=== PATIENT | female | born 1945 | race Hispanic/Latino ===

== ENCOUNTER 2021-04-10 00:12 | Inpatient (IN) | payer MEDICARE ==
[2021-04-10 00:50] LABS: Mean Corpuscular HGB Conc 27 % (30-34); Platelet Count 217 K/mm3 (140-440); Red Blood Count 4.77 M/mm3 (3.65-5.03)
[2021-04-10 00:58] LABS: Hematocrit 31.5 % (30.3-42.9); Hemoglobin 8.6 gm/dl (10.1-14.3)
[2021-04-10 00:59] LABS: Mean Corpuscular Volume 66 fl (79-97); Red Cell Distribution Width 27.2 % (13.2-15.2)
[2021-04-10] MEDS ORDERED: NORepinephrine/NS 8 MG-250 ML 8 MG/250 ML INFUS..BTL IV SCH (01:00)
[2021-04-10 01:17] LABS: INR 4.36 (0.87-1.13)
[2021-04-10 01:18] LABS: Partial Thromboplastin Time 49.7 Sec. (24.2-36.6)
[2021-04-10 01:20] LABS: Creatine Kinase MB 10.3 ng/mL (0.0-4.0)
[2021-04-10 01:23] LABS: Calcium 7.9 mg/dL (8.4-10.2)
--- NOTE | 2021-04-10 01:29 | Emergency Department Report ---
ED CPR HPI - General Chief Complaint: Cardiac Arrest/CPR Stated Complaint: CARDIAC ARREST Time Seen by Provider: 04/10/21 00:31 Source: EMS Mode of arrival: Stretcher Limitations: Altered Mental Status, Physical Limitation - History of Present Illness Initial Comments: Patient is 75 years old female with history of congestive heart failure, atrial fibrillation and flutter, diabetes, obstructive sleep apnea, anemia, Crohn's disease and asthma. Patient brought to the emergency room via EMS from a local assisted in a full cardiac arrest, CPR in progress. EMS stated that patient was noticed by the staff taking her last breath. EMS stated that patient found to be apneic with no pulse. ACLS protocol immediately started by EMS patient had a Al airway. Patient received epinephrine and patient had ROSC. Upon arrival to the ER patient found to be pulseless. CPR immediately started. After several rounds of CPR patient has ROSC. Patient intubated by me using a glide scope. Patient lost her pulse several times with no return of ROSC after CPR and epi. Glucose was 120. For further information please refer to code sheets. Complaint: stopped breathing - Related Data Allergies Allergy/AdvReac Type Severity Reaction Status Date / Time hydrochlorothiazide Allergy Mild Hives Verified 04/10/21 09:46 linezolid Allergy Mild Hives Verified 04/10/21 09:46 Sulfa (Sulfonamide Allergy Mild Hives Verified 04/10/21 09:46 Antibiotics) azithromycin Allergy Hives Verified 04/10/21 09:46 ciprofloxacin [From Cipro] Allergy Hives Verified 04/10/21 09:46 docusate Allergy Hives Verified 04/10/21 09:46 ferrous gluconate Allergy Hives Verified 04/10/21 09:46 hydralazine Allergy Hives Verified 04/10/21 09:46 Penicillins Allergy Unknown Verified 04/10/21 07:34 ketorolac tromethamine Allergy Mild Hives Uncoded 04/10/21 07:35 ED Review of Systems ROS: Stated complaint: CARDIAC ARREST Other details as noted in HPI Comment: Unobtainable due to pts medical conditions ED Past Medical Hx - Past Medical History Hx Hypertension: Yes Hx Diabetes: Yes Hx Arthritis: Yes Hx COPD: Yes Additional medical history: Crohn, a -flutter, A-fib, - Surgical History Past Surgical History?: No - Social History Smoking Status: Never Smoker Substance Use Type: None ED Physical Exam - General Limitations: Altered Mental Status, Physical Limitation General appearance: other (CPR in progress.) - Head Head exam: Present: other (Bilateral periorbital ecchymosis..) - Eye Pupils: Present: other (Pupils 4 mm bilaterally fixed.) - Respiratory Respiratory exam: Present: other (No spontaneous breathing.) - Cardiovascular Cardiovascular Exam: Present: other (No spontaneous heart tone.) - GI/Abdominal GI/Abdominal exam: Present: soft. Absent: distended - Neurological Exam Neurological exam: Present: other (CPR in progress.) ED Course Vital Signs 04/10/21 04/10/21 04/10/21 00:21 00:23 00:31 Temperature 97.5 F L Pulse Rate Respiratory Rate Blood Pressure 266/140 O2 Sat by Pulse 86 78 L Oximetry 04/10/21 04/10/21 04/10/21 00:45 01:00 01:15 Temperature Pulse Rate 157 H 80 Respiratory 24 12 Rate Blood Pressure 102/57 94/52 76/40 O2 Sat by Pulse 78 L 90 78 L Oximetry 04/10/21 04/10/21 04/10/21 01:31 01:45 02:01 Temperature Pulse Rate 96 H 88 Respiratory 24 25 H Rate Blood Pressure 85/59 98/59 118/61 O2 Sat by Pulse 100 100 Oximetry 04/10/21 04/10/21 04/10/21 02:15 02:23 02:31 Temperature Pulse Rate 74 80 74 Respiratory 25 H 25 H Rate Blood Pressure 122/56 78/46 143/63 O2 Sat by Pulse 99 94 100 Oximetry 04/10/21 04/10/21 04/10/21 02:36 02:45 03:01 Temperature Pulse Rate 74 74 Respiratory 25 H 25 H Rate Blood Pressure 150/66 170/74 O2 Sat by Pulse 100 94 95 Oximetry 04/10/21 04/10/21 04/10/21 03:15 03:31 03:45 Temperature Pulse Rate 74 75 74 Respiratory 25 H 25 H 25 H Rate Blood Pressure 151/66 142/63 152/75 O2 Sat by Pulse 97 99 99 Oximetry 04/10/21 04/10/21 04/10/21 04:01 04:15 04:31 Temperature Pulse Rate 72 81 81 Respiratory 25 H 25 H 25 H Rate Blood Pressure 151/69 150/69 150/72 O2 Sat by Pulse 98 92 93 Oximetry 04/10/21 04/10/21 04/10/21 04:46 05:23 05:31 Temperature Pulse Rate 81 74 80 Respiratory 25 H 7 L 25 H Rate Blood Pressure 150/72 142/76 142/76 O2 Sat by Pulse 89 95 87 Oximetry 04/10/21 04/10/21 04/10/21 05:45 05:51 06:01 Temperature Pulse Rate 81 92 H 74 Respiratory 25 H 25 H Rate Blood Pressure 143/78 146/72 O2 Sat by Pulse 93 91 93 Oximetry 04/10/21 04/10/21 04/10/21 06:15 06:31 06:45 Temperature Pulse Rate 74 75 84 Respiratory 25 H 25 H 25 H Rate Blood Pressure 135/69 139/63 141/66 O2 Sat by Pulse 96 97 98 Oximetry 04/10/21 04/10/21 04/10/21 07:01 07:15 07:31 Temperature Pulse Rate 84 84 77 Respiratory 24 25 H 26 H Rate Blood Pressure 149/62 144/75 126/55 O2 Sat by Pulse 98 98 95 Oximetry 04/10/21 04/10/21 04/10/21 07:45 08:00 08:15 Temperature Pulse Rate 77 76 84 Respiratory 26 H 25 H 26 H Rate Blood Pressure 92/44 120/48 153/70 O2 Sat by Pulse 97 93 99 Oximetry 04/10/21 04/10/21 04/10/21 08:31 08:45 08:51 Temperature Pulse Rate 83 83 84 Respiratory 25 H 27 H Rate Blood Pressure 151/64 136/51 144/58 O2 Sat by Pulse 99 97 97 Oximetry 04/10/21 04/10/21 04/10/21 09:01 09:15 09:31 Temperature Pulse Rate 84 84 84 Respiratory 22 26 H 26 H Rate Blood Pressure 138/48 145/50 137/47 O2 Sat by Pulse 98 97 98 Oximetry 04/10/21 04/10/21 04/10/21 09:45 10:01 10:15 Temperature Pulse Rate 84 84 84 Respiratory 28 H 28 H 26 H Rate Blood Pressure 147/62 135/55 138/49 O2 Sat by Pulse 97 98 100 Oximetry 04/10/21 04/10/21 04/10/21 10:31 10:45 11:01 Temperature Pulse Rate 84 84 85 Respiratory 26 H 27 H 29 H Rate Blood Pressure 132/61 137/48 138/49 O2 Sat by Pulse 100 100 100 Oximetry 04/10/21 04/10/21 04/10/21 11:15 11:31 11:45 Temperature Pulse Rate 85 86 88 Respiratory 27 H 26 H 25 H Rate Blood Pressure 143/59 143/58 116/55 O2 Sat by Pulse 100 100 100 Oximetry 04/10/21 04/10/21 04/10/21 12:01 12:15 12:31 Temperature Pulse Rate 74 75 86 Respiratory 25 H 28 H 25 H Rate Blood Pressure 99/46 116/59 151/53 O2 Sat by Pulse 100 100 100 Oximetry 04/10/21 04/10/21 04/10/21 12:45 13:01 13:15 Temperature Pulse Rate 87 88 87 Respiratory 27 H 27 H 27 H Rate Blood Pressure 149/64 155/57 150/68 O2 Sat by Pulse 100 100 100 Oximetry 04/10/21 04/10/21 04/10/21 13:31 13:45 14:01 Temperature Pulse Rate 87 87 87 Respiratory 26 H 27 H 26 H Rate Blood Pressure 137/66 150/68 131/58 O2 Sat by Pulse 100 100 100 Oximetry 04/10/21 04/10/21 04/10/21 14:15 14:31 14:45 Temperature Pulse Rate 76 87 79 Respiratory 25 H 26 H 25 H Rate Blood Pressure 121/47 128/57 128/64 O2 Sat by Pulse 100 100 100 Oximetry 04/10/21 04/10/21 04/10/21 15:01 15:15 15:31 Temperature Pulse Rate 84 88 80 Respiratory 26 H 25 H 25 H Rate Blood Pressure 133/52 116/55 125/57 O2 Sat by Pulse 100 100 100 Oximetry 04/10/21 04/10/21 04/10/21 15:45 16:00 16:01 Temperature Pulse Rate 80 88 81 Respiratory 25 H 27 H Rate Blood Pressure 124/57 116/55 128/55 O2 Sat by Pulse 100 100 100 Oximetry 04/10/21 04/10/21 04/10/21 16:15 16:31 16:45 Temperature Pulse Rate 81 82 80 Respiratory 26 H 22 26 H Rate Blood Pressure 131/57 125/56 119/50 O2 Sat by Pulse 100 98 100 Oximetry 04/10/21 04/10/21 04/10/21 17:01 17:11 17:14 Temperature Pulse Rate 80 80 80 Respiratory 27 H 27 H 27 H Rate Blood Pressure 120/53 117/54 150/68 O2 Sat by Pulse 100 100 100 Oximetry 04/10/21 17:20 Temperature Pulse Rate 80 Respiratory 28 H Rate Blood Pressure 117/55 O2 Sat by Pulse 100 Oximetry - Central Line Placement Right IJ Consent Obtained: emergent situation Time Out Performed: Yes Patient Placed on Monitor/Pulse Ox: Yes MD Prep: mask, gown, gloves Central Line Prep: Povidone-Iodine 1%, Chlorhexidine scrub, sterile drapes applied Local Anesthesia Used: Lidocaine 2% Ultrasound Used for Placement: Yes Central Line Lumen Inserted: triple Reason for Insertion: Volume Resuscitation Central Line Position: good blood return, all ports aspirated, flus, sutured in place with 2-0 Dressing Applied: Tegaderm, sterile gauze/tape Post Procedure X-Ray: tip of catheter in good p Patient Tolerated Procedure: well, no complications Complications: none - Intubation Time Out Performed: Yes Laryngoscope: Chris Size: 4 ET Tube Size: 7.5 Tube Placement Confirmation: visualized tube passing t, equal breath sounds bilat, no breath sounds over epi, confirmation by capnometr Patient Tolerated Procedure: well, no complications Intubation Complications: none ED Medical Decision Making - Lab Data Result diagrams: 04/13/21 04:30 04/13/21 04:30 - EKG Data -: EKG Interpreted by Me EKG shows normal: sinus rhythm Rate: normal - EKG Data Interpretation: no acute changes - Radiology Data Radiology results: report reviewed - Medical Decision Making Patient is 75 years old female with history of congestive heart failure, atrial fibrillation and flutter, diabetes, obstructive sleep apnea, anemia, Crohn's disease and asthma. Patient brought to the emergency room via EMS from a local assisted in a full cardiac arrest, CPR in progress. EMS stated that patient was noticed by the staff taking her last breath. EMS stated that patient found to be apneic with no pulse. ACLS protocol immediately started by EMS patient had a Al airway. Patient received epinephrine and patient had ROSC. Upon arrival to the ER patient found to be pulseless. CPR immediately started. After several rounds of CPR patient has ROSC. Patient intubated by me using a glide scope. Patient lost her pulse several times with ROSC after CPR and epi. Glucose was 120. For further information please refer to code sheets. EKG shows sinus rhythm. No ST elevation noticed on the EKG. Chest x-ray showed bilateral infiltrate concerning for pneumonia. Patient received Zosyn and vancomycin. Troponin is 0.7 however creatinine is 2.6 and BUN of 44. I discussed the patient with Dr. Doss, filler blender he accepted the patient to be admitted to the ICU. I discussed the patient with Dr. Díaz, he accepted the patient to be admitted to the hospital. Critical Care Time: Yes Critical care time in (mins) excluding proc time.: 65 Critical care attestation.: If time is entered above; I have spent that time in minutes in the direct care of this critically ill patient, excluding procedure time. ED Disposition Clinical Impression: Cardiopulmonary arrest, Acute renal failure, Bilateral pneumonia, Metabolic acidosis Disposition: 09 ADMITTED INPATIENT Is pt being admited?: Yes Condition: Stable
[2021-04-10] MEDS ORDERED: SODIUM CHLORIDE 0.9% 1000 ML 1,000 ML IV ONE ×3 (01:34→05:18)
--- NOTE | 2021-04-10 01:48 | XRay Report ---
CHEST 1 VIEW INDICATION: chest pain E T TUBE CENTRAL LINE. COMPARISON: None. FINDINGS: Support devices: Endotracheal tube is in satisfactory position approximately 3-4 cm above the vj. Right IJ catheter tip projects over the SVC. Heart: Normal. Lungs/Pleura: No pneumothorax. There is mild bilateral airspace disease greater on the right. IMPRESSION: 1. Right IJ line and endotracheal tube are in satisfactory position. 2. Mild asymmetric bilateral pulmonary opacities greater on the right. Signer Name: Jean Pierre Torres MD Signed: 04/10/2021 1:43 AM Workstation Name: [id number]
[2021-04-10] MEDS ORDERED: PIPERACILLIN/TAZOBACTAM 3.375 3.375 GM/50 ML BAG IV ONE (01:55)
[2021-04-10] MEDS ORDERED: VANCOMYCIN/NS 1 GM/250 ML 1 GM/250 ML BAG IV ONE (01:55)
[2021-04-10 01:57] LABS: Hypochromasia 2+; Total Cells Counted 100
[2021-04-10 01:58] LABS: Anisocytosis 3+
[2021-04-10 01:59] LABS: Large Platelets Few; Ovalocytes 1+; Poikilocytosis 1+; Tear Drop Cells Few
[2021-04-10 02:00] LABS: Platelet Estimate Consistent w Auto
[2021-04-10 03:31] LABS: Chol/HDL Ratio 2.56 %
[2021-04-10 04:40] LABS: Creatine Kinase MB 14.5 ng/mL (0.0-4.0)
--- NOTE | 2021-04-10 05:43 | Cat Scan Report ---
CT CHEST, ABDOMEN, AND PELVIS WITHOUT IV CONTRAST INDICATION: Pt was brought in by EMS in a Full Cardiac Arrest.. Abdominal pain and distention. COMPARISON: None available. TECHNIQUE: All CT scans at this location are performed using CT dose reduction for ALARA by means of automated e xposure control. Axial CT images were obtained through the chest, abdomen, and pelvis. FINDINGS: Skeletal System: There are minimally displaced anterior left second-eighth rib fractures. There are m inimally displaced anterior right second-sixth rib fractures. CHEST: Heart: Cardiomegaly. There is advanced coronary artery calcification. There is trace pericardial flui d. Thoracic Aorta: No acute abnormality. Mediastinum & Nohemi: No significant abnormality. Lungs: There is mild bilateral groundglass disease diffusely, greater on the right. Consolidative leo nges in the dependent lung bases may be atelectatic. Pleura: No significant pleural effusion. There is a trace right pneumothorax. Airways: No significant abnormality. Additional Findings: Endotracheal tube is in satisfactory position. ABDOMEN: Liver: No significant abnormality. Gallbladder: Removed. Bile Ducts: No significant abnormality. Adrenals: No significant abnormality. Right Kidney and Proximal Ureter: No significant abnormality. Left Kidney and Proximal Ureter: No significant abnormality. Pancreas: No significant abnormality. Spleen: No significant abnormality. Stomach and Bowel: No significant abnormality. Lymph Nodes: No significant adenopathy. Aorta: No significant abnormality. IVC: No significant abnormality. Additional Findings: There is mild diffuse anasarca. There is trace free fluid. PELVIS: Urinary Bladder and Distal Ureters: No significant abnormality. Appendix: No significant abnormality. Colon: No significant abnormality. Free Fluid: None. Lymph Nodes: No significant adenopathy. Additional Findings: There is trace free fluid in the pelvis. IMPRESSION: 1. Multiple bilateral rib fractures as above may be due to chest compressions. There is a trace right pneumothorax. 2. Lateral pulmonary opacities are likely due to pulmonary edema, greater on the right. 3. Cardiomegaly with trace pericardial effusion. 4. Given noncontrast technique, no acute findings in the abdomen/pelvis. Signer Name: Jean Pierre Torres MD Signed: 04/10/2021 5:38 AM Workstation Name: [id number]
--- NOTE | 2021-04-10 05:44 | Cat Scan Report ---
CT HEAD WITHOUT CONTRAST INDICATION: A.M.S. / Pt was brought in by EMS in a Full Cardiac Arrest.. TECHNIQUE: All CT scans at this location are performed using CT dose reduction for ALARA by means of automated e xposure control. COMPARISON: None available. FINDINGS: HEMORRHAGE: None. EXTRA-AXIAL SPACES: Normal in size and morphology for the patient's age. VENTRICULAR SYSTEM: Normal in size and morphology for the patient's age. BRAIN PARENCHYMA: No acute findings. Mild periventricular white matter hypodensities are nonspecific but likely due to microangiopathy. MIDLINE SHIFT OR HERNIATION: None. ORBITS: Normal as visualized. SOFT TISSUES OF HEAD: Normal. CALVARIUM: Normal. VISUALIZED PARANASAL SINUSES AND MASTOID AIR CELLS: Clear. ADDITIONAL FINDINGS: None. IMPRESSION: 1. No acute intracranial abnormality. Signer Name: Jean Pierre Torres MD Signed: 04/10/2021 5:40 AM Workstation Name: [id number]
[2021-04-10] MEDS ORDERED: ACETAMINOPHEN 325 MG TAB PO PRN (05:52)
[2021-04-10] MEDS ORDERED: traMADol 50 MG TAB PO PRN (05:52)
[2021-04-10] MEDS ORDERED: DEXTROSE 50% IN WATER (25GM) 50 ML SYRINGE IV PRN ×2 (05:52→15:31)
[2021-04-10] MEDS ORDERED: NITROGLYCERIN 0.4 MG TAB SUBL SL PRN (05:52)
[2021-04-10] MEDS ORDERED: MORPHINE 4 MG/1 ML INJ IV PRN (05:52)
[2021-04-10] MEDS ORDERED: HEPARIN 5,000 UNIT/1 ML VIAL SUB-Q SCH (06:00)
[2021-04-10] MEDS ORDERED: VANCOMYCIN/NS 1 GM/250 ML 1 GM/250 ML BAG IV SCH ×2 (06:00→10:00)
[2021-04-10] MEDS ORDERED: PIPERACIL/TAZOBACTA 4.5/NS 100 4.5 GM/100 ML VIAL IV SCH (06:00)
--- NOTE | 2021-04-10 06:03 | History and Physical Report ---
History of Present Illness Date of examination: 04/10/21 Date of admission: 04/10/21 Chief complaint: Cardiac arrest multiple times Anoxic brain injury History of present illness: 75 years old female with history of congestive heart failure, atrial fibrillation and flutter, diabetes, obstructive sleep apnea, anemia, Crohn's disease and asthma was brought to the emergency room via EMS from a local retirement in a full cardiac arrest, CPR in progress. EMS stated that patient was noticed by the staff taking her last breath. EMS stated that patient found to be apneic with no pulse. ACLS protocol immediately started by EMS patient had a Al airway. Patient received epinephrine and patient had ROSC. Upon arrival to the ER patient found to be pulseless. CPR immediately started. After several rounds of CPR patient has ROSC. Patient intubated by me using a glide scope. Patient lost her pulse several times with ROSC after CPR and epi. Glucose was 120. For further information please refer to code sheets. EKG shows sinus rhythm. No ST elevation noticed on the EKG. troponin is 0.721 chest x-ray showed bilateral infiltrate concerning for pneumonia. Lactic acid is 10.70, BUN is 44 creatinine 2.6, patient received Zosyn and vancomycin. Case discussed the patient with Dr. Doss, [employer] . We are going to admit the patient to the ICU. Will consult cardiology, neurology, nephrology and critical care. Prognosis is poor. Case discussed with sonAkhil and explained everything. He will talk with the other family members regarding the CODE STATUS and let us know about the CODE STATUS. Akhil Quintanilla will call us back about CODE STATUS. Past History Past Medical History: atrial fib, anemia (Crohn's disease, asthma), diabetes, heart failure, other (Obstructive sleep apnea) Medications and Allergies Allergies Allergy/AdvReac Type Severity Reaction Status Date / Time azithromycin AdvReac Hives Verified 04/10/21 00:30 ciprofloxacin [From Cipro] AdvReac Hives Verified 04/10/21 00:30 docusate AdvReac Hives Verified 04/10/21 00:30 ferrous gluconate AdvReac Hives Verified 04/10/21 00:30 hydralazine AdvReac Hives Verified 04/10/21 00:30 hydrochlorothiazide AdvReac Hives Verified 04/10/21 00:30 linezolid AdvReac Hives Verified 04/10/21 00:30 Penicillins AdvReac Unknown Verified 04/10/21 00:23 Sulfa (Sulfonamide AdvReac Hives Verified 04/10/21 00:30 Antibiotics) ketorolac tromethamine AdvReac Hives Uncoded 04/10/21 00:30 Active Meds: Active Medications NORepinephrine/NS 8 MG-250 ML (Norepinephrine/Ns 8 Mg-250 Ml (Double Conc)) 8 mg in 250 mls @ 3.75 mls/hr IV TITRATE JAROD; Protocol Last Titration: 04/10/21 03:39 Dose: 15 mcg/min, 28.125 mls/hr Documented by: Sodium Chloride (Nacl 0.9% 1000 Ml) 1,000 mls @ 999 mls/hr IV BOLUS ONE Stop: 04/10/21 06:18 Sodium Chloride (Nacl 0.9% 1000 Ml) 1,000 mls @ 250 mls/hr IV ONCE ONE Stop: 04/10/21 09:17 Review of Systems All systems: negative Cardiovascular: other (Cardiac arrest) Neurological: change in mentation, other (Altered mental status) Exam - Constitutional Vitals: Temp Pulse Resp BP Pulse Ox 97.5 F L 92 H 25 H 143/63 91 04/10/21 00:23 04/10/21 05:51 04/10/21 02:31 04/10/21 02:31 04/10/21 05:51 General appearance: Present: severe distress, well-nourished - EENT Eyes: Present: PERRL ENT: hearing intact, clear oral mucosa - Neck Neck: Present: supple, normal ROM - Respiratory Respiratory effort: normal Respiratory: bilateral: diminished - Cardiovascular Heart Sounds: Present: S1 & S2. Absent: rub, click - Extremities Extremities: pulses symmetrical, No edema Peripheral Pulses: within normal limits - Abdominal General gastrointestinal: Present: soft, non-tender, non-distended, normal bowel sounds Female genitourinary: Present: normal - Integumentary Integumentary: Present: clear, warm, dry - Psychiatric Psychiatric: other (Patient is altered mental status and is on vent) - Neurologic Neurologic: CNII-XII intact, other (Patient is altered mental status and patient is on vent) HEART Score - HEART Score Troponin: Troponin T 0.757 ng/mL (0.00-0.029) H* 11/03/21 03:23 Results - Labs CBC & Chem 7: 04/10/21 00:36 04/10/21 00:36 Labs: Laboratory Last Values WBC 10.5 K/mm3 (4.5-11.0) 04/10/21 00:36 RBC 4.77 M/mm3 (3.65-5.03) 04/10/21 00:36 Hgb 8.6 gm/dl (10.1-14.3) L 04/10/21 00:36 Hct 31.5 % (30.3-42.9) 04/10/21 00:36 MCV 66 fl (79-97) L 04/10/21 00:36 MCH 18 pg (28-32) L 04/10/21 00:36 MCHC 27 % (30-34) L 04/10/21 00:36 RDW 27.2 % (13.2-15.2) H 04/10/21 00:36 Plt Count 217 K/mm3 (140-440) 04/10/21 00:36 Add Manual Diff Complete 04/10/21 00:36 Total Counted 100 04/10/21 00:36 Seg Neuts % (Manual) 56.0 % (40.0-70.0) 04/10/21 00:36 Lymphocytes % (Manual) 42.0 % (13.4-35.0) H 04/10/21 00:36 Eosinophils % (Manual) 2.0 % (0.0-4.3) 04/10/21 00:36 Nucleated RBC % 9.0 % (0.0-0.9) H 04/10/21 00:36 Seg Neutrophils # Man 0.0 K/mm3 (1.8-7.7) L 04/10/21 00:36 Band Neutrophils # 0.0 K/mm3 04/10/21 00:36 Lymphocytes # (Manual) 0.0 K/mm3 (1.2-5.4) L 04/10/21 00:36 Abs React Lymphs (Man) 0.0 K/mm3 04/10/21 00:36 Monocytes # (Manual) 0.0 K/mm3 (0.0-0.8) 04/10/21 00:36 Eosinophils # (Manual) 0.0 K/mm3 (0.0-0.4) 04/10/21 00:36 Basophils # (Manual) 0.0 K/mm3 (0.0-0.1) 04/10/21 00:36 Metamyelocytes # 0.0 K/mm3 04/10/21 00:36 Myelocytes # 0.0 K/mm3 04/10/21 00:36 Promyelocytes # 0.0 K/mm3 04/10/21 00:36 Blast Cells # 0.0 K/mm3 04/10/21 00:36 WBC Morphology Not Reportable 04/10/21 00:36 Hypersegmented Neuts Not Reportable 04/10/21 00:36 Hyposegmented Neuts Not Reportable 04/10/21 00:36 Hypogranular Neuts Not Reportable 04/10/21 00:36 Smudge Cells Not Reportable 04/10/21 00:36 Toxic Granulation Not Reportable 04/10/21 00:36 Toxic Vacuolation Not Reportable 04/10/21 00:36 Dohle Bodies Not Reportable 04/10/21 00:36 Pelger-Huet Anomaly Not Reportable 04/10/21 00:36 Katie Rods Not Reportable 04/10/21 00:36 Platelet Estimate Consistent w auto 04/10/21 00:36 Clumped Platelets Not Reportable 04/10/21 00:36 Plt Clumps, EDTA Not Reportable 04/10/21 00:36 Large Platelets Few 04/10/21 00:36 Giant Platelets Not Reportable 04/10/21 00:36 Platelet Satelliting Not Reportable 04/10/21 00:36 Plt Morphology Comment Not Reportable 04/10/21 00:36 RBC Morphology Not Reportable 04/10/21 00:36 Dimorphic RBCs Not Reportable 04/10/21 00:36 Polychromasia Not Reportable 04/10/21 00:36 Hypochromasia 2+ 04/10/21 00:36 Poikilocytosis 1+ 04/10/21 00:36 Anisocytosis 3+ 04/10/21 00:36 Microcytosis 1+ 04/10/21 00:36 Macrocytosis Not Reportable 04/10/21 00:36 Spherocytes Not Reportable 04/10/21 00:36 Pappenheimer Bodies Not Reportable 04/10/21 00:36 Sickle Cells Not Reportable 04/10/21 00:36 Target Cells Not Reportable 04/10/21 00:36 Tear Drop Cells Few 04/10/21 00:36 Ovalocytes 1+ 04/10/21 00:36 Helmet Cells Not Reportable 04/10/21 00:36 [place] Bodies Not Reportable 04/10/21 00:36 [place] Rings Not Reportable 04/10/21 00:36 [place] Cells Not Reportable 04/10/21 00:36 Bite Cells Not Reportable 04/10/21 00:36 Crenated Cell Not Reportable 04/10/21 00:36 Elliptocytes 1+ 04/10/21 00:36 Acanthocytes (Spur) Not Reportable 04/10/21 00:36 Rouleaux Not Reportable 04/10/21 00:36 Hemoglobin C Crystals Not Reportable 04/10/21 00:36 Schistocytes Not Reportable 04/10/21 00:36 Malaria parasites Not Reportable 04/10/21 00:36 Jabari Bodies Not Reportable 04/10/21 00:36 Hem Pathologist Commnt No 04/10/21 00:36 PT 44.8 Sec. (12.2-14.9) H 04/10/21 00:36 INR 4.36 (0.87-1.13) H 04/10/21 00:36 APTT 49.7 Sec. (24.2-36.6) H 04/10/21 00:36 ABG pH 7.305 (7.320-7.450) L 04/10/21 04:00 POC ABG pCO2 38.8 mmHg (32.0-48.0) 04/10/21 04:00 POC ABG pO2 64.3 mmHg (83-108) L 04/10/21 04:00 POC ABG HCO3 18.9 04/10/21 04:00 ABG O2 Saturation 88.8 (0-100) 04/10/21 04:00 POC ABG Base Excess -6.9 04/10/21 04:00 ABG Hemoglobin 9.6 (12.0-17.5) L 04/10/21 04:00 ABG Oxyhemoglobin 87.6 (94-98) L 04/10/21 04:00 ABG Methemoglobin 0.3 (0.0-1.5) 04/10/21 04:00 ABG Sodium 135.2 mmol/L (136.0-145.0) L 04/10/21 04:00 ABG Potassium 4.8 mmol/L (3.40-4.50) H 04/10/21 04:00 ABG Chloride 100.0 mmol/L (98-107) 04/10/21 04:00 ABG Glucose 78 mg/dL (65-95) 04/10/21 04:00 Carboxyhemoglobin 1.0 (0.5-1.5) 04/10/21 04:00 FiO2 % 80.0 04/10/21 04:00 Sodium 138 mmol/L (137-145) 04/10/21 00:36 Potassium 5.5 mmol/L (3.6-5.0) H 04/10/21 00:36 Chloride 97.2 mmol/L (98-107) L 04/10/21 00:36 Carbon Dioxide 14 mmol/L (22-30) L 04/10/21 00:36 Anion Gap 32 mmol/L 04/10/21 00:36 BUN 44 mg/dL (7-17) H 04/10/21 00:36 Creatinine 2.6 mg/dL (0.6-1.2) H 04/10/21 00:36 Estimated GFR 18 ml/min 04/10/21 00:36 BUN/Creatinine Ratio 17 % 04/10/21 00:36 Glucose 47 mg/dL (65-100) L 04/10/21 00:36 Lactic Acid 10.20 mmol/L (0.7-2.0) H* 04/10/21 04:09 Calcium 7.9 mg/dL (8.4-10.2) L 04/10/21 00:36 Total Creatine Kinase 308 units/L (30-135) H 04/10/21 03:23 CK-MB (CK-2) 14.5 ng/mL (0.0-4.0) H 04/10/21 03:23 CK-MB (CK-2) Rel Index 4.7 (0-4) H 04/10/21 03:23 Troponin T 0.757 ng/mL (0.00-0.029) H* 04/10/21 03:23 Triglycerides 67 mg/dL (2-149) 04/10/21 00:36 Cholesterol 77 mg/dL (50-199) 04/10/21 00:36 LDL Cholesterol Direct 42 mg/dL (50-130) L 04/10/21 00:36 HDL Cholesterol 30 mg/dL (40-59) L 04/10/21 00:36 Cholesterol/HDL Ratio 2.56 % 04/10/21 00:36 Arterial Blood Glucose 78 mg/dL (65-95) 04/10/21 04:00 Blood Type O POSITIVE 04/10/21 00:36 Antibody Screen Negative 04/10/21 00:36 Microbiology: Microbiology 04/10/21 01:56 Peripheral/Venous Blood Culture - Preliminary Culture in Progress 04/10/21 01:51 Peripheral/Venous Blood Culture - Preliminary Culture in Progress - Imaging and Cardiology CT scan - abdomen: report reviewed CT scan - chest: report reviewed CT Scan - head: report reviewed Assessment and Plan VTE prophylaxis?: Chemical Plan of care discussed with patient/family: Yes - Patient Problems (1) Cardiopulmonary arrest Current Visit: Yes Status: Acute Plan to address problem: Admit the patient to the ICU. NPO. Normal saline at the rate of 100 cc/h. Aspirin 81 mg p.o. daily. Lipitor 40 mg p.o. daily. Echocardiogram. C ardiology and critical care evaluation (2) Bilateral pneumonia Current Visit: Yes Status: Acute Plan to address problem: DuoNeb by nebulizer every 4 hours. Albuterol via nebulizer every 4 hours as needed. Zosyn 4.5 g IV every 8 hours. Vancomycin 1 g IV every 12 hours. Critical care evaluation (3) Acute renal failure Current Visit: Yes Status: Acute Plan to address problem: NPO. Normal saline at the rate of 100 cc/h. Avoid nephrotoxic drug. Renally dose medication. Nephrology consult. Recheck BMP in the morning (4) Congestive heart failure Current Visit: Yes Status: Acute Plan to address problem: Stable. We will monitor the patient closely. Echocardiogram. Cardiology consult (5) Atrial fibrillation Current Visit: Yes Status: Acute Plan to address problem: Patient is on Eliquis with supratherapeutic INR. Will hold the Eliquis. We will continue the other home medication. Echocardiogram and cardiology consult (6) Metabolic acidosis Current Visit: Yes Status: Acute Plan to address problem: NPO. Normal saline at the rate of 100 cc/h. Zosyn 4.5 g IV every 8 hours and vancomycin 1 g IV every 12 hours. Recheck lactic acid in 4 hours. Recheck CBC BMP in the morning. Critical care evaluation (7) Diabetes Current Visit: Yes Status: Acute Plan to address problem: NPO. IV fluid normal saline at the rate of 100 cc/h. Accu-Chek every 6 hours with Humalog moderate dose coverage. Diabetic education (8) Obstructive sleep apnea Current Visit: Yes Status: Acute Plan to address problem: Patient is on vent. DuoNeb by nebulizer every 4 hours. Albuterol via nebulizer every 4 hours as needed. Critical care evaluation (9) Pneumothorax Current Visit: Yes Status: Acute Plan to address problem: Patient has tiny pneumothorax. Patient is on vent. DuoNeb by nebulizer every 4 hours. Critical care evaluation (10) DVT prophylaxis Current Visit: Yes Status: Acute Plan to address problem: SCD because patient has supratherapeutic INR. Protonix 40 mg p.o. daily for GI prophylaxis. Patient is a full code. Prognosis is poor
[2021-04-10] MEDS ORDERED: VANCOMYCIN PHARMACY TO DOSE IV SCH (07:00)
[2021-04-10] MEDS: CLINDAMYCIN 600 MG/50 mL 600 MG/50 ML BAG IV SCH ×2 (08:00→14:06)
[2021-04-10] MEDS: ASPIRIN 81 MG TAB CHEW PO SCH (08:08)
--- NOTE | 2021-04-10 08:30 | Consultation ---
History of Present Illness Consult date: 04/10/21 Reason for Consult: Post cardiac arrest History of present illness: Cardiac arrest multiple times Anoxic brain injury History of present illness: 75 years old female with history of congestive heart failure, atrial fib rillation and flutter, diabetes, obstructive sleep apnea, anemia, Crohn's disease and asthma was brought to the emergency room [facility] [place] in a full cardiac arrest, CPR in progress. EMS stated that patient was noticed by the staff taking her last breath. EMS stated that patient found to be apneic with no pulse. ACLS protocol immediately started by EMS patient had a Al airway. Patient received epinephrine and patient had ROSC. Upon arrival to the ER patient found to be pulseless. CPR immediately started. After several rounds of CPR patient has ROSC. Patient intubated by me using a glide scope. Patient lost her pulse several times with ROSC after CPR and epi. Glucose was 120. For further information please refer to code sheets. EKG shows sinus rhythm. No ST elevation noticed on the EKG. troponin is 0.721 chest x-ray showed bilateral infiltrate concerning for pneumonia. Lactic acid is 10.70, BUN is 44 creatinine 2.6, patient received Zosyn and vancomycin. Case discussed the patient with Dr. Doss, nutritional assistant . We are going to admit the patient to the ICU. Will consult cardiology, neurology, nephrology and critical care. Prognosis is poor. Case discussed with sonAkhil and explained everything. He will talk with the other family members regarding the CODE STATUS and let us know about the CODE STATUS. Akhil Quintanilla will call us back about CODE STATUS. In ER pt. is intubated not sedated no response to command or sternal rub , possible myoclonus is note, racoon eyes is noted bilateral , pupils reactive Head CT is unremarkable she is with hx of AF#90 on ASA ,Lipitor and Norepi now. Past History Past Medical History: atrial fib, anemia (Crohn's disease, asthma), diabetes, heart failure, other (Obstructive sleep apnea) Medications and Allergies Allergies Allergy/AdvReac Type Severity Reaction Status Date / Time azithromycin AdvReac Hives Verified 04/10/21 00:30 ciprofloxacin [From Cipro] AdvReac Hives Verified 04/10/21 00:30 docusate AdvReac Hives Verified 04/10/21 00:30 ferrous gluconate AdvReac Hives Verified 04/10/21 00:30 hydralazine AdvReac Hives Verified 04/10/21 00:30 hydrochlorothiazide AdvReac Hives Verified 04/10/21 00:30 linezolid AdvReac Hives Verified 04/10/21 00:30 Penicillins AdvReac Unknown Verified 04/10/21 00:23 Sulfa (Sulfonamide AdvReac Hives Verified 04/10/21 00:30 Antibiotics) ketorolac tromethamine AdvReac Hives Uncoded 04/10/21 00:30 Active Meds: Active Medications NORepinephrine/NS 8 MG-250 ML (Norepinephrine/Ns 8 Mg-250 Ml (Double Conc)) 8 mg in 250 mls @ 3.75 mls/hr IV TITRATE JAROD; Protocol Last Titration: 04/10/21 03:39 Dose: 15 mcg/min, 28.125 mls/hr Documented by: Sodium Chloride (Nacl 0.9% 1000 Ml) 1,000 mls @ 999 mls/hr IV BOLUS ONE Stop: 04/10/21 06:18 Sodium Chloride (Nacl 0.9% 1000 Ml) 1,000 mls @ 250 mls/hr IV ONCE ONE Stop: 04/10/21 09:17 Review of Systems All systems: negative Cardiovascular: other (Cardiac arrest) Neurological: change in mentation, other (Altered mental status) Past History Past Medical History: atrial fib, anemia (Crohn's disease, asthma), diabetes, heart failure, other (Obstructive sleep apnea) Medications and Allergies Allergies Allergy/AdvReac Type Severity Reaction Status Date / Time hydrochlorothiazide Allergy Mild Hives Verified 04/10/21 09:46 linezolid Allergy Mild Hives Verified 04/10/21 09:46 Sulfa (Sulfonamide Allergy Mild Hives Verified 04/10/21 09:46 Antibiotics) azithromycin Allergy Hives Verified 04/10/21 09:46 ciprofloxacin [From Cipro] Allergy Hives Verified 04/10/21 09:46 docusate Allergy Hives Verified 04/10/21 09:46 ferrous gluconate Allergy Hives Verified 04/10/21 09:46 hydralazine Allergy Hives Verified 04/10/21 09:46 Penicillins Allergy Unknown Verified 04/10/21 07:34 ketorolac tromethamine Allergy Mild Hives Uncoded 04/10/21 07:35 Active Meds: Active Medications Acetaminophen (Acetaminophen 325 Mg Tab) 650 mg PO Q6H PRN PRN Reason: Pain, Mild (1-3) Aspirin (Aspirin 81 Mg Tab Chew) 81 mg PO QDAY JAROD Last Admin: 04/10/21 08:08 Dose: Not Given Documented by: Atorvastatin Calcium (Atorvastatin 40 Mg Tab) 40 mg PO QHS JAROD Dextrose (Dextrose 50% In Water (25gm) 50 Ml Syringe) 0 ml IV Q30MIN PRN; Delilah col PRN Reason: Hypoglycemia NORepinephrine/NS 8 MG-250 ML (Norepinephrine/Ns 8 Mg-250 Ml (Double Conc)) 8 mg in 250 mls @ 3.75 mls/hr IV TITRATE JAROD; Protocol Last Titration: 04/10/21 03:39 Dose: 15 mcg/min, 28.125 mls/hr Documented by: Sodium Chloride (Nacl 0.9% 1000 Ml) 1,000 mls @ 250 mls/hr IV ONCE ONE Stop: 04/10/21 09:17 Sodium Chloride (Nacl 0.9% 1000 Ml) 1,000 mls @ 100 mls/hr IV DIRECT JAROD Clindamycin HCl (Cleocin 600 Mg/50 Ml) 600 mg in 50 mls @ 100 mls/hr IV Q8HR JAROD Insulin Human Lispro (Insulin Lispro 100 Unit/Ml) 0 unit SUB-Q Q6HR JAROD; Protocol Morphine Sulfate (Morphine 4 Mg/1 Ml Inj) 2 mg IV Q5MIN PRN PRN Reason: Chest Pain unrelieved by NTG Nitroglycerin (Nitroglycerin 0.4 Mg Tab Subl) 0.4 mg SL Q5M PRN PRN Reason: Chest Pain Pantoprazole Sodium (Pantoprazole 40 Mg Tab) 40 mg PO QDAY JAROD Sodium Chloride (Sodium Chloride 0.9% 10 Ml Flush Syringe) 10 ml IV PRN PRN PRN Reason: LINE FLUSH Tramadol HCl (Tramadol 50 Mg Tab) 50 mg PO Q6H PRN PRN Reason: Pain, Moderate (4-6) Physical Examination - Vital Signs Vital Signs: Vital Signs Pulse Ox 86 04/10/21 00:21 - Constitutional General appearance: comfortable, other (intubated not sedated) - EENT EENT: Present: PERRL - Respiratory Respiratory: Present: lungs clear, rhonchi - Cardiovascular Cardiovascular: Present: other (irregular) Extremities: Present: chronic venous stasis change - Gastrointestinal Gastrointestinal: Present: normoactive bowel sounds - Integumentary Integumentary: Present: normal - Neurologic Cranial nerve examination: other (pupils 3mm poorly reactive, No facial asymmetry ,No EOM is noted , NO gag , No corneal is noted) Detailed motor examination: other (no molovment to stimuli , planter is equivical , intermittent myoclonus is noted ) Results - Laboratory Findings CBC and BMP: 04/10/21 09:53 04/10/21 00:36 Abnormal Lab Findings: Abnormal Labs 04/10/21 04/10/21 04/10/21 00:36 00:36 00:36 Hgb 8.6 L MCV 66 L MCH 18 L MCHC 27 L RDW 27.2 H Lymphocytes % (Manual) 42.0 H Nucleated RBC % 9.0 H Seg Neutrophils # Man 0.0 L Lymphocytes # (Manual) 0.0 L PT 44.8 H INR 4.36 H APTT 49.7 H ABG pH POC ABG pCO2 POC ABG pO2 ABG Hemoglobin ABG Oxyhemoglobin ABG Sodium ABG Potassium ABG Glucose Potassium 5.5 H Chloride 97.2 L Carbon Dioxide 14 L BUN 44 H Creatinine 2.6 H Glucose 47 L Lactic Acid Calcium 7.9 L Total Creatine Kinase 222 H CK-MB (CK-2) 10.3 H CK-MB (CK-2) Rel Index 4.6 H Troponin T 0.721 H* LDL Cholesterol Direct 42 L HDL Cholesterol 30 L Arterial Blood Glucose 04/10/21 04/10/21 04/10/21 01:28 01:51 03:23 Hgb MCV MCH MCHC RDW Lymphocytes % (Manual) Nucleated RBC % Seg Neutrophils # Man Lymphocytes # (Manual) PT INR APTT ABG pH 7.078 L POC ABG pCO2 52.0 H POC ABG pO2 112.0 H ABG Hemoglobin 8.8 L ABG Oxyhemoglobin ABG Sodium ABG Potassium 4.9 H ABG Glucose 44 L Potassium Chloride Carbon Dioxide BUN Creatinine Glucose Lactic Acid 10.70 H* Calcium Total Creatine Kinase 308 H CK-MB (CK-2) 14.5 H CK-MB (CK-2) Rel Index 4.7 H Troponin T 0.757 H* LDL Cholesterol Direct HDL Cholesterol Arterial Blood Glucose 44 L 04/10/21 04/10/21 04:00 04:09 Hgb MCV MCH MCHC RDW Lymphocytes % (Manual) Nucleated RBC % Seg Neutrophils # Man Lymphocytes # (Manual) PT INR APTT ABG pH 7.305 L POC ABG pCO2 POC ABG pO2 64.3 L ABG Hemoglobin 9.6 L ABG Oxyhemoglobin 87.6 L ABG Sodium 135.2 L ABG Potassium 4.8 H ABG Glucose Potassium Chloride Carbon Dioxide BUN Creatinine Glucose Lactic Acid 10.20 H* Calcium Total Creatine Kinase CK-MB (CK-2) CK-MB (CK-2) Rel Index Troponin T LDL Cholesterol Direct HDL Cholesterol Arterial Blood Glucose Assessment and Plan Assessment and Plan VTE prophylaxis?: Chemical Plan of care discussed with patient/family: Yes - Patient Problems # Cardiopulmonary arrest with post anoxic brain injury -she is intubated not sedated CT brain is unremarkable -Myoclonus is noted intermittently -Finding is consistent with significant brain injury -EEG today -Admit the patient to the ICU. - NPO. - Normal saline at the rate of 100 cc/h. - Aspirin 81 mg p.o. daily. - Lipitor 40 mg p.o. daily. -Echocardiogram. -Keppra 500 mg Iv BID adjust dose accordingly # Bilateral pneumonia -DuoNeb by nebulizer every 4 hours. Albuterol via nebulizer every 4 hours as needed. Zosyn 4.5 g IV every 8 hours. Vancomycin 1 g IV every 12 hours. Critical care evaluation # Acute renal failure -BUN/Cr#44/2.6 -NPO. Normal saline at the rate of 100 cc/h. Avoid nephrotoxic drug. Renally dose medication. Nephrology consult. Recheck BMP in the morning # Congestive heart failure -Stable. - Echocardiogram. - Cardiology consult # Atrial fibrillation -Patient is on Eliquis with supratherapeutic INR.#4.36 ? repeat am - Will hold the Eliquis. - We will continue the other home medication. - Echocardiogram and cardiology consult # Metabolic acidosis - NPO. Normal saline at the rate of 100 cc/h. Zosyn 4.5 g IV every 8 hours and vancomycin 1 g IV every 12 hours. Recheck lactic acid in 4 hours. Recheck CBC BMP in the morning. Critical care evaluation # Diabetes -NPO. IV fluid normal saline at the rate of 100 cc/h. Accu-Chek every 6 hours with Humalog moderate dose coverage. Diabetic education # Obstructive sleep apnea -Patient is on vent. DuoNeb by nebulizer every 4 hours. Albuterol via nebulizer every 4 hours as needed. Critical care evaluation # Pneumothorax -Patient has tiny pneumothorax related to CPR and multiple ribs fracture related to above. - Patient is on vent. DuoNeb by nebulizer every 4 hours. Critical care evaluation (10) DVT prophylaxis -SCD because patient has supratherapeutic INR. Protonix 40 mg p.o. daily for GI prophylaxis. Patient is a full code. Prognosis is poor
--- NOTE | 2021-04-10 08:42 | Electrocardiograph Report ---
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
[2021-04-10] MEDS ORDERED: PANTOPRAZOLE 40 MG TAB PO SCH (10:00)
[2021-04-10 10:09] LABS: Hematocrit 27.7 % (30.3-42.9); Hemoglobin 8.3 gm/dl (10.1-14.3); Mean Corpuscular HGB Conc 30 % (30-34); Platelet Count 174 K/mm3 (140-440); Red Blood Count 4.49 M/mm3 (3.65-5.03)
[2021-04-10 10:10] LABS: Mean Corpuscular Volume 62 fl (79-97); Red Cell Distribution Width 26.7 % (13.2-15.2)
[2021-04-10] MEDS: INSULIN LISPRO 100 UNIT/ML SUB-Q SCH ×3 (10:18→18:16)
[2021-04-10] MEDS: PANTOPRAZOLE 40 MG INJ IV SCH (10:18)
--- NOTE | 2021-04-10 11:07 | Consultation ---
History of Present Illness Consult date: 04/10/21 History of present illness: 75 y/o female with multiple cardiac arrest now unresponsive on vent. Past History Past Medical History: atrial fib, anemia (Crohn's disease, asthma), diabetes, heart failure, other (Obstructive sleep apnea) Medications and Allergies Allergies Allergy/AdvReac Type Severity Reaction Status Date / Time hydrochlorothiazide Allergy Mild Hives Verified 04/10/21 09:46 linezolid Allergy Mild Hives Verified 04/10/21 09:46 Sulfa (Sulfonamide Allergy Mild Hives Verified 04/10/21 09:46 Antibiotics) azithromycin Allergy Hives Verified 04/10/21 09:46 ciprofloxacin [From Cipro] Allergy Hives Verified 04/10/21 09:46 docusate Allergy Hives Verified 04/10/21 09:46 ferrous gluconate Allergy Hives Verified 04/10/21 09:46 hydralazine Allergy Hives Verified 04/10/21 09:46 Penicillins Allergy Unknown Verified 04/10/21 07:34 ketorolac tromethamine Allergy Mild Hives Uncoded 04/10/21 07:35 Active Meds: Active Medications Acetaminophen (Acetaminophen 325 Mg Tab) 650 mg PO Q6H PRN PRN Reason: Pain, Mild (1-3) Aspirin (Aspirin 81 Mg Tab Chew) 81 mg PO QDAY JAROD Last Admin: 04/10/21 08:08 Dose: Not Given Documented by: Atorvastatin Calcium (Atorvastatin 40 Mg Tab) 40 mg PO QHS JAROD Dextrose (Dextrose 50% In Water (25gm) 50 Ml Syringe) 0 ml IV Q30MIN PRN; Protocol PRN Reason: Hypoglycemia NORepinephrine/NS 8 MG-250 ML (Norepinephrine/Ns 8 Mg-250 Ml (Double Conc)) 8 mg in 250 mls @ 3.75 mls/hr IV TITRATE JAROD; Protocol Last Titration: 04/10/21 10:35 Dose: 10 mcg/min, 18.75 mls/hr Documented by: Sodium Chloride (Nacl 0.9% 1000 Ml) 1,000 mls @ 100 mls/hr IV DIRECT JAROD Clindamycin HCl (Cleocin 600 Mg/50 Ml) 600 mg in 50 mls @ 100 mls/hr IV Q8HR [facility]AR[facility] Last Admin: 04/10/21 08:00 Dose: 100 mls/hr Documented by: Vancomycin HCl (Vancomycin/Ns 1 Gm/250 Ml) 1 gm in 250 mls @ 167.007 mls/hr IV ONCE@1000 [facility] Stop: 04/10/21 13:00 Insulin Human Lispro (Insulin Lispro 100 Unit/Ml) 0 unit SUB-Q Q6HR [facility]; Protocol Last Admin: 04/10/21 10:18 Dose: Not Given Documented by: Morphine Sulfate (Morphine 4 Mg/1 Ml Inj) 2 mg IV Q5MIN PRN PRN Reason: Chest Pain unrelieved by NTG Nitroglycerin (Nitroglycerin 0.4 Mg Tab Subl) 0.4 mg SL Q5M PRN PRN Reason: Chest Pain Pantoprazole Sodium (Pantoprazole 40 Mg Inj) 40 mg IV QDAY [facility] Last Admin: 04/10/21 10:18 Dose: Not Given Documented by: Sodium Chloride (Sodium Chloride 0.9% 10 Ml Flush Syringe) 10 ml IV PRN PRN PRN Reason: LINE FLUSH Tramadol HCl (Tramadol 50 Mg Tab) 50 mg PO Q6H PRN PRN Reason: Pain, Moderate (4-6) Physical Examination Vital signs: Vital Signs Pulse Ox 86 04/10/21 00:21 Results - Laboratory Findings CBC and BMP: 04/11/21 04:20 04/11/21 04:20 ABG ABG pH 7.305 (7.320-7.450) L 04/10/21 04:00 POC ABG pCO2 38.8 mmHg (32.0-48.0) 04/10/21 04:00 POC ABG pO2 64.3 mmHg (83-108) L 04/10/21 04:00 POC ABG HCO3 18.9 04/10/21 04:00 ABG O2 Saturation 88.8 (0-100) 04/10/21 04:00 PT/INR, D-dimer PT 44.8 Sec. (12.2-14.9) H 04/10/21 00:36 INR 4.36 (0.87-1.13) H 04/10/21 00:36 Abnormal lab findings: Abnormal Labs 04/10/21 04/10/21 04/10/21 00:36 00:36 00:36 WBC Hgb 8.6 L Hct MCV 66 L MCH 18 L MCHC 27 L RDW 27.2 H Lymphocytes % (Manual) 42.0 H Nucleated RBC % 9.0 H Seg Neutrophils # Man 0.0 L Lymphocytes # (Manual) 0.0 L PT 44.8 H INR 4.36 H APTT 49.7 H ABG pH POC ABG pCO2 POC ABG pO2 ABG Hemoglobin ABG Oxyhemoglobin ABG Sodium ABG Potassium ABG Glucose Potassium 5.5 H Chloride 97.2 L Carbon Dioxide 14 L BUN 44 H Creatinine 2.6 H Glucose 47 L Lactic Acid Calcium 7.9 L Total Creatine Kinase 222 H CK-MB (CK-2) 10.3 H CK-MB (CK-2) Rel Index 4.6 H Troponin T 0.721 H* LDL Cholesterol Direct 42 L HDL Cholesterol 30 L Arterial Blood Glucose 04/10/21 04/10/21 04/10/21 01:28 01:51 03:23 WBC Hgb Hct MCV MCH MCHC RDW Lymphocytes % (Manual) Nucleated RBC % Seg Neutrophils # Man Lymphocytes # (Manual) PT INR APTT ABG pH 7.078 L POC ABG pCO2 52.0 H POC ABG pO2 112.0 H ABG Hemoglobin 8.8 L ABG Oxyhemoglobin ABG Sodium ABG Potassium 4.9 H ABG Glucose 44 L Potassium Chloride Carbon Dioxide BUN Creatinine Glucose Lactic Acid 10.70 H* Calcium Total Creatine Kinase 308 H CK-MB (CK-2) 14.5 H CK-MB (CK-2) Rel Index 4.7 H Troponin T 0.757 H* LDL Cholesterol Direct HDL Cholesterol Arterial Blood Glucose 44 L 04/10/21 04/10/21 04/10/21 04:00 04:09 09:53 WBC 13.2 H Hgb 8.3 L Hct 27.7 L MCV 62 L MCH 18 L MCHC RDW 26.7 H Lymphocytes % (Manual) Nucleated RBC % Seg Neutrophils # Man Lymphocytes # (Manual) PT INR APTT ABG pH 7.305 L POC ABG pCO2 POC ABG pO2 64.3 L ABG Hemoglobin 9.6 L ABG Oxyhemoglobin 87.6 L ABG Sodium 135.2 L ABG Potassium 4.8 H ABG Glucose Potassium Chloride Carbon Dioxide BUN Creatinine Glucose Lactic Acid 10.20 H* Calcium Total Creatine Kinase CK-MB (CK-2) CK-MB (CK-2) Rel Index Troponin T LDL Cholesterol Direct HDL Cholesterol Arterial Blood Glucose Assessment and Plan Long discussion with son over the phone and he agreed to make patient dnr. Continue supportive measures and follow up Neurology consult very very poor prognosis. CCT 31 minutes.
--- NOTE | 2021-04-10 11:08 | Event Note ---
Date: 04/10/21 Spoke with son Akhil over the phone. Discussed possible prognosis and critically ill state. He requests that his mother by an AND. Discussed with IMS and they agree. ED nurse called son to confirm his understanding and assessment of the clinical situation and he stated the same thing to them. AND signed. Continue supportive care.
[2021-04-10 11:22] LABS: Creatine Kinase MB 23.8 ng/mL (0.0-4.0)
--- NOTE | 2021-04-10 12:42 | Consultation ---
History of Present Illness - Reason for Consult Consult date: 04/10/21 acute renal failure - History of Present Illness This is a 75 year old female who presented to the hospital in cardiac arrest from her senior care. Patient is intubated and sedated. CXR done showed Pneumonia. Patient has history of Diabetes Mellitus, Hypertension, CHF, KIMMIE and Asthma and Chron's disease. Pertinent labs in E.R showed serum creatinine 2.6. Baseline unknown. Potassium was 5.5. We are being consulted for management of this patient's Acute Renal Failure. Past History Past Medical History: atrial fib, anemia (Crohn's disease, asthma), diabetes, heart failure, other (Obstructive sleep apnea) Medications and Allergies Allergies Allergy/AdvReac Type Severity Reaction Status Date / Time hydrochlorothiazide Allergy Mild Hives Verified 04/10/21 09:46 linezolid Allergy Mild Hives Verified 04/10/21 09:46 Sulfa (Sulfonamide Allergy Mild Hives Verified 04/10/21 09:46 Antibiotics) azithromycin Allergy Hives Verified 04/10/21 09:46 ciprofloxacin [From Cipro] Allergy Hives Verified 04/10/21 09:46 docusate Allergy Hives Verified 04/10/21 09:46 ferrous gluconate Allergy Hives Verified 04/10/21 09:46 hydralazine Allergy Hives Verified 04/10/21 09:46 Penicillins Allergy Unknown Verified 04/10/21 07:34 ketorolac tromethamine Allergy Mild Hives Uncoded 04/10/21 07:35 Active Meds: Active Medications Acetaminophen (Acetaminophen 325 Mg Tab) 650 mg PO Q6H PRN PRN Reason: Pain, Mild (1-3) Aspirin (Aspirin 81 Mg Tab Chew) 81 mg PO QDAY JAROD Last Admin: 04/10/21 08:08 Dose: Not Given Documented by: Atorvastatin Calcium (Atorvastatin 40 Mg Tab) 40 mg PO QHS JAROD Dextrose (Dextrose 50% In Water (25gm) 50 Ml Syringe) 0 ml IV Q30MIN PRN; Protocol PRN Reason: Hypoglycemia NORepinephrine/NS 8 MG-250 ML (Norepinephrine/Ns 8 Mg-250 Ml (Double Conc)) 8 mg in 250 mls @ 3.75 mls/hr IV TITRATE JAROD; Protocol Last Titration: 04/10/21 10:35 Dose: 10 mcg/min, 18.75 mls/hr Documented by: Sodium Chloride (Nacl 0.9% 1000 Ml) 1,000 mls @ 100 mls/hr IV DIRECT JAROD Clindamycin HCl (Cleocin 600 Mg/50 Ml) 600 mg in 50 mls @ 100 mls/hr IV Q8HR [facility] Last Admin: 04/10/21 08:00 Dose: 100 mls/hr Documented by: Vancomycin HCl (Vancomycin/Ns 1 Gm/250 Ml) 1 gm in 250 mls @ 167.007 mls/hr IV ONCE@1000 [facility] Stop: 04/10/21 13:00 Levetiracetam 500 mg/ Dextrose 105 mls @ 400 mls/hr IV Q12HR [facility] Insulin Human Lispro (Insulin Lispro 100 Unit/Ml) 0 unit SUB-Q Q6HR [facility]; Protocol Last Admin: 04/10/21 10:18 Dose: Not Given Documented by: Morphine Sulfate (Morphine 4 Mg/1 Ml Inj) 2 mg IV Q5MIN PRN PRN Reason: Chest Pain unrelieved by NTG Nitroglycerin (Nitroglycerin 0.4 Mg Tab Subl) 0.4 mg SL Q5M PRN PRN Reason: Chest Pain Pantoprazole Sodium (Pantoprazole 40 Mg Inj) 40 mg IV QDAY [facility] Last Admin: 04/10/21 10:18 Dose: Not Given Documented by: Sodium Chloride (Sodium Chloride 0.9% 10 Ml Flush Syringe) 10 ml IV PRN PRN PRN Reason: LINE FLUSH Tramadol HCl (Tramadol 50 Mg Tab) 50 mg PO Q6H PRN PRN Reason: Pain, Moderate (4-6) Review of Systems ROS unobtainable: due to endotracheal tube, due to mental status Exam - Vital Signs Vital signs: Vital Signs Pulse Ox 86 04/10/21 00:21 - General Appearance General appearance: sedated on ventilator, intubated EENT: ATNC Respiratory: Decreased Breath Sounds Heart: S1S2 Gastrointestinal: Present: normoactive bowel sounds Integumentary: chronic venous stasis Neurologic: other (Sedated and intubated) Musculoskeletal: Present: joint swelling, other (2+ edema to BLE) Results - Lab Results 04/10/21 09:53 04/10/21 09:53 Most recent lab results ABG pH 7.305 (7.320-7.450) L 04/10/21 04:00 ABG O2 Saturation 88.8 (0-100) 04/10/21 04:00 Calcium 7.9 mg/dL (8.4-10.2) L 04/10/21 00:36 Assessment and Plan Assessment: Acute Renal Failure likely secondary to Ischemic ATN Respiratory Failure Cardiopulmonary arrest Bilateral pneumonia Congestive heart failure Atrial fibrillation Metabolic acidosis Diabetes Mellitus Plan: Renal labs/BMP for today is pending Serum creatinine yesterday was 2.6, baseline unknown Will obtain renal ultrasound Will obtain urine lytes, protein and eosinophils Renally dose medications Avoid nephrotoxic agents Monitor I/O's daily Obtain daily weights Monitor renal function closely Plan of care reviewed by Dr. Haywood
[2021-04-10] MEDS: levETIRAcetam 500 MG in DEXTROSE 5% IN WATER 100 ML IV SCH (12:57)
--- NOTE | 2021-04-10 13:00 | Consultation ---
History of Present Illness Consult date: 04/10/21 Requesting physician: CAREN QUARLES Consult reason: cardiac arrest History of present illness: Is a 75-year-old female with a past medical history of atrial fibrillation/a flutter, HFpEF hypertrophic cardiomyopathy, history of TIA, COPD, diabetes, and Crohn's disease who was brought to the ED by [facility] and cardiac arrest. History taken from the chart due to patient being intubated. Per documentation EMS found patient to be apneic with no pulse ACLS protocol started patient received epi and had ROSC. On arrival to the ED patient found to be pulseless and CPR was initiated. After several rounds of CPR and epi patient had ROSC. Work-up in ED showed elevated troponins, CXR showed bilateral infiltrates concerning for pneumonia, patient has elevated lactic acid of 10.7, and elevated BUN/creatinine. Of note patient was recently admitted to [facility] last month for hypertensive urgency and pneumonia she was discharged to an acute rehab facility on March 19. She was also brought to [place] on April 05 for fall in which she fractured her nasal bone. Patient is previously known to our practice. Cardiology is consulted for cardiac arrest. Past History Past Medical History: atrial fib, anemia (Crohn's disease, asthma), diabetes, heart failure, hypertension, other (Obstructive sleep apnea) Past Surgical History: cholecystectomy, tonsillectomy Social history: no significant social history Family history: CAD, cancer, hypertension, stroke Medications and Allergies Allergies Allergy/AdvReac Type Severity Reaction Status Date / Time hydrochlorothiazide Allergy Mild Hives Verified 04/10/21 09:46 linezolid Allergy Mild Hives Verified 04/10/21 09:46 Sulfa (Sulfonamide Allergy Mild Hives Verified 04/10/21 09:46 Antibiotics) azithromycin Allergy Hives Verified 04/10/21 09:46 ciprofloxacin [From Cipro] Allergy Hives Verified 04/10/21 09:46 docusate Allergy Hives Verified 04/10/21 09:46 ferrous gluconate Allergy Hives Verified 04/10/21 09:46 hydralazine Allergy Hives Verified 04/10/21 09:46 Penicillins Allergy Unknown Verified 04/10/21 07:34 ketorolac tromethamine Allergy Mild Hives Uncoded 04/10/21 07:35 Active Meds: Active Medications Acetaminophen (Acetaminophen 325 Mg Tab) 650 mg PO Q6H PRN PRN Reason: Pain, Mild (1-3) Aspirin (Aspirin 81 Mg Tab Chew) 81 mg PO QDAY [facility] Last Admin: 04/10/21 08:08 Dose: Not Given Documented by: Atorvastatin Calcium (Atorvastatin 40 Mg Tab) 40 mg PO QHS JAROD Dextrose (Dextrose 50% In Water (25gm) 50 Ml Syringe) 0 ml IV Q30MIN PRN; Protocol PRN Reason: Hypoglycemia NORepinephrine/NS 8 MG-250 ML (Norepinephrine/Ns 8 Mg-250 Ml (Double Conc)) 8 mg in 250 mls @ 3.75 mls/hr IV TITRATE JAROD; Protocol Last Titration: 04/10/21 10:35 Dose: 10 mcg/min, 18.75 mls/hr Documented by: Sodium Chloride (Nacl 0.9% 1000 Ml) 1,000 mls @ 100 mls/hr IV DIRECT JAROD Clindamycin HCl (Cleocin 600 Mg/50 Ml) 600 mg in 50 mls @ 100 mls/hr IV Q8HR [facility] Last Admin: 04/10/21 08:00 Dose: 100 mls/hr Documented by: Vancomycin HCl (Vancomycin/Ns 1 Gm/250 Ml) 1 gm in 250 mls @ 167.007 mls/hr IV ONCE@1000 [facility] Stop: 04/10/21 13:00 Last Admin: 04/10/21 10:00 Dose: 167.007 mls/hr Documented by: Levetiracetam 500 mg/ Dextrose 105 mls @ 400 mls/hr IV Q12HR [facility] Insulin Human Lispro (Insulin Lispro 100 Unit/Ml) 0 unit SUB-Q Q6HR [facility]; Protocol Last Admin: 04/10/21 10:18 Dose: Not Given Documented by: Morphine Sulfate (Morphine 4 Mg/1 Ml Inj) 2 mg IV Q5MIN PRN PRN Reason: Chest Pain unrelieved by NTG Nitroglycerin (Nitroglycerin 0.4 Mg Tab Subl) 0.4 mg SL Q5M PRN PRN Reason: Chest Pain Pantoprazole Sodium (Pantoprazole 40 Mg Inj) 40 mg IV QDAY [facility] Last Admin: 04/10/21 10:18 Dose: Not Given Documented by: Sodium Chloride (Sodium Chloride 0.9% 10 Ml Flush Syringe) 10 ml IV PRN PRN PRN Reason: LINE FLUSH Tramadol HCl (Tramadol 50 Mg Tab) 50 mg PO Q6H PRN PRN Reason: Pain, Moderate (4-6) Review of Systems ROS unobtainable: due to endotracheal tube, due to mental status Physical Examination Vital Signs Pulse Ox 86 04/10/21 00:21 General appearance: other (intubated, unresponsive) HEENT: Positive: Mucus Membranes Dry, Other (contusions on eyes/nose consistent with recent nasal fracture) Neck: Positive: trachea midline Cardiac: Positive: irregularly irregular Lungs: Positive: Ventilated Respirations Neuro: Positive: Other (unabel to assess) Abdomen: Positive: Active Bowel Sounds Skin: Negative: Rash, Suspicious Lesions Extremities: Present: edema Results 04/10/21 09:53 04/10/21 00:36 Cardiac Enzymes 04/10/21 04/10/21 04/10/21 Range/Units 00:36 03:23 09:53 CK-MB (CK-2) 10.3 H 14.5 H 23.8 H (0.0-4.0) ng/mL Coagulation 04/10/21 Range/Units 00:36 PT 44.8 H (12.2-14.9) Sec. INR 4.36 H (0.87-1.13) APTT 49.7 H (24.2-36.6) Sec. Lipids 04/10/21 Range/Units 00:36 Triglycerides 67 (2-149) mg/dL Cholesterol 77 (50-199) mg/dL HDL Cholesterol 30 L (40-59) mg/dL Cholesterol/HDL Ratio 2.56 % CBC 04/10/21 04/10/21 Range/Units 00:36 09:53 WBC 10.5 13.2 H (4.5-11.0) K/mm3 RBC 4.77 4.49 (3.65-5.03) M/mm3 Hgb 8.6 L 8.3 L (10.1-14.3) gm/dl Hct 31.5 27.7 L (30.3-42.9) % Plt Count 217 174 (140-440) K/mm3 Comprehensive Metabolic Panel 04/10/21 Range/Units 00:36 Sodium 138 (137-145) mmol/L Potassium 5.5 H (3.6-5.0) mmol/L Chloride 97.2 L (98-107) mmol/L Carbon Dioxide 14 L (22-30) mmol/L BUN 44 H (7-17) mg/dL Creatinine 2.6 H (0.6-1.2) mg/dL Glucose 47 L (65-100) mg/dL Calcium 7.9 L (8.4-10.2) mg/dL - Imaging and Cardiology Echo: pending, report reviewed EKG interpretations - Telemetry EKG Rhythm: Atrial Fibrillation - EKG Supraventricular dysrhythmia: atrial fibrillation Repolarization changes or abnormalities: nonspecific abnormality, ST segment, an d/or T wave Assessment and Plan Is a 75-year-old female with a past medical history of atrial fibrillation/a flutter(on coumadin as outpatient), HFpEF hypertrophic cardiomyopathy, history of TIA, COPD, diabetes, and Crohn's disease who was brought to the ED by EMS [facility] and cardiac arrest Echo 01/07/2021- LVEF 55 - 60%. LV size is normal. Size assessed without contrast. LV volume assessed with contrast. LV volume is normal. Mild concentric LV hypertrophy. LV wall motion normal. Grade II (moderate) diastolic dysfunction. Elevated left atrial pressure. RV mildly dilated. RV systolic function is normal. LA moderately dilated. Interatrial septum normal. No evidence of patent foramen ovale by color flow Doppler and agitated saline contrast. RA moderately dilated. Moderate tricuspid regurgitation. RV systolic pressure is severely elevated. EKG shows Afib nonspecific ST-T abnormality. No acute ischemic change Troponins noted to be elevated in setting of acute renal insufficiency and following several rounds of CPR Echo pending Telemetry review: patient currently Afib 70s on monitor. Patient is anticoagulated on Coumadin as an outpatient. Will hold anticoagulation due to anemia and S/p cardiac arrest Patient currently on pressors Prognosis very poor Patient seen in conjunction with Dr. Das who agrees with this plan of care. Will continue to follow - Patient Problems (1) Anemia Current Visit: Yes Status: Acute (2) Anoxic brain damage Current Visit: Yes Status: Acute (3) Acute renal failure Current Visit: Yes Status: Acute (4) Atrial fibrillation Current Visit: Yes Status: Acute (5) Bilateral pneumonia Current Visit: Yes Status: Acute (6) Cardiopulmonary arrest Current Visit: Yes Status: Acute (7) Diabetes Current Visit: Yes Status: Acute (8) Metabolic acidosis Current Visit: Yes Status: Acute (9) Pneumothorax Current Visit: Yes Status: Acute
[2021-04-10 14:18] LABS: Band Neutrophils # (Manual) 0.7 K/mm3; Hypochromasia 2+; Total Cells Counted 100
[2021-04-10 14:19] LABS: Anisocytosis 3+; Large Platelets Few; Ovalocytes 1+; Platelet Estimate Consistent w Auto; Poikilocytosis 1+
[2021-04-10 14:22] LABS: Calcium 7.1 mg/dL (8.4-10.2)
--- NOTE | 2021-04-10 15:52 | Event Note ---
Date: 04/10/21 This is a 75-year-old female with CHF, A. fib/a flutter, DM, KIMMIE, HTN, CVA, anemia, Crohn's disease, asthma, KIMMIE who presents the emergency department on 04/10 after witnessed arrest via EMS. Upon EMS arrival patient was started on ACLS protocol and a Al airway was placed. EMS had ROSC onsite. Upon arrival to the emergency department patient was found to be pulseless and ACLS was initiated again. Patient was intubated in the emergency department and while there patient had 3 additional cardiac arrest with ROSC. She was also started on Levophed for hypotension. Patient was admitted to the hospitalist service status post cardiac arrest, pneumonia noted on CXR, lactic acidosis and acute kidney injury. Patient has consults to cardiology, nephrology, pulmonary CCM, neurology. 04/10: Family change CODE STATUS to DNR however family later rescinded DNR. Patient remains a full code. Patient is having elevated triglycerides however c ardiology is aware and no orders have been given. Echocardiogram pending. Patient is on vasopressors with Levophed. Neuro: Possible anoxic brain injury, h/o CVA -Neurology consulted, appreciate recommendations -CT head on admit unremarkable -On physical exam patient has myoclonus with agonal breathing -EEG pending -Patient is not sedated -Keppra IV -Seizure/aspiration precautions Cardiology: S/p cardiac arrest, elevated troponin, h/o atrial fibrillation/atrial flutter, CHF, HTN, CAD -Cardiology consulted, appreciate recommendations -Echocardiogram pending -Hold home Coumadin -Vasopressor support with Levophed -MAP goal greater than 65 -Blood pressure monitor per protocol Pulmonary: Acute hypoxic respiratory failure, h/o KIMMIE, asthma -Intubated on 04/10 with 7.50 ETT at 22 at the lips -A.m. vent settings CMV rate 25, tidal 450, PEEP 12, FiO2 60% -See RT notes for titration -A.m. ABG noted -Daily CXR and ABG -VAP bundle -SPO2 monitoring -Pulmonary/critical care consulted, appreciate recommendations -CT chest shows multiple bilateral rib fractures, trace right pneumothorax, possible pulmonary edema, trace pericardial effusion GI: Transaminitis, h/o Crohn's disease -Nutrition consult for tube feeding -24 hours + 498 -MIVF while n.p.o. -PPI -Hold BR regimen at this time -Trend LFTs : Acute kidney injury, metabolic acidosis, hyperkalemia (resolved), hypomagnesemia -Nephrology consulted, appreciate recommendations -Patient had a CT abdomen/pelvis which showed no remarkable findings with the kidneys -Urine lites pending -Renally dose medications -Avoid nephrotoxic medications -Replete mag -Strict urine output -Daily weights -Trend BMP ID: Pneumonia, lactic acidosis -Evident on CXR -Antibiotic therapy with clindamycin -Monitor fever and WBC curve -Trend lactate -S/p 3 L NS Endo: h/o DM -Accu-Cheks every 6 while n.p.o. -Avoid hypoglycemia -SSI Heme: Leukocytosis, h/o anemia -ABX therapy -Trend CBC -Transfuse if hemoglobin less than 7 The high probability of a clinically significant, sudden or life threatening deterioration of the [multi] system(s) required my full and direct attention, intervention and personal management. The aggregate critical care time was [60] minutes. This time is in addition to time spent performing reported procedures but includes the following: [x] Data Review and interpretation [x] Patient assessment and monitoring of vital signs [x] Documentation [x] Medication orders and management
[2021-04-10] MEDS ORDERED: D5W/0.45% NACL 1,000 ML IV SCH (19:00)
[2021-04-10] MEDS: SODIUM CHLORIDE 0.9% 1000 ML 1,000 ML IV SCH (21:33)
[2021-04-10] MEDS ORDERED: EPINEPHrine 1 MG/10 ML SYRINGE ONE (22:40)
[2021-04-10] MEDS ORDERED: SODIUM BICARB 8.4% 50 MEQ/50 ML SYRINGE IV ONE (22:40)
--- NOTE | 2021-04-10 23:09 | XRay Report ---
ABDOMEN 1 VIEW(S) INDICATION / CLINICAL INFORMATION: GI Intubation/[place] sump placement. COMPARISON: None available. FINDINGS: TUBES / LINES: Nasogastric tube tip and side-port are in the distal stomach. BOWEL GAS PATTERN: No significant abnormality. FREE AIR / EXTRALUMINAL GAS: None seen. ADDITIONAL FINDINGS: No significant additional findings. IMPRESSION: 1. NG tube tip is in the distal stomach near the pylorus. Signer Name: Jean Pierre Torres MD Signed: 04/10/2021 11:05 PM Workstation Name: [email or web address]
[2021-04-11] MEDS: INSULIN LISPRO 100 UNIT/ML SUB-Q SCH ×4 (03:32→18:19)
[2021-04-11 05:27] LABS: Hematocrit 26.3 % (30.3-42.9); Hemoglobin 8.1 gm/dl (10.1-14.3); Mean Corpuscular HGB Conc 31 % (30-34); Red Blood Count 4.41 M/mm3 (3.65-5.03)
[2021-04-11 05:37] LABS: Mean Corpuscular Volume 60 fl (79-97); Red Cell Distribution Width 27.4 % (13.2-15.2)
[2021-04-11 05:47] LABS: Calcium 7.1 mg/dL (8.4-10.2)
[2021-04-11] MEDS: levETIRAcetam 500 MG in DEXTROSE 5% IN WATER 100 ML IV SCH ×3 (06:28→21:39)
[2021-04-11] MEDS: CLINDAMYCIN 600 MG/50 mL 600 MG/50 ML BAG IV SCH ×4 (06:29→21:39)
[2021-04-11 06:37] LABS: Platelet Count 165 K/mm3 (140-440)
[2021-04-11 07:03] LABS: Bacteria,Urine 1+ /HPF (Negative); Bilirubin,Urine NEG (Negative); Blood,Urine MOD (Negative); Color,Urine Amber (Yellow); Hyaline Casts,Urine 30 /LPF; Mucus,Urine FEW /HPF; Urobilinogen,Urine < 2.0 mg/dL (<2.0)
[2021-04-11 07:04] LABS: Creatinine,Urine 119.6 mg/dL (0.1-20.0); Protein/Creatinine Ratio,Urine 0.98
[2021-04-11 07:13] LABS: RBC,Urine > 182.0 /HPF (0.0-6.0)
--- NOTE | 2021-04-11 09:18 | Electrocardiograph Report ---
[facility] Test Date: 2021-04-11 Test Time: 08:17:11 Pat Name: GALI BLANTON Department: Room: A262 1 Gender: F Capacity Planning Analyst: SAADIA : 1945 Requested By: CAREN QUARLES Order Number: [id number] Reading MD: Júnior Das Measurements Intervals [place] Rate: 93 P: -26 IN: 170 QRS: -45 QRSD: 91 T: 109 QT: 385 QTc: 480 Interpretive Statements Sinus rhythm Atrial premature complex Left anterior fascicular block Anteroseptal infarct, old Nonspecific T abnormalities, lateral leads Compared to ECG 04/10/2021 01:40:15 Atrial premature complex(es) now present Left anterior fascicular block now present Myocardial infarct finding now present T-wave abnormality now present Atrial fibrillation no longer present Electronically Signed On 04-11-2021 9:18:29 EDT by Júnior Das
[2021-04-11] MEDS: PANTOPRAZOLE 40 MG INJ IV SCH (09:42)
[2021-04-11] MEDS: ASPIRIN 81 MG TAB CHEW PO SCH (09:42)
--- NOTE | 2021-04-11 10:22 | Progress Note ---
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 - NPO. - Normal saline at the rate of 100 cc/h. - Aspirin 81 mg p.o. daily. - Lipitor 40 mg p.o. daily. -Echocardiogram. -Keppra 500 mg Iv BID adjust dose accordingly # Bilateral pneumonia -DuoNeb by nebulizer every 4 hours. Albuterol via nebulizer every 4 hours as needed. Zosyn 4.5 g IV every 8 hours. Vancomycin 1 g IV every 12 hours. Critical care evaluation # Acute renal failure -BUN/Cr#44/2.6---today 62/3.3 -NPO. Normal saline at the rate of 100 cc/h. Avoid nephrotoxic drug. Renally dose medication. Nephrology consult. Recheck BMP in the morning # Congestive heart failure -Stable. - Echocardiogram. - Cardiology consult # Atrial fibrillation -Patient is on Eliquis with supratherapeutic INR.#4.36 ? repeat am - Will hold the Eliquis. - We will continue the other home medication. - Echocardiogram and cardiology consult # Metabolic acidosis - NPO. Normal saline at the rate of 100 cc/h. Zosyn 4.5 g IV every 8 hours and vancomycin 1 g IV every 12 hours. Recheck lactic acid in 4 hours. Recheck CBC BMP in the morning. Critical care evaluation # Diabetes -NPO. IV fluid normal saline at the rate of 100 cc/h. Accu-Chek every 6 hours with Humalog moderate dose coverage. Diabetic education # Obstructive sleep apnea -Patient is on vent. DuoNeb by nebulizer every 4 hours. Albuterol via nebulizer every 4 hours as needed. Critical care evaluation # Pneumothorax -Patient has tiny pneumothorax related to CPR and multiple ribs fracture related to above. - Patient is on vent. DuoNeb by nebulizer every 4 hours. Critical care evaluation (10) DVT prophylaxis -SCD because patient has supratherapeutic INR. Protonix 40 mg p.o. daily for GI prophylaxis. Patient is a full code. Prognosis is poor PLAN 1- MRI brain when possible 2- EEG is pending 3- OFF coumadine ,on ASA 4- on Keppra 500 mg IV,BID 5- Prognosis is poor will follow along Subjective Date of service: 04/11/21 Principal diagnosis: Post cardiac arrest Interval history: status is unchanged intubated off sedation , MRI brain and EEG are pending still on Norepi. off coumadine on ASA On keppra 500 mg IV bid -- no myoclonus is appreciated today Objective - Vital Sign Vital Signs - 12hr 04/10/21 04/10/21 04/10/21 22:21 22:30 22:41 Temperature Pulse Rate 78 79 79 Pulse Rate [ From Monitor] Pulse Rate [ Left Dorsalis Pedis] Pulse Rate [ Left Radial] Pulse Rate [ Right Dorsalis Pedis] Pulse Rate [ Right Radial] Respiratory 31 H 29 H 30 H Rate Blood Pressure 120/53 127/53 127/53 O2 Sat by Pulse 91 98 91 Oximetry 04/10/21 04/10/21 04/10/21 22:51 23:00 23:11 Temperature Pulse Rate 79 77 80 Pulse Rate [ From Monitor] Pulse Rate [ Left Dorsalis Pedis] Pulse Rate [ Left Radial] Pulse Rate [ Right Dorsalis Pedis] Pulse Rate [ Right Radial] Respiratory 31 H 29 H 32 H Rate Blood Pressure 129/52 120/48 120/48 O2 Sat by Pulse 99 99 99 Oximetry 04/10/21 04/10/21 04/10/21 23:21 23:30 23:41 Temperature Pulse Rate 80 80 80 Pulse Rate [ From Monitor] Pulse Rate [ Left Dorsalis Pedis] Pulse Rate [ Left Radial] Pulse Rate [ Right Dorsalis Pedis] Pulse Rate [ Right Radial] Respiratory 30 H 31 H 31 H Rate Blood Pressure 127/50 123/54 123/54 O2 Sat by Pulse 98 99 97 Oximetry 04/10/21 04/11/21 04/11/21 23:51 00:00 00:11 Temperature Pulse Rate 81 82 82 Pulse Rate [ From Monitor] Pulse Rate [ Left Dorsalis Pedis] Pulse Rate [ Left Radial] Pulse Rate [ Right Dorsalis Pedis] Pulse Rate [ Right Radial] Respiratory 31 H 31 H 33 H Rate Blood Pressure 130/51 124/51 124/51 O2 Sat by Pulse 98 99 97 Oximetry 04/11/21 04/11/21 04/11/21 00:21 00:30 00:41 Temperature Pulse Rate 82 83 82 Pulse Rate [ From Monitor] Pulse Rate [ Left Dorsalis Pedis] Pulse Rate [ Left Radial] Pulse Rate [ Right Dorsalis Pedis] Pulse Rate [ Right Radial] Respiratory 32 H 33 H 33 H Rate Blood Pressure 132/51 141/54 141/54 O2 Sat by Pulse 97 99 97 Oximetry 04/11/21 04/11/21 04/11/21 00:51 01:00 01:11 Temperature Pulse Rate 85 94 H 82 Pulse Rate [ From Monitor] Pulse Rate [ Left Dorsalis Pedis] Pulse Rate [ Left Radial] Pulse Rate [ Right Dorsalis Pedis] Pulse Rate [ Right Radial] Respiratory 34 H 33 H 33 H Rate Blood Pressure 132/52 136/57 134/55 O2 Sat by Pulse 97 100 97 Oximetry 04/11/21 04/11/21 04/11/21 01:21 01:30 01:41 Temperature Pulse Rate 86 82 92 H Pulse Rate [ From Monitor] Pulse Rate [ Left Dorsalis Pedis] Pulse Rate [ Left Radial] Pulse Rate [ Right Dorsalis Pedis] Pulse Rate [ Right Radial] Respiratory 34 H 32 H 35 H Rate Blood Pressure 131/53 136/54 136/54 O2 Sat by Pulse 98 98 96 Oximetry 04/11/21 04/11/21 04/11/21 01:51 02:00 02:11 Temperature Pulse Rate 84 88 96 H Pulse Rate [ From Monitor] Pulse Rate [ Left Dorsalis Pedis] Pulse Rate [ Left Radial] Pulse Rate [ Right Dorsalis Pedis] Pulse Rate [ Right Radial] Respiratory 34 H 35 H 36 H Rate Blood Pressure 126/56 132/54 132/54 O2 Sat by Pulse 99 96 99 Oximetry 04/11/21 04/11/21 04/11/21 02:21 02:30 02:41 Temperature Pulse Rate 85 98 H 87 Pulse Rate [ From Monitor] Pulse Rate [ Left Dorsalis Pedis] Pulse Rate [ Left Radial] Pulse Rate [ Right Dorsalis Pedis] Pulse Rate [ Right Radial] Respiratory 36 H 36 H 35 H Rate Blood Pressure 136/60 128/58 128/58 O2 Sat by Pulse 95 98 99 Oximetry 04/11/21 04/11/21 04/11/21 02:51 03:00 03:11 Temperature Pulse Rate 88 88 89 Pulse Rate [ From Monitor] Pulse Rate [ Left Dorsalis Pedis] Pulse Rate [ Left Radial] Pulse Rate [ Right Dorsalis Pedis] Pulse Rate [ Right Radial] Respiratory 36 H 37 H 36 H Rate Blood Pressure 138/56 128/55 128/55 O2 Sat by Pulse 96 97 100 Oximetry 04/11/21 04/11/21 04/11/21 03:21 03:30 03:41 Temperature Pulse Rate 92 H 105 H 87 Pulse Rate [ From Monitor] Pulse Rate [ Left Dorsalis Pedis] Pulse Rate [ Left Radial] Pulse Rate [ Right Dorsalis Pedis] Pulse Rate [ Right Radial] Respiratory 36 H 36 H 38 H Rate Blood Pressure 135/55 139/58 139/58 O2 Sat by Pulse 100 100 100 Oximetry 04/11/21 04/11/21 04/11/21 03:50 04:00 04:11 Temperature 99.5 F Pulse Rate 87 88 89 Pulse Rate [ 94 H From Monitor] Pulse Rate [ Left Dorsalis Pedis] Pulse Rate [ Left Radial] Pulse Rate [ Right Dorsalis Pedis] Pulse Rate [ Right Radial] Respiratory 38 H 37 H 37 H Rate Blood Pressure 139/55 138/55 138/55 O2 Sat by Pulse 100 100 100 Oximetry 04/11/21 04/11/21 04/11/21 04:21 04:22 04:30 Temperature Pulse Rate 98 H 93 H 99 H Pulse Rate [ From Monitor] Pulse Rate [ Left Dorsalis Pedis] Pulse Rate [ Left Radial] Pulse Rate [ Right Dorsalis Pedis] Pulse Rate [ Right Radial] Respiratory 37 H 36 H Rate Blood Pressure 142/57 134/52 O2 Sat by Pulse 100 100 Oximetry 04/11/21 04/11/21 04/11/21 04:41 04:51 05:00 Temperature Pulse Rate 89 92 H 95 H Pulse Rate [ From Monitor] Pulse Rate [ Left Dorsalis Pedis] Pulse Rate [ Left Radial] Pulse Rate [ Right Dorsalis Pedis] Pulse Rate [ Right Radial] Respiratory 37 H 36 H 36 H Rate Blood Pressure 134/52 140/57 130/59 O2 Sat by Pulse 100 100 100 Oximetry 04/11/21 04/11/21 04/11/21 05:11 05:21 05:30 Temperature Pulse Rate 99 H 79 90 Pulse Rate [ From Monitor] Pulse Rate [ Left Dorsalis Pedis] Pulse Rate [ Left Radial] Pulse Rate [ Right Dorsalis Pedis] Pulse Rate [ Right Radial] Respiratory 37 H 37 H 38 H Rate Blood Pressure 130/59 136/62 136/57 O2 Sat by Pulse 99 100 100 Oximetry 04/11/21 04/11/21 04/11/21 05:38 05:41 05:51 Temperature Pulse Rate 96 H 93 H 93 H Pulse Rate [ From Monitor] Pulse Rate [ Left Dorsalis Pedis] Pulse Rate [ Left Radial] Pulse Rate [ Right Dorsalis Pedis] Pulse Rate [ Right Radial] Respiratory 38 H 38 H Rate Blood Pressure 136/57 144/65 O2 Sat by Pulse 100 100 96 Oximetry 04/11/21 04/11/21 04/11/21 06:00 06:11 06:21 Temperature Pulse Rate 91 H 95 H 92 H Pulse Rate [ From Monitor] Pulse Rate [ Left Dorsalis Pedis] Pulse Rate [ Left Radial] Pulse Rate [ Right Dorsalis Pedis] Pulse Rate [ Right Radial] Respiratory 38 H 37 H 37 H Rate Blood Pressure 149/64 149/64 144/64 O2 Sat by Pulse 100 100 100 Oximetry 04/11/21 04/11/21 04/11/21 06:30 06:41 06:51 Temperature Pulse Rate 98 H 93 H 99 H Pulse Rate [ From Monitor] Pulse Rate [ Left Dorsalis Pedis] Pulse Rate [ Left Radial] Pulse Rate [ Right Dorsalis Pedis] Pulse Rate [ Right Radial] Respiratory 37 H 36 H 37 H Rate Blood Pressure 137/56 137/56 133/60 O2 Sat by Pulse 100 100 100 Oximetry 04/11/21 04/11/21 04/11/21 07:00 07:11 07:21 Temperature Pulse Rate 100 H 100 H 93 H Pulse Rate [ From Monitor] Pulse Rate [ Left Dorsalis Pedis] Pulse Rate [ Left Radial] Pulse Rate [ Right Dorsalis Pedis] Pulse Rate [ Right Radial] Respiratory 36 H 36 H 37 H Rate Blood Pressure 138/65 138/65 131/62 O2 Sat by Pulse 97 98 100 Oximetry 04/11/21 04/11/21 04/11/21 07:25 07:30 07:41 Temperature 99.5 F Pulse Rate 99 H 98 H Pulse Rate [ From Monitor] Pulse Rate [ Left Dorsalis Pedis] Pulse Rate [ Left Radial] Pulse Rate [ Right Dorsalis Pedis] Pulse Rate [ Right Radial] Respiratory 36 H 37 H Rate Blood Pressure 137/63 137/63 O2 Sat by Pulse 100 100 Oximetry 04/11/21 04/11/21 04/11/21 07:51 08:00 08:11 Temperature Pulse Rate 100 H 100 H 98 H Pulse Rate [ 100 H From Monitor] Pulse Rate [ 100 H Left Dorsalis Pedis] Pulse Rate [ 102 H Left Radial] Pulse Rate [ 100 H Right Dorsalis Pedis] Pulse Rate [ 102 H Right Radial] Respiratory 35 H 35 H 36 H Rate Blood Pressure 141/67 133/65 133/65 O2 Sat by Pulse 100 100 100 Oximetry 04/11/21 04/11/21 04/11/21 08:21 08:29 08:30 Temperature Pulse Rate 93 H 100 H 101 H Pulse Rate [ From Monitor] Pulse Rate [ Left Dorsalis Pedis] Pulse Rate [ Left Radial] Pulse Rate [ Right Dorsalis Pedis] Pulse Rate [ Right Radial] Respiratory 36 H 36 H Rate Blood Pressure 137/71 144/67 144/67 O2 Sat by Pulse 100 100 100 Oximetry 04/11/21 04/11/21 04/11/21 08:41 08:51 09:00 Temperature Pulse Rate 94 H 100 H 96 H Pulse Rate [ From Monitor] Pulse Rate [ Left Dorsalis Pedis] Pulse Rate [ Left Radial] Pulse Rate [ Right Dorsalis Pedis] Pulse Rate [ Right Radial] Respiratory 36 H 36 H 35 H Rate Blood Pressure 144/67 146/67 150/76 O2 Sat by Pulse 100 100 98 Oximetry 04/11/21 04/11/21 04/11/21 09:11 09:21 09:30 Temperature Pulse Rate 93 H 95 H 98 H Pulse Rate [ From Monitor] Pulse Rate [ Left Dorsalis Pedis] Pulse Rate [ Left Radial] Pulse Rate [ Right Dorsalis Pedis] Pulse Rate [ Right Radial] Respiratory 34 H 35 H 36 H Rate Blood Pressure 150/76 141/71 140/72 O2 Sat by Pulse 96 97 100 Oximetry 04/11/21 04/11/21 04/11/21 09:41 09:51 10:00 Temperature Pulse Rate 94 H 95 H 99 H Pulse Rate [ From Monitor] Pulse Rate [ Left Dorsalis Pedis] Pulse Rate [ Left Radial] Pulse Rate [ Right Dorsalis Pedis] Pulse Rate [ Right Radial] Respiratory 35 H 35 H 35 H Rate Blood Pressure 140/72 147/68 144/66 O2 Sat by Pulse 96 98 98 Oximetry 04/11/21 10:11 Temperature Pulse Rate 97 H Pulse Rate [ From Monitor] Pulse Rate [ Left Dorsalis Pedis] Pulse Rate [ Left Radial] Pulse Rate [ Right Dorsalis Pedis] Pulse Rate [ Right Radial] Respiratory 34 H Rate Blood Pressure 144/66 O2 Sat by Pulse 99 Oximetry - General Apperance Constitutional: comfortable - EENT EENT: PERRL, mucous membranes moist - Respiratory Respiratory: lungs clear, rhonchi - Cardiovascular Cardiovascular: other (irregular ) Extremities: no peripheral edema bilat, no clubbing, cyanosis - Gastrointestinal Gastrointestinal: normoactive bowel sounds - Integumentary Integumentary: normal - Neurologic Cranial nerve examination: other (no significant myoclonus , pupils 3mm poorly reactive , absent ga , NO EOM is noted , No corneal or spontaneous breathing ) Detailed motor examination: other (no movment to stimuli) - Laboratory Findings CBC and BMP: 04/11/21 04:20 04/11/21 04:20 Abnormal Lab Findings: Abnormal Labs 04/10/21 04/10/21 04/10/21 00:36 00:36 00:36 WBC Hgb 8.6 L Hct MCV 66 L MCH 18 L MCHC 27 L RDW 27.2 H Seg Neuts % (Manual) Lymphocytes % (Manual) 42.0 H Nucleated RBC % 9.0 H Seg Neutrophils # Man 0.0 L Lymphocytes # (Manual) 0.0 L PT 44.8 H INR 4.36 H APTT 49.7 H ABG pH POC ABG pCO2 POC ABG pO2 ABG Hemoglobin ABG Oxyhemoglobin ABG Sodium ABG Potassium ABG Glucose Potassium 5.5 H Chloride 97.2 L Carbon Dioxide 14 L BUN 44 H Creatinine 2.6 H Glucose 47 L POC Glucose Lactic Acid Calcium 7.9 L Phosphorus Total Bilirubin AST ALT Alkaline Phosphatase Total Creatine Kinase 222 H CK-MB (CK-2) 10.3 H CK-MB (CK-2) Rel Index 4.6 H Troponin T 0.721 H* Total Protein Albumin LDL Cholesterol Direct 42 L HDL Cholesterol 30 L Arterial Blood Glucose Arterial Blood Ionized Calcium Urine WBC (Auto) U Epithel Cells (Auto) Urine Creatinine Urine Total Protein 04/10/21 04/10/21 04/10/21 01:28 01:51 03:23 WBC Hgb Hct MCV MCH MCHC RDW Seg Neuts % (Manual) Lymphocytes % (Manual) Nucleated RBC % Seg Neutrophils # Man Lymphocytes # (Manual) PT INR APTT ABG pH 7.078 L POC ABG pCO2 52.0 H POC ABG pO2 112.0 H ABG Hemoglobin 8.8 L ABG Oxyhemoglobin ABG Sodium ABG Potassium 4.9 H ABG Glucose 44 L Potassium Chloride Carbon Dioxide BUN Creatinine Glucose POC Glucose Lactic Acid 10.70 H* Calcium Phosphorus Total Bilirubin AST ALT Alkaline Phosphatase Total Creatine Kinase 308 H CK-MB (CK-2) 14.5 H CK-MB (CK-2) Rel Index 4.7 H Troponin T 0.757 H* Total Protein Albumin LDL Cholesterol Direct HDL Cholesterol Arterial Blood Glucose 44 L Arterial Blood Ionized Calcium Urine WBC (Auto) U Epithel Cells (Auto) Urine Creatinine Urine Total Protein 04/10/21 04/10/21 04/10/21 04:00 04:09 09:53 WBC Hgb Hct MCV MCH MCHC RDW Seg Neuts % (Manual) Lymphocytes % (Manual) Nucleated RBC % Seg Neutrophils # Man Lymphocytes # (Manual) PT INR APTT ABG pH 7.305 L POC ABG pCO2 POC ABG pO2 64.3 L ABG Hemoglobin 9.6 L ABG Oxyhemoglobin 87.6 L ABG Sodium 135.2 L ABG Potassium 4.8 H ABG Glucose Potassium Chloride Carbon Dioxide BUN Creatinine Glucose POC Glucose Lactic Acid 10.20 H* 2.70 H* Calcium Phosphorus Total Bilirubin AST ALT Alkaline Phosphatase Total Creatine Kinase CK-MB (CK-2) CK-MB (CK-2) Rel Index Troponin T Total Protein Albumin LDL Cholesterol Direct HDL Cholesterol Arterial Blood Glucose Arterial Blood Ionized Calcium Urine WBC (Auto) U Epithel Cells (Auto) Urine Creatinine Urine Total Protein 04/10/21 04/10/21 04/10/21 09:53 09:53 15:24 WBC 13.2 H Hgb 8.3 L Hct 27.7 L MCV 62 L MCH 18 L MCHC RDW 26.7 H Seg Neuts % (Manual) 83.0 H Lymphocytes % (Manual) 7.0 L Nucleated RBC % 7.0 H Seg Neutrophils # Man 11.0 H Lymphocytes # (Manual) 0.9 L PT INR APTT ABG pH POC ABG pCO2 POC ABG pO2 ABG Hemoglobin ABG Oxyhemoglobin ABG Sodium ABG Potassium ABG Glucose Potassium Chloride Carbon Dioxide 17 L BUN 54 H Creatinine 2.6 H Glucose 107 H POC Glucose Lactic Acid Calcium 7.1 L Phosphorus 5.90 H Total Bilirubin 1.60 H AST 783 H ALT 679 H Alkaline Phosphatase 141 H Total Creatine Kinase 456 H CK-MB (CK-2) 23.8 H CK-MB (CK-2) Rel Index 5.2 H Troponin T 0.905 H* 1.060 H* Total Protein 5.8 L Albumin 3.0 L LDL Cholesterol Direct HDL Cholesterol Arterial Blood Glucose Arterial Blood Ionized Calcium Urine WBC (Auto) U Epithel Cells (Auto) Urine Creatinine Urine Total Protein 04/11/21 04/11/21 04/11/21 04:20 04:20 05:46 WBC Hgb 8.1 L Hct 26.3 L MCV 60 L MCH 18 L MCHC RDW 27.4 H Seg Neuts % (Manual) Lymphocytes % (Manual) Nucleated RBC % Seg Neutrophils # Man Lymphocytes # (Manual) PT INR APTT ABG pH 7.544 H POC ABG pCO2 26.0 L POC ABG pO2 ABG Hemoglobin 8.9 L ABG Oxyhemoglobin ABG Sodium 133.3 L ABG Potassium ABG Glucose 134 H Potassium Chloride Carbon Dioxide 18 L BUN 62 H Creatinine 3.3 H Glucose 129 H POC Glucose Lactic Acid Calcium 7.1 L Phosphorus 5.10 H Total Bilirubin AST ALT Alkaline Phosphatase Total Creatine Kinase CK-MB (CK-2) CK-MB (CK-2) Rel Index Troponin T Total Protein Albumin LDL Cholesterol Direct HDL Cholesterol Arterial Blood Glucose 134 H Arterial Blood Ionized Calcium 3.8 L Urine WBC (Auto) U Epithel Cells (Auto) Urine Creatinine Urine Total Protein 04/11/21 04/11/21 04/11/21 06:30 06:30 06:48 WBC Hgb Hct MCV MCH MCHC RDW Seg Neuts % (Manual) Lymphocytes % (Manual) Nucleated RBC % Seg Neutrophils # Man Lymphocytes # (Manual) PT INR APTT ABG pH POC ABG pCO2 POC ABG pO2 ABG Hemoglobin ABG Oxyhemoglobin ABG Sodium ABG Potassium ABG Glucose Potassium Chloride Carbon Dioxide BUN Creatinine Glucose POC Glucose 133 H Lactic Acid Calcium Phosphorus Total Bilirubin AST ALT Alkaline Phosphatase Total Creatine Kinase CK-MB (CK-2) CK-MB (CK-2) Rel Index Troponin T Total Protein Albumin LDL Cholesterol Direct HDL Cholesterol Arterial Blood Glucose Arterial Blood Ionized Calcium Urine WBC (Auto) 93.0 H U Epithel Cells (Auto) 52.0 H Urine Creatinine 119.6 H Urine Total Protein 117 H
[2021-04-11] MEDS: SODIUM CHLORIDE 0.9% 1000 ML 1,000 ML IV SCH ×2 (11:23→21:41)
--- NOTE | 2021-04-11 11:28 | Progress Note ---
Assessment and Plan Acute Renal Failure likely secondary to Ischemic ATN Respiratory Failure Cardiopulmonary arrest Bilateral pneumonia Congestive heart failure Atrial fibrillation Metabolic acidosis Diabetes Mellitus Plan: Cr is trending up, oliguric no indication for [employer] for now, neurology on board, may consider dialysis if wor sening kidney function and cleared from neurology Renally dose medications Avoid nephrotoxic agents Monitor I/O's daily Obtain daily weights Monitor renal function closely Subjective Date of service: 04/11/21 Principal diagnosis: Post cardiac arrest Interval history: patient is intubated Objective - Vital Signs Vital signs: Vital Signs - 12hr 04/10/21 04/10/21 04/10/21 23:30 23:41 23:51 Temperature Pulse Rate 80 80 81 Pulse Rate [ From Monitor] Pulse Rate [ Left Dorsalis Pedis] Pulse Rate [ Left Radial] Pulse Rate [ Right Dorsalis Pedis] Pulse Rate [ Right Radial] Respiratory 31 H 31 H 31 H Rate Blood Pressure 123/54 123/54 130/51 O2 Sat by Pulse 99 97 98 Oximetry 04/11/21 04/11/21 04/11/21 00:00 00:11 00:21 Temperature Pulse Rate 82 82 82 Pulse Rate [ From Monitor] Pulse Rate [ Left Dorsalis Pedis] Pulse Rate [ Left Radial] Pulse Rate [ Right Dorsalis Pedis] Pulse Rate [ Right Radial] Respiratory 31 H 33 H 32 H Rate Blood Pressure 124/51 124/51 132/51 O2 Sat by Pulse 99 97 97 Oximetry 04/11/21 04/11/21 04/11/21 00:30 00:41 00:51 Temperature Pulse Rate 83 82 85 Pulse Rate [ From Monitor] Pulse Rate [ Left Dorsalis Pedis] Pulse Rate [ Left Radial] Pulse Rate [ Right Dorsalis Pedis] Pulse Rate [ Right Radial] Respiratory 33 H 33 H 34 H Rate Blood Pressure 141/54 141/54 132/52 O2 Sat by Pulse 99 97 97 Oximetry 04/11/21 04/11/21 04/11/21 01:00 01:11 01:21 Temperature Pulse Rate 94 H 82 86 Pulse Rate [ From Monitor] Pulse Rate [ Left Dorsalis Pedis] Pulse Rate [ Left Radial] Pulse Rate [ Right Dorsalis Pedis] Pulse Rate [ Right Radial] Respiratory 33 H 33 H 34 H Rate Blood Pressure 136/57 134/55 131/53 O2 Sat by Pulse 100 97 98 Oximetry 04/11/21 04/11/2121 01:30 01:41 01:51 Temperature Pulse Rate 82 92 H 84 Pulse Rate [ From Monitor] Pulse Rate [ Left Dorsalis Pedis] Pulse Rate [ Left Radial] Pulse Rate [ Right Dorsalis Pedis] Pulse Rate [ Right Radial] Respiratory 32 H 35 H 34 H Rate Blood Pressure 136/54 136/54 126/56 O2 Sat by Pulse 98 96 99 Oximetry 04/11/21 04/11/21 04/11/21 02:00 02:11 02:21 Temperature Pulse Rate 88 96 H 85 Pulse Rate [ From Monitor] Pulse Rate [ Left Dorsalis Pedis] Pulse Rate [ Left Radial] Pulse Rate [ Right Dorsalis Pedis] Pulse Rate [ Right Radial] Respiratory 35 H 36 H 36 H Rate Blood Pressure 132/54 132/54 136/60 O2 Sat by Pulse 96 99 95 Oximetry 04/11/21 04/11/21 04/11/21 02:30 02:41 02:51 Temperature Pulse Rate 98 H 87 88 Pulse Rate [ From Monitor] Pulse Rate [ Left Dorsalis Pedis] Pulse Rate [ Left Radial] Pulse Rate [ Right Dorsalis Pedis] Pulse Rate [ Right Radial] Respiratory 36 H 35 H 36 H Rate Blood Pressure 128/58 128/58 138/56 O2 Sat by Pulse 98 99 96 Oximetry 04/11/21 04/11/21 04/11/21 03:00 03:11 03:21 Temperature Pulse Rate 88 89 92 H Pulse Rate [ From Monitor] Pulse Rate [ Left Dorsalis Pedis] Pulse Rate [ Left Radial] Pulse Rate [ Right Dorsalis Pedis] Pulse Rate [ Right Radial] Respiratory 37 H 36 H 36 H Rate Blood Pressure 128/55 128/55 135/55 O2 Sat by Pulse 97 100 100 Oximetry 04/11/21 04/11/21 04/11/21 03:30 03:41 03:50 Temperature Pulse Rate 105 H 87 87 Pulse Rate [ From Monitor] Pulse Rate [ Left Dorsalis Pedis] Pulse Rate [ Left Radial] Pulse Rate [ Right Dorsalis Pedis] Pulse Rate [ Right Radial] Respiratory 36 H 38 H 38 H Rate Blood Pressure 139/58 139/58 139/55 O2 Sat by Pulse 100 100 100 Oximetry 04/11/21 04/11/21 04/11/21 04:00 04:11 04:21 Temperature 99.5 F Pulse Rate 88 89 98 H Pulse Rate [ 94 H From Monitor] Pulse Rate [ Left Dorsalis Pedis] Pulse Rate [ Left Radial] Pulse Rate [ Right Dorsalis Pedis] Pulse Rate [ Right Radial] Respiratory 37 H 37 H 37 H Rate Blood Pressure 138/55 138/55 142/57 O2 Sat by Pulse 100 100 100 Oximetry 04/11/21 04/11/21 04/11/21 04:22 04:30 04:41 Temperature Pulse Rate 93 H 99 H 89 Pulse Rate [ From Monitor] Pulse Rate [ Left Dorsalis Pedis] Pulse Rate [ Left Radial] Pulse Rate [ Right Dorsalis Pedis] Pulse Rate [ Right Radial] Respiratory 36 H 37 H Rate Blood Pressure 134/52 134/52 O2 Sat by Pulse 100 100 Oximetry 04/11/21 04/11/21 04/11/21 04:51 05:00 05:11 Temperature Pulse Rate 92 H 95 H 99 H Pulse Rate [ From Monitor] Pulse Rate [ Left Dorsalis Pedis] Pulse Rate [ Left Radial] Pulse Rate [ Right Dorsalis Pedis] Pulse Rate [ Right Radial] Respiratory 36 H 36 H 37 H Rate Blood Pressure 140/57 130/59 130/59 O2 Sat by Pulse 100 100 99 Oximetry 04/11/21 04/11/21 04/11/21 05:21 05:30 05:38 Temperature Pulse Rate 79 90 96 H Pulse Rate [ From Monitor] Pulse Rate [ Left Dorsalis Pedis] Pulse Rate [ Left Radial] Pulse Rate [ Right Dorsalis Pedis] Pulse Rate [ Right Radial] Respiratory 37 H 38 H Rate Blood Pressure 136/62 136/57 O2 Sat by Pulse 100 100 100 Oximetry 04/11/21 04/11/21 04/11/21 05:41 05:51 06:00 Temperature Pulse Rate 93 H 93 H 91 H Pulse Rate [ From Monitor] Pulse Rate [ Left Dorsalis Pedis] Pulse Rate [ Left Radial] Pulse Rate [ Right Dorsalis Pedis] Pulse Rate [ Right Radial] Respiratory 38 H 38 H 38 H Rate Blood Pressure 136/57 144/65 149/64 O2 Sat by Pulse 100 96 100 Oximetry 04/11/21 04/11/21 04/11/21 06:11 06:21 06:30 Temperature Pulse Rate 95 H 92 H 98 H Pulse Rate [ From Monitor] Pulse Rate [ Left Dorsalis Pedis] Pulse Rate [ Left Radial] Pulse Rate [ Right Dorsalis Pedis] Pulse Rate [ Right Radial] Respiratory 37 H 37 H 37 H Rate Blood Pressure 149/64 144/64 137/56 O2 Sat by Pulse 100 100 100 Oximetry 04/11/21 04/11/21 04/11/21 06:41 06:51 07:00 Temperature Pulse Rate 93 H 99 H 100 H Pulse Rate [ From Monitor] Pulse Rate [ Left Dorsalis Pedis] Pulse Rate [ Left Radial] Pulse Rate [ Right Dorsalis Pedis] Pulse Rate [ Right Radial] Respiratory 36 H 37 H 36 H Rate Blood Pressure 137/56 133/60 138/65 O2 Sat by Pulse 100 100 97 Oximetry 04/11/21 04/11/21 04/11/21 07:11 07:21 07:25 Temperature 99.5 F Pulse Rate 100 H 93 H Pulse Rate [ From Monitor] Pulse Rate [ Left Dorsalis Pedis] Pulse Rate [ Left Radial] Pulse Rate [ Right Dorsalis Pedis] Pulse Rate [ Right Radial] Respiratory 36 H 37 H Rate Blood Pressure 138/65 131/62 O2 Sat by Pulse 98 100 Oximetry 04/11/21 04/11/21 04/11/21 07:30 07:41 07:51 Temperature Pulse Rate 99 H 98 H 100 H Pulse Rate [ From Monitor] Pulse Rate [ Left Dorsalis Pedis] Pulse Rate [ Left Radial] Pulse Rate [ Right Dorsalis Pedis] Pulse Rate [ Right Radial] Respiratory 36 H 37 H 35 H Rate Blood Pressure 137/63 137/63 141/67 O2 Sat by Pulse 100 100 100 Oximetry 04/11/21 04/11/21 04/11/21 08:00 08:11 08:21 Temperature Pulse Rate 100 H 98 H 93 H Pulse Rate [ 100 H From Monitor] Pulse Rate [ 100 H Left Dorsalis Pedis] Pulse Rate [ 102 H Left Radial] Pulse Rate [ 100 H Right Dorsalis Pedis] Pulse Rate [ 102 H Right Radial] Respiratory 35 H 36 H 36 H Rate Blood Pressure 133/65 133/65 137/71 O2 Sat by Pulse 100 100 100 Oximetry 04/11/21 04/11/21 04/11/21 08:29 08:30 08:41 Temperature Pulse Rate 100 H 101 H 94 H Pulse Rate [ From Monitor] Pulse Rate [ Left Dorsalis Pedis] Pulse Rate [ Left Radial] Pulse Rate [ Right Dorsalis Pedis] Pulse Rate [ Right Radial] Respiratory 36 H 36 H Rate Blood Pressure 144/67 144/67 144/67 O2 Sat by Pulse 100 100 100 Oximetry 04/11/21 04/11/21 04/11/21 08:51 09:00 09:11 Temperature Pulse Rate 100 H 96 H 93 H Pulse Rate [ From Monitor] Pulse Rate [ Left Dorsalis Pedis] Pulse Rate [ Left Radial] Pulse Rate [ Right Dorsalis Pedis] Pulse Rate [ Right Radial] Respiratory 36 H 35 H 34 H Rate Blood Pressure 146/67 150/76 150/76 O2 Sat by Pulse 100 98 96 Oximetry 04/11/21 04/11/21 04/11/21 09:21 09:30 09:41 Temperature Pulse Rate 95 H 98 H 94 H Pulse Rate [ From Monitor] Pulse Rate [ Left Dorsalis Pedis] Pulse Rate [ Left Radial] Pulse Rate [ Right Dorsalis Pedis] Pulse Rate [ Right Radial] Respiratory 35 H 36 H 35 H Rate Blood Pressure 141/71 140/72 140/72 O2 Sat by Pulse 97 100 96 Oximetry 04/11/21 04/11/21 04/11/21 09:51 10:00 10:11 Temperature Pulse Rate 95 H 99 H 97 H Pulse Rate [ From Monitor] Pulse Rate [ Left Dorsalis Pedis] Pulse Rate [ Left Radial] Pulse Rate [ Right Dorsalis Pedis] Pulse Rate [ Right Radial] Respiratory 35 H 35 H 34 H Rate Blood Pressure 147/68 144/66 144/66 O2 Sat by Pulse 98 98 99 Oximetry - General Appearance General appearance: well-developed, well-nourished, intubated EENT: mucous membranes dry Neck: no JVD Respiratory: Present: Clear to Ascultation Cardiology: tachycardia Gastrointestinal: normoactive bowel sounds Neurologic: other (intubated) - Lab 04/11/21 04:20 04/11/21 04:20 Most recent lab results ABG pH 7.544 (7.320-7.450) H 04/11/21 05:46 ABG O2 Saturation 97.2 (0-100) 04/11/21 05:46 Calcium 7.1 mg/dL (8.4-10.2) L 04/11/21 04:20 Phosphorus 5.10 mg/dL (2.5-4.5) H 04/11/21 04:20 Magnesium 1.70 mg/dL (1.7-2.3) 04/10/21 09:53 Urine Creatinine 119.6 mg/dL (0.1-20.0) H 04/11/21 06:30 Urine Sodium 26 mmol/L 04/11/21 06:30 Urine Total Protein 117 mg/dL (5-11.8) H 04/11/21 06:30 Medications & Allergies - Medications Allergies/Adverse Reactions: Allergies hydrochlorothiazide Allergy (Mild, Verified 04/10/21 09:46) Hives linezolid Allergy (Mild, Verified 04/10/21 09:46) Hives Sulfa (Sulfonamide Antibiotics) Allergy (Mild, Verified 04/10/21 09:46) Hives azithromycin Allergy (Verified 04/10/21 09:46) Hives ciprofloxacin [From Cipro] Allergy (Verified 04/10/21 09:46) Hives docusate Allergy (Verified 04/10/21 09:46) Hives ferrous gluconate Allergy (Verified 04/10/21 09:46) Hives hydralazine Allergy (Verified 04/10/21 09:46) Hives Penicillins Allergy (Verified 04/10/21 07:34) Unknown ketorolac tromethamine Allergy (Mild, Uncoded 04/10/21 07:35) Hives Active Medications: Generic Name Dose Route Start Last Admin Trade Name Freq PRN Reason Stop Dose Admin Acetaminophen 650 mg 04/10/21 05:52 Acetaminophen 325 Mg Tab PO Q6H PRN Pain, Mild (1-3) Aspirin 81 mg 04/11/21 10:00 04/11/21 09:42 Aspirin 81 Mg Tab Chew PO 81 mg QDAY JAROD Administration Atorvastatin Calcium 40 mg 04/10/21 22:00 Atorvastatin 40 Mg Tab PO QHS JAROD Dextrose 0 ml 04/10/21 05:52 Dextrose 50% In Water (25gm) 50 Ml Syringe IV Q30MIN PRN Hypoglycemia Protocol Dextrose 50 ml 04/10/21 15:31 Dextrose 50% In Water (25gm) 50 Ml Syringe IV Q30MIN PRN Hypoglycemia Protocol NORepinephrine/NS 8 MG-250 ML 8 mg in 250 mls @ 3.75 mls/hr 04/10/21 01:00 04/10/21 20:30 Norepinephrine/Ns 8 Mg-250 Ml (Double Conc) IV 0 mcg/min TITRATE JAROD 0 mls/hr Titration Protocol 2 MCG/MIN Sodium Chloride 1,000 mls @ 100 mls/hr 04/10/21 06:00 04/11/21 11:23 Nacl 0.9% 1000 Ml IV 100 mls/hr DIRECT JAROD Administration Clindamycin HCl 600 mg in 50 mls @ 100 mls/hr 04/10/21 07:00 04/11/21 06:30 Cleocin 600 Mg/50 Ml IV 100 mls/hr Q8HR JAROD Administration Levetiracetam 500 mg/ Dextrose 105 mls @ 400 mls/hr 04/10/21 13:00 04/11/21 09:42 IV 100 mls/hr Q12HR JAROD Administration Insulin Human Lispro 0 unit 04/10/21 06:00 04/11/21 07:24 Insulin Lispro 100 Unit/Ml SUB-Q Not Given Q6HR [facility] Protocol Morphine Sulfate 2 mg 04/10/21 05:52 Morphine 4 Mg/1 Ml Inj IV Q5MIN PRN Chest Pain unrelieved by NTG Nitroglycerin 0.4 mg 04/10/21 05:52 Nitroglycerin 0.4 Mg Tab Subl SL Q5M PRN Chest Pain Pantoprazole Sodium 40 mg 04/10/21 10:00 04/11/21 09:42 Pantoprazole 40 Mg Inj IV 40 mg QDAY JAROD Administration Pneumococcal Polyvalent Vaccine 0.5 ml 04/11/21 12:00 Pneumococcal 23 Valent 0.5 Ml Vial IM 04/11/21 12:01 .ONCE ONE Sodium Chloride 10 ml 04/10/21 05:52 04/11/21 09:42 Sodium Chloride 0.9% 10 Ml Flush Syringe IV 10 ml PRN PRN Administration LINE FLUSH
[2021-04-11] MEDS ORDERED: FLU VACC QUAD 2021-22(6MOS UP)/PF 60 MCG/0.5 ML SYRINGE IM ONE (12:00)
[2021-04-11] MEDS ORDERED: PNEUMOCOCCAL 23 Valent 0.5 ML VIAL IM ONE (12:00)
--- NOTE | 2021-04-11 13:12 | Progress Note ---
Assessment and Plan 04/11/21: Follow up neurology recs. IMS has ordered brain flow. If no flow, still need confirmatory test (apnea test vs cold calorics). Patient is not apnic so has some brainstem function. Could ask neuro about cold calorics. Continue supportive measures. Remains unresponsive. Very poor prognosis. Long discussion with son over the phone and he agreed to make patient dnr. Continue supportive measures and follow up Neurology consult very very poor prognosis. CCT 31 minutes. Subjective Date of service: 04/11/21 Principal diagnosis: Post cardiac arrest Interval history: Family rescinded DNR. Remains unresponsive on vent. Breathing over. Not on sedation. Eyes open but no responsive to stimuli. Objective Vital Signs - 12hr 04/11/21 04/11/21 04/11/21 01:11 01:21 01:30 Temperature Pulse Rate 82 86 82 Pulse Rate [ From Monitor] Pulse Rate [ Left Dorsalis Pedis] Pulse Rate [ Left Radial] Pulse Rate [ Right Dorsalis Pedis] Pulse Rate [ Right Radial] Respiratory 33 H 34 H 32 H Rate Blood Pressure 134/55 131/53 136/54 O2 Sat by Pulse 97 98 98 Oximetry 04/11/21 04/11/21 04/11/21 01:41 01:51 02:00 Temperature Pulse Rate 92 H 84 88 Pulse Rate [ From Monitor] Pulse Rate [ Left Dorsalis Pedis] Pulse Rate [ Left Radial] Pulse Rate [ Right Dorsalis Pedis] Pulse Rate [ Right Radial] Respiratory 35 H 34 H 35 H Rate Blood Pressure 136/54 126/56 132/54 O2 Sat by Pulse 96 99 96 Oximetry 04/11/21 04/11/21 04/11/21 02:11 02:21 02:30 Temperature Pulse Rate 96 H 85 98 H Pulse Rate [ From Monitor] Pulse Rate [ Left Dorsalis Pedis] Pulse Rate [ Left Radial] Pulse Rate [ Right Dorsalis Pedis] Pulse Rate [ Right Radial] Respiratory 36 H 36 H 36 H Rate Blood Pressure 132/54 136/60 128/58 O2 Sat by Pulse 99 95 98 Oximetry 04/11/21 04/11/21 04/11/21 02:41 02:51 03:00 Temperature Pulse Rate 87 88 88 Pulse Rate [ From Monitor] Pulse Rate [ Left Dorsalis Pedis] Pulse Rate [ Left Radial] Pulse Rate [ Right Dorsalis Pedis] Pulse Rate [ Right Radial] Respiratory 35 H 36 H 37 H Rate Blood Pressure 128/58 138/56 128/55 O2 Sat by Pulse 99 96 97 Oximetry 04/11/21 04/11/21 04/11/21 03:11 03:21 03:30 Temperature Pulse Rate 89 92 H 105 H Pulse Rate [ From Monitor] Pulse Rate [ Left Dorsalis Pedis] Pulse Rate [ Left Radial] Pulse Rate [ Right Dorsalis Pedis] Pulse Rate [ Right Radial] Respiratory 36 H 36 H 36 H Rate Blood Pressure 128/55 135/55 139/58 O2 Sat by Pulse 100 100 100 Oximetry 04/11/21 04/11/21 04/11/21 03:41 03:50 04:00 Temperature 99.5 F Pulse Rate 87 87 88 Pulse Rate [ 94 H From Monitor] Pulse Rate [ Left Dorsalis Pedis] Pulse Rate [ Left Radial] Pulse Rate [ Right Dorsalis Pedis] Pulse Rate [ Right Radial] Respiratory 38 H 38 H 37 H Rate Blood Pressure 139/58 139/55 138/55 O2 Sat by Pulse 100 100 100 Oximetry 04/11/21 04/11/21 04/11/21 04:11 04:21 04:22 Temperature Pulse Rate 89 98 H 93 H Pulse Rate [ From Monitor] Pulse Rate [ Left Dorsalis Pedis] Pulse Rate [ Left Radial] Pulse Rate [ Right Dorsalis Pedis] Pulse Rate [ Right Radial] Respiratory 37 H 37 H Rate Blood Pressure 138/55 142/57 O2 Sat by Pulse 100 100 Oximetry 04/11/21 04/11/21 04/11/21 04:30 04:41 04:51 Temperature Pulse Rate 99 H 89 92 H Pulse Rate [ From Monitor] Pulse Rate [ Left Dorsalis Pedis] Pulse Rate [ Left Radial] Pulse Rate [ Right Dorsalis Pedis] Pulse Rate [ Right Radial] Respiratory 36 H 37 H 36 H Rate Blood Pressure 134/52 134/52 140/57 O2 Sat by Pulse 100 100 100 Oximetry 04/11/21 04/11/21 04/11/21 05:00 05:11 05:21 Temperature Pulse Rate 95 H 99 H 79 Pulse Rate [ From Monitor] Pulse Rate [ Left Dorsalis Pedis] Pulse Rate [ Left Radial] Pulse Rate [ Right Dorsalis Pedis] Pulse Rate [ Right Radial] Respiratory 36 H 37 H 37 H Rate Blood Pressure 130/59 130/59 136/62 O2 Sat by Pulse 100 99 100 Oximetry 04/11/21 04/11/21 04/11/21 05:30 05:38 05:41 Temperature Pulse Rate 90 96 H 93 H Pulse Rate [ From Monitor] Pulse Rate [ Left Dorsalis Pedis] Pulse Rate [ Left Radial] Pulse Rate [ Right Dorsalis Pedis] Pulse Rate [ Right Radial] Respiratory 38 H 38 H Rate Blood Pressure 136/57 136/57 O2 Sat by Pulse 100 100 100 Oximetry 04/11/21 04/11/21 04/11/21 05:51 06:00 06:11 Temperature Pulse Rate 93 H 91 H 95 H Pulse Rate [ From Monitor] Pulse Rate [ Left Dorsalis Pedis] Pulse Rate [ Left Radial] Pulse Rate [ Right Dorsalis Pedis] Pulse Rate [ Right Radial] Respiratory 38 H 38 H 37 H Rate Blood Pressure 144/65 149/64 149/64 O2 Sat by Pulse 96 100 100 Oximetry 04/11/21 04/11/21 04/11/21 06:21 06:30 06:41 Temperature Pulse Rate 92 H 98 H 93 H Pulse Rate [ From Monitor] Pulse Rate [ Left Dorsalis Pedis] Pulse Rate [ Left Radial] Pulse Rate [ Right Dorsalis Pedis] Pulse Rate [ Right Radial] Respiratory 37 H 37 H 36 H Rate Blood Pressure 144/64 137/56 137/56 O2 Sat by Pulse 100 100 100 Oximetry 04/11/21 04/11/21 04/11/21 06:51 07:00 07:11 Temperature Pulse Rate 99 H 100 H 100 H Pulse Rate [ From Monitor] Pulse Rate [ Left Dorsalis Pedis] Pulse Rate [ Left Radial] Pulse Rate [ Right Dorsalis Pedis] Pulse Rate [ Right Radial] Respiratory 37 H 36 H 36 H Rate Blood Pressure 133/60 138/65 138/65 O2 Sat by Pulse 100 97 98 Oximetry 04/11/21 04/11/21 04/11/21 07:21 07:25 07:30 Temperature 99.5 F Pulse Rate 93 H 99 H Pulse Rate [ From Monitor] Pulse Rate [ Left Dorsalis Pedis] Pulse Rate [ Left Radial] Pulse Rate [ Right Dorsalis Pedis] Pulse Rate [ Right Radial] Respiratory 37 H 36 H Rate Blood Pressure 131/62 137/63 O2 Sat by Pulse 100 100 Oximetry 04/11/21 04/11/21 04/11/21 07:41 07:51 08:00 Temperature Pulse Rate 98 H 100 H 100 H Pulse Rate [ 100 H From Monitor] Pulse Rate [ 100 H Left Dorsalis Pedis] Pulse Rate [ 102 H Left Radial] Pulse Rate [ 100 H Right Dorsalis Pedis] Pulse Rate [ 102 H Right Radial] Respiratory 37 H 35 H 35 H Rate Blood Pressure 137/63 141/67 133/65 O2 Sat by Pulse 100 100 100 Oximetry 04/11/21 04/11/21 04/11/21 08:11 08:21 08:29 Temperature Pulse Rate 98 H 93 H 100 H Pulse Rate [ From Monitor] Pulse Rate [ Left Dorsalis Pedis] Pulse Rate [ Left Radial] Pulse Rate [ Right Dorsalis Pedis] Pulse Rate [ Right Radial] Respiratory 36 H 36 H Rate Blood Pressure 133/65 137/71 144/67 O2 Sat by Pulse 100 100 100 Oximetry 04/11/21 04/11/21 04/11/21 08:30 08:41 08:51 Temperature Pulse Rate 101 H 94 H 100 H Pulse Rate [ From Monitor] Pulse Rate [ Left Dorsalis Pedis] Pulse Rate [ Left Radial] Pulse Rate [ Right Dorsalis Pedis] Pulse Rate [ Right Radial] Respiratory 36 H 36 H 36 H Rate Blood Pressure 144/67 144/67 146/67 O2 Sat by Pulse 100 100 100 Oximetry 04/11/21 04/11/21 04/11/21 09:00 09:11 09:21 Temperature Pulse Rate 96 H 93 H 95 H Pulse Rate [ From Monitor] Pulse Rate [ Left Dorsalis Pedis] Pulse Rate [ Left Radial] Pulse Rate [ Right Dorsalis Pedis] Pulse Rate [ Right Radial] Respiratory 35 H 34 H 35 H Rate Blood Pressure 150/76 150/76 141/71 O2 Sat by Pulse 98 96 97 Oximetry 04/11/21 04/11/21 04/11/21 09:30 09:41 09:51 Temperature Pulse Rate 98 H 94 H 95 H Pulse Rate [ From Monitor] Pulse Rate [ Left Dorsalis Pedis] Pulse Rate [ Left Radial] Pulse Rate [ Right Dorsalis Pedis] Pulse Rate [ Right Radial] Respiratory 36 H 35 H 35 H Rate Blood Pressure 140/72 140/72 147/68 O2 Sat by Pulse 100 96 98 Oximetry 04/11/21 04/11/21 04/11/21 10:00 10:11 12:04 Temperature 99.7 F H Pulse Rate 99 H 97 H Pulse Rate [ From Monitor] Pulse Rate [ Left Dorsalis Pedis] Pulse Rate [ Left Radial] Pulse Rate [ Right Dorsalis Pedis] Pulse Rate [ Right Radial] Respiratory 35 H 34 H Rate Blood Pressure 144/66 144/66 O2 Sat by Pulse 98 99 Oximetry Gastrointestinal: normoactive bowel sounds Integumentary: normal CBC and BMP: 04/11/21 04:20 04/11/21 04:20 ABG, PT/INR, D-dimer: ABG ABG pH 7.544 (7.320-7.450) H 04/11/21 05:46 POC ABG pCO2 26.0 mmHg (32.0-48.0) L 04/11/21 05:46 POC ABG pO2 89.1 mmHg (83-108) 04/11/21 05:46 POC ABG HCO3 21.9 04/11/21 05:46 ABG O2 Saturation 97.2 (0-100) 04/11/21 05:46 PT/INR, D-dimer PT 44.8 Sec. (12.2-14.9) H 04/10/21 00:36 INR 4.36 (0.87-1.13) H 04/10/21 00:36 Abnormal lab findings: Abnormal Labs 04/10/21 04/10/21 04/10/21 00:36 00:36 00:36 WBC Hgb 8.6 L Hct MCV 66 L MCH 18 L MCHC 27 L RDW 27.2 H Seg Neuts % (Manual) Lymphocytes % (Manual) 42.0 H Nucleated RBC % 9.0 H Seg Neutrophils # Man 0.0 L Lymphocytes # (Manual) 0.0 L PT 44.8 H INR 4.36 H APTT 49.7 H ABG pH POC ABG pCO2 POC ABG pO2 ABG Hemoglobin ABG Oxyhemoglobin ABG Sodium ABG Potassium ABG Glucose Potassium 5.5 H Chloride 97.2 L Carbon Dioxide 14 L BUN 44 H Creatinine 2.6 H Glucose 47 L POC Glucose Lactic Acid Calcium 7.9 L Phosphorus Total Bilirubin AST ALT Alkaline Phosphatase Total Creatine Kinase 222 H CK-MB (CK-2) 10.3 H CK-MB (CK-2) Rel Index 4.6 H Troponin T 0.721 H* Total Protein Albumin LDL Cholesterol Direct 42 L HDL Cholesterol 30 L Arterial Blood Glucose Arterial Blood Ionized Calcium Urine WBC (Auto) U Epithel Cells (Auto) Urine Creatinine Urine Total Protein 04/10/21 04/10/21 04/10/21 01:28 01:51 03:23 WBC Hgb Hct MCV MCH MCHC RDW Seg Neuts % (Manual) Lymphocytes % (Manual) Nucleated RBC % Seg Neutrophils # Man Lymphocytes # (Manual) PT INR APTT ABG pH 7.078 L POC ABG pCO2 52.0 H POC ABG pO2 112.0 H ABG Hemoglobin 8.8 L ABG Oxyhemoglobin ABG Sodium ABG Potassium 4.9 H ABG Glucose 44 L Potassium Chloride Carbon Dioxide BUN Creatinine Glucose POC Glucose Lactic Acid 10.70 H* Calcium Phosphorus Total Bilirubin AST ALT Alkaline Phosphatase Total Creatine Kinase 308 H CK-MB (CK-2) 14.5 H CK-MB (CK-2) Rel Index 4.7 H Troponin T 0.757 H* Total Protein Albumin LDL Cholesterol Direct HDL Cholesterol Arterial Blood Glucose 44 L Arterial Blood Ionized Calcium Urine WBC (Auto) U Epithel Cells (Auto) Urine Creatinine Urine Total Protein 04/10/21 04/10/21 04/10/21 04:00 04:09 09:53 WBC Hgb Hct MCV MCH MCHC RDW Seg Neuts % (Manual) Lymphocytes % (Manual) Nucleated RBC % Seg Neutrophils # Man Lymphocytes # (Manual) PT INR APTT ABG pH 7.305 L POC ABG pCO2 POC ABG pO2 64.3 L ABG Hemoglobin 9.6 L ABG Oxyhemoglobin 87.6 L ABG Sodium 135.2 L ABG Potassium 4.8 H ABG Glucose Potassium Chloride Carbon Dioxide BUN Creatinine Glucose POC Glucose Lactic Acid 10.20 H* 2.70 H* Calcium Phosphorus Total Bilirubin AST ALT Alkaline Phosphatase Total Creatine Kinase CK-MB (CK-2) CK-MB (CK-2) Rel Index Troponin T Total Protein Albumin LDL Cholesterol Direct HDL Cholesterol Arterial Blood Glucose Arterial Blood Ionized Calcium Urine WBC (Auto) U Epithel Cells (Auto) Urine Creatinine Urine Total Protein 04/10/21 04/10/21 04/10/21 09:53 09:53 15:24 WBC 13.2 H Hgb 8.3 L Hct 27.7 L MCV 62 L MCH 18 L MCHC RDW 26.7 H Seg Neuts % (Manual) 83.0 H Lymphocytes % (Manual) 7.0 L Nucleated RBC % 7.0 H Seg Neutrophils # Man 11.0 H Lymphocytes # (Manual) 0.9 L PT INR APTT ABG pH POC ABG pCO2 POC ABG pO2 ABG Hemoglobin ABG Oxyhemoglobin ABG Sodium ABG Potassium ABG Glucose Potassium Chloride Carbon Dioxide 17 L BUN 54 H Creatinine 2.6 H Glucose 107 H POC Glucose Lactic Acid Calcium 7.1 L Phosphorus 5.90 H Total Bilirubin 1.60 H AST 783 H ALT 679 H Alkaline Phosphatase 141 H Total Creatine Kinase 456 H CK-MB (CK-2) 23.8 H CK-MB (CK-2) Rel Index 5.2 H Troponin T 0.905 H* 1.060 H* Total Protein 5.8 L Albumin 3.0 L LDL Cholesterol Direct HDL Cholesterol Arterial Blood Glucose Arterial Blood Ionized Calcium Urine WBC (Auto) U Epithel Cells (Auto) Urine Creatinine Urine Total Protein 04/11/21 04/11/21 04/11/21 04:20 04:20 05:46 WBC Hgb 8.1 L Hct 26.3 L MCV 60 L MCH 18 L MCHC RDW 27.4 H Seg Neuts % (Manual) Lymphocytes % (Manual) Nucleated RBC % Seg Neutrophils # Man Lymphocytes # (Manual) PT INR APTT ABG pH 7.544 H POC ABG pCO2 26.0 L POC ABG pO2 ABG Hemoglobin 8.9 L ABG Oxyhemoglobin ABG Sodium 133.3 L ABG Potassium ABG Glucose 134 H Potassium Chloride Carbon Dioxide 18 L BUN 62 H Creatinine 3.3 H Glucose 129 H POC Glucose Lactic Acid Calcium 7.1 L Phosphorus 5.10 H Total Bilirubin AST ALT Alkaline Phosphatase Total Creatine Kinase CK-MB (CK-2) CK-MB (CK-2) Rel Index Troponin T Total Protein Albumin LDL Cholesterol Direct HDL Cholesterol Arterial Blood Glucose 134 H Arterial Blood Ionized Calcium 3.8 L Urine WBC (Auto) U Epithel Cells (Auto) Urine Creatinine Urine Total Protein 04/11/21 04/11/21 04/11/21 06:30 06:30 06:48 WBC Hgb Hct MCV MCH MCHC RDW Seg Neuts % (Manual) Lymphocytes % (Manual) Nucleated RBC % Seg Neutrophils # Man Lymphocytes # (Manual) PT INR APTT ABG pH POC ABG pCO2 POC ABG pO2 ABG Hemoglobin ABG Oxyhemoglobin ABG Sodium ABG Potassium ABG Glucose Potassium Chloride Carbon Dioxide BUN Creatinine Glucose POC Glucose 133 H Lactic Acid Calcium Phosphorus Total Bilirubin AST ALT Alkaline Phosphatase Total Creatine Kinase CK-MB (CK-2) CK-MB (CK-2) Rel Index Troponin T Total Protein Albumin LDL Cholesterol Direct HDL Cholesterol Arterial Blood Glucose Arterial Blood Ionized Calcium Urine WBC (Auto) 93.0 H U Epithel Cells (Auto) 52.0 H Urine Creatinine 119.6 H Urine Total Protein 117 H 04/11/21 11:32 WBC Hgb Hct MCV MCH MCHC RDW Seg Neuts % (Manual) Lymphocytes % (Manual) Nucleated RBC % Seg Neutrophils # Man Lymphocytes # (Manual) PT INR APTT ABG pH POC ABG pCO2 POC ABG pO2 ABG Hemoglobin ABG Oxyhemoglobin ABG Sodium ABG Potassium ABG Glucose Potassium Chloride Carbon Dioxide BUN Creatinine Glucose POC Glucose 114 H Lactic Acid Calcium Phosphorus Total Bilirubin AST ALT Alkaline Phosphatase Total Creatine Kinase CK-MB (CK-2) CK-MB (CK-2) Rel Index Troponin T Total Protein Albumin LDL Cholesterol Direct HDL Cholesterol Arterial Blood Glucose Arterial Blood Ionized Calcium Urine WBC (Auto) U Epithel Cells (Auto) Urine Creatinine Urine Total Protein
--- NOTE | 2021-04-11 13:17 | Progress Note ---
Assessment and Plan Is a 75-year-old female with a past medical history of atrial fibrillation/a flutter(on coumadin as outpatient), HFpEF hypertrophic cardiomyopathy, history of TIA, COPD, diabetes, and Crohn's disease who was brought to the ED by EMS from a local residential and cardiac arrest Echo 01/07/2021- LVEF 55 - 60%. LV size is normal. Size assessed without contrast. LV volume assessed with contrast. LV volume is normal. Mild concentric LV hypertrophy. LV wall motion normal. Grade II (moderate) diastolic dysfunction. Elevated left atrial pressure. RV mildly dilated. RV systolic function is normal. LA moderately dilated. Interatrial septum normal. No evidence of patent foramen ovale by color flow Doppler and agitated saline contrast. RA moderately dilated. Moderate tricuspid regurgitation. RV systolic pressure is severely elevated. EKG shows Afib nonspecific ST-T abnormality. No acute ischemic change Troponins noted to be elevated in setting of acute renal insufficiency and following several rounds of CPR Echo -preliminary report EF 50-55%, RV dilated Telemetry review: patient currently Afib 90s on monitor. Patient is anticoagulated on Coumadin as an outpatient. Will hold anticoagulation due to anemia, S/p cardiac arrest, and supratherapeutic INR Patient currently on pressors Prognosis very poor Patient seen in conjunction with Dr. Das who agrees with this plan of care. Will continue to follow - Patient Problems (1) Anemia Current Visit: Yes Status: Acute (2) Anoxic brain damage Current Visit: Yes Status: Acute (3) Acute renal failure Current Visit: Yes Status: Acute (4) Atrial fibrillation Current Visit: Yes Status: Acute (5) Bilateral pneumonia Current Visit: Yes Status: Acute (6) Cardiopulmonary arrest Current Visit: Yes Status: Acute (7) Diabetes Current Visit: Yes Status: Acute (8) Metabolic acidosis Current Visit: Yes Status: Acute (9) Pneumothorax Current Visit: Yes Status: Acute Subjective Date of service: 04/11/21 Principal diagnosis: Post cardiac arrest Interval history: Patient remains intubated Afib 90s on monitor Objective Vital Signs Temp Pulse Pulse Pulse Pulse Pulse Pulse 04/11/21 13:09 96 H 04/11/21 12:04 99.7 F H 04/11/21 10:11 97 H 04/11/21 10:00 99 H 04/11/21 09:51 95 H 04/11/21 09:41 94 H 04/11/21 09:30 98 H 04/11/21 09:21 95 H 04/11/21 09:11 93 H 04/11/21 09:00 96 H 04/11/21 08:51 100 H 04/11/21 08:41 94 H 04/11/21 08:30 101 H 04/11/21 08:29 100 H 04/11/21 08:21 93 H 04/11/21 08:11 98 H 04/11/21 08:00 100 H 100 H 100 H 102 H 100 H 102 H 04/11/21 07:51 100 H 04/11/21 07:41 98 H 04/11/21 07:30 99 H 04/11/21 07:25 99.5 F 04/11/21 07:21 93 H 04/11/21 07:11 100 H 04/11/21 07:00 100 H 04/11/21 06:51 99 H 04/11/21 06:41 93 H 04/11/21 06:30 98 H 04/11/21 06:21 92 H 04/11/21 06:11 95 H 04/11/21 06:00 91 H 04/11/21 05:51 93 H 04/11/21 05:41 93 H 04/11/21 05:38 96 H 04/11/21 05:30 90 04/11/21 05:21 79 04/11/21 05:11 99 H 04/11/21 05:00 95 H 04/11/21 04:51 92 H 04/11/21 04:41 89 04/11/21 04:30 99 H 04/11/21 04:22 93 H 04/11/21 04:21 98 H 04/11/21 04:11 89 04/11/21 04:00 99.5 F 88 94 H 04/11/21 03:50 87 04/11/21 03:41 87 04/11/21 03:30 105 H 04/11/21 03:21 92 H 04/11/21 03:11 89 04/11/21 03:00 88 04/11/21 02:51 88 04/11/21 02:41 87 04/11/21 02:30 98 H 04/11/21 02:21 85 04/11/21 02:11 96 H 04/11/21 02:00 88 04/11/21 01:51 84 04/11/21 01:41 92 H 04/11/21 01:30 82 04/11/21 01:21 86 04/11/21 01:11 82 04/11/21 01:00 94 H 04/11/21 00:51 85 04/11/21 00:41 82 04/11/21 00:30 83 04/11/21 00:21 82 04/11/21 00:11 82 04/11/21 00:00 82 04/10/21 23:51 81 04/10/21 23:41 80 04/10/21 23:30 80 04/10/21 23:21 80 04/10/21 23:11 80 04/10/21 23:00 77 04/10/21 22:51 79 04/10/21 22:41 79 04/10/21 22:30 79 04/10/21 22:21 78 04/10/21 22:11 82 04/10/21 22:00 77 04/10/21 21:51 76 04/10/21 21:41 83 04/10/21 21:30 77 04/10/21 21:21 79 04/10/21 21:11 88 04/10/21 21:00 89 04/10/21 20:51 89 04/10/21 20:47 90 04/10/21 20:41 89 04/10/21 20:30 93 H 04/10/21 20:20 94 H 04/10/21 20:11 94 H 04/10/21 20:00 98.8 F 94 H 94 H 04/10/21 19:51 94 H 04/10/21 19:41 93 H 04/10/21 19:30 94 H 04/10/21 19:21 93 H 04/10/21 19:14 93 H 04/10/21 19:01 93 H 04/10/21 18:49 93 H 04/10/21 18:10 04/10/21 17:20 80 04/10/21 17:14 80 04/10/21 17:11 80 04/10/21 17:01 80 04/10/21 16:45 80 04/10/21 16:31 82 04/10/21 16:15 81 04/10/21 16:01 81 04/10/21 16:00 88 04/10/21 15:45 80 04/10/21 15:31 80 04/10/21 15:15 88 04/10/21 15:01 84 04/10/21 14:45 79 04/10/21 14:31 87 04/10/21 14:15 76 04/10/21 14:01 87 04/10/21 13:45 87 04/10/21 13:31 87 Resp BP Pulse Ox 04/11/21 13:09 144/70 100 04/11/21 12:04 04/11/21 10:11 34 H 144/66 99 04/11/21 10:00 35 H 144/66 98 04/11/21 09:51 35 H 147/68 98 04/11/21 09:41 35 H 140/72 96 04/11/21 09:30 36 H 140/72 100 04/11/21 09:21 35 H 141/71 97 04/11/21 09:11 34 H 150/76 96 04/11/21 09:00 35 H 150/76 98 04/11/21 08:51 36 H 146/67 100 04/11/21 08:41 36 H 144/67 100 04/11/21 08:30 36 H 144/67 100 04/11/21 08:29 144/67 100 04/11/21 08:21 36 H 137/71 100 04/11/21 08:11 36 H 133/65 100 04/11/21 08:00 35 H 133/65 100 04/11/21 07:51 35 H 141/67 100 04/11/21 07:41 37 H 137/63 100 04/11/21 07:30 36 H 137/63 100 04/11/21 07:25 04/11/21 07:21 37 H 131/62 100 04/11/21 07:11 36 H 138/65 98 04/11/21 07:00 36 H 138/65 97 04/11/21 06:51 37 H 133/60 100 04/11/21 06:41 36 H 137/56 100 04/11/21 06:30 37 H 137/56 100 04/11/21 06:21 37 H 144/64 100 04/11/21 06:11 37 H 149/64 100 04/11/21 06:00 38 H 149/64 100 04/11/21 05:51 38 H 144/65 96 04/11/21 05:41 38 H 136/57 100 04/11/21 05:38 100 04/11/21 05:30 38 H 136/57 100 04/11/21 05:21 37 H 136/62 100 04/11/21 05:11 37 H 130/59 99 04/11/21 05:00 36 H 130/59 100 04/11/21 04:51 36 H 140/57 100 04/11/21 04:41 37 H 134/52 100 04/11/21 04:30 36 H 134/52 100 04/11/21 04:22 04/11/21 04:21 37 H 142/57 100 04/11/21 04:11 37 H 138/55 100 04/11/21 04:00 37 H 138/55 100 04/11/21 03:50 38 H 139/55 100 04/11/21 03:41 38 H 139/58 100 04/11/21 03:30 36 H 139/58 100 04/11/21 03:21 36 H 135/55 100 04/11/21 03:11 36 H 128/55 100 04/11/21 03:00 37 H 128/55 97 04/11/21 02:51 36 H 138/56 96 04/11/21 02:41 35 H 128/58 99 04/11/21 02:30 36 H 128/58 98 04/11/21 02:21 36 H 136/60 95 04/11/21 02:11 36 H 132/54 99 04/11/21 02:00 35 H 132/54 96 04/11/21 01:51 34 H 126/56 99 04/11/21 01:41 35 H 136/54 96 04/11/21 01:30 32 H 136/54 98 04/11/21 01:21 34 H 131/53 98 04/11/21 01:11 33 H 134/55 97 04/11/21 01:00 33 H 136/57 100 04/11/21 00:51 34 H 132/52 97 04/11/21 00:41 33 H 141/54 97 04/11/21 00:30 33 H 141/54 99 04/11/21 00:21 32 H 132/51 97 04/11/21 00:11 33 H 124/51 97 04/11/21 00:00 31 H 124/51 99 04/10/21 23:51 31 H 130/51 98 04/10/21 23:41 31 H 123/54 97 04/10/21 23:30 31 H 123/54 99 04/10/21 23:21 30 H 127/50 98 04/10/21 23:11 32 H 120/48 99 04/10/21 23:00 29 H 120/48 99 04/10/21 22:51 31 H 129/52 99 04/10/21 22:41 30 H 127/53 91 04/10/21 22:30 29 H 127/53 98 04/10/21 22:21 31 H 120/53 91 04/10/21 22:11 29 H 129/53 89 04/10/21 22:00 27 H 129/53 96 04/10/21 21:51 27 H 122/55 88 04/10/21 21:41 28 H 119/52 94 04/10/21 21:30 26 H 119/52 94 04/10/21 21:21 27 H 116/47 94 04/10/21 21:11 29 H 130/51 97 04/10/21 21:00 28 H 130/51 97 04/10/21 20:51 29 H 129/58 99 04/10/21 20:47 120/51 99 04/10/21 20:41 29 H 141/64 96 04/10/21 20:30 30 H 141/64 99 04/10/21 20:20 27 H 129/58 98 04/10/21 20:11 28 H 136/61 98 04/10/21 20:00 27 H 136/61 98 04/10/21 19:51 27 H 131/57 96 04/10/21 19:41 27 H 133/57 98 04/10/21 19:30 26 H 133/57 96 04/10/21 19:21 27 H 133/56 97 04/10/21 19:14 27 H 97 04/10/21 19:01 27 H 133/56 96 04/10/21 18:49 28 H 125/57 98 04/10/21 18:10 25 H 98 04/10/21 17:20 28 H 117/55 100 04/10/21 17:14 27 H 150/68 100 04/10/21 17:11 27 H 117/54 100 04/10/21 17:01 27 H 120/53 100 04/10/21 16:45 26 H 119/50 100 04/10/21 16:31 22 125/56 98 04/10/21 16:15 26 H 131/57 100 04/10/21 16:01 27 H 128/55 100 04/10/21 16:00 116/55 100 04/10/21 15:45 25 H 124/57 100 04/10/21 15:31 25 H 125/57 100 04/10/21 15:15 25 H 116/55 100 04/10/21 15:01 26 H 133/52 100 04/10/21 14:45 25 H 128/64 100 04/10/21 14:31 26 H 128/57 100 04/10/21 14:15 25 H 121/47 100 04/10/21 14:01 26 H 131/58 100 04/10/21 13:45 27 H 150/68 100 04/10/21 13:31 26 H 137/66 100 - Physical Examination General: Other (intubated) HEENT: Positive: Mucus Membranes Dry, Other (contusions on eyes/nose consistent with recent nasal fracture) Neck: Positive: trachea midline Cardiac: Positive: irregularly irregular Lungs: Positive: Ventilated Respirations Neuro: Positive: Other (unabel to assess) Abdomen: Positive: Active Bowel Sounds Skin: Negative: Rash, Suspicious Lesions Extremities: Present: edema - Labs and Meds Cardiac Enzymes 04/10/21 Range/Units 09:53 AST 783 H (5-40) units/L CBC 04/11/21 Range/Units 04:20 WBC 10.7 (4.5-11.0) K/mm3 RBC 4.41 (3.65-5.03) M/mm3 Hgb 8.1 L (10.1-14.3) gm/dl Hct 26.3 L (30.3-42.9) % Plt Count 165 (140-440) K/mm3 Comprehensive Metabolic Panel 04/10/21 04/11/21 Range/Units 09:53 04:20 Sodium 139 138 (137-145) mmol/L Potassium 4.6 4.3 (3.6-5.0) mmol/L Chloride 100.9 101.2 (98-107) mmol/L Carbon Dioxide 17 L 18 L (22-30) mmol/L BUN 54 H 62 H (7-17) mg/dL Creatinine 2.6 H 3.3 H (0.6-1.2) mg/dL Glucose 107 H 129 H (65-100) mg/dL Calcium 7.1 L 7.1 L (8.4-10.2) mg/dL AST 783 H (5-40) units/L ALT 679 H (7-56) units/L Alkaline Phosphatase 141 H (35-129) units/L Total Protein 5.8 L (6.3-8.2) g/dL Albumin 3.0 L (3.9-5) g/dL - Imaging and Cardiology Echo: pending, report reviewed - Telemetry EKG Rhythm: Atrial Fibrillation - EKG Supraventricular dysrhythmia: atrial fibrillation Repolarization changes or abnormalities: nonspecific abnormality, ST segment, and/or T wave
[2021-04-11] MEDS ORDERED: SODIUM BICARBONATE 325 MG TAB FEEDTUBE PRN (13:58)
[2021-04-11] MEDS ORDERED: SIMPLE SYRUP 15 ML FEEDTUBE PRN ×2 (13:58)
[2021-04-11] MEDS ORDERED: LIPASE 10,500/PROTEASE 25,000/AMYLASE 43,750 (UNITS) DR CAP FEEDTUBE PRN (13:58)
--- NOTE | 2021-04-11 16:21 | Nuclear Medicine Report ---
Nuclear medicine perfusion study. TECHNIQUE: 21 mCi of technetium pertechnetate were injected intravenously. Dynamic imaging was obtained over the head and neck. In addition delayed static images were obtained. COMPARISON: CT head 04/10/2021 at 0451 hours. FINDINGS: The common carotid arteries are well demonstrated bilaterally. This indicates that an adequate radiot racer injection was achieved. Decreased brain parenchymal perfusion is noted. The parotid and submandibular salivary glands demonst rate significantly higher radiotracer activity than does the brain parenchyma which is abnormal. This study does not demonstrated a complete absence of brain perfusion however. IMPRESSION: 1. Decreased brain parenchymal perfusion on nuclear medicine perfusion study. 2. Follow-up cross-sectional imaging (MRI brain or CT head) may be useful in further evaluation this patient. Signer Name: Fabian Ghosh MD Signed: 04/11/2021 4:17 PM Workstation Name: [id number]
--- NOTE | 2021-04-11 16:29 | Progress Note ---
Assessment and Plan Assessment and plan: This is a 75-year-old female with CHF, A. fib/a flutter, DM, KIMMIE, HTN, CVA, anemia, Crohn's disease, asthma admitted s/p cardiac arrest Neuro: Possible anoxic brain injury, h/o CVA -Neurology consulted, appreciate recommendations -CT head on admit unremarkable -On physical exam patient has myoclonus with agonal breathing -EEG pending -Patient is not sedated -Keppra IV -Seizure/aspiration precautions -NM brain scan does not show complete absence of cerebral blood flow -MRI B recommended by neuro Cardiology: S/p cardiac arrest, elevated troponin, h/o atrial f ibrillation/atrial flutter, CHF, HTN, CAD -Cardiology consulted, appreciate recommendations -Echocardiogram pending -Hold home Coumadin -s/p vassopressor support with Levophed -MAP goal greater than 65 -Blood pressure monitor per protocol Pulmonary: Acute hypoxic respiratory failure, h/o KIMMIE, asthma -Intubated on 04/10 with 7.50 ETT at 22 at the lips -A.m. vent settings CMV rate 25, tidal 450, PEEP 12, FiO2 50% -See RT notes for titration -A.m. ABG noted -Daily CXR and ABG -VAP bundle -SPO2 monitoring -Pulmonary/critical care consulted, appreciate recommendations -CT chest shows multiple bilateral rib fractures, trace right pneumothorax, possible pulmonary edema, trace pericardial effusion GI: Transaminitis, h/o Crohn's disease -Nutrition consult for tube feeding -24 hours +503 -MIVF while n.p.o. -initiate TF -PPI -Hold BR regimen at this time -Trend LFTs : Acute kidney injury, metabolic acidosis -Nephrology consulted, appreciate recommendations -Patient had a CT abdomen/pelvis which showed no remarkable findings with the kidneys -Urine lites pending -Renally dose medications -Avoid nephrotoxic medications -Replete mag -Strict urine output -Daily weights -Trend BMP ID: Pneumonia, lactic acidosis -Evident on CXR -Antibiotic therapy with clindamycin -Monitor fever and WBC curve -Trend lactate -S/p 3 L NS Endo: h/o DM -Accu-Cheks every 6 while n.p.o. -Avoid hypoglycemia -SSI Heme: Leukocytosis, h/o anemia -ABX therapy -Trend CBC -Transfuse if hemoglobin less than 7 The high probability of a clinically significant, sudden or life threatening deterioration of the [multi] system(s) required my full and direct attention, intervention and personal management. The aggregate critical care time was [60] minutes. This time is in addition to time spent performing reported procedures but includes the following: [x] Data Review and interpretation [x] Patient assessment and monitoring of vital signs [x] Documentation [x] Medication orders and management Disposition Plan: icu Total Time Spent with Patient (Minutes): 60 History Interval history: This is a 75-year-old female with CHF, A. fib/a flutter, DM, KIMMIE, HTN, CVA, anemia, Crohn's disease, asthma who presented the emergency department on 04/10 after witnessed arrest via EMS. Upon EMS arrival patient was started on ACLS protocol and a Al airway was placed. EMS had ROSC onsite. Upon arrival to the emergency department patient was found to be pulseless and ACLS was initiated again. Patient was intubated in the emergency department and while there patient had 3 additional cardiac arrest with ROSC. She was also started on Levophed for hypotension. Patient was admitted to the hospitalist service status post cardiac arrest, pneumonia noted on CXR, lactic acidosis and acute kidney injury. Patient has consults to cardiology, nephrology, pulmonary CCM, neurology. 04/10: Family change CODE STATUS to DNR however family later rescinded DNR. P atient remains a full code. Patient is having elevated triglycerides however cardiology is aware and no orders have been given. Echocardiogram pending. Patient is on vasopressors with Levophed. 04/11: Patient had a nuclear med brain flow study which does not demonstrate a complete absence of brain perfusion however there is decreased brain parenchymal perfusion. Neurology would would like an MRI brain when possible. Nephrology anticipates initiation of hemodialysis within the next 24 to 48 hours. We will continue supportive care. Nutrition consult for tube feeding. Hospitalist Physical - Constitutional Vitals: Temp Pulse Resp BP Pulse Ox 99.7 F H 102 H 32 H 127/79 97 04/11/21 16:23 04/11/21 16:01 04/11/21 16:01 04/11/21 16:01 04/11/21 16:01 General appearance: Present: other (intubated, unresponsive) - EENT Eyes: Absent: PERRL, EOM intact ENT: dentition normal - Neck Neck: Present: supple - Respiratory Respiratory effort: normal Respiratory: bilateral: diminished - Cardiovascular Rhythm: irregularly irregular Heart Sounds: Present: S1 & S2. Absent: systolic murmur, diastolic murmur - Extremities Extremities: no ischemia, pulses intact, pulses symmetrical, No edema, normal temperature, normal color Peripheral Pulses: within normal limits - Abdominal General gastrointestinal: soft, non-tender, non-distended, normal bowel sounds - Integumentary Integumentary: Present: dry - Psychiatric Psychiatric: other - Neurologic Neurologic: other (GCS 3, no cough/gag, no startle reflex) - Allied Health Allied health notes reviewed: nursing, RT, social work HEART Score - HEART Score Troponin: Troponin T 1.060 ng/mL (0.00-0.029) H* 04/10/21 15:24 Results - Labs CBC & Chem 7: 04/11/21 04:20 04/11/21 04:20 Labs: Laboratory Last Values WBC 10.7 K/mm3 (4.5-11.0) 04/11/21 04:20 RBC 4.41 M/mm3 (3.65-5.03) 04/11/21 04:20 Hgb 8.1 gm/dl (10.1-14.3) L 04/11/21 04:20 Hct 26.3 % (30.3-42.9) L 04/11/21 04:20 MCV 60 fl (79-97) L 04/11/21 04:20 MCH 18 pg (28-32) L 04/11/21 04:20 MCHC 31 % (30-34) 04/11/21 04:20 RDW 27.4 % (13.2-15.2) H 04/11/21 04:20 Plt Count 165 K/mm3 (140-440) 04/11/21 04:20 Add Manual Diff Complete 04/10/21 09:53 Total Counted 100 04/10/21 09:53 Seg Neuts % (Manual) 83.0 % (40.0-70.0) H 04/10/21 09:53 Band Neutrophils % 5.0 % 04/10/21 09:53 Lymphocytes % (Manual) 7.0 % (13.4-35.0) L 04/10/21 09:53 Monocytes % (Manual) 5.0 % (0.0-7.3) 04/10/21 09:53 Eosinophils % (Manual) 2.0 % (0.0-4.3) 04/10/21 00:36 Nucleated RBC % 7.0 % (0.0-0.9) H 04/10/21 09:53 Seg Neutrophils # Man 11.0 K/mm3 (1.8-7.7) H 04/10/21 09:53 Band Neutrophils # 0.7 K/mm3 04/10/21 09:53 Lymphocytes # (Manual) 0.9 K/mm3 (1.2-5.4) L 04/10/21 09:53 Abs React Lymphs (Man) 0.0 K/mm3 04/10/21 09:53 Monocytes # (Manual) 0.7 K/mm3 (0.0-0.8) 04/10/21 09:53 Eosinophils # (Manual) 0.0 K/mm3 (0.0-0.4) 04/10/21 09:53 Basophils # (Manual) 0.0 K/mm3 (0.0-0.1) 04/10/21 09:53 Metamyelocytes # 0.0 K/mm3 04/10/21 09:53 Myelocytes # 0.0 K/mm3 04/10/21 09:53 Promyelocytes # 0.0 K/mm3 04/10/21 09:53 Blast Cells # 0.0 K/mm3 04/10/21 09:53 WBC Morphology Not Reportable 04/10/21 09:53 Hypersegmented Neuts Not Reportable 04/10/21 09:53 Hyposegmented Neuts Not Reportable 04/10/21 09:53 Hypogranular Neuts Not Reportable 04/10/21 09:53 Smudge Cells Not Reportable 04/10/21 09:53 Toxic Granulation Not Reportable 04/10/21 09:53 Toxic Vacuolation Not Reportable 04/10/21 09:53 Dohle Bodies Not Reportable 04/10/21 09:53 Pelger-Huet Anomaly Not Reportable 04/10/21 09:53 Katie Rods Not Reportable 04/10/21 09:53 Platelet Estimate Consistent w auto 04/10/21 09:53 Clumped Platelets Not Reportable 04/10/21 09:53 Plt Clumps, EDTA Not Reportable 04/10/21 09:53 Large Platelets Few 04/10/21 09:53 Giant Platelets Not Reportable 04/10/21 09:53 Platelet Satelliting Not Reportable 04/10/21 09:53 Plt Morphology Comment Not Reportable 04/10/21 09:53 RBC Morphology Not Reportable 04/10/21 09:53 Dimorphic RBCs Not Reportable 04/10/21 09:53 Polychromasia Not Reportable 04/10/21 09:53 Hypochromasia 2+ 04/10/21 09:53 Poikilocytosis 1+ 04/10/21 09:53 Anisocytosis 3+ 04/10/21 09:53 Microcytosis 2+ 04/10/21 09:53 Macrocytosis Not Reportable 04/10/21 09:53 Spherocytes Not Reportable 04/10/21 09:53 Pappenheimer Bodies Not Reportable 04/10/21 09:53 Sickle Cells Not Reportable 04/10/21 09:53 Target Cells Not Reportable 04/10/21 09:53 Tear Drop Cells Not Reportable 04/10/21 09:53 Ovalocytes 1+ 04/10/21 09:53 Helmet Cells Not Reportable 04/10/21 09:53 [place]cean Bodies Not Reportable 04/10/21 09:53 Wilmot Rings Not Reportable 04/10/21 09:53 Marika Cells Not Reportable 04/10/21 09:53 Bite Cells Not Reportable 04/10/21 09:53 Crenated Cell Not Reportable 04/10/21 09:53 Elliptocytes 1+ 04/10/21 09:53 Acanthocytes (Spur) Not Reportable 04/10/21 09:53 Rouleaux Not Reportable 04/10/21 09:53 Hemoglobin C Crystals Not Reportable 04/10/21 09:53 Schistocytes Not Reportable 04/10/21 09:53 Malaria parasites Not Reportable 04/10/21 09:53 Jabari Bodies Not Reportable 04/10/21 09:53 Hem Pathologist Commnt No 04/10/21 09:53 PT 44.8 Sec. (12.2-14.9) H 04/10/21 00:36 INR 4.36 (0.87-1.13) H 04/10/21 00:36 APTT 49.7 Sec. (24.2-36.6) H 04/10/21 00:36 ABG pH 7.544 (7.320-7.450) H 04/11/21 05:46 POC ABG pCO2 26.0 mmHg (32.0-48.0) L 04/11/21 05:46 POC ABG pO2 89.1 mmHg (83-108) 04/11/21 05:46 POC ABG HCO3 21.9 04/11/21 05:46 ABG O2 Saturation 97.2 (0-100) 04/11/21 05:46 POC ABG Base Excess 0.1 04/11/21 05:46 ABG Hemoglobin 8.9 (12.0-17.5) L 04/11/21 05:46 ABG Oxyhemoglobin 96.0 (94-98) 04/11/21 05:46 ABG Methemoglobin 0.3 (0.0-1.5) 04/11/21 05:46 ABG Sodium 133.3 mmol/L (136.0-145.0) L 04/11/21 05:46 ABG Potassium 4.2 mmol/L (3.40-4.50) 04/11/21 05:46 ABG Chloride 103.0 mmol/L (98-107) 04/11/21 05:46 ABG Glucose 134 mg/dL (65-95) H 04/11/21 05:46 Carboxyhemoglobin 0.9 (0.5-1.5) 04/11/21 05:46 FiO2 % 50.0 04/11/21 05:46 Sodium 138 mmol/L (137-145) 04/11/21 04:20 Potassium 4.3 mmol/L (3.6-5.0) 04/11/21 04:20 Chloride 101.2 mmol/L (98-107) 04/11/21 04:20 Carbon Dioxide 18 mmol/L (22-30) L 04/11/21 04:20 Anion Gap 23 mmol/L 04/11/21 04:20 BUN 62 mg/dL (7-17) H 04/11/21 04:20 Creatinine 3.3 mg/dL (0.6-1.2) H 04/11/21 04:20 Estimated GFR 14 ml/min 04/11/21 04:20 BUN/Creatinine Ratio 19 % 04/11/21 04:20 Glucose 129 mg/dL (65-100) H 04/11/21 04:20 POC Glucose 114 mg/dL (70-105) H 04/11/21 11:32 Lactic Acid 1.90 mmol/L (0.7-2.0) 04/10/21 15:12 Calcium 7.1 mg/dL (8.4-10.2) L 04/11/21 04:20 Phosphorus 5.10 mg/dL (2.5-4.5) H 04/11/21 04:20 Magnesium 1.70 mg/dL (1.7-2.3) 04/10/21 09:53 Total Bilirubin 1.60 mg/dL (0.1-1.2) H 04/10/21 09:53 AST 783 units/L (5-40) H 04/10/21 09:53 ALT 679 units/L (7-56) H 04/10/21 09:53 Alkaline Phosphatase 141 units/L (35-129) H 04/10/21 09:53 Total Creatine Kinase 456 units/L (30-135) H 04/10/21 09:53 CK-MB (CK-2) 23.8 ng/mL (0.0-4.0) H 04/10/21 09:53 CK-MB (CK-2) Rel Index 5.2 (0-4) H 04/10/21 09:53 Troponin T 1.060 ng/mL (0.00-0.029) H* 04/10/21 15:24 Total Protein 5.8 g/dL (6.3-8.2) L 04/10/21 09:53 Albumin 3.0 g/dL (3.9-5) L 04/10/21 09:53 Albumin/Globulin Ratio 1.1 % 04/10/21 09:53 Triglycerides 67 mg/dL (2-149) 04/10/21 00:36 Cholesterol 77 mg/dL (50-199) 04/10/21 00:36 LDL Cholesterol Direct 42 mg/dL (50-130) L 04/10/21 00:36 HDL Cholesterol 30 mg/dL (40-59) L 04/10/21 00:36 Cholesterol/HDL Ratio 2.56 % 04/10/21 00:36 Arterial Blood Glucose 134 mg/dL (65-95) H 04/11/21 05:46 Arterial Blood Ionized Calcium 3.8 mg/dL (4.6-5.3) L 04/11/21 05:46 Urine Color Cheryle (Yellow) 04/11/21 06:30 Urine Turbidity Cloudy (Clear) 04/11/21 06:30 Urine pH 5.0 (5.0-7.0) 04/11/21 06:30 Ur Specific [place] 1.013 (1.003-1.030) 04/11/21 06:30 Urine Protein 100 mg/dl mg/dL (Negative) 04/11/21 06:30 Urine Glucose (UA) Neg mg/dL (Negative) 04/11/21 06:30 Urine Ketones Neg mg/dL (Negative) 04/11/21 06:30 Urine Blood Mod (Negative) 04/11/21 06:30 Urine Nitrite Neg (Negative) 04/11/21 06:30 Urine Bilirubin Neg (Negative) 04/11/21 06:30 Urine Urobilinogen < 2.0 mg/dL (<2.0) 04/11/21 06:30 Ur Leukocyte Esterase Sm (Negative) 04/11/21 06:30 Urine WBC (Auto) 93.0 /HPF (0.0-6.0) H 04/11/21 06:30 Urine RBC (Auto) > 182.0 /HPF (0.0-6.0) 04/11/21 06:30 U Epithel Cells (Auto) 52.0 /HPF (0-13.0) H 04/11/21 06:30 Urine Bacteria (Auto) 1+ /HPF (Negative) 04/11/21 06:30 Hyaline Casts 30 /LPF 04/11/21 06:30 Urine Mucus Few /HPF 04/11/21 06:30 Urine Eosinophils Few (None Seen) 04/11/21 06:30 Urine Creatinine 119.6 mg/dL (0.1-20.0) H 04/11/21 06:30 Protein/Creatinin Ratio 0.98 04/11/21 06:30 Urine Sodium 26 mmol/L 04/11/21 06:30 Urine Total Protein 117 mg/dL (5-11.8) H 04/11/21 06:30 Nasal Screen MRSA (PCR) Negative (Negative) 04/10/21 20:30 Random Vancomycin 10.6 ug/mL (0-40.0) 04/11/21 04:20 Blood Type O POSITIVE 04/10/21 00:36 Antibody Screen Negative 04/10/21 00:36 Microbiology: Microbiology 04/10/21 08:45 Tracheal Aspirate Sputum Culture - Final Magi Albicans 04/10/21 01:56 Peripheral/Venous Blood Culture - Preliminary NO GROWTH AFTER 24 HOURS 04/10/21 01:51 Peripheral/Venous Blood Culture - Preliminary NO GROWTH AFTER 24 HOURS Lentz/IV: Voiding Method Indwelling Catheter Active Medications - Current Medications Current Medications: Generic Name Dose Route Start Last Admin Trade Name Freq PRN Reason Stop Dose Admin Acetaminophen 650 mg 04/10/21 05:52 Acetaminophen 325 Mg Tab PO Q6H PRN Pain, Mild (1-3) Lipase/Protease/Amylase 1 each 04/11/21 13:58 Lipase 10,500/Protease 25,000/Amylase 43,750 (Units) Dr aRmos FEEDTUBE PRN PRN For Clogged Feeding Tube Aspirin 81 mg 04/11/21 10:00 04/11/21 09:42 Aspirin 81 Mg Tab Chew PO 81 mg QDAY JAROD Administration Atorvastatin Calcium 40 mg 04/10/21 22:00 04/11/21 12:31 Atorvastatin 40 Mg Tab PO Not Given QHS JAROD Dextrose 50 ml 04/10/21 15:31 Dextrose 50% In Water (25gm) 50 Ml Syringe IV Q30MIN PRN Hypoglycemia Protocol NORepinephrine/NS 8 MG-250 ML 8 mg in 250 mls @ 3.75 mls/hr 04/10/21 01:00 04/10/21 20:30 Norepinephrine/Ns 8 Mg-250 Ml (Double Conc) IV 0 mcg/min TITRATE JAROD 0 mls/hr Titration Protocol 2 MCG/MIN Sodium Chloride 1,000 mls @ 100 mls/hr 04/10/21 06:00 04/11/21 11:23 Nacl 0.9% 1000 Ml IV 100 mls/hr DIRECT JAROD Administration Clindamycin HCl 600 mg in 50 mls @ 100 mls/hr 04/10/21 07:00 04/11/21 14:09 Cleocin 600 Mg/50 Ml IV 100 mls/hr Q8HR JAROD Administration Levetiracetam 500 mg/ Dextrose 105 mls @ 400 mls/hr 04/10/21 13:00 04/11/21 09:42 IV 100 mls/hr Q12HR JAROD Administration Vancomycin HCl 1,500 mg/ 530 mls @ 333.333 mls/hr 04/11/21 18:00 Sodium Chloride IV 04/11/21 19:35 ONCE ONE Insulin Human Lispro 0 unit 04/10/21 06:00 04/11/21 12:33 Insulin Lispro 100 Unit/Ml SUB-Q Not Given Q6HR JAROD Protocol Nitroglycerin 0.4 mg 04/10/21 05:52 Nitroglycerin 0.4 Mg Tab Subl SL Q5M PRN Chest Pain Pantoprazole Sodium 40 mg 04/10/21 10:00 04/11/21 09:42 Pantoprazole 40 Mg Inj IV 40 mg QDAY JAROD Administration Simple Syrup 15 ml 04/11/21 13:58 Simple Syrup 15 Ml FEEDTUBE PRN PRN Hypoglycemia Simple Syrup 30 ml 04/11/21 13:58 Simple Syrup 15 Ml FEEDTUBE PRN PRN Hypoglycemia Sodium Bicarbonate 325 mg 04/11/21 13:58 Sodium Bicarbonate 325 Mg Tab FEEDTUBE PRN PRN For Clogged Feeding Tube Sodium Chloride 10 ml 04/10/21 05:52 04/11/21 09:42 Sodium Chloride 0.9% 10 Ml Flush Syringe IV 10 ml PRN PRN Administration LINE FLUSH Nutrition/Malnutrition Assess - Dietary Evaluation Nutrition/Malnutrition Findings: Nutrition Notes Start: 04/10/21 10:22 Freq: Status: Active Protocol: Document 04/11/21 13:42 GB (Rec: 04/11/21 13:57 GB [id number]) Nutrition Notes Initial or Follow up Reassessment Current Diagnosis Diabetes,Heart Failure Other Pertinent Diagnosis Cardiac arrest multiple times, anoxic brain injury Current Diet NPO - TF to start NEPRO@39ml/ hr Labs/Tests 04/11: glucose 129, BUN 62, creatinine 3.3, P 5.1, Ca 7.1 Pertinent Medications Clindamycin HCl, D5(PRN), levetiracetam/D5 100ml/hr ( 408kcal) Height 5 ft 6 in Weight 91.8 kg [place] Body Weight (kg) 59.09 BMI 32.6 Weight change and time frame 04/10: 108.862kg 04/10: 91.8kg Using 91.8kg for EEN. Recommend reweigh to confirm weight. Weight Status Obese Subjective/Other Information MD consult for write/manage TF . 04/10: abdominal xRay: NG tube tip is in the distal stomach near pylorus MD notes 04/11: intubated / off sedation, Family withdrew DNR at this time, pt is full code . BM: not recorded at time of assessment Percent of energy/protein needs met: 0% - NPO, intubated TF @ goal rate will meet 75% or greater EEN. Burn Absent Trauma Absent GI Symptoms None Difficulty In Swallowing Food Allergy No Skin Integrity/Comment no complications at time of review Current % PO Other Minimum of two criteria No #1 Nutrition Diagnosis Swallowing difficulty Comments: 04/11: nepro @ 39ml/hr with flush 136ml/4hr to start. Order placed. Etiology anoxic brain injury, cardiac arrest multiple times As Evidenced by Signs and Symptoms intubation, NPO Diagnosis Progress(for reassessment Continues documentation) Is patient on ventilator? Yes Is Patient Ambulatory and/or Out of Bed No REE-([facility]-confined to bed) 1733.604 Kcal/Kg value to use for calculation 19 Approximate Energy Requirements Using 1744 kcal/Kg Calculation Used for Recommendations Kcal/kg Additional Notes Protein: 1-1.2 g/kg @ 92k -110g Fluids: 1 ml/kcal or per MD Nutrition Intervention Change Diet Order: Continue: NPO Nutrition Support: Nepro @39ml/hr. Start rate 19ml/hr. Advance 10ml/8hr as tolerated. Flush: 136ml/4hr. or per MD Total free water/day: TF@goal + flush = 1500ml Kcal 1,700 Protein (gm) 77 Carbohydrates (gm) 152 Fat (gm) 91 Fluid (mL) 687 Fiber (gm) 12 % RDI: 100%kcal/83%pro Goal #1 TF started by f/u 04/11: order Nepro @ 39ml/hr entered Goal #2 TF at goal by f/u Follow-Up By: 04/15/21 Additional Comments f/u: family decision on code status, TF started, vent status
[2021-04-11] MEDS ORDERED: VANCOMYCIN 1,500 MG in SODIUM CHLORIDE 0.9% 500 ML 500 ML IV ONE (18:00)
[2021-04-11] MEDS: MINERAL OIL/PETROLATUM, WHITE OPHTH OINT 3.5 GM OU SCH (19:17)
[2021-04-12] MEDS: MINERAL OIL/PETROLATUM, WHITE OPHTH OINT 3.5 GM OU SCH ×5 (00:53→23:30)
[2021-04-12] MEDS: INSULIN LISPRO 100 UNIT/ML SUB-Q SCH ×5 (01:04→23:12)
[2021-04-12 05:02] LABS: Hematocrit 25.2 % (30.3-42.9); Hemoglobin 7.6 gm/dl (10.1-14.3); Mean Corpuscular HGB Conc 30 % (30-34); Mean Corpuscular Volume 60 fl (79-97); Platelet Count 145 K/mm3 (140-440); Red Blood Count 4.24 M/mm3 (3.65-5.03)
[2021-04-12 05:13] LABS: INR 3.92 (0.87-1.13)
[2021-04-12 05:29] LABS: Albumin 2.6 g/dL (3.9-5); Calcium 7.4 mg/dL (8.4-10.2)
[2021-04-12 06:08] LABS: ABG Base Excess -4.5 mmol/L (-2.0-3.0); ABG HCO3 19.6 mmol/L (20.0-26.0); ABG Methemoglobin 0.4 % (0.0-1.5); ABG PCO2 31.9 mm Hg; ABG PH 7.407 pH Units (7.350-7.450); ABG PO2 160.1 mm Hg (80.0-90.0)
[2021-04-12] MEDS: CLINDAMYCIN 600 MG/50 mL 600 MG/50 ML BAG IV SCH ×3 (07:50→21:16)
--- NOTE | 2021-04-12 09:31 | Electrocardiograph Report ---
[facility] Test Date: 2021-04-11 Test Time: 10:26:48 Pat Name: GALI BLANTON Department: Room: A262 1 Gender: F Slide Developer: SAADIA : [id number] Requested By: CAREN QUARLES Order Number: [id number] Reading MD: Júnior Das Measurements Intervals [place] Rate: 92 P: 0 [place]: 190 QRS: 261 QRSD: 89 T: 77 QT: 391 QTc: 486 Interpretive Statements Sinus rhythm Paired ventricular premature complexes Left anterior fascicular block nonspecific st-t Compared to ECG 04/11/2021 08:17:11 Ventricular premature complex(es) now present Atrial premature complex(es) no longer present T-wave abnormality no longer present Myocardial infarct finding still present Electronically Signed On 04-12-2021 9:30:47 EDT by Júnior Das
[2021-04-12] MEDS: ASPIRIN 81 MG TAB CHEW PO SCH (09:41)
[2021-04-12] MEDS: PANTOPRAZOLE 40 MG INJ IV SCH (09:41)
[2021-04-12] MEDS: levETIRAcetam 250 MG in DEXTROSE 5% IN WATER 100 ML IV SCH ×2 (09:42→21:16)
--- NOTE | 2021-04-12 10:16 | Progress Note ---
Assessment and Plan Acute Renal Failure likely secondary to Ischemic ATN Respiratory Failure Cardiopulmonary arrest Bilateral pneumonia Congestive heart failure Atrial fibrillation Metabolic acidosis Diabetes Mellitus Plan: kidney function cont to get worse, minimal UOP no indication for [employer] for now, if cont to be on full care, likely will need to [employer] within the 24-48 Renally dose medications Avoid nephrotoxic agents Monitor I/O's daily Obtain daily weights Monitor renal function closely Subjective Date of service: 04/12/21 Principal diagnosis: Post cardiac arrest Interval history: patient is intubated Objective - Vital Signs Vital signs: Vital Signs - 12hr 04/11/21 04/11/21 04/11/21 22:21 22:30 22:41 Temperature Pulse Rate 104 H 104 H 105 H Pulse Rate [ From Monitor] Respiratory 26 H 28 H 28 H Rate Blood Pressure 138/57 138/67 138/67 O2 Sat by Pulse 98 93 97 Oximetry 04/11/21 04/11/21 04/11/21 22:51 23:00 23:11 Temperature Pulse Rate 102 H 101 H 100 H Pulse Rate [ From Monitor] Respiratory 27 H 27 H 26 H Rate Blood Pressure 136/66 133/59 133/59 O2 Sat by Pulse 96 94 98 Oximetry 04/11/21 04/11/21 04/11/21 23:13 23:21 23:28 Temperature Pulse Rate 103 H 103 H 101 H Pulse Rate [ From Monitor] Respiratory 27 H 26 H Rate Blood Pressure 133/59 131/60 136/65 O2 Sat by Pulse 98 99 97 Oximetry 04/11/21 04/11/21 04/11/21 23:30 23:41 23:51 Temperature Pulse Rate 100 H 99 H 98 H Pulse Rate [ From Monitor] Respiratory 28 H 26 H 29 H Rate Blood Pressure 136/65 136/65 138/61 O2 Sat by Pulse 97 99 98 Oximetry 04/12/21 04/12/21 04/12/21 00:00 00:11 00:21 Temperature 100.8 F H Pulse Rate 94 H 100 H 105 H Pulse Rate [ 98 H From Monitor] Respiratory 25 H 25 H 26 H Rate Blood Pressure 137/53 137/53 135/57 O2 Sat by Pulse 97 98 100 Oximetry 04/12/21 04/12/21 04/12/21 00:30 00:41 00:51 Temperature Pulse Rate 100 H 95 H 98 H Pulse Rate [ From Monitor] Respiratory 27 H 26 H 25 H Rate Blood Pressure 131/57 137/53 131/56 O2 Sat by Pulse 98 99 99 Oximetry 04/12/21 04/12/21 04/12/21 01:00 01:11 01:20 Temperature Pulse Rate 96 H 97 H 99 H Pulse Rate [ From Monitor] Respiratory 27 H 25 H 27 H Rate Blood Pressure 136/61 136/61 131/56 O2 Sat by Pulse 98 100 96 Oximetry 04/12/21 04/12/21 04/12/21 01:30 01:40 01:51 Temperature Pulse Rate 100 H 96 H 97 H Pulse Rate [ From Monitor] Respiratory 28 H 28 H 27 H Rate Blood Pressure 135/62 135/62 133/63 O2 Sat by Pulse 98 97 97 Oximetry 04/12/21 04/12/21 04/12/21 02:00 02:11 02:21 Temperature Pulse Rate 90 100 H 100 H Pulse Rate [ From Monitor] Respiratory 28 H 25 H 27 H Rate Blood Pressure 132/56 132/56 132/54 O2 Sat by Pulse 97 98 97 Oximetry 04/12/21 04/12/21 04/12/21 02:30 02:41 02:51 Temperature Pulse Rate 96 H 94 H 98 H Pulse Rate [ From Monitor] Respiratory 27 H 25 H 26 H Rate Blood Pressure 132/68 132/68 133/54 O2 Sat by Pulse 96 97 98 Oximetry 04/12/21 04/12/21 04/12/21 03:00 03:11 03:21 Temperature Pulse Rate 99 H 96 H 101 H Pulse Rate [ From Monitor] Respiratory 27 H 26 H 27 H Rate Blood Pressure 134/58 134/58 142/63 O2 Sat by Pulse 97 98 98 Oximetry 04/12/21 04/12/21 04/12/21 03:30 03:41 03:51 Temperature Pulse Rate 103 H 92 H 97 H Pulse Rate [ From Monitor] Respiratory 29 H 29 H 28 H Rate Blood Pressure 129/72 129/72 137/57 O2 Sat by Pulse 98 99 100 Oximetry 04/12/21 04/12/21 04/12/21 04:00 04:11 04:21 Temperature 100.9 F H Pulse Rate 96 H 98 H 94 H Pulse Rate [ 97 H From Monitor] Respiratory 28 H 30 H 28 H Rate Blood Pressure 135/57 135/57 137/63 O2 Sat by Pulse 100 99 99 Oximetry 04/12/21 04/12/21 04/12/21 04:30 04:41 04:49 Temperature Pulse Rate 103 H 94 H 95 H Pulse Rate [ From Monitor] Respiratory 26 H 28 H Rate Blood Pressure 139/57 139/57 130/59 O2 Sat by Pulse 100 100 100 Oximetry 04/12/21 04/12/21 04/12/21 04:51 05:00 05:11 Temperature Pulse Rate 90 97 H 94 H Pulse Rate [ From Monitor] Respiratory 28 H 28 H 27 H Rate Blood Pressure 130/59 135/61 135/61 O2 Sat by Pulse 100 100 99 Oximetry 04/12/21 04/12/21 04/12/21 05:21 05:30 05:41 Temperature Pulse Rate 93 H 92 H 91 H Pulse Rate [ From Monitor] Respiratory 29 H 27 H 28 H Rate Blood Pressure 139/57 145/84 145/84 O2 Sat by Pulse 99 92 100 Oximetry 04/12/21 04/12/21 04/12/21 05:51 06:00 06:11 Temperature Pulse Rate 94 H 98 H 99 H Pulse Rate [ From Monitor] Respiratory 28 H 26 H 27 H Rate Blood Pressure 140/66 145/58 145/58 O2 Sat by Pulse 99 98 100 Oximetry 04/12/21 04/12/21 04/12/21 06:21 06:30 06:41 Temperature Pulse Rate 93 H 97 H 90 Pulse Rate [ From Monitor] Respiratory 28 H 28 H 29 H Rate Blood Pressure 142/54 142/67 142/67 O2 Sat by Pulse 100 68 L 100 Oximetry 04/12/21 04/12/21 04/12/21 06:51 07:00 07:11 Temperature Pulse Rate 91 H 99 H 97 H Pulse Rate [ From Monitor] Respiratory 29 H 29 H 29 H Rate Blood Pressure 142/67 154/61 154/61 O2 Sat by Pulse 100 99 100 Oximetry 04/12/21 04/12/21 04/12/21 07:21 07:30 07:32 Temperature 101.3 F H Pulse Rate 89 101 H Pulse Rate [ From Monitor] Respiratory 30 H 29 H Rate Blood Pressure 140/59 154/72 O2 Sat by Pulse 100 100 Oximetry 04/12/21 04/12/21 07:41 09:30 Temperature Pulse Rate 96 H 93 H Pulse Rate [ From Monitor] Respiratory 29 H Rate Blood Pressure 154/72 144/66 O2 Sat by Pulse 100 100 Oximetry - Lab 04/12/21 04:10 04/12/21 04:10 Most recent lab results ABG pH 7.407 pH Units (7.350-7.450) 04/12/21 05:11 ABG pCO2 31.9 mm Hg 04/12/21 05:11 ABG pO2 160.1 mm Hg (80.0-90.0) H 04/12/21 05:11 ABG HCO3 19.6 mmol/L (20.0-26.0) L 04/12/21 05:11 ABG O2 Saturation 99.0 % (95.0-99.0) 04/12/21 05:11 Calcium 7.4 mg/dL (8.4-10.2) L 04/12/21 04:10 Phosphorus 5.10 mg/dL (2.5-4.5) H 04/11/21 04:20 Magnesium 1.70 mg/dL (1.7-2.3) 04/10/21 09:53 Urine Creatinine 119.6 mg/dL (0.1-20.0) H 04/11/21 06:30 Urine Sodium 26 mmol/L 04/11/21 06:30 Urine Total Protein 117 mg/dL (5-11.8) H 04/11/21 06:30 Medications & Allergies - Medications Allergies/Adverse Reactions: Allergies hydrochlorothiazide Allergy (Mild, Verified 04/10/21 09:46) Hives linezolid Allergy (Mild, Verified 04/10/21 09:46) Hives Sulfa (Sulfonamide Antibiotics) Allergy (Mild, Verified 04/10/21 09:46) Hives azithromycin Allergy (Verified 04/10/21 09:46) Hives ciprofloxacin [From Cipro] Allergy (Verified 04/10/21 09:46) Hives docusate Allergy (Verified 04/10/21 09:46) Hives ferrous gluconate Allergy (Verified 04/10/21 09:46) Hives hydralazine Allergy (Verified 04/10/21 09:46) Hives Penicillins Allergy (Verified 04/10/21 07:34) Unknown ketorolac tromethamine Allergy (Mild, Uncoded 04/10/21 07:35) Hives Active Medications: Generic Name Dose Route Start Last Admin Trade Name Freq PRN Reason Stop Dose Admin Acetaminophen 650 mg 04/10/21 05:52 04/12/21 07:50 Acetaminophen 325 Mg Tab PO 650 mg Q6H PRN Administration Pain, Mild (1-3) Lipase/Protease/Amylase 1 each 04/11/21 13:58 Lipase 10,500/Protease 25,000/Amylase 43,750 (Units) Dr Ramos FEEDTUBE PRN PRN For Clogged Feeding Tube Aspirin 81 mg 04/11/21 10:00 04/12/21 09:41 Aspirin 81 Mg Tab Chew PO 81 mg QDAY JAROD Administration Atorvastatin Calcium 40 mg 04/10/21 22:00 04/11/21 21:39 Atorvastatin 40 Mg Tab PO 40 mg QHS AJROD Administration Dextrose 50 ml 04/10/21 15:31 Dextrose 50% In Water (25gm) 50 Ml Syringe IV Q30MIN PRN Hypoglycemia Protocol Diltiazem HCl 30 mg 04/12/21 12:00 Diltiazem 30 Mg Tab PO Q6HR JAROD Diphenhydramine HCl 25 mg 04/12/21 10:00 Diphenhydramine 50 Mg/Ml Vial IV Q6H JAROD NORepinephrine/NS 8 MG-250 ML 8 mg in 250 mls @ 3.75 mls/hr 04/10/21 01:00 04/10/21 20:30 Norepinephrine/Ns 8 Mg-250 Ml (Double Conc) IV 0 mcg/min TITRATE JAROD 0 mls/hr Titration Protocol 2 MCG/MIN Sodium Chloride 1,000 mls @ 100 mls/hr 04/10/21 06:00 04/11/21 21:41 Nacl 0.9% 1000 Ml IV 100 mls/hr DIRECT JAROD Administration Clindamycin HCl 600 mg in 50 mls @ 100 mls/hr 04/10/21 07:00 04/12/21 07:50 Cleocin 600 Mg/50 Ml IV 100 mls/hr Q8HR JAROD Administration Levetiracetam 250 mg/ Dextrose 102.5 mls @ 400 mls/hr 04/12/21 10:00 04/12/21 09:42 IV 400 mls/hr Q12HR JAROD Administration Insulin Human Lispro 0 unit 04/10/21 06:00 04/12/21 07:01 Insulin Lispro 100 Unit/Ml SUB-Q Not Given Q6HR JAROD Protocol Multi-Ingred Cream/Lotion/Oil/Oint 1 applic 04/11/21 18:00 04/12/21 07:51 Mineral Oil/Petrolatum, White Ophth Oint 3.5 Gm OU 1 applic Q6HR JAROD Administration Nitroglycerin 0.4 mg 04/10/21 05:52 Nitroglycerin 0.4 Mg Tab Subl SL Q5M PRN Chest Pain Pantoprazole Sodium 40 mg 04/10/21 10:00 04/12/21 09:41 Pantoprazole 40 Mg Inj IV 40 mg QDAY JAROD Administration Simple Syrup 15 ml 04/11/21 13:58 Simple Syrup 15 Ml FEEDTUBE PRN PRN Hypoglycemia Simple Syrup 30 ml 04/11/21 13:58 Simple Syrup 15 Ml FEEDTUBE PRN PRN Hypoglycemia Sodium Bicarbonate 325 mg 04/11/21 13:58 Sodium Bicarbonate 325 Mg Tab FEEDTUBE PRN PRN For Clogged Feeding Tube Sodium Chloride 10 ml 04/10/21 05:52 04/11/21 09:42 Sodium Chloride 0.9% 10 Ml Flush Syringe IV 10 ml PRN PRN Administration LINE FLUSH
[2021-04-12] MEDS: diphenhydrAMINE 50 MG/ML VIAL IV SCH ×3 (10:25→22:14)
--- NOTE | 2021-04-12 10:39 | Progress Note ---
Assessment and Plan Is a 75-year-old female with a past medical history of atrial fibrillation/a flutter(on coumadin as outpatient), HFpEF hypertrophic cardiomyopathy, history of TIA, COPD, diabetes, and Crohn's disease who was brought to the ED by EMS from a local shelter and cardiac arrest Echo 01/07/2021- LVEF 55 - 60%. LV size is normal. Size assessed without contrast. LV volume assessed with contrast. LV volume is normal. Mild concentric LV hypertrophy. LV wall motion normal. Grade II (moderate) diastolic dysfunction. Elevated left atrial pressure. RV mildly dilated. RV systolic function is normal. LA moderately dilated. Interatrial septum normal. No evidence of patent foramen ovale by color flow Doppler and agitated saline contrast. RA moderately dilated. Moderate tricuspid regurgitation. RV systolic pressure is severely elevated. Echo 04/10/2021-EF 50 to 55%.. Right ventricle mildly hypokinetic. Left atrium severely dilated. Severe pulmonary hypertension. RSVP 74 mmHg. Mild to moderate tricuspid regurgitation. Moderate left pleural effusion. Right ventri rachel moderately dilated Troponins noted to be elevated in setting of acute renal insufficiency and following several rounds of CPR Telemetry review: patient currently Afib 90s on monitor. Patient is anticoagulated on Coumadin as an outpatient. Will hold anticoagulation due to anemia and supratherapeutic INR. Initiate cardizem 30mg PO BID for rate control and pulmonary HTN Prognosis very poor Patient seen in conjunction with Dr. aDs who agrees with this plan of care. Will continue to follow - Patient Problems (1) Anemia Current Visit: Yes Status: Acute (2) Anoxic brain damage Current Visit: Yes Status: Acute (3) Acute renal failure Current Visit: Yes Status: Acute (4) Atrial fibrillation Current Visit: Yes Status: Acute (5) Bilateral pneumonia Current Visit: Yes Status: Acute (6) Cardiopulmonary arrest Current Visit: Yes Status: Acute (7) Diabetes Current Visit: Yes Status: Acute (8) Metabolic acidosis Current Visit: Yes Status: Acute (9) Pneumothorax Current Visit: Yes Status: Acute (10) Pulmonary hypertension Current Visit: Yes Status: Acute Subjective Date of service: 04/12/21 Principal diagnosis: Post cardiac arrest Interval history: Patient remains intubated Afib 90s on monitor Objective Vital Signs Temp Pulse Pulse Pulse Pulse Pulse Pulse 04/12/21 10:11 90 04/12/21 10:00 94 H 04/12/21 09:51 93 H 04/12/21 09:41 87 04/12/21 09:30 93 H 04/12/21 09:21 92 H 04/12/21 09:11 96 H 04/12/21 09:00 94 H 04/12/21 08:51 100 H 04/12/21 08:41 100 H 04/12/21 08:30 91 H 04/12/21 08:21 95 H 04/12/21 08:11 116 H 04/12/21 08:00 100 H 04/12/21 07:51 90 04/12/21 07:41 96 H 04/12/21 07:32 101.3 F H 04/12/21 07:30 101 H 04/12/21 07:21 89 04/12/21 07:11 97 H 04/12/21 07:00 99 H 04/12/21 06:51 91 H 04/12/21 06:41 90 04/12/21 06:30 97 H 04/12/21 06:21 93 H 04/12/21 06:11 99 H 04/12/21 06:00 98 H 04/12/21 05:51 94 H 04/12/21 05:41 91 H 04/12/21 05:30 92 H 04/12/21 05:21 93 H 04/12/21 05:11 94 H 04/12/21 05:00 97 H 04/12/21 04:51 90 04/12/21 04:49 95 H 04/12/21 04:41 94 H 04/12/21 04:30 103 H 04/12/21 04:21 94 H 04/12/21 04:11 98 H 04/12/21 04:00 100.9 F H 96 H 97 H 04/12/21 03:51 97 H 04/12/21 03:41 92 H 04/12/21 03:30 103 H 04/12/21 03:21 101 H 04/12/21 03:11 96 H 04/12/21 03:00 99 H 04/12/21 02:51 98 H 04/12/21 02:41 94 H 04/12/21 02:30 96 H 04/12/21 02:21 100 H 04/12/21 02:11 100 H 04/12/21 02:00 90 04/12/21 01:51 97 H 04/12/21 01:40 96 H 04/12/21 01:30 100 H 04/12/21 01:20 99 H 04/12/21 01:11 97 H 04/12/21 01:00 96 H 04/12/21 00:51 98 H 04/12/21 00:41 95 H 04/12/21 00:30 100 H 04/12/21 00:21 105 H 04/12/21 00:11 100 H 04/12/21 00:00 100.8 F H 94 H 98 H 04/11/21 23:51 98 H 04/11/21 23:41 99 H 04/11/21 23:30 100 H 04/11/21 23:28 101 H 04/11/21 23:21 103 H 04/11/21 23:13 103 H 04/11/21 23:11 100 H 04/11/21 23:00 101 H 04/11/21 22:51 102 H 04/11/21 22:41 105 H 04/11/21 22:30 104 H 04/11/21 22:21 104 H 04/11/21 22:11 104 H 04/11/21 22:00 105 H 04/11/21 21:51 106 H 04/11/21 21:41 109 H 04/11/21 21:30 107 H 04/11/21 21:23 103 H 04/11/21 21:21 108 H 04/11/21 21:11 104 H 04/11/21 21:00 117 H 04/11/21 20:51 105 H 04/11/21 20:41 114 H 04/11/21 20:30 102 H 04/11/21 20:21 108 H 04/11/21 20:11 108 H 04/11/21 20:00 100.3 F H 107 H 106 H 04/11/21 19:51 113 H 04/11/21 19:41 121 H 04/11/21 19:31 105 H 04/11/21 19:21 103 H 04/11/21 19:11 101 H 04/11/21 19:00 100 H 04/11/21 18:51 104 H 04/11/21 18:41 108 H 04/11/21 18:30 99 H 04/11/21 18:21 107 H 04/11/21 18:11 109 H 04/11/21 18:00 101 H 04/11/21 17:51 102 H 04/11/21 17:41 98 H 04/11/21 17:31 105 H 04/11/21 17:21 100 H 04/11/21 17:11 100 H 04/11/21 17:01 101 H 04/11/21 16:51 99 H 04/11/21 16:41 95 H 04/11/21 16:31 95 H 04/11/21 16:23 99.7 F H 04/11/21 16:21 98 H 04/11/21 16:11 99 H 04/11/21 16:01 102 H 04/11/21 16:00 96 H 102 H 100 H 100 H 100 H 100 H 04/11/21 15:51 98 H 04/11/21 15:41 97 H 04/11/21 15:31 98 H 04/11/21 15:21 102 H 04/11/21 15:10 93 H 04/11/21 15:00 104 H 04/11/21 14:51 98 H 04/11/21 14:41 101 H 04/11/21 14:30 105 H 04/11/21 14:21 99 H 04/11/21 14:15 100 H 04/11/21 13:41 99 H 04/11/21 13:30 96 H 04/11/21 13:21 96 H 04/11/21 13:11 98 H 04/11/21 13:09 96 H 04/11/21 13:00 103 H 04/11/21 12:51 98 H 04/11/21 12:40 103 H 04/11/21 12:30 93 H 04/11/21 12:21 101 H 04/11/21 12:11 92 H 04/11/21 12:04 99.7 F H 04/11/21 12:00 93 H 100 H 100 H 100 H 100 H 100 H 04/11/21 11:51 93 H 04/11/21 11:41 99 H 04/11/21 11:30 100 H 04/11/21 11:21 98 H 04/11/21 11:11 97 H 04/11/21 11:00 98 H 04/11/21 10:51 96 H 04/11/21 10:41 99 H Resp BP Pulse Ox 04/12/21 10:11 26 H 148/56 98 04/12/21 10:00 25 H 148/56 98 04/12/21 09:51 28 H 135/63 99 04/12/21 09:41 26 H 144/66 100 04/12/21 09:30 27 H 144/66 98 04/12/21 09:21 27 H 153/63 99 04/12/21 09:11 27 H 160/64 100 04/12/21 09:00 27 H 160/64 100 04/12/21 08:51 28 H 153/67 100 04/12/21 08:41 28 H 161/64 100 04/12/21 08:30 27 H 161/64 100 04/12/21 08:21 26 H 155/67 100 04/12/21 08:11 29 H 151/58 100 04/12/21 08:00 29 H 151/58 99 04/12/21 07:51 29 H 149/60 100 04/12/21 07:41 29 H 154/72 100 04/12/21 07:32 04/12/21 07:30 29 H 154/72 100 04/12/21 07:21 30 H 140/59 100 04/12/21 07:11 29 H 154/61 100 04/12/21 07:00 29 H 154/61 99 04/12/21 06:51 29 H 142/67 100 04/12/21 06:41 29 H 142/67 100 04/12/21 06:30 28 H 142/67 68 L 04/12/21 06:21 28 H 142/54 100 04/12/21 06:11 27 H 145/58 100 04/12/21 06:00 26 H 145/58 98 04/12/21 05:51 28 H 140/66 99 04/12/21 05:41 28 H 145/84 100 04/12/21 05:30 27 H 145/84 92 04/12/21 05:21 29 H 139/57 99 04/12/21 05:11 27 H 135/61 99 04/12/21 05:00 28 H 135/61 100 04/12/21 04:51 28 H 130/59 100 04/12/21 04:49 130/59 100 04/12/21 04:41 28 H 139/57 100 04/12/21 04:30 26 H 139/57 100 04/12/21 04:21 28 H 137/63 99 04/12/21 04:11 30 H 135/57 99 04/12/21 04:00 28 H 135/57 100 04/12/21 03:51 28 H 137/57 100 04/12/21 03:41 29 H 129/72 99 04/12/21 03:30 29 H 129/72 98 04/12/21 03:21 27 H 142/63 98 04/12/21 03:11 26 H 134/58 98 04/12/21 03:00 27 H 134/58 97 04/12/21 02:51 26 H 133/54 98 04/12/21 02:41 25 H 132/68 97 04/12/21 02:30 27 H 132/68 96 04/12/21 02:21 27 H 132/54 97 04/12/21 02:11 25 H 132/56 98 04/12/21 02:00 28 H 132/56 97 04/12/21 01:51 27 H 133/63 97 04/12/21 01:40 28 H 135/62 97 04/12/21 01:30 28 H 135/62 98 04/12/21 01:20 27 H 131/56 96 04/12/21 01:11 25 H 136/61 100 04/12/21 01:00 27 H 136/61 98 04/12/21 00:51 25 H 131/56 99 04/12/21 00:41 26 H 137/53 99 04/12/21 00:30 27 H 131/57 98 04/12/21 00:21 26 H 135/57 100 04/12/21 00:11 25 H 137/53 98 04/12/21 00:00 25 H 137/53 97 04/11/21 23:51 29 H 138/61 98 04/11/21 23:41 26 H 136/65 99 04/11/21 23:30 28 H 136/65 97 04/11/21 23:28 136/65 97 04/11/21 23:21 26 H 131/60 99 04/11/21 23:13 27 H 133/59 98 04/11/21 23:11 26 H 133/59 98 04/11/21 23:00 27 H 133/59 94 04/11/21 22:51 27 H 136/66 96 04/11/21 22:41 28 H 138/67 97 04/11/21 22:30 28 H 138/67 93 04/11/21 22:21 26 H 138/57 98 04/11/21 22:11 27 H 136/58 96 04/11/21 22:00 27 H 136/58 89 04/11/21 21:51 32 H 139/68 96 04/11/21 21:41 28 H 133/49 95 04/11/21 21:30 26 H 133/49 88 04/11/21 21:23 148/59 93 04/11/21 21:21 30 H 148/59 95 04/11/21 21:11 28 H 144/59 94 04/11/21 21:00 30 H 144/59 89 04/11/21 20:51 31 H 156/64 94 04/11/21 20:41 31 H 156/54 94 04/11/21 20:30 32 H 156/54 85 04/11/21 20:21 31 H 144/62 94 04/11/21 20:11 34 H 142/59 94 04/11/21 20:00 34 H 142/59 94 04/11/21 19:51 36 H 148/50 97 04/11/21 19:41 31 H 142/48 97 04/11/21 19:31 33 H 142/48 97 04/11/21 19:21 32 H 140/57 99 04/11/21 19:11 33 H 141/68 98 04/11/21 19:00 30 H 141/68 99 04/11/21 18:51 33 H 146/57 100 04/11/21 18:41 34 H 149/60 99 04/11/21 18:30 34 H 149/60 99 04/11/21 18:21 33 H 136/57 99 04/11/21 18:11 34 H 143/52 98 04/11/21 18:00 35 H 143/52 97 04/11/21 17:51 14 149/63 78 L 04/11/21 17:41 34 H 127/79 93 04/11/21 17:31 33 H 127/79 94 04/11/21 17:21 34 H 127/79 94 11/04/21 17:11 33 H 127/79 93 04/11/21 17:01 32 H 127/79 94 04/11/21 16:51 34 H 127/79 93 04/11/21 16:41 32 H 127/79 96 04/11/21 16:31 31 H 127/79 97 04/11/21 16:23 04/11/21 16:21 33 H 127/79 97 04/11/21 16:11 27 H 127/79 98 04/11/21 16:01 32 H 127/79 97 04/11/21 16:00 32 H 97 04/11/21 15:51 33 H 151/70 97 04/11/21 15:41 33 H 151/70 97 04/11/21 15:31 45 H 151/70 97 04/11/21 15:21 21 151/70 99 04/11/21 15:10 32 H 100 04/11/21 15:00 32 H 145/68 100 04/11/21 14:51 31 H 145/68 100 04/11/21 14:41 33 H 154/66 100 04/11/21 14:30 34 H 154/66 100 04/11/21 14:21 34 H 155/71 100 04/11/21 14:15 45 H 151/75 100 04/11/21 13:41 32 H 149/71 100 04/11/21 13:30 31 H 149/71 100 04/11/21 13:21 32 H 145/64 100 04/11/21 13:11 32 H 144/70 99 04/11/21 13:09 144/70 100 04/11/21 13:00 33 H 144/70 100 04/11/21 12:51 32 H 153/71 99 04/11/21 12:40 33 H 144/66 100 04/11/21 12:30 32 H 144/66 99 04/11/21 12:21 33 H 147/71 100 04/11/21 12:11 32 H 147/63 100 04/11/21 12:04 04/11/21 12:00 32 H 147/63 100 04/11/21 11:51 33 H 141/62 100 04/11/21 11:41 34 H 146/65 100 04/11/21 11:30 33 H 146/65 100 04/11/21 11:21 34 H 147/66 100 04/11/21 11:11 34 H 137/68 99 04/11/21 11:00 34 H 137/68 100 04/11/21 10:51 34 H 148/73 99 04/11/21 10:41 35 H 145/65 100 - Physical Examination General: Other (intubated) HEENT: Positive: Mucus Membranes Dry, Other (contusions on eyes/nose consistent with recent nasal fracture) Neck: Positive: trachea midline Cardiac: Positive: irregularly irregular Lungs: Positive: Ventilated Respirations Neuro: Positive: Other (unabel to assess) Abdomen: Positive: Active Bowel Sounds Skin: Negative: Rash, Suspicious Lesions Extremities: Present: edema - Labs and Meds Cardiac Enzymes 04/12/21 Range/Units 04:10 AST 282 H (5-40) units/L Coagulation 04/12/21 Range/Units 04:10 PT 41.2 H (12.2-14.9) Sec. INR 3.92 H (0.87-1.13) CBC 04/12/21 Range/Units 04:10 WBC 10.9 (4.5-11.0) K/mm3 RBC 4.24 (3.65-5.03) M/mm3 Hgb 7.6 L (10.1-14.3) gm/dl Hct 25.2 L (30.3-42.9) % Plt Count 145 (140-440) K/mm3 Comprehensive Metabolic Panel 04/12/21 Range/Units 04:10 Sodium 138 (137-145) mmol/L Potassium 4.3 (3.6-5.0) mmol/L Chloride 101.8 (98-107) mmol/L Carbon Dioxide 19 L (22-30) mmol/L BUN 67 H (7-17) mg/dL Creatinine 4.1 H (0.6-1.2) mg/dL Glucose 111 H (65-100) mg/dL Calcium 7.4 L (8.4-10.2) mg/dL AST 282 H (5-40) units/L ALT 413 H (7-56) units/L Alkaline Phosphatase 117 (35-129) units/L Total Protein 5.2 L (6.3-8.2) g/dL Albumin 2.6 L (3.9-5) g/dL - Imaging and Cardiology Echo: report reviewed - Telemetry EKG Rhythm: Atrial Fibrillation - EKG Supraventricular dysrhythmia: atrial fibrillation Repolarization changes or abnormalities: nonspecific abnormality, ST segment, and/or T wave
--- NOTE | 2021-04-12 10:44 | Progress Note ---
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 daily. - Lipitor 40 mg p.o. daily. -EchocardiogramEf#55-60% -Decrese Keppra 250 mg Iv BID -Brain MRI is pending -Nuclear flow study is inconsistent with brain # Bilateral pneumonia -DuoNeb by nebulizer every 4 hours. Albuterol via nebulizer every 4 hours as needed. Zosyn 4.5 g IV every 8 hours. Vancomycin 1 g IV every 12 hours. Critical care evaluation # Acute renal failure -BUN/Cr#44/2.6--- 62/3.3---67/4.1 -NPO. Normal saline at the rate of 100 cc/h. Avoid nephrotoxic drug. Renally dose medication. Nephrology consult. Recheck BMP in the morning # Congestive heart failure -Stable. - Echocardiogram. - Cardiology consult # Atrial fibrillation -Patient is on Eliquis with supratherapeutic INR.#4.36 ? repeat am - Will hold the Eliquis. - We will continue the other home medication. - Echocardiogram and cardiology consult # Metabolic acidosis - NPO. Normal saline at the rate of 100 cc/h. Zosyn 4.5 g IV every 8 hours and vancomycin 1 g IV every 12 hours. Recheck lactic acid in 4 hours. Recheck CBC BMP in the morning. Critical care evaluation # Diabetes -NPO. IV fluid normal saline at the rate of 100 cc/h. Accu-Chek every 6 hours with Humalog moderate dose coverage. Diabetic education # Obstructive sleep apnea -Patient is on vent. DuoNeb by nebulizer every 4 hours. Albuterol via nebulizer every 4 hours as needed. Critical care evaluation # Pneumothorax -Patient has tiny pneumothorax related to CPR and multiple ribs fracture related to above. - Patient is on vent. DuoNeb by nebulizer every 4 hours. Critical care evaluation (10) DVT prophylaxis -SCD because patient has supratherapeutic INR. Protonix 40 mg p.o. daily for GI prophylaxis. Patient is a full code. Prognosis is poor PLAN 1- MRI brain when possible 2- EEG is noted 3- OFF coumadine ,on ASA 4- on Keppra 250 mg IV,BID 5- Prognosis is poor will follow along Subjective Date of service: 04/12/21 Principal diagnosis: Post cardiac arrest Interval history: status is unchanged intubated off sedation , MRI brain is pending EEG is surprising showed slowing 3-4 hz , no epileptiform discharges no sign of brain !!! still on Norepi. off coumadine on ASA On keppra 500 mg IV bid -- no myoclonus is appreciated today BUN/Cr# 67/4.1 Objective - Vital Sign Vital Signs - 12hr 04/11/21 04/11/21 04/11/21 22:41 22:51 23:00 Temperature Pulse Rate 105 H 102 H 101 H Pulse Rate [ From Monitor] Respiratory 28 H 27 H 27 H Rate Blood Pressure 138/67 136/66 133/59 O2 Sat by Pulse 97 96 94 Oximetry 04/11/21 04/11/21 04/11/21 23:11 23:13 23:21 Temperature Pulse Rate 100 H 103 H 103 H Pulse Rate [ From Monitor] Respiratory 26 H 27 H 26 H Rate Blood Pressure 133/59 133/59 131/60 O2 Sat by Pulse 98 98 99 Oximetry 04/11/21 04/11/21 04/11/21 23:28 23:30 23:41 Temperature Pulse Rate 101 H 100 H 99 H Pulse Rate [ From Monitor] Respiratory 28 H 26 H Rate Blood Pressure 136/65 136/65 136/65 O2 Sat by Pulse 97 97 99 Oximetry 04/11/21 04/12/21 04/12/21 23:51 00:00 00:11 Temperature 100.8 F H Pulse Rate 98 H 94 H 100 H Pulse Rate [ 98 H From Monitor] Respiratory 29 H 25 H 25 H Rate Blood Pressure 138/61 137/53 137/53 O2 Sat by Pulse 98 97 98 Oximetry 04/12/21 04/12/21 04/12/21 00:21 00:30 00:41 Temperature Pulse Rate 105 H 100 H 95 H Pulse Rate [ From Monitor] Respiratory 26 H 27 H 26 H Rate Blood Pressure 135/57 131/57 137/53 O2 Sat by Pulse 100 98 99 Oximetry 04/12/21 04/12/21 04/12/21 00:51 01:00 01:11 Temperature Pulse Rate 98 H 96 H 97 H Pulse Rate [ From Monitor] Respiratory 25 H 27 H 25 H Rate Blood Pressure 131/56 136/61 136/61 O2 Sat by Pulse 99 98 100 Oximetry 04/12/21 04/12/21 04/12/21 01:20 01:30 01:40 Temperature Pulse Rate 99 H 100 H 96 H Pulse Rate [ From Monitor] Respiratory 27 H 28 H 28 H Rate Blood Pressure 131/56 135/62 135/62 O2 Sat by Pulse 96 98 97 Oximetry 04/12/21 04/12/21 04/12/21 01:51 02:00 02:11 Temperature Pulse Rate 97 H 90 100 H Pulse Rate [ From Monitor] Respiratory 27 H 28 H 25 H Rate Blood Pressure 133/63 132/56 132/56 O2 Sat by Pulse 97 97 98 Oximetry 04/12/21 04/12/21 04/12/21 02:21 02:30 02:41 Temperature Pulse Rate 100 H 96 H 94 H Pulse Rate [ From Monitor] Respiratory 27 H 27 H 25 H Rate Blood Pressure 132/54 132/68 132/68 O2 Sat by Pulse 97 96 97 Oximetry 04/12/21 04/12/21 04/12/21 02:51 03:00 03:11 Temperature Pulse Rate 98 H 99 H 96 H Pulse Rate [ From Monitor] Respiratory 26 H 27 H 26 H Rate Blood Pressure 133/54 134/58 134/58 O2 Sat by Pulse 98 97 98 Oximetry 04/12/21 04/12/21 04/12/21 03:21 03:30 03:41 Temperature Pulse Rate 101 H 103 H 92 H Pulse Rate [ From Monitor] Respiratory 27 H 29 H 29 H Rate Blood Pressure 142/63 129/72 129/72 O2 Sat by Pulse 98 98 99 Oximetry 04/12/21 04/12/21 04/12/21 03:51 04:00 04:11 Temperature 100.9 F H Pulse Rate 97 H 96 H 98 H Pulse Rate [ 97 H From Monitor] Respiratory 28 H 28 H 30 H Rate Blood Pressure 137/57 135/57 135/57 O2 Sat by Pulse 100 100 99 Oximetry 04/12/21 04/12/21 04/12/21 04:21 04:30 04:41 Temperature Pulse Rate 94 H 103 H 94 H Pulse Rate [ From Monitor] Respiratory 28 H 26 H 28 H Rate Blood Pressure 137/63 139/57 139/57 O2 Sat by Pulse 99 100 100 Oximetry 04/12/21 04/12/21 04/12/21 04:49 04:51 05:00 Temperature Pulse Rate 95 H 90 97 H Pulse Rate [ From Monitor] Respiratory 28 H 28 H Rate Blood Pressure 130/59 130/59 135/61 O2 Sat by Pulse 100 100 100 Oximetry 04/12/21 04/12/21 04/12/21 05:11 05:21 05:30 Temperature Pulse Rate 94 H 93 H 92 H Pulse Rate [ From Monitor] Respiratory 27 H 29 H 27 H Rate Blood Pressure 135/61 139/57 145/84 O2 Sat by Pulse 99 99 92 Oximetry 04/12/21 04/12/21 04/12/21 05:41 05:51 06:00 Temperature Pulse Rate 91 H 94 H 98 H Pulse Rate [ From Monitor] Respiratory 28 H 28 H 26 H Rate Blood Pressure 145/84 140/66 145/58 O2 Sat by Pulse 100 99 98 Oximetry 04/12/21 04/12/21 04/12/21 06:11 06:21 06:30 Temperature Pulse Rate 99 H 93 H 97 H Pulse Rate [ From Monitor] Respiratory 27 H 28 H 28 H Rate Blood Pressure 145/58 142/54 142/67 O2 Sat by Pulse 100 100 68 L Oximetry 04/12/21 04/12/21 04/12/21 06:41 06:51 07:00 Temperature Pulse Rate 90 91 H 99 H Pulse Rate [ From Monitor] Respiratory 29 H 29 H 29 H Rate Blood Pressure 142/67 142/67 154/61 O2 Sat by Pulse 100 100 99 Oximetry 04/12/21 04/12/21 04/12/21 07:11 07:21 07:30 Temperature Pulse Rate 97 H 89 101 H Pulse Rate [ From Monitor] Respiratory 29 H 30 H 29 H Rate Blood Pressure 154/61 140/59 154/72 O2 Sat by Pulse 100 100 100 Oximetry 04/12/21 04/12/21 04/12/21 07:32 07:41 07:51 Temperature 101.3 F H Pulse Rate 96 H 90 Pulse Rate [ From Monitor] Respiratory 29 H 29 H Rate Blood Pressure 154/72 149/60 O2 Sat by Pulse 100 100 Oximetry 04/12/21 04/12/21 04/12/21 08:00 08:11 08:21 Temperature Pulse Rate 100 H 116 H 95 H Pulse Rate [ From Monitor] Respiratory 29 H 29 H 26 H Rate Blood Pressure 151/58 151/58 155/67 O2 Sat by Pulse 99 100 100 Oximetry 04/12/21 04/12/21 04/12/21 08:30 08:41 08:51 Temperature Pulse Rate 91 H 100 H 100 H Pulse Rate [ From Monitor] Respiratory 27 H 28 H 28 H Rate Blood Pressure 161/64 161/64 153/67 O2 Sat by Pulse 100 100 100 Oximetry 04/12/21 04/12/21 04/12/21 09:00 09:11 09:21 Temperature Pulse Rate 94 H 96 H 92 H Pulse Rate [ From Monitor] Respiratory 27 H 27 H 27 H Rate Blood Pressure 160/64 160/64 153/63 O2 Sat by Pulse 100 100 99 Oximetry 04/12/21 04/12/21 04/12/21 09:30 09:41 09:51 Temperature Pulse Rate 93 H 87 93 H Pulse Rate [ From Monitor] Respiratory 27 H 26 H 28 H Rate Blood Pressure 144/66 144/66 135/63 O2 Sat by Pulse 98 100 99 Oximetry 04/12/21 04/12/21 10:00 10:11 Temperature Pulse Rate 94 H 90 Pulse Rate [ From Monitor] Respiratory 25 H 26 H Rate Blood Pressure 148/56 148/56 O2 Sat by Pulse 98 98 Oximetry - General Apperance Constitutional: comfortable - EENT EENT: PERRL, mucous membranes moist - Respiratory Respiratory: lungs clear, rhonchi - Cardiovascular Cardiovascular: regular rate, normal S1, normal S2 Extremities: chronic venous stasis chg - Gastrointestinal Gastrointestinal: normoactive bowel sounds - Integumentary Integumentary: normal - Neurologic Cranial nerve examination: PERRL, EOMI Speech examination: other (intubated not sedated) Detailed motor examination: other (no movment to stimuli) - Laboratory Findings CBC and BMP: 04/12/21 04:10 04/12/21 04:10 Abnormal Lab Findings: Abnormal Labs 04/10/21 04/10/21 04/10/21 00:36 00:36 00:36 WBC Hgb 8.6 L Hct MCV 66 L MCH 18 L MCHC 27 L RDW 27.2 H Seg Neuts % (Manual) Lymphocytes % (Manual) 42.0 H Nucleated RBC % 9.0 H Seg Neutrophils # Man 0.0 L Lymphocytes # (Manual) 0.0 L PT 44.8 H INR 4.36 H APTT 49.7 H ABG pH POC ABG pCO2 POC ABG pO2 ABG pO2 ABG HCO3 ABG Base Excess ABG Hemoglobin ABG Oxyhemoglobin ABG Sodium ABG Potassium ABG Glucose Potassium 5.5 H Chloride 97.2 L Carbon Dioxide 14 L BUN 44 H Creatinine 2.6 H Glucose 47 L POC Glucose Lactic Acid Calcium 7.9 L Phosphorus Total Bilirubin AST ALT Alkaline Phosphatase Total Creatine Kinase 222 H CK-MB (CK-2) 10.3 H CK-MB (CK-2) Rel Index 4.6 H Troponin T 0.721 H* Total Protein Albumin LDL Cholesterol Direct 42 L HDL Cholesterol 30 L Arterial Blood Glucose Arterial Blood Ionized Calcium Urine WBC (Auto) U Epithel Cells (Auto) Urine Creatinine Urine Total Protein 04/10/21 04/10/21 04/10/21 01:28 01:51 03:23 WBC Hgb Hct MCV MCH MCHC RDW Seg Neuts % (Manual) Lymphocytes % (Manual) Nucleated RBC % Seg Neutrophils # Man Lymphocytes # (Manual) PT INR APTT ABG pH 7.078 L POC ABG pCO2 52.0 H POC ABG pO2 112.0 H ABG pO2 ABG HCO3 ABG Base Excess ABG Hemoglobin 8.8 L ABG Oxyhemoglobin ABG Sodium ABG Potassium 4.9 H ABG Glucose 44 L Potassium Chloride Carbon Dioxide BUN Creatinine Glucose POC Glucose Lactic Acid 10.70 H* Calcium Phosphorus Total Bilirubin AST ALT Alkaline Phosphatase Total Creatine Kinase 308 H CK-MB (CK-2) 14.5 H CK-MB (CK-2) Rel Index 4.7 H Troponin T 0.757 H* Total Protein Albumin LDL Cholesterol Direct HDL Cholesterol Arterial Blood Glucose 44 L Arterial Blood Ionized Calcium Urine WBC (Auto) U Epithel Cells (Auto) Urine Creatinine Urine Total Protein 04/10/21 04/10/21 04/10/21 04:00 04:09 09:53 WBC Hgb Hct MCV MCH MCHC RDW Seg Neuts % (Manual) Lymphocytes % (Manual) Nucleated RBC % Seg Neutrophils # Man Lymphocytes # (Manual) PT INR APTT ABG pH 7.305 L POC ABG pCO2 POC ABG pO2 64.3 L ABG pO2 ABG HCO3 ABG Base Excess ABG Hemoglobin 9.6 L ABG Oxyhemoglobin 87.6 L ABG Sodium 135.2 L ABG Potassium 4.8 H ABG Glucose Potassium Chloride Carbon Dioxide BUN Creatinine Glucose POC Glucose Lactic Acid 10.20 H* 2.70 H* Calcium Phosphorus Total Bilirubin AST ALT Alkaline Phosphatase Total Creatine Kinase CK-MB (CK-2) CK-MB (CK-2) Rel Index Troponin T Total Protein Albumin LDL Cholesterol Direct HDL Cholesterol Arterial Blood Glucose Arterial Blood Ionized Calcium Urine WBC (Auto) U Epithel Cells (Auto) Urine Creatinine Urine Total Protein 04/10/21 04/10/21 04/10/21 09:53 09:53 15:24 WBC 13.2 H Hgb 8.3 L Hct 27.7 L MCV 62 L MCH 18 L MCHC RDW 26.7 H Seg Neuts % (Manual) 83.0 H Lymphocytes % (Manual) 7.0 L Nucleated RBC % 7.0 H Seg Neutrophils # Man 11.0 H Lymphocytes # (Manual) 0.9 L PT INR APTT ABG pH POC ABG pCO2 POC ABG pO2 ABG pO2 ABG HCO3 ABG Base Excess ABG Hemoglobin ABG Oxyhemoglobin ABG Sodium ABG Potassium ABG Glucose Potassium Chloride Carbon Dioxide 17 L BUN 54 H Creatinine 2.6 H Glucose 107 H POC Glucose Lactic Acid Calcium 7.1 L Phosphorus 5.90 H Total Bilirubin 1.60 H AST 783 H ALT 679 H Alkaline Phosphatase 141 H Total Creatine Kinase 456 H CK-MB (CK-2) 23.8 H CK-MB (CK-2) Rel Index 5.2 H Troponin T 0.905 H* 1.060 H* Total Protein 5.8 L Albumin 3.0 L LDL Cholesterol Direct HDL Cholesterol Arterial Blood Glucose Arterial Blood Ionized Calcium Urine WBC (Auto) U Epithel Cells (Auto) Urine Creatinine Urine Total Protein 04/11/21 04/11/21 04/11/21 04:20 04:20 05:46 WBC Hgb 8.1 L Hct 26.3 L MCV 60 L MCH 18 L MCHC RDW 27.4 H Seg Neuts % (Manual) Lymphocytes % (Manual) Nucleated RBC % Seg Neutrophils # Man Lymphocytes # (Manual) PT INR APTT ABG pH 7.544 H POC ABG pCO2 26.0 L POC ABG pO2 ABG pO2 ABG HCO3 ABG Base Excess ABG Hemoglobin 8.9 L ABG Oxyhemoglobin ABG Sodium 133.3 L ABG Potassium ABG Glucose 134 H Potassium Chloride Carbon Dioxide 18 L BUN 62 H Creatinine 3.3 H Glucose 129 H POC Glucose Lactic Acid Calcium 7.1 L Phosphorus 5.10 H Total Bilirubin AST ALT Alkaline Phosphatase Total Creatine Kinase CK-MB (CK-2) CK-MB (CK-2) Rel Index Troponin T Total Protein Albumin LDL Cholesterol Direct HDL Cholesterol Arterial Blood Glucose 134 H Arterial Blood Ionized Calcium 3.8 L Urine WBC (Auto) U Epithel Cells (Auto) Urine Creatinine Urine Total Protein 04/11/21 04/11/21 04/11/21 06:30 06:30 06:48 WBC Hgb Hct MCV MCH MCHC RDW Seg Neuts % (Manual) Lymphocytes % (Manual) Nucleated RBC % Seg Neutrophils # Man Lymphocytes # (Manual) PT INR APTT ABG pH POC ABG pCO2 POC ABG pO2 ABG pO2 ABG HCO3 ABG Base Excess ABG Hemoglobin ABG Oxyhemoglobin ABG Sodium ABG Potassium ABG Glucose Potassium Chloride Carbon Dioxide BUN Creatinine Glucose POC Glucose 133 H Lactic Acid Calcium Phosphorus Total Bilirubin AST ALT Alkaline Phosphatase Total Creatine Kinase CK-MB (CK-2) CK-MB (CK-2) Rel Index Troponin T Total Protein Albumin LDL Cholesterol Direct HDL Cholesterol Arterial Blood Glucose Arterial Blood Ionized Calcium Urine WBC (Auto) 93.0 H U Epithel Cells (Auto) 52.0 H Urine Creatinine 119.6 H Urine Total Protein 117 H 04/11/21 04/11/21 04/12/21 11:32 23:44 04:10 WBC Hgb 7.6 L Hct 25.2 L MCV 60 L MCH 18 L MCHC RDW 27.0 H Seg Neuts % (Manual) Lymphocytes % (Manual) Nucleated RBC % Seg Neutrophils # Man Lymphocytes # (Manual) PT INR APTT ABG pH POC ABG pCO2 POC ABG pO2 ABG pO2 ABG HCO3 ABG Base Excess ABG Hemoglobin ABG Oxyhemoglobin ABG Sodium ABG Potassium ABG Glucose Potassium Chloride Carbon Dioxide BUN Creatinine Glucose POC Glucose 114 H 131 H Lactic Acid Calcium Phosphorus Total Bilirubin AST ALT Alkaline Phosphatase Total Creatine Kinase CK-MB (CK-2) CK-MB (CK-2) Rel Index Troponin T Total Protein Albumin LDL Cholesterol Direct HDL Cholesterol Arterial Blood Glucose Arterial Blood Ionized Calcium Urine WBC (Auto) U Epithel Cells (Auto) Urine Creatinine Urine Total Protein 04/12/21 04/12/21 04/12/21 04:10 04:10 05:11 WBC Hgb Hct MCV MCH MCHC RDW Seg Neuts % (Manual) Lymphocytes % (Manual) Nucleated RBC % Seg Neutrophils # Man Lymphocytes # (Manual) PT 41.2 H INR 3.92 H APTT ABG pH POC ABG pCO2 POC ABG pO2 ABG pO2 160.1 H ABG HCO3 19.6 L ABG Base Excess -4.5 L ABG Hemoglobin 7.5 L ABG Oxyhemoglobin ABG Sodium ABG Potassium ABG Glucose Potassium Chloride Carbon Dioxide 19 L BUN 67 H Creatinine 4.1 H Glucose 111 H POC Glucose Lactic Acid Calcium 7.4 L Phosphorus Total Bilirubin AST 282 H ALT 413 H Alkaline Phosphatase Total Creatine Kinase CK-MB (CK-2) CK-MB (CK-2) Rel Index Troponin T Total Protein 5.2 L Albumin 2.6 L LDL Cholesterol Direct HDL Cholesterol Arterial Blood Glucose Arterial Blood Ionized Calcium Urine WBC (Auto) U Epithel Cells (Auto) Urine Creatinine Urine Total Protein
[2021-04-12] MEDS: dilTIAZem 30 MG TAB PO SCH ×2 (11:10→21:17)
[2021-04-12] MEDS ORDERED: dilTIAZem 30 MG TAB PO SCH (12:00)
--- NOTE | 2021-04-12 12:02 | Progress Note ---
Assessment and Plan 04/12/21: Prognosis remains poor. Afib is rate controlled on Dilt. Has severe Pulmonary HTN seen on echo. Will stop IVF's. Consider diuretic therapy. 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 If the family wishes to continue to be aggressive, trach and peg need to be considered and placement process should be started. 04/11/21: Follow up neurology recs. IMS has ordered brain flow. If no flow, still need confirmatory test (apnea test vs cold calorics). Patient is not apnic so has some brainstem function. Could ask neuro about cold calorics. Continue supportive measures. Remains unresponsive. Very poor prognosis. Long discussion with son over the phone and he agreed to make patient dnr. Continue supportive measures and follow up Neurology consult very very poor prognosis. CCT 31 minutes. Subjective Date of service: 04/12/21 Principal diagnosis: Post cardiac arrest Interval history: No acute events. Mental state is unchanged. Nuc Med study shows decreased perfusion. EEG reviewed and interpreted by neurology. BP stable. Minimal vent settings. Objective Vital Signs - 12hr 04/12/21 04/12/21 04/12/21 00:00 00:11 00:21 Temperature 100.8 F H Pulse Rate 94 H 100 H 105 H Pulse Rate [ 98 H From Monitor] Respiratory 25 H 25 H 26 H Rate Blood Pressure 137/53 137/53 135/57 O2 Sat by Pulse 97 98 100 Oximetry 04/12/21 04/12/21 04/12/21 00:30 00:41 00:51 Temperature Pulse Rate 100 H 95 H 98 H Pulse Rate [ From Monitor] Respiratory 27 H 26 H 25 H Rate Blood Pressure 131/57 137/53 131/56 O2 Sat by Pulse 98 99 99 Oximetry 04/12/21 04/12/21 04/12/21 01:00 01:11 01:20 Temperature Pulse Rate 96 H 97 H 99 H Pulse Rate [ From Monitor] Respiratory 27 H 25 H 27 H Rate Blood Pressure 136/61 136/61 131/56 O2 Sat by Pulse 98 100 96 Oximetry 04/12/21 04/12/21 04/12/21 01:30 01:40 01:51 Temperature Pulse Rate 100 H 96 H 97 H Pulse Rate [ From Monitor] Respiratory 28 H 28 H 27 H Rate Blood Pressure 135/62 135/62 133/63 O2 Sat by Pulse 98 97 97 Oximetry 04/12/21 04/12/21 04/12/21 02:00 02:11 02:21 Temperature Pulse Rate 90 100 H 100 H Pulse Rate [ From Monitor] Respiratory 28 H 25 H 27 H Rate Blood Pressure 132/56 132/56 132/54 O2 Sat by Pulse 97 98 97 Oximetry 04/12/21 04/12/21 04/12/21 02:30 02:41 02:51 Temperature Pulse Rate 96 H 94 H 98 H Pulse Rate [ From Monitor] Respiratory 27 H 25 H 26 H Rate Blood Pressure 132/68 132/68 133/54 O2 Sat by Pulse 96 97 98 Oximetry 04/12/21 04/12/21 04/12/21 03:00 03:11 03:21 Temperature Pulse Rate 99 H 96 H 101 H Pulse Rate [ From Monitor] Respiratory 27 H 26 H 27 H Rate Blood Pressure 134/58 134/58 142/63 O2 Sat by Pulse 97 98 98 Oximetry 04/12/21 04/12/21 04/12/21 03:30 03:41 03:51 Temperature Pulse Rate 103 H 92 H 97 H Pulse Rate [ From Monitor] Respiratory 29 H 29 H 28 H Rate Blood Pressure 129/72 129/72 137/57 O2 Sat by Pulse 98 99 100 Oximetry 04/12/21 04/12/21 04/12/21 04:00 04:11 04:21 Temperature 100.9 F H Pulse Rate 96 H 98 H 94 H Pulse Rate [ 97 H From Monitor] Respiratory 28 H 30 H 28 H Rate Blood Pressure 135/57 135/57 137/63 O2 Sat by Pulse 100 99 99 Oximetry 04/12/21 04/12/21 04/12/21 04:30 04:41 04:49 Temperature Pulse Rate 103 H 94 H 95 H Pulse Rate [ From Monitor] Respiratory 26 H 28 H Rate Blood Pressure 139/57 139/57 130/59 O2 Sat by Pulse 100 100 100 Oximetry 04/12/21 04/12/21 04/12/21 04:51 05:00 05:11 Temperature Pulse Rate 90 97 H 94 H Pulse Rate [ From Monitor] Respiratory 28 H 28 H 27 H Rate Blood Pressure 130/59 135/61 135/61 O2 Sat by Pulse 100 100 99 Oximetry 04/12/21 04/12/21 04/12/21 05:21 05:30 05:41 Temperature Pulse Rate 93 H 92 H 91 H Pulse Rate [ From Monitor] Respiratory 29 H 27 H 28 H Rate Blood Pressure 139/57 145/84 145/84 O2 Sat by Pulse 99 92 100 Oximetry 04/12/21 04/12/21 04/12/21 05:51 06:00 06:11 Temperature Pulse Rate 94 H 98 H 99 H Pulse Rate [ From Monitor] Respiratory 28 H 26 H 27 H Rate Blood Pressure 140/66 145/58 145/58 O2 Sat by Pulse 99 98 100 Oximetry 04/12/21 04/12/21 04/12/21 06:21 06:30 06:41 Temperature Pulse Rate 93 H 97 H 90 Pulse Rate [ From Monitor] Respiratory 28 H 28 H 29 H Rate Blood Pressure 142/54 142/67 142/67 O2 Sat by Pulse 100 68 L 100 Oximetry 04/12/21 04/12/21 04/12/21 06:51 07:00 07:11 Temperature Pulse Rate 91 H 99 H 97 H Pulse Rate [ From Monitor] Respiratory 29 H 29 H 29 H Rate Blood Pressure 142/67 154/61 154/61 O2 Sat by Pulse 100 99 100 Oximetry 04/12/21 04/12/21 04/12/21 07:21 07:30 07:32 Temperature 101.3 F H Pulse Rate 89 101 H Pulse Rate [ From Monitor] Respiratory 30 H 29 H Rate Blood Pressure 140/59 154/72 O2 Sat by Pulse 100 100 Oximetry 04/12/21 04/12/21 04/12/21 07:41 07:51 08:00 Temperature Pulse Rate 96 H 90 100 H Pulse Rate [ 100 H From Monitor] Respiratory 29 H 29 H 29 H Rate Blood Pressure 154/72 149/60 151/58 O2 Sat by Pulse 100 100 99 Oximetry 04/12/21 04/12/21 04/12/21 08:11 08:21 08:30 Temperature Pulse Rate 116 H 95 H 91 H Pulse Rate [ From Monitor] Respiratory 29 H 26 H 27 H Rate Blood Pressure 151/58 155/67 161/64 O2 Sat by Pulse 100 100 100 Oximetry 04/12/21 04/12/21 04/12/21 08:41 08:51 09:00 Temperature Pulse Rate 100 H 100 H 94 H Pulse Rate [ From Monitor] Respiratory 28 H 28 H 27 H Rate Blood Pressure 161/64 153/67 160/64 O2 Sat by Pulse 100 100 100 Oximetry 04/12/21 04/12/21 04/12/21 09:11 09:21 09:30 Temperature Pulse Rate 96 H 92 H 93 H Pulse Rate [ From Monitor] Respiratory 27 H 27 H 27 H Rate Blood Pressure 160/64 153/63 144/66 O2 Sat by Pulse 100 99 98 Oximetry 04/12/21 04/12/21 04/12/21 09:41 09:51 10:00 Temperature Pulse Rate 87 93 H 94 H Pulse Rate [ From Monitor] Respiratory 26 H 28 H 25 H Rate Blood Pressure 144/66 135/63 148/56 O2 Sat by Pulse 100 99 98 Oximetry 04/12/21 04/12/21 04/12/21 10:11 10:21 10:30 Temperature Pulse Rate 90 88 86 Pulse Rate [ From Monitor] Respiratory 26 H 26 H 26 H Rate Blood Pressure 148/56 137/63 130/67 O2 Sat by Pulse 98 99 97 Oximetry 04/12/21 04/12/21 04/12/21 10:41 10:51 11:01 Temperature Pulse Rate 82 88 84 Pulse Rate [ From Monitor] Respiratory 27 H 26 H 26 H Rate Blood Pressure 130/67 130/67 130/67 O2 Sat by Pulse 98 97 98 Oximetry 04/12/21 04/12/21 04/12/21 11:11 11:21 11:30 Temperature Pulse Rate 85 88 80 Pulse Rate [ From Monitor] Respiratory 26 H 26 H 26 H Rate Blood Pressure 144/51 150/57 148/56 O2 Sat by Pulse 98 98 97 Oximetry Gastrointestinal: normoactive bowel sounds Integumentary: normal CBC and BMP: 04/12/21 04:10 04/12/21 04:10 ABG, PT/INR, D-dimer: ABG ABG pH 7.407 pH Units (7.350-7.450) 04/12/21 05:11 POC ABG pCO2 26.0 mmHg (32.0-48.0) L 04/11/21 05:46 ABG pCO2 31.9 mm Hg 04/12/21 05:11 POC ABG pO2 89.1 mmHg (83-108) 04/11/21 05:46 ABG pO2 160.1 mm Hg (80.0-90.0) H 04/12/21 05:11 POC ABG HCO3 21.9 04/11/21 05:46 ABG O2 Saturation 99.0 % (95.0-99.0) 04/12/21 05:11 PT/INR, D-dimer PT 41.2 Sec. (12.2-14.9) H 04/12/21 04:10 INR 3.92 (0.87-1.13) H 04/12/21 04:10 Abnormal lab findings: Abnormal Labs 04/10/21 04/10/21 04/10/21 00:36 00:36 00:36 WBC Hgb 8.6 L Hct MCV 66 L MCH 18 L MCHC 27 L RDW 27.2 H Seg Neuts % (Manual) Lymphocytes % (Manual) 42.0 H Nucleated RBC % 9.0 H Seg Neutrophils # Man 0.0 L Lymphocytes # (Manual) 0.0 L PT 44.8 H INR 4.36 H APTT 49.7 H ABG pH POC ABG pCO2 POC ABG pO2 ABG pO2 ABG HCO3 ABG Base Excess ABG Hemoglobin ABG Oxyhemoglobin ABG Sodium ABG Potassium ABG Glucose Potassium 5.5 H Chloride 97.2 L Carbon Dioxide 14 L BUN 44 H Creatinine 2.6 H Glucose 47 L POC Glucose Lactic Acid Calcium 7.9 L Phosphorus Total Bilirubin AST ALT Alkaline Phosphatase Total Creatine Kinase 222 H CK-MB (CK-2) 10.3 H CK-MB (CK-2) Rel Index 4.6 H Troponin T 0.721 H* Total Protein Albumin LDL Cholesterol Direct 42 L HDL Cholesterol 30 L Vitamin B12 Arterial Blood Glucose Arterial Blood Ionized Calcium Urine WBC (Auto) U Epithel Cells (Auto) Urine Creatinine Urine Total Protein 04/10/21 04/10/21 04/10/21 01:28 01:51 03:23 WBC Hgb Hct MCV MCH MCHC RDW Seg Neuts % (Manual) Lymphocytes % (Manual) Nucleated RBC % Seg Neutrophils # Man Lymphocytes # (Manual) PT INR APTT ABG pH 7.078 L POC ABG pCO2 52.0 H POC ABG pO2 112.0 H ABG pO2 ABG HCO3 ABG Base Excess ABG Hemoglobin 8.8 L ABG Oxyhemoglobin ABG Sodium ABG Potassium 4.9 H ABG Glucose 44 L Potassium Chloride Carbon Dioxide BUN Creatinine Glucose POC Glucose Lactic Acid 10.70 H* Calcium Phosphorus Total Bilirubin AST ALT Alkaline Phosphatase Total Creatine Kinase 308 H CK-MB (CK-2) 14.5 H CK-MB (CK-2) Rel Index 4.7 H Troponin T 0.757 H* Total Protein Albumin LDL Cholesterol Direct HDL Cholesterol Vitamin B12 Arterial Blood Glucose 44 L Arterial Blood Ionized Calcium Urine WBC (Auto) U Epithel Cells (Auto) Urine Creatinine Urine Total Protein 04/10/21 04/10/21 04/10/21 04:00 04:09 09:53 WBC Hgb Hct MCV MCH MCHC RDW Seg Neuts % (Manual) Lymphocytes % (Manual) Nucleated RBC % Seg Neutrophils # Man Lymphocytes # (Manual) PT INR APTT ABG pH 7.305 L POC ABG pCO2 POC ABG pO2 64.3 L ABG pO2 ABG HCO3 ABG Base Excess ABG Hemoglobin 9.6 L ABG Oxyhemoglobin 87.6 L ABG Sodium 135.2 L ABG Potassium 4.8 H ABG Glucose Potassium Chloride Carbon Dioxide BUN Creatinine Glucose POC Glucose Lactic Acid 10.20 H* 2.70 H* Calcium Phosphorus Total Bilirubin AST ALT Alkaline Phosphatase Total Creatine Kinase CK-MB (CK-2) CK-MB (CK-2) Rel Index Troponin T Total Protein Albumin LDL Cholesterol Direct HDL Cholesterol Vitamin B12 Arterial Blood Glucose Arterial Blood Ionized Calcium Urine WBC (Auto) U Epithel Cells (Auto) Urine Creatinine Urine Total Protein 04/10/21 04/10/21 04/10/21 09:53 09:53 15:24 WBC 13.2 H Hgb 8.3 L Hct 27.7 L MCV 62 L MCH 18 L MCHC RDW 26.7 H Seg Neuts % (Manual) 83.0 H Lymphocytes % (Manual) 7.0 L Nucleated RBC % 7.0 H Seg Neutrophils # Man 11.0 H Lymphocytes # (Manual) 0.9 L PT INR APTT ABG pH POC ABG pCO2 POC ABG pO2 ABG pO2 ABG HCO3 ABG Base Excess ABG Hemoglobin ABG Oxyhemoglobin ABG Sodium ABG Potassium ABG Glucose Potassium Chloride Carbon Dioxide 17 L BUN 54 H Creatinine 2.6 H Glucose 107 H POC Glucose Lactic Acid Calcium 7.1 L Phosphorus 5.90 H Total Bilirubin 1.60 H AST 783 H ALT 679 H Alkaline Phosphatase 141 H Total Creatine Kinase 456 H CK-MB (CK-2) 23.8 H CK-MB (CK-2) Rel Index 5.2 H Troponin T 0.905 H* 1.060 H* Total Protein 5.8 L Albumin 3.0 L LDL Cholesterol Direct HDL Cholesterol Vitamin B12 Arterial Blood Glucose Arterial Blood Ionized Calcium Urine WBC (Auto) U Epithel Cells (Auto) Urine Creatinine Urine Total Protein 04/11/21 04/11/21 04/11/21 04:20 04:20 05:46 WBC Hgb 8.1 L Hct 26.3 L MCV 60 L MCH 18 L MCHC RDW 27.4 H Seg Neuts % (Manual) Lymphocytes % (Manual) Nucleated RBC % Seg Neutrophils # Man Lymphocytes # (Manual) PT INR APTT ABG pH 7.544 H POC ABG pCO2 26.0 L POC ABG pO2 ABG pO2 ABG HCO3 ABG Base Excess ABG Hemoglobin 8.9 L ABG Oxyhemoglobin ABG Sodium 133.3 L ABG Potassium ABG Glucose 134 H Potassium Chloride Carbon Dioxide 18 L BUN 62 H Creatinine 3.3 H Glucose 129 H POC Glucose Lactic Acid Calcium 7.1 L Phosphorus 5.10 H Total Bilirubin AST ALT Alkaline Phosphatase Total Creatine Kinase CK-MB (CK-2) CK-MB (CK-2) Rel Index Troponin T Total Protein Albumin LDL Cholesterol Direct HDL Cholesterol Vitamin B12 Arterial Blood Glucose 134 H Arterial Blood Ionized Calcium 3.8 L Urine WBC (Auto) U Epithel Cells (Auto) Urine Creatinine Urine Total Protein 04/11/21 04/11/21 04/11/21 06:30 06:30 06:48 WBC Hgb Hct MCV MCH MCHC RDW Seg Neuts % (Manual) Lymphocytes % (Manual) Nucleated RBC % Seg Neutrophils # Man Lymphocytes # (Manual) PT INR APTT ABG pH POC ABG pCO2 POC ABG pO2 ABG pO2 ABG HCO3 ABG Base Excess ABG Hemoglobin ABG Oxyhemoglobin ABG Sodium ABG Potassium ABG Glucose Potassium Chloride Carbon Dioxide BUN Creatinine Glucose POC Glucose 133 H Lactic Acid Calcium Phosphorus Total Bilirubin AST ALT Alkaline Phosphatase Total Creatine Kinase CK-MB (CK-2) CK-MB (CK-2) Rel Index Troponin T Total Protein Albumin LDL Cholesterol Direct HDL Cholesterol Vitamin B12 Arterial Blood Glucose Arterial Blood Ionized Calcium Urine WBC (Auto) 93.0 H U Epithel Cells (Auto) 52.0 H Urine Creatinine 119.6 H Urine Total Protein 117 H 04/11/21 04/11/21 04/12/21 11:32 23:44 04:10 WBC Hgb 7.6 L Hct 25.2 L MCV 60 L MCH 18 L MCHC RDW 27.0 H Seg Neuts % (Manual) Lymphocytes % (Manual) Nucleated RBC % Seg Neutrophils # Man Lymphocytes # (Manual) PT INR APTT ABG pH POC ABG pCO2 POC ABG pO2 ABG pO2 ABG HCO3 ABG Base Excess ABG Hemoglobin ABG Oxyhemoglobin ABG Sodium ABG Potassium ABG Glucose Potassium Chloride Carbon Dioxide BUN Creatinine Glucose POC Glucose 114 H 131 H Lactic Acid Calcium Phosphorus Total Bilirubin AST ALT Alkaline Phosphatase Total Creatine Kinase CK-MB (CK-2) CK-MB (CK-2) Rel Index Troponin T Total Protein Albumin LDL Cholesterol Direct HDL Cholesterol Vitamin B12 Arterial Blood Glucose Arterial Blood Ionized Calcium Urine WBC (Auto) U Epithel Cells (Auto) Urine Creatinine Urine Total Protein 04/12/21 04/12/21 04/12/21 04:10 04:10 05:11 WBC Hgb Hct MCV MCH MCHC RDW Seg Neuts % (Manual) Lymphocytes % (Manual) Nucleated RBC % Seg Neutrophils # Man Lymphocytes # (Manual) PT 41.2 H INR 3.92 H APTT ABG pH POC ABG pCO2 POC ABG pO2 ABG pO2 160.1 H ABG HCO3 19.6 L ABG Base Excess -4.5 L ABG Hemoglobin 7.5 L ABG Oxyhemoglobin ABG Sodium ABG Potassium ABG Glucose Potassium Chloride Carbon Dioxide 19 L BUN 67 H Creatinine 4.1 H Glucose 111 H POC Glucose Lactic Acid Calcium 7.4 L Phosphorus Total Bilirubin AST 282 H ALT 413 H Alkaline Phosphatase Total Creatine Kinase CK-MB (CK-2) CK-MB (CK-2) Rel Index Troponin T Total Protein 5.2 L Albumin 2.6 L LDL Cholesterol Direct HDL Cholesterol Vitamin B12 Arterial Blood Glucose Arterial Blood Ionized Calcium Urine WBC (Auto) U Epithel Cells (Auto) Urine Creatinine Urine Total Protein 04/12/21 04/12/21 10:41 11:42 WBC Hgb Hct MCV MCH MCHC RDW Seg Neuts % (Manual) Lymphocytes % (Manual) Nucleated RBC % Seg Neutrophils # Man Lymphocytes # (Manual) PT INR APTT ABG pH POC ABG pCO2 POC ABG pO2 ABG pO2 ABG HCO3 ABG Base Excess ABG Hemoglobin ABG Oxyhemoglobin ABG Sodium ABG Potassium ABG Glucose Potassium Chloride Carbon Dioxide BUN Creatinine Glucose POC Glucose 130 H Lactic Acid Calcium Phosphorus Total Bilirubin AST ALT Alkaline Phosphatase Total Creatine Kinase CK-MB (CK-2) CK-MB (CK-2) Rel Index Troponin T Total Protein Albumin LDL Cholesterol Direct HDL Cholesterol Vitamin B12 1488 H Arterial Blood Glucose Arterial Blood Ionized Calcium Urine WBC (Auto) U Epithel Cells (Auto) Urine Creatinine Urine Total Protein
--- NOTE | 2021-04-12 14:22 | Magnetic Resonance Report ---
MR brain wo con INDICATION / CLINICAL INFORMATION: 75 years Female; s/p cardiac arrest. TECHNIQUE: Multiplanar, multisequence MR images of the brain were obtained. COMPARISON: None available. FINDINGS: BRAIN / INTRACRANIAL CONTENTS: The motion degrades the image quality despite using the fast acquisiti on sequences at. However, there is extensive increase diffusion signal particularly involving the cer ebral cortex in a pattern compatible with diffuse cerebral edema and hypoxia this patient with histor y of status post cardiac arrest. Slightly milder degree of increased signal and ischemic changes are seen within the thalami and basal ganglia and fairly symmetric fashion. There appears be associated e meño on the remaining sequences with sulcal effacement. There is no significant midline shift. There appears be otherwise superimposed mild microvascular angiopathy. The ventricular system is with in normal limits in size and configuration. There appears be more subtle edema involving the cerebell ar hemispheres. There is no significant effacement of the basal cisterns on the current exam. CRANIOCERVICAL JUNCTION: No significant abnormality. VASCULAR FLOW-VOIDS: The vertebral basilar system and distal internal carotid arteries appear to demo nstrate appropriate signal voids. ORBITS: No significant abnormality of visualized orbits. SINUSES / MASTOIDS: There are scattered air-fluid levels within the paranasal sinuses as well as bila teral mastoid effusions in this patient with nasogastric and endotracheal tubes. ADDITIONAL FINDINGS: None. IMPRESSION: 1. The findings are compatible with diffuse cerebral edema and ischemia as detailed above. Signer Name: Demar Barraza MD Signed: 04/12/2021 2:18 PM Workstation Name: [id number]
--- NOTE | 2021-04-12 17:31 | Progress Note ---
Assessment and Plan Assessment and plan: This is a 75-year-old female with CHF, A. fib/a flutter, DM, KIMMIE, HTN, CVA, anemia, Crohn's disease, asthma admitted s/p cardiac arrest Neuro: Possible anoxic brain injury, h/o CVA -Neurology consulted, appreciate recommendations -CT head on admit unremarkable -On physical exam patient has myoclonus with agonal breathing -EEG with diffuse slowing -Patient is not sedated -Keppra IV -Seizure/aspiration precautions -NM brain scan does not show complete absence of cerebral blood flow -MRI B recommended by neuro Cardiology: S/p cardiac arrest, elevated troponin, h/o atrial fibrillation/atrial flutter, CHF, HTN, CAD -Cardiology consulted, appreciate recommendations -Echocardiogram shows EF 50 to 55%, right ventricle mildly hypokinetic, left atrium severely dilated, severe pulmonary hypertension, RSVP 74 mmHg, Moderate left pleural effusion, Right ventricle moderately dilated -Hold home Coumadin -s/p vassopressor support with Levophed -MAP goal greater than 65 -Blood pressure monitor per protocol Pulmonary: Acute hypoxic respiratory failure, pulm hthn, h/o KIMMIE, asthma -Intubated on 04/10 with 7.50 ETT at 22 at the lips -A.m. vent settings CMV rate 25, tidal 450, PEEP 12, FiO2 45% -See RT notes for titration -A.m. ABG noted -Daily CXR and ABG -VAP bundle -SPO2 monitoring -Pulmonary/critical care consulted, appreciate recommendations -CT chest shows multiple bilateral rib fractures, trace right pneumothorax, possible pulmonary edema, trace pericardial effusion GI: Transaminitis, h/o Crohn's disease -Nutrition consult for tube feeding -24 hours +[phone] -TF -PPI -BR: colace -Trend LFTs : Acute kidney injury 2/2 vasomotor nephropathy, metabolic acidosis -Nephrology consulted, appreciate recommendations -Patient had a CT abdomen/pelvis which showed no remarkable findings with the kidneys -per Nephro: may need [employer] in 24-48 hours -Renally dose medications -Avoid nephrotoxic medications -Strict intact/output -Daily weights -Trend BMP ID: Pneumonia, lactic acidosis -Evident on CXR -Antibiotic therapy with clindamycin -Monitor fever and WBC curve -Trend lactate -S/p 3 L NS Endo: h/o DM -Accu-Cheks every 6 while n.p.o. -Avoid hypoglycemia -SSI Heme: Leukocytosis, h/o anemia -ABX therapy -Trend CBC -Transfuse if hemoglobin less than 7 The high probability of a clinically significant, sudden or life threatening deterioration of the [multi] system(s) required my full and direct attention, intervention and personal management. The aggregate critical care time was [60] minutes. This time is in addition to time spent performing reported procedures b ut includes the following: [x] Data Review and interpretation [x] Patient assessment and monitoring of vital signs [x] Documentation [x] Medication orders and management Disposition Plan: icu Total Time Spent with Patient (Minutes): 60 History Interval history: This is a 75-year-old female with CHF, A. fib/a flutter, DM, KIMMIE, HTN, CVA, anemia, Crohn's disease, asthma who presented the emergency department on 04/10 after witnessed arrest via EMS. Upon EMS arrival patient was started on ACLS protocol and a Al airway was placed. EMS had ROSC onsite. Upon arrival to the emergency department patient was found to be pulseless and ACLS was initiated again. Patient was intubated in the emergency department and while there patient had 3 additional cardiac arrest with ROSC. She was also started on Levophed for hypotension. Patient was admitted to the hospitalist service status post cardiac arrest, pneumonia noted on CXR, lactic acidosis and acute kidney injury. Patient has consults to cardiology, nephrology, pulmonary CCM, neurology. 04/10: Family change CODE STATUS to DNR however family later rescinded DNR. Patient remains a full code. Patient is having elevated triglycerides however cardiology is aware and no orders have been given. Echocardiogram pending. Patient is on vasopressors with Levophed. 04/11: Patient had a nuclear med brain flow study which does not demonstrate a complete absence of brain perfusion however there is decreased brain parenchymal perfusion. Neurology would would like an MRI brain when possible. Nephrology anticipates initiation of hemodialysis within the next 24 to 48 hours. We will continue supportive care. Nutrition consult for tube feeding. 04/12: Patient started on diltiazem, MRI brain pending, B12 and thyroid studies ordered. Patient started on Benadryl given angioedema. She is currently on tube feedings. worsening renal function noted and IVF stopped d/t pulm htn. Dr. Lott updated family. Patient was febrile overnight Hospitalist Physical - Constitutional Vitals: Temp Pulse Resp BP Pulse Ox 98.1 F 73 8 L 145/66 98 04/12/21 17:15 04/12/21 16:15 04/12/21 16:11 04/12/21 16:15 04/12/21 16:15 General appearance: Present: no acute distress, other (intubated, unresponsive) - EENT Eyes: Absent: PERRL, EOM intact ENT: dentition normal - Neck Neck: Present: normal ROM - Respiratory Respiratory effort: normal Respiratory: bilateral: diminished - Cardiovascular Rhythm: irregularly irregular Heart Sounds: Present: S1 & S2. Absent: systolic murmur, diastolic murmur - Extremities Extremities: pulses intact, pulses symmetrical, normal color Extremity abnormal: cold Peripheral Pulses: within normal limits - Abdominal General gastrointestinal: soft, non-tender, non-distended, normal bowel sounds - Integumentary Integumentary: Present: dry - Psychiatric Psychiatric: other - Neurologic Neurologic: other (no cough/gag/corneal/pupil response) - Allied Health Allied health notes reviewed: nursing, RT, social work HEART Score - HEART Score Troponin: Troponin T 1.060 ng/mL (0.00-0.029) H* 04/10/21 15:24 Results - Labs CBC & Chem 7: 04/12/21 04:10 04/12/21 04:10 Labs: Laboratory Last Values WBC 10.9 K/mm3 (4.5-11.0) 04/12/21 04:10 RBC 4.24 M/mm3 (3.65-5.03) 04/12/21 04:10 Hgb 7.6 gm/dl (10.1-14.3) L 04/12/21 04:10 Hct 25.2 % (30.3-42.9) L 04/12/21 04:10 MCV 60 fl (79-97) L 04/12/21 04:10 MCH 18 pg (28-32) L 04/12/21 04:10 MCHC 30 % (30-34) 04/12/21 04:10 RDW 27.0 % (13.2-15.2) H 04/12/21 04:10 Plt Count 145 K/mm3 (140-440) 04/12/21 04:10 Add Manual Diff Complete 04/10/21 09:53 Total Counted 100 04/10/21 09:53 Seg Neuts % (Manual) 83.0 % (40.0-70.0) H 04/10/21 09:53 Band Neutrophils % 5.0 % 04/10/21 09:53 Lymphocytes % (Manual) 7.0 % (13.4-35.0) L 04/10/21 09:53 Monocytes % (Manual) 5.0 % (0.0-7.3) 04/10/21 09:53 Eosinophils % (Manual) 2.0 % (0.0-4.3) 04/10/21 00:36 Nucleated RBC % 7.0 % (0.0-0.9) H 04/10/21 09:53 Seg Neutrophils # Man 11.0 K/mm3 (1.8-7.7) H 04/10/21 09:53 Band Neutrophils # 0.7 K/mm3 04/10/21 09:53 Lymphocytes # (Manual) 0.9 K/mm3 (1.2-5.4) L 04/10/21 09:53 Abs React Lymphs (Man) 0.0 K/mm3 04/10/21 09:53 Monocytes # (Manual) 0.7 K/mm3 (0.0-0.8) 04/10/21 09:53 Eosinophils # (Manual) 0.0 K/mm3 (0.0-0.4) 04/10/21 09:53 Basophils # (Manual) 0.0 K/mm3 (0.0-0.1) 04/10/21 09:53 Metamyelocytes # 0.0 K/mm3 04/10/21 09:53 Myelocytes # 0.0 K/mm3 04/10/21 09:53 Promyelocytes # 0.0 K/mm3 04/10/21 09:53 Blast Cells # 0.0 K/mm3 04/10/21 09:53 WBC Morphology Not Reportable 04/10/21 09:53 Hypersegmented Neuts Not Reportable 04/10/21 09:53 Hyposegmented Neuts Not Reportable 04/10/21 09:53 Hypogranular Neuts Not Reportable 04/10/21 09:53 Smudge Cells Not Reportable 04/10/21 09:53 Toxic Granulation Not Reportable 04/10/21 09:53 Toxic Vacuolation Not Reportable 04/10/21 09:53 Dohle Bodies Not Reportable 04/10/21 09:53 Pelger-Huet Anomaly Not Reportable 04/10/21 09:53 Katie Rods Not Reportable 04/10/21 09:53 Platelet Estimate Consistent w auto 04/10/21 09:53 Clumped Platelets Not Reportable 04/10/21 09:53 Plt Clumps, EDTA Not Reportable 04/10/21 09:53 Large Platelets Few 04/10/21 09:53 Giant Platelets Not Reportable 04/10/21 09:53 Platelet Satelliting Not Reportable 04/10/21 09:53 Plt Morphology Comment Not Reportable 04/10/21 09:53 RBC Morphology Not Reportable 04/10/21 09:53 Dimorphic RBCs Not Reportable 04/10/21 09:53 Polychromasia Not Reportable 04/10/21 09:53 Hypochromasia 2+ 04/10/21 09:53 Poikilocytosis 1+ 04/10/21 09:53 Anisocytosis 3+ 04/10/21 09:53 Microcytosis 2+ 04/10/21 09:53 Macrocytosis Not Reportable 04/10/21 09:53 Spherocytes Not Reportable 04/10/21 09:53 Pappenheimer Bodies Not Reportable 04/10/21 09:53 Sickle Cells Not Reportable 04/10/21 09:53 Target Cells Not Reportable 04/10/21 09:53 Tear Drop Cells Not Reportable 04/10/21 09:53 Ovalocytes 1+ 04/10/21 09:53 Helmet Cells Not Reportable 04/10/21 09:53 [place] Bodies Not Reportable 04/10/21 09:53 [place] Rings Not Reportable 04/10/21 09:53 Marika Cells Not Reportable 04/10/21 09:53 Bite Cells Not Reportable 04/10/21 09:53 Crenated Cell Not Reportable 04/10/21 09:53 Elliptocytes 1+ 04/10/21 09:53 Acanthocytes (Spur) Not Reportable 04/10/21 09:53 Rouleaux Not Reportable 04/10/21 09:53 Hemoglobin C Crystals Not Reportable 04/10/21 09:53 Schistocytes Not Reportable 04/10/21 09:53 Malaria parasites Not Reportable 04/10/21 09:53 Jabari Bodies Not Reportable 04/10/21 09:53 Hem Pathologist Commnt No 04/10/21 09:53 PT 41.2 Sec. (12.2-14.9) H 04/12/21 04:10 INR 3.92 (0.87-1.13) H 04/12/21 04:10 APTT 49.7 Sec. (24.2-36.6) H 04/10/21 00:36 ABG pH 7.407 pH Units (7.350-7.450) 04/12/21 05:11 POC ABG pCO2 26.0 mmHg (32.0-48.0) L 04/11/21 05:46 ABG pCO2 31.9 mm Hg 04/12/21 05:11 POC ABG pO2 89.1 mmHg (83-108) 04/11/21 05:46 ABG pO2 160.1 mm Hg (80.0-90.0) H 04/12/21 05:11 POC ABG HCO3 21.9 04/11/21 05:46 ABG HCO3 19.6 mmol/L (20.0-26.0) L 04/12/21 05:11 ABG O2 Saturation 99.0 % (95.0-99.0) 04/12/21 05:11 ABG O2 Content 10.5 (0.0-44) 04/12/21 05:11 POC ABG Base Excess 0.1 04/11/21 05:46 ABG Base Excess -4.5 mmol/L (-2.0-3.0) L 04/12/21 05:11 ABG Hemoglobin 7.5 gm/dl (12.0-16.0) L 04/12/21 05:11 ABG Oxyhemoglobin 96.0 (94-98) 04/11/21 05:46 ABG Carboxyhemoglobin 1.8 % (0.0-5.0) 04/12/21 05:11 ABG Methemoglobin 0.4 % (0.0-1.5) 04/12/21 05:11 ABG Sodium 133.3 mmol/L (136.0-145.0) L 04/11/21 05:46 ABG Potassium 4.2 mmol/L (3.40-4.50) 04/11/21 05:46 ABG Chloride 103.0 mmol/L (98-107) 04/11/21 05:46 ABG Glucose 134 mg/dL (65-95) H 04/11/21 05:46 Oxyhemoglobin 96.8 % (95.0-99.0) 04/12/21 05:11 Carboxyhemoglobin 0.9 (0.5-1.5) 04/11/21 05:46 FiO2 45 % 04/12/21 05:11 FiO2 % 50.0 04/11/21 05:46 Sodium 138 mmol/L (137-145) 04/12/21 04:10 Potassium 4.3 mmol/L (3.6-5.0) 04/12/21 04:10 Chloride 101.8 mmol/L (98-107) 04/12/21 04:10 Carbon Dioxide 19 mmol/L (22-30) L 04/12/21 04:10 Anion Gap 22 mmol/L 04/12/21 04:10 BUN 67 mg/dL (7-17) H 04/12/21 04:10 Creatinine 4.1 mg/dL (0.6-1.2) H 04/12/21 04:10 Estimated GFR 11 ml/min 04/12/21 04:10 BUN/Creatinine Ratio 16 % 04/12/21 04:10 Glucose 111 mg/dL (65-100) H 04/12/21 04:10 POC Glucose 91 mg/dL (70-105) 04/12/21 17:02 Lactic Acid 1.90 mmol/L (0.7-2.0) 04/10/21 15:12 Calcium 7.4 mg/dL (8.4-10.2) L 04/12/21 04:10 Phosphorus 5.10 mg/dL (2.5-4.5) H 04/11/21 04:20 Magnesium 1.70 mg/dL (1.7-2.3) 04/10/21 09:53 Total Bilirubin 1.00 mg/dL (0.1-1.2) 04/12/21 04:10 AST 282 units/L (5-40) H 04/12/21 04:10 ALT 413 units/L (7-56) H 04/12/21 04:10 Alkaline Phosphatase 117 units/L (35-129) 04/12/21 04:10 Total Creatine Kinase 456 units/L (30-135) H 04/10/21 09:53 CK-MB (CK-2) 23.8 ng/mL (0.0-4.0) H 04/10/21 09:53 CK-MB (CK-2) Rel Index 5.2 (0-4) H 04/10/21 09:53 Troponin T 1.060 ng/mL (0.00-0.029) H* 04/10/21 15:24 Total Protein 5.2 g/dL (6.3-8.2) L 04/12/21 04:10 Albumin 2.6 g/dL (3.9-5) L 04/12/21 04:10 Albumin/Globulin Ratio 1.0 % 04/12/21 04:10 Triglycerides 67 mg/dL (2-149) 04/10/21 00:36 Cholesterol 77 mg/dL (50-199) 04/10/21 00:36 LDL Cholesterol Direct 42 mg/dL (50-130) L 04/10/21 00:36 HDL Cholesterol 30 mg/dL (40-59) L 04/10/21 00:36 Cholesterol/HDL Ratio 2.56 % 04/10/21 00:36 Vitamin B12 1488 pg/mL (211-911) H 04/12/21 10:41 TSH 0.390 mlU/mL (0.270-4.200) 04/12/21 10:41 Free T4 0.91 ng/dL (0.76-1.46) 04/12/21 10:41 Arterial Blood Glucose 134 mg/dL (65-95) H 04/11/21 05:46 Arterial Blood Ionized Calcium 3.8 mg/dL (4.6-5.3) L 04/11/21 05:46 Urine Color Cheryle (Yellow) 04/11/21 06:30 Urine Turbidity Cloudy (Clear) 04/11/21 06:30 Urine pH 5.0 (5.0-7.0) 04/11/21 06:30 Ur Specific Raymond 1.013 (1.003-1.030) 04/11/21 06:30 Urine Protein 100 mg/dl mg/dL (Negative) 04/11/21 06:30 Urine Glucose (UA) Neg mg/dL (Negative) 04/11/21 06:30 Urine Ketones Neg mg/dL (Negative) 04/11/21 06:30 Urine Blood Mod (Negative) 04/11/21 06:30 Urine Nitrite Neg (Negative) 04/11/21 06:30 Urine Bilirubin Neg (Negative) 04/11/21 06:30 Urine Urobilinogen < 2.0 mg/dL (<2.0) 04/11/21 06:30 Ur Leukocyte Esterase Sm (Negative) 04/11/21 06:30 Urine WBC (Auto) 93.0 /HPF (0.0-6.0) H 04/11/21 06:30 Urine RBC (Auto) > 182.0 /HPF (0.0-6.0) 04/11/21 06:30 U Epithel Cells (Auto) 52.0 /HPF (0-13.0) H 04/11/21 06:30 Urine Bacteria (Auto) 1+ /HPF (Negative) 04/11/21 06:30 Hyaline Casts 30 /LPF 04/11/21 06:30 Urine Mucus Few /HPF 04/11/21 06:30 Urine Eosinophils Few (None Seen) 04/11/21 06:30 Urine Creatinine 119.6 mg/dL (0.1-20.0) H 04/11/21 06:30 Protein/Creatinin Ratio 0.98 04/11/21 06:30 Urine Sodium 26 mmol/L 04/11/21 06:30 Urine Total Protein 117 mg/dL (5-11.8) H 04/11/21 06:30 Nasal Screen MRSA (PCR) Negative (Negative) 04/10/21 20:30 Random Vancomycin 10.6 ug/mL (0-40.0) 04/11/21 04:20 Blood Type O POSITIVE 04/10/21 00:36 Antibody Screen Negative 04/10/21 00:36 Microbiology: Microbiology 04/11/21 06:30 Urine,Clean Catch Urine Culture - Preliminary NO GROWTH AFTER 24 HOURS 04/10/21 01:56 Peripheral/Venous Blood Culture - Preliminary NO GROWTH AFTER 48 HOURS 04/10/21 01:51 Peripheral/Venous Blood Culture - Preliminary NO GROWTH AFTER 48 HOURS 04/10/21 08:45 Tracheal Aspirate Sputum Culture - Final Magi Albicans Lentz/IV: Voiding Method Indwelling Catheter Active Medications - Current Medications Current Medications: Generic Name Dose Route Start Last Admin Trade Name Freq PRN Reason Stop Dose Admin Acetaminophen 650 mg 04/10/21 05:52 04/12/21 07:50 Acetaminophen 325 Mg Tab PO 650 mg Q6H PRN Administration Pain, Mild (1-3) Lipase/Protease/Amylase 1 each 04/11/21 13:58 Lipase 10,500/Protease 25,000/Amylase 43,750 (Units) Dr Ramos FEEDTUBE PRN PRN For Clogged Feeding Tube Aspirin 81 mg 04/11/21 10:00 04/12/21 09:41 Aspirin 81 Mg Tab Chew PO 81 mg QDAY JAROD Administration Atorvastatin Calcium 40 mg 04/10/21 22:00 04/11/21 21:39 Atorvastatin 40 Mg Tab PO 40 mg QHS JAROD Administration Dextrose 50 ml 04/10/21 15:31 Dextrose 50% In Water (25gm) 50 Ml Syringe IV Q30MIN PRN Hypoglycemia Protocol Diltiazem HCl 30 mg 04/12/21 11:00 04/12/21 11:10 Diltiazem 30 Mg Tab PO 30 mg BID JAROD Administration Diphenhydramine HCl 25 mg 04/12/21 10:00 04/12/21 10:25 Diphenhydramine 50 Mg/Ml Vial IV 25 mg Q6H JAROD Administration NORepinephrine/NS 8 MG-250 ML 8 mg in 250 mls @ 3.75 mls/hr 04/10/21 01:00 04/10/21 20:30 Norepinephrine/Ns 8 Mg-250 Ml (Double Conc) IV 0 mcg/min TITRATE JAROD 0 mls/hr Titration Protocol 2 MCG/MIN Clindamycin HCl 600 mg in 50 mls @ 100 mls/hr 04/10/21 07:00 04/12/21 14:14 Cleocin 600 Mg/50 Ml IV 100 mls/hr Q8HR JAROD Administration Levetiracetam 250 mg/ Dextrose 102.5 mls @ 400 mls/hr 04/12/21 10:00 04/12/21 09:42 IV 400 mls/hr Q12HR JAROD Administration Insulin Human Lispro 0 unit 04/10/21 06:00 04/12/21 12:12 Insulin Lispro 100 Unit/Ml SUB-Q Not Given Q6HR JAROD Protocol Multi-Ingred Cream/Lotion/Oil/Oint 1 applic 04/11/21 18:00 04/12/21 12:15 Mineral Oil/Petrolatum, White Ophth Oint 3.5 Gm OU 1 applic Q6HR JAROD Administration Nitroglycerin 0.4 mg 04/10/21 05:52 Nitroglycerin 0.4 Mg Tab Subl SL Q5M PRN Chest Pain Pantoprazole Sodium 40 mg 04/10/21 10:00 04/12/21 09:41 Pantoprazole 40 Mg Inj IV 40 mg QDAY AJROD Administration Simple Syrup 15 ml 04/11/21 13:58 Simple Syrup 15 Ml FEEDTUBE PRN PRN Hypoglycemia Simple Syrup 30 ml 04/11/21 13:58 Simple Syrup 15 Ml FEEDTUBE PRN PRN Hypoglycemia Sodium Bicarbonate 325 mg 04/11/21 13:58 Sodium Bicarbonate 325 Mg Tab FEEDTUBE PRN PRN For Clogged Feeding Tube Sodium Chloride 10 ml 04/10/21 05:52 04/11/21 09:42 Sodium Chloride 0.9% 10 Ml Flush Syringe IV 10 ml PRN PRN Administration LINE FLUSH Nutrition/Malnutrition Assess - Dietary Evaluation Nutrition/Malnutrition Findings: Nutrition Notes Start: 04/10/21 10:22 Freq: Status: Active Protocol: Document 04/11/21 13:42 GB (Rec: 04/11/21 13:57 GB [email or web address]) Nutrition Notes Initial or Follow up Reassessment Current Diagnosis Diabetes,Heart Failure Other Pertinent Diagnosis Cardiac arrest multiple times, anoxic brain injury Current Diet NPO - TF to start NEPRO@39ml/ hr Labs/Tests 04/11: glucose 129, BUN 62, creatinine 3.3, P 5.1, Ca 7.1 Pertinent Medications Clindamycin HCl, D5(PRN), levetiracetam/D5 100ml/hr ( 408kcal) Height 5 ft 6 in Weight 91.8 kg Elk Body Weight (kg) 59.09 BMI 32.6 Weight change and time frame 04/10: 108.862kg 04/10: 91.8kg Using 91.8kg for EEN. Recommend reweigh to confirm weight. Weight Status Obese Subjective/Other Information MD consult for write/manage TF . 04/10: abdominal xRay: NG tube tip is in the distal stomach near pylorus notes 04/11: intubated / off sedation, Family withdrew DNR at this time, pt is full code . BM: not recorded at time of assessment Percent of energy/protein needs met: 0% - NPO, intubated TF @ goal rate will meet 75% or greater EEN. Burn Absent Trauma Absent GI Symptoms None Difficulty In Swallowing Food Allergy No Skin Integrity/Comment no complications at time of review Current % PO Other Minimum of two criteria No #1 Nutrition Diagnosis Swallowing difficulty Comments: 04/11: nepro @ 39ml/hr with flush 136ml/4hr to start. Order placed. Etiology anoxic brain injury, cardiac arrest multiple times As Evidenced by Signs and Symptoms intubation, NPO Diagnosis Progress(for reassessment Continues documentation) Is patient on ventilator? Yes Is Patient Ambulatory and/or Out of Bed No REE-([facility]-confined to bed) 1733.604 Kcal/Kg value to use for calculation 19 Approximate Energy Requirements Using 1744 kcal/Kg Calculation Used for Recommendations Kcal/kg Additional Notes Protein: 1-1.2 g/kg @ 92k -110g Fluids: 1 ml/kcal or per Nutrition Intervention Change Diet Order: Continue: NPO Nutrition Support: Nepro @39ml/hr. Start rate 19ml/hr. Advance 10ml/8hr as tolerated. Flush: 136ml/4hr. or per MD Total free water/day: TF@goal + flush = 1500ml Kcal 1,700 Protein (gm) 77 Carbohydrates (gm) 152 Fat (gm) 91 Fluid (mL) 687 Fiber (gm) 12 % RDI: 100%kcal/83%pro Goal #1 TF started by f/u 04/11: order Nepro @ 39ml/hr entered Goal #2 TF at goal by f/u Follow-Up By: 04/15/21 Additional Comments f/u: family decision on code status, TF started, vent status
[2021-04-13 04:54] LABS: Hematocrit 23.7 % (30.3-42.9); Hemoglobin 7.2 gm/dl (10.1-14.3); Mean Corpuscular HGB Conc 30 % (30-34); Red Blood Count 3.95 M/mm3 (3.65-5.03)
[2021-04-13 04:57] LABS: Mean Corpuscular Volume 60 fl (79-97); Red Cell Distribution Width 25.7 % (13.2-15.2)
[2021-04-13 05:00] LABS: ABG HCO3 20.1 mmol/L (20.0-26.0); ABG Methemoglobin 0.4 % (0.0-1.5); ABG PCO2 31.8 mm Hg; ABG PH 7.418 pH Units (7.350-7.450); ABG PO2 80.8 mm Hg (80.0-90.0)
[2021-04-13 05:02] LABS: INR 3.01 (0.87-1.13)
[2021-04-13 05:03] LABS: Calcium 7.5 mg/dL (8.4-10.2)
[2021-04-13] MEDS: INSULIN LISPRO 100 UNIT/ML SUB-Q SCH ×4 (05:20→23:22)
[2021-04-13] MEDS: CLINDAMYCIN 600 MG/50 mL 600 MG/50 ML BAG IV SCH (05:25)
[2021-04-13] MEDS: diphenhydrAMINE 50 MG/ML VIAL IV SCH ×3 (05:25→21:30)
[2021-04-13] MEDS: MINERAL OIL/PETROLATUM, WHITE OPHTH OINT 3.5 GM OU SCH ×4 (05:27→23:50)
[2021-04-13 06:24] LABS: Band Neutrophils # (Manual) 0.1 K/mm3; Total Cells Counted 100
[2021-04-13 06:26] LABS: Anisocytosis 2+; Hypochromasia 2+; Poikilocytosis 2+
[2021-04-13 06:34] LABS: Platelet Count 138 K/mm3 (140-440)
--- NOTE | 2021-04-13 09:55 | Progress Note ---
Assessment and Plan Acute Renal Failure likely secondary to Ischemic ATN Acute hypoxic Respiratory Failure Cardiopulmonary arrest Bilateral pneumonia Congestive heart failure Atrial fibrillation Metabolic acidosis Diabetes Mellitus Plan: Cr trending up, making some urine. Start lasix 40 mg BID IV. no emergent SEAM FELLER indication right now. Pt is also DNR now, has anxoic brain injury, limits of care being discussed with family. Start sodium bicarb for acidosis. Renally dose medications Avoid nephrotoxic agents Monitor I/O's daily Monitor renal function closely Subjective Date of service: 04/13/21 Principal diagnosis: Post cardiac arrest Interval history: Intubated on Vent. Making some urine. Objective - Exam Narrative Exam: General appearance: Present: no acute distress, other (intubated, unresponsive) - EENT Eyes: Absent: PERRL, EOM intact ENT: poor dentition - Respiratory Respiratory effort: normal Respiratory: bilateral: diminished - Cardiovascular Rhythm: regular Heart Sounds: Present: S1 & S2. Absent: systolic murmur, diastolic murmur - Extremities Extremities: no ischemia, pulses intact, pulses symmetrical, No edema, normal temperature, normal color Peripheral Pulses: within normal limits - Abdominal General gastrointestinal: soft, non-tender, non-distended, normal bowel sounds - Integumentary Integumentary: Present: dry - Psychiatric Psychiatric: other - Neurologic Neurologic: other (pupils not reactive, no cough/gag, no startle) - Vital Signs Vital signs: Vital Signs - 12hr 04/12/21 04/12/21 04/12/21 22:00 22:11 22:21 Temperature Pulse Rate 76 75 83 Respiratory 25 H 25 H 25 H Rate Blood Pressure 143/68 143/68 165/84 O2 Sat by Pulse 97 100 99 Oximetry 04/12/21 04/12/21 04/12/21 22:31 22:41 22:51 Temperature Pulse Rate 74 79 80 Respiratory 22 21 25 H Rate Blood Pressure 135/63 135/63 133/59 O2 Sat by Pulse 100 97 100 Oximetry 04/12/21 04/12/21 04/12/21 23:01 23:06 23:11 Temperature Pulse Rate 78 80 Respiratory 25 H 16 25 H Rate Blood Pressure 118/49 118/49 O2 Sat by Pulse 97 100 100 Oximetry 04/12/21 04/12/21 04/12/21 23:21 23:28 23:31 Temperature Pulse Rate 72 81 80 Respiratory 18 26 H Rate Blood Pressure 118/49 118/49 118/49 O2 Sat by Pulse 100 100 100 Oximetry 04/12/21 04/12/21 04/12/21 23:36 23:41 23:50 Temperature 97.3 F L Pulse Rate 72 Respiratory 25 H 16 Rate Blood Pressure 118/49 O2 Sat by Pulse 99 100 Oximetry 04/12/21 04/13/21 04/13/21 23:51 00:00 00:01 Temperature Pulse Rate 72 72 72 Respiratory 25 H 25 H 25 H Rate Blood Pressure 120/52 120/52 O2 Sat by Pulse 100 99 100 Oximetry 04/13/21 04/13/21 04/13/21 00:11 00:21 00:31 Temperature Pulse Rate 72 72 77 Respiratory 25 H 25 H 25 H Rate Blood Pressure 120/52 120/52 120/52 O2 Sat by Pulse 96 98 100 Oximetry 04/13/21 04/13/21 04/13/21 00:41 00:51 01:00 Temperature Pulse Rate 74 75 72 Respiratory 25 H 25 H 25 H Rate Blood Pressure 120/52 120/52 121/49 O2 Sat by Pulse 99 99 98 Oximetry 04/13/21 04/13/21 04/13/21 01:11 01:21 01:31 Temperature Pulse Rate 79 75 77 Respiratory 25 H 25 H 25 H Rate Blood Pressure 121/49 120/52 120/52 O2 Sat by Pulse 100 100 100 Oximetry 04/13/21 04/13/21 04/13/21 01:37 01:41 01:51 Temperature Pulse Rate 77 71 69 Respiratory 25 H 25 H Rate Blood Pressure 120/52 120/52 O2 Sat by Pulse 98 98 Oximetry 04/13/21 04/13/21 04/13/21 02:00 02:11 02:21 Temperature Pulse Rate 73 70 73 Respiratory 25 H 25 H 25 H Rate Blood Pressure 122/53 122/53 122/53 O2 Sat by Pulse 97 98 99 Oximetry 04/13/21 04/13/21 04/13/21 02:31 02:41 02:51 Temperature Pulse Rate 70 72 70 Respiratory 25 H 25 H 25 H Rate Blood Pressure 122/53 122/53 122/53 O2 Sat by Pulse 99 98 99 Oximetry 04/13/21 04/13/21 04/13/21 03:00 03:11 03:21 Temperature Pulse Rate 70 68 79 Respiratory 25 H 25 H 25 H Rate Blood Pressure 121/51 121/51 122/53 O2 Sat by Pulse 96 99 99 Oximetry 04/13/21 04/13/21 04/13/21 03:31 03:41 03:50 Temperature 97.5 F L Pulse Rate 74 72 Respiratory 25 H 25 H Rate Blood Pressure 122/53 122/53 O2 Sat by Pulse 99 99 Oximetry 04/13/21 04/13/21 04/13/21 03:51 04:00 04:11 Temperature Pulse Rate 77 76 75 Respiratory 25 H 25 H 25 H Rate Blood Pressure 122/53 128/55 128/55 O2 Sat by Pulse 98 97 99 Oximetry 04/13/21 04/13/21 04/13/21 04:21 04:31 04:38 Temperature Pulse Rate 75 82 72 Respiratory 7 L 13 Rate Blood Pressure 128/55 128/55 128/55 O2 Sat by Pulse 98 96 98 Oximetry 04/13/21 04/13/21 04/13/21 04:41 04:47 04:51 Temperature Pulse Rate 74 77 77 Respiratory 5 L 16 9 L Rate Blood Pressure 128/55 128/55 O2 Sat by Pulse 98 100 97 Oximetry 04/13/21 04/13/21 04/13/21 05:00 05:11 05:21 Temperature Pulse Rate 77 80 73 Respiratory 19 25 H 25 H Rate Blood Pressure 125/53 125/53 125/53 O2 Sat by Pulse 97 98 98 Oximetry 04/13/21 04/13/21 04/13/21 05:31 05:41 05:49 Temperature Pulse Rate 74 75 Respiratory 6 L 19 Rate Blood Pressure 125/53 125/53 O2 Sat by Pulse 98 98 100 Oximetry 04/13/21 04/13/21 04/13/21 05:51 06:00 06:11 Temperature Pulse Rate 74 74 75 Respiratory 21 22 16 Rate Blood Pressure 125/53 123/56 123/56 O2 Sat by Pulse 99 98 99 Oximetry 04/13/21 04/13/21 04/13/21 06:21 06:31 06:41 Temperature Pulse Rate 84 71 72 Respiratory 25 H 22 13 Rate Blood Pressure 123/56 125/53 125/53 O2 Sat by Pulse 99 98 99 Oximetry 04/13/21 04/13/21 04/13/21 06:51 07:00 07:11 Temperature Pulse Rate 75 80 72 Respiratory 15 25 H 21 Rate Blood Pressure 125/53 119/57 119/57 O2 Sat by Pulse 99 98 99 Oximetry 04/13/21 04/13/21 04/13/21 07:21 07:31 07:41 Temperature Pulse Rate 72 78 72 Respiratory 24 26 H 25 H Rate Blood Pressure 119/57 119/57 119/57 O2 Sat by Pulse 99 99 99 Oximetry 04/13/21 04/13/21 04/13/21 07:51 08:00 08:11 Temperature Pulse Rate 77 72 76 Respiratory 24 22 25 H Rate Blood Pressure 119/57 126/54 126/54 O2 Sat by Pulse 99 98 99 Oximetry 04/13/21 04/13/21 04/13/21 08:21 08:31 08:35 Temperature Pulse Rate 71 72 77 Respiratory 24 23 Rate Blood Pressure 126/54 126/54 126/54 O2 Sat by Pulse 99 99 95 Oximetry 04/13/21 04/13/21 08:41 08:51 Temperature Pulse Rate 79 79 Respiratory 26 H 20 Rate Blood Pressure 126/54 126/54 O2 Sat by Pulse 94 94 Oximetry - Lab 04/13/21 04:30 04/13/21 04:30 Most recent lab results ABG pH 7.418 pH Units (7.350-7.450) 04/13/21 04:06 ABG pCO2 31.8 mm Hg 04/13/21 04:06 ABG pO2 80.8 mm Hg (80.0-90.0) 04/13/21 04:06 ABG HCO3 20.1 mmol/L (20.0-26.0) 04/13/21 04:06 ABG O2 Saturation 97.0 % (95.0-99.0) 04/13/21 04:06 Calcium 7.5 mg/dL (8.4-10.2) L 04/13/21 04:30 Phosphorus 5.10 mg/dL (2.5-4.5) H 04/11/21 04:20 Magnesium 1.70 mg/dL (1.7-2.3) 04/10/21 09:53 Urine Creatinine 119.6 mg/dL (0.1-20.0) H 04/11/21 06:30 Urine Sodium 26 mmol/L 04/11/21 06:30 Urine Total Protein 117 mg/dL (5-11.8) H 04/11/21 06:30 Medications & Allergies - Medications Allergies/Adverse Reactions: Allergies hydrochlorothiazide Allergy (Mild, Verified 04/10/21 09:46) Hives linezolid Allergy (Mild, Verified 04/10/21 09:46) Hives Sulfa (Sulfonamide Antibiotics) Allergy (Mild, Verified 04/10/21 09:46) Hives azithromycin Allergy (Verified 04/10/21 09:46) Hives ciprofloxacin [From Cipro] Allergy (Verified 04/10/21 09:46) Hives docusate Allergy (Verified 04/10/21 09:46) Hives ferrous gluconate Allergy (Verified 04/10/21 09:46) Hives hydralazine Allergy (Verified 04/10/21 09:46) Hives Penicillins Allergy (Verified 04/10/21 07:34) Unknown ketorolac tromethamine Allergy (Mild, Uncoded 04/10/21 07:35) Hives Active Medications: Generic Name Dose Route Start Last Admin Trade Name Freq PRN Reason Stop Dose Admin Acetaminophen 650 mg 04/10/21 05:52 04/12/21 07:50 Acetaminophen 325 Mg Tab PO 650 mg Q6H PRN Administration Pain, Mild (1-3) Lipase/Protease/Amylase 1 each 04/11/21 13:58 Lipase 10,500/Protease 25,000/Amylase 43,750 (Units) Dr Ramos FEEDTUBE PRN PRN For Clogged Feeding Tube Aspirin 81 mg 04/11/21 10:00 04/12/21 09:41 Aspirin 81 Mg Tab Chew PO 81 mg QDAY JAROD Administration Atorvastatin Calcium 40 mg 04/10/21 22:00 04/12/21 21:17 Atorvastatin 40 Mg Tab PO 40 mg QHS JAROD Administration Dextrose 50 ml 04/10/21 15:31 Dextrose 50% In Water (25gm) 50 Ml Syringe IV Q30MIN PRN Hypoglycemia Protocol Diltiazem HCl 30 mg 04/12/21 11:00 04/12/21 21:17 Diltiazem 30 Mg Tab PO 30 mg BID JAROD Administration Diphenhydramine HCl 25 mg 04/12/21 10:00 04/13/21 05:25 Diphenhydramine 50 Mg/Ml Vial IV 25 mg Q6H JAROD Administration NORepinephrine/NS 8 MG-250 ML 8 mg in 250 mls @ 3.75 mls/hr 04/10/21 01:00 04/10/21 20:30 Norepinephrine/Ns 8 Mg-250 Ml (Double Conc) IV 0 mcg/min TITRATE JAROD 0 mls/hr Titration Protocol 2 MCG/MIN Clindamycin HCl 600 mg in 50 mls @ 100 mls/hr 04/10/21 07:00 04/13/21 05:25 Cleocin 600 Mg/50 Ml IV 100 mls/hr Q8HR JAROD Administration Levetiracetam 250 mg/ Dextrose 102.5 mls @ 400 mls/hr 04/12/21 10:00 04/12/21 21:16 IV 400 mls/hr Q12HR JAROD Administration Insulin Human Lispro 0 unit 04/10/21 06:00 04/13/21 05:20 Insulin Lispro 100 Unit/Ml SUB-Q Not Given Q6HR JAROD Protocol Multi-Ingred Cream/Lotion/Oil/Oint 1 applic 04/11/21 18:00 04/13/21 05:27 Mineral Oil/Petrolatum, White Ophth Oint 3.5 Gm OU 1 applic Q6HR JAROD Administration Nitroglycerin 0.4 mg 04/10/21 05:52 Nitroglycerin 0.4 Mg Tab Subl SL Q5M PRN Chest Pain Pantoprazole Sodium 40 mg 04/10/21 10:00 04/12/21 09:41 Pantoprazole 40 Mg Inj IV 40 mg QDAY JAROD Administration Simple Syrup 15 ml 04/11/21 13:58 Simple Syrup 15 Ml FEEDTUBE PRN PRN Hypoglycemia Simple Syrup 30 ml 04/11/21 13:58 Simple Syrup 15 Ml FEEDTUBE PRN PRN Hypoglycemia Sodium Bicarbonate 325 mg 04/11/21 13:58 Sodium Bicarbonate 325 Mg Tab FEEDTUBE PRN PRN For Clogged Feeding Tube Sodium Chloride 10 ml 04/10/21 05:52 04/12/21 21:16 Sodium Chloride 0.9% 10 Ml Flush Syringe IV 10 ml PRN PRN Administration LINE FLUSH
--- NOTE | 2021-04-13 10:32 | XRay Report ---
CHEST 1 VIEW 04/13/2021 10:14 AM INDICATION / CLINICAL INFORMATION: congestion. COMPARISON: 04/10/2021 FINDINGS: SUPPORT DEVICES: Unchanged positioning of right IJ central venous catheter and endotracheal tube. The re is interval placement of an enteric tube which terminates distal to the field of view and below th e diaphragm. HEART / MEDIASTINUM: Stable. LUNGS / PLEURA: Redemonstrated airspace opacities. No pneumothorax. ADDITIONAL FINDINGS: No significant additional findings. IMPRESSION: 1. Enteric tube terminating distal to the field of view and below the diaphragm, otherwise no signifi cant change Signer Name: Feliberto Pichardo DO Signed: 04/13/2021 10:28 AM Workstation Name: [id number]
[2021-04-13] MEDS: levETIRAcetam 250 MG in DEXTROSE 5% IN WATER 100 ML IV SCH (10:54)
[2021-04-13] MEDS: dilTIAZem 30 MG TAB PO SCH ×2 (10:54→21:30)
[2021-04-13] MEDS: PANTOPRAZOLE 40 MG INJ IV SCH (10:54)
[2021-04-13] MEDS: ASPIRIN 81 MG TAB CHEW PO SCH (10:55)
[2021-04-13] MEDS ORDERED: FLUCONAZOLE 200 MG TAB PO SCH (11:00)
--- NOTE | 2021-04-13 11:16 | Progress Note ---
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 daily. - Lipitor 40 mg p.o. daily. -EchocardiogramEf#55-60% -Stop Keppra 250 mg Iv BID -Brain MRI is consistent with sever brain injury , no herniation is noted -Nuclear flow study is inconsistent with brain # Bilateral pneumonia -DuoNeb by nebulizer every 4 hours. Albuterol via nebulizer every 4 hours as needed. Zosyn 4.5 g IV every 8 hours. Vancomycin 1 g IV every 12 hours. Cr itical care evaluation # Acute renal failure -BUN/Cr#44/2.6--- 62/3.3---67/4.1--72/4.3 -NPO. Normal saline at the rate of 100 cc/h. Avoid nephrotoxic drug. Renally dose medication. Nephrology consult. Recheck BMP in the morning # Congestive heart failure -Stable. - Echocardiogram. is noted - Cardiology consult # Atrial fibrillation -Patient is on Eliquis with supratherapeutic INR.#4.36 ? repeat am---3.01 - Will hold the Eliquis. - We will continue the other home medication. - Echocardiogram and cardiology consult # Metabolic acidosis - NPO. Normal saline at the rate of 100 cc/h. Zosyn 4.5 g IV every 8 hours and vancomycin 1 g IV every 12 hours. Recheck lactic acid in 4 hours. Recheck CBC BMP in the morning. Critical care evaluation # Diabetes -NPO. IV fluid normal saline at the rate of 100 cc/h. Accu-Chek every 6 hours with Humalog moderate dose coverage. Diabetic education # Obstructive sleep apnea -Patient is on vent. DuoNeb by nebulizer every 4 hours. Albuterol via nebulizer every 4 hours as needed. Critical care evaluation # Pneumothorax -Patient has tiny pneumothorax related to CPR and multiple ribs fracture related to above. - Patient is on vent. DuoNeb by nebulizer every 4 hours. Critical care evaluation (10) DVT prophylaxis -SCD because patient has supratherapeutic INR. Protonix 40 mg p.o. daily for GI prophylaxis. Patient is a full code. Prognosis is poor PLAN 1- MRI brain is consistent with sever brain edema and sever anoxic brain injury --prognosis is very unlikley 2- EEG is noted 3- OFF coumadine ,on ASA 4- Stop Keppra will sign off Subjective Date of service: 04/13/21 Principal diagnosis: Post cardiac arrest Interval history: status is unchanged intubated off sedation , MRI brain is consistent with significant anoxic brain injury EEG is surprising showed slowing 3-4 hz , no epileptiform discharges no sign of brain !!! still on Norepi. off coumadine on ASA ,AF On keppra 250 mg IV bid -- no myoclonus is appreciated today BUN/Cr# 67/4.1--72/4.3 Objective - Vital Sign Vital Signs - 12hr 04/12/21 04/12/21 04/12/21 23:21 23:28 23:31 Temperature Pulse Rate 72 81 80 Respiratory 18 26 H Rate Blood Pressure 118/49 118/49 118/49 O2 Sat by Pulse 100 100 100 Oximetry 04/12/21 04/12/21 04/12/21 23:36 23:41 23:50 Temperature 97.3 F L Pulse Rate 72 Respiratory 25 H 16 Rate Blood Pressure 118/49 O2 Sat by Pulse 99 100 Oximetry 04/12/21 04/13/21 04/13/21 23:51 00:00 00:01 Temperature Pulse Rate 72 72 72 Respiratory 25 H 25 H 25 H Rate Blood Pressure 120/52 120/52 O2 Sat by Pulse 100 99 100 Oximetry 04/13/21 04/13/21 04/13/21 00:11 00:21 00:31 Temperature Pulse Rate 72 72 77 Respiratory 25 H 25 H 25 H Rate Blood Pressure 120/52 120/52 120/52 O2 Sat by Pulse 96 98 100 Oximetry 04/13/21 04/13/21 04/13/21 00:41 00:51 01:00 Temperature Pulse Rate 74 75 72 Respiratory 25 H 25 H 25 H Rate Blood Pressure 120/52 120/52 121/49 O2 Sat by Pulse 99 99 98 Oximetry 04/13/21 04/13/21 04/13/21 01:11 01:21 01:31 Temperature Pulse Rate 79 75 77 Respiratory 25 H 25 H 25 H Rate Blood Pressure 121/49 120/52 120/52 O2 Sat by Pulse 100 100 100 Oximetry 04/13/21 04/13/21 04/13/21 01:37 01:41 01:51 Temperature Pulse Rate 77 71 69 Respiratory 25 H 25 H Rate Blood Pressure 120/52 120/52 O2 Sat by Pulse 98 98 Oximetry 04/13/21 04/13/21 04/13/21 02:00 02:11 02:21 Temperature Pulse Rate 73 70 73 Respiratory 25 H 25 H 25 H Rate Blood Pressure 122/53 122/53 122/53 O2 Sat by Pulse 97 98 99 Oximetry 04/13/21 04/13/21 04/13/21 02:31 02:41 02:51 Temperature Pulse Rate 70 72 70 Respiratory 25 H 25 H 25 H Rate Blood Pressure 122/53 122/53 122/53 O2 Sat by Pulse 99 98 99 Oximetry 04/13/21 04/13/21 04/13/21 03:00 03:11 03:21 Temperature Pulse Rate 70 68 79 Respiratory 25 H 25 H 25 H Rate Blood Pressure 121/51 121/51 122/53 O2 Sat by Pulse 96 99 99 Oximetry 04/13/21 04/13/21 04/13/21 03:31 03:41 03:50 Temperature 97.5 F L Pulse Rate 74 72 Respiratory 25 H 25 H Rate Blood Pressure 122/53 122/53 O2 Sat by Pulse 99 99 Oximetry 04/13/21 04/13/21 04/13/21 03:51 04:00 04:11 Temperature Pulse Rate 77 76 75 Respiratory 25 H 25 H 25 H Rate Blood Pressure 122/53 128/55 128/55 O2 Sat by Pulse 98 97 99 Oximetry 04/13/21 04/13/21 04/13/21 04:21 04:31 04:38 Temperature Pulse Rate 75 82 72 Respiratory 7 L 13 Rate Blood Pressure 128/55 128/55 128/55 O2 Sat by Pulse 98 96 98 Oximetry 04/13/21 04/13/21 04/13/21 04:41 04:47 04:51 Temperature Pulse Rate 74 77 77 Respiratory 5 L 16 9 L Rate Blood Pressure 128/55 128/55 O2 Sat by Pulse 98 100 97 Oximetry 04/13/21 04/13/21 04/13/21 05:00 05:11 05:21 Temperature Pulse Rate 77 80 73 Respiratory 19 25 H 25 H Rate Blood Pressure 125/53 125/53 125/53 O2 Sat by Pulse 97 98 98 Oximetry 04/13/21 04/13/21 04/13/21 05:31 05:41 05:49 Temperature Pulse Rate 74 75 Respiratory 6 L 19 Rate Blood Pressure 125/53 125/53 O2 Sat by Pulse 98 98 100 Oximetry 04/13/21 04/13/21 04/13/21 05:51 06:00 06:11 Temperature Pulse Rate 74 74 75 Respiratory 21 22 16 Rate Blood Pressure 125/53 123/56 123/56 O2 Sat by Pulse 99 98 99 Oximetry 04/13/21 04/13/21 04/13/21 06:21 06:31 06:41 Temperature Pulse Rate 84 71 72 Respiratory 25 H 22 13 Rate Blood Pressure 123/56 125/53 125/53 O2 Sat by Pulse 99 98 99 Oximetry 04/13/21 04/13/21 04/13/21 06:51 07:00 07:11 Temperature Pulse Rate 75 80 72 Respiratory 15 25 H 21 Rate Blood Pressure 125/53 119/57 119/57 O2 Sat by Pulse 99 98 99 Oximetry 04/13/21 04/13/21 04/13/21 07:21 07:31 07:41 Temperature Pulse Rate 72 78 72 Respiratory 24 26 H 25 H Rate Blood Pressure 119/57 119/57 119/57 O2 Sat by Pulse 99 99 99 Oximetry 04/13/21 04/13/21 04/13/21 07:51 08:00 08:11 Temperature Pulse Rate 77 72 76 Respiratory 24 22 25 H Rate Blood Pressure 119/57 126/54 126/54 O2 Sat by Pulse 99 98 99 Oximetry 04/13/21 04/13/21 04/13/21 08:21 08:31 08:35 Temperature Pulse Rate 71 72 77 Respiratory 24 23 Rate Blood Pressure 126/54 126/54 126/54 O2 Sat by Pulse 99 99 95 Oximetry 04/13/21 04/13/21 04/13/21 08:41 08:51 10:54 Temperature Pulse Rate 79 79 72 Respiratory 26 H 20 Rate Blood Pressure 126/54 126/54 124/53 O2 Sat by Pulse 94 94 Oximetry - General Apperance Constitutional: comfortable - EENT EENT: PERRL, mucous membranes moist - Respiratory Respiratory: lungs clear, rhonchi - Cardiovascular Cardiovascular: other (irregular ) Extremities: chronic venous stasis chg - Gastrointestinal Gastrointestinal: normoactive bowel sounds - Integumentary Integumentary: normal - Neurologic Cranial nerve examination: PERRL, other (pupil 33 mm sluggish, no gag ,noEOM,NO corneal ,no spontaneous breathing) Detailed motor examination: other (no movment to stimuli) - Laboratory Findings CBC and BMP: 04/13/21 04:30 04/13/21 04:30 Abnormal Lab Findings: Abnormal Labs 04/10/21 04/10/21 04/10/21 00:36 00:36 00:36 WBC Hgb 8.6 L Hct MCV 66 L MCH 18 L MCHC 27 L RDW 27.2 H Plt Count Seg Neuts % (Manual) Lymphocytes % (Manual) 42.0 H Nucleated RBC % 9.0 H Seg Neutrophils # Man 0.0 L Lymphocytes # (Manual) 0.0 L PT 44.8 H INR 4.36 H APTT 49.7 H ABG pH POC ABG pCO2 POC ABG pO2 ABG pO2 ABG HCO3 ABG Base Excess ABG Hemoglobin ABG Oxyhemoglobin ABG Sodium ABG Potassium ABG Glucose Oxyhemoglobin Sodium Potassium 5.5 H Chloride 97.2 L Carbon Dioxide 14 L BUN 44 H Creatinine 2.6 H Glucose 47 L POC Glucose Lactic Acid Calcium 7.9 L Phosphorus Total Bilirubin AST ALT Alkaline Phosphatase Total Creatine Kinase 222 H CK-MB (CK-2) 10.3 H CK-MB (CK-2) Rel Index 4.6 H Troponin T 0.721 H* Total Protein Albumin LDL Cholesterol Direct 42 L HDL Cholesterol 30 L Vitamin B12 Arterial Blood Glucose Arterial Blood Ionized Calcium Urine WBC (Auto) U Epithel Cells (Auto) Urine Creatinine Urine Total Protein 04/10/21 04/10/21 04/10/21 01:28 01:51 03:23 WBC Hgb Hct MCV MCH MCHC RDW Plt Count Seg Neuts % (Manual) Lymphocytes % (Manual) Nucleated RBC % Seg Neutrophils # Man Lymphocytes # (Manual) PT INR APTT ABG pH 7.078 L POC ABG pCO2 52.0 H POC ABG pO2 112.0 H ABG pO2 ABG HCO3 ABG Base Excess ABG Hemoglobin 8.8 L ABG Oxyhemoglobin ABG Sodium ABG Potassium 4.9 H ABG Glucose 44 L Oxyhemoglobin Sodium Potassium Chloride Carbon Dioxide BUN Creatinine Glucose POC Glucose Lactic Acid 10.70 H* Calcium Phosphorus Total Bilirubin AST ALT Alkaline Phosphatase Total Creatine Kinase 308 H CK-MB (CK-2) 14.5 H CK-MB (CK-2) Rel Index 4.7 H Troponin T 0.757 H* Total Protein Albumin LDL Cholesterol Direct HDL Cholesterol Vitamin B12 Arterial Blood Glucose 44 L Arterial Blood Ionized Calcium Urine WBC (Auto) U Epithel Cells (Auto) Urine Creatinine Urine Total Protein 04/10/21 04/10/21 04/10/21 04:00 04:09 09:53 WBC Hgb Hct MCV MCH MCHC RDW Plt Count Seg Neuts % (Manual) Lymphocytes % (Manual) Nucleated RBC % Seg Neutrophils # Man Lymphocytes # (Manual) PT INR APTT ABG pH 7.305 L POC ABG pCO2 POC ABG pO2 64.3 L ABG pO2 ABG HCO3 ABG Base Excess ABG Hemoglobin 9.6 L ABG Oxyhemoglobin 87.6 L ABG Sodium 135.2 L ABG Potassium 4.8 H ABG Glucose Oxyhemoglobin Sodium Potassium Chloride Carbon Dioxide BUN Creatinine Glucose POC Glucose Lactic Acid 10.20 H* 2.70 H* Calcium Phosphorus Total Bilirubin AST ALT Alkaline Phosphatase Total Creatine Kinase CK-MB (CK-2) CK-MB (CK-2) Rel Index Troponin T Total Protein Albumin LDL Cholesterol Direct HDL Cholesterol Vitamin B12 Arterial Blood Glucose Arterial Blood Ionized Calcium Urine WBC (Auto) U Epithel Cells (Auto) Urine Creatinine Urine Total Protein 04/10/21 04/10/21 04/10/21 09:53 09:53 15:24 WBC 13.2 H Hgb 8.3 L Hct 27.7 L MCV 62 L MCH 18 L MCHC RDW 26.7 H Plt Count Seg Neuts % (Manual) 83.0 H Lymphocytes % (Manual) 7.0 L Nucleated RBC % 7.0 H Seg Neutrophils # Man 11.0 H Lymphocytes # (Manual) 0.9 L PT INR APTT ABG pH POC ABG pCO2 POC ABG pO2 ABG pO2 ABG HCO3 ABG Base Excess ABG Hemoglobin ABG Oxyhemoglobin ABG Sodium ABG Potassium ABG Glucose Oxyhemoglobin Sodium Potassium Chloride Carbon Dioxide 17 L BUN 54 H Creatinine 2.6 H Glucose 107 H POC Glucose Lactic Acid Calcium 7.1 L Phosphorus 5.90 H Total Bilirubin 1.60 H AST 783 H ALT 679 H Alkaline Phosphatase 141 H Total Creatine Kinase 456 H CK-MB (CK-2) 23.8 H CK-MB (CK-2) Rel Index 5.2 H Troponin T 0.905 H* 1.060 H* Total Protein 5.8 L Albumin 3.0 L LDL Cholesterol Direct HDL Cholesterol Vitamin B12 Arterial Blood Glucose Arterial Blood Ionized Calcium Urine WBC (Auto) U Epithel Cells (Auto) Urine Creatinine Urine Total Protein 04/11/21 04/11/21 04/11/21 04:20 04:20 05:46 WBC Hgb 8.1 L Hct 26.3 L MCV 60 L MCH 18 L MCHC RDW 27.4 H Plt Count Seg Neuts % (Manual) Lymphocytes % (Manual) Nucleated RBC % Seg Neutrophils # Man Lymphocytes # (Manual) PT INR APTT ABG pH 7.544 H POC ABG pCO2 26.0 L POC ABG pO2 ABG pO2 ABG HCO3 ABG Base Excess ABG Hemoglobin 8.9 L ABG Oxyhemoglobin ABG Sodium 133.3 L ABG Potassium ABG Glucose 134 H Oxyhemoglobin Sodium Potassium Chloride Carbon Dioxide 18 L BUN 62 H Creatinine 3.3 H Glucose 129 H POC Glucose Lactic Acid Calcium 7.1 L Phosphorus 5.10 H Total Bilirubin AST ALT Alkaline Phosphatase Total Creatine Kinase CK-MB (CK-2) CK-MB (CK-2) Rel Index Troponin T Total Protein Albumin LDL Cholesterol Direct HDL Cholesterol Vitamin B12 Arterial Blood Glucose 134 H Arterial Blood Ionized Calcium 3.8 L Urine WBC (Auto) U Epithel Cells (Auto) Urine Creatinine Urine Total Protein 04/11/21 04/11/21 04/11/21 06:30 06:30 06:48 WBC Hgb Hct MCV MCH MCHC RDW Plt Count Seg Neuts % (Manual) Lymphocytes % (Manual) Nucleated RBC % Seg Neutrophils # Man Lymphocytes # (Manual) PT INR APTT ABG pH POC ABG pCO2 POC ABG pO2 ABG pO2 ABG HCO3 ABG Base Excess ABG Hemoglobin ABG Oxyhemoglobin ABG Sodium ABG Potassium ABG Glucose Oxyhemoglobin Sodium Potassium Chloride Carbon Dioxide BUN Creatinine Glucose POC Glucose 133 H Lactic Acid Calcium Phosphorus Total Bilirubin AST ALT Alkaline Phosphatase Total Creatine Kinase CK-MB (CK-2) CK-MB (CK-2) Rel Index Troponin T Total Protein Albumin LDL Cholesterol Direct HDL Cholesterol Vitamin B12 Arterial Blood Glucose Arterial Blood Ionized Calcium Urine WBC (Auto) 93.0 H U Epithel Cells (Auto) 52.0 H Urine Creatinine 119.6 H Urine Total Protein 117 H 04/11/21 04/11/21 04/12/21 11:32 23:44 04:10 WBC Hgb 7.6 L Hct 25.2 L MCV 60 L MCH 18 L MCHC RDW 27.0 H Plt Count Seg Neuts % (Manual) Lymphocytes % (Manual) Nucleated RBC % Seg Neutrophils # Man Lymphocytes # (Manual) PT INR APTT ABG pH POC ABG pCO2 POC ABG pO2 ABG pO2 ABG HCO3 ABG Base Excess ABG Hemoglobin ABG Oxyhemoglobin ABG Sodium ABG Potassium ABG Glucose Oxyhemoglobin Sodium Potassium Chloride Carbon Dioxide BUN Creatinine Glucose POC Glucose 114 H 131 H Lactic Acid Calcium Phosphorus Total Bilirubin AST ALT Alkaline Phosphatase Total Creatine Kinase CK-MB (CK-2) CK-MB (CK-2) Rel Index Troponin T Total Protein Albumin LDL Cholesterol Direct HDL Cholesterol Vitamin B12 Arterial Blood Glucose Arterial Blood Ionized Calcium Urine WBC (Auto) U Epithel Cells (Auto) Urine Creatinine Urine Total Protein 04/12/21 04/12/21 04/12/21 04:10 04:10 05:11 WBC Hgb Hct MCV MCH MCHC RDW Plt Count Seg Neuts % (Manual) Lymphocytes % (Manual) Nucleated RBC % Seg Neutrophils # Man Lymphocytes # (Manual) PT 41.2 H INR 3.92 H APTT ABG pH POC ABG pCO2 POC ABG pO2 ABG pO2 160.1 H ABG HCO3 19.6 L ABG Base Excess -4.5 L ABG Hemoglobin 7.5 L ABG Oxyhemoglobin ABG Sodium ABG Potassium ABG Glucose Oxyhemoglobin Sodium Potassium Chloride Carbon Dioxide 19 L BUN 67 H Creatinine 4.1 H Glucose 111 H POC Glucose Lactic Acid Calcium 7.4 L Phosphorus Total Bilirubin AST 282 H ALT 413 H Alkaline Phosphatase Total Creatine Kinase CK-MB (CK-2) CK-MB (CK-2) Rel Index Troponin T Total Protein 5.2 L Albumin 2.6 L LDL Cholesterol Direct HDL Cholesterol Vitamin B12 Arterial Blood Glucose Arterial Blood Ionized Calcium Urine WBC (Auto) U Epithel Cells (Auto) Urine Creatinine Urine Total Protein 04/12/21 04/12/21 04/13/21 10:41 11:42 04:06 WBC Hgb Hct MCV MCH MCHC RDW Plt Count Seg Neuts % (Manual) Lymphocytes % (Manual) Nucleated RBC % Seg Neutrophils # Man Lymphocytes # (Manual) PT INR APTT ABG pH POC ABG pCO2 POC ABG pO2 ABG pO2 ABG HCO3 ABG Base Excess -4.0 L ABG Hemoglobin 7.1 L ABG Oxyhemoglobin ABG Sodium ABG Potassium ABG Glucose Oxyhemoglobin 94.6 L Sodium Potassium Chloride Carbon Dioxide BUN Creatinine Glucose POC Glucose 130 H Lactic Acid Calcium Phosphorus Total Bilirubin AST ALT Alkaline Phosphatase Total Creatine Kinase CK-MB (CK-2) CK-MB (CK-2) Rel Index Troponin T Total Protein Albumin LDL Cholesterol Direct HDL Cholesterol Vitamin B12 1488 H Arterial Blood Glucose Arterial Blood Ionized Calcium Urine WBC (Auto) U Epithel Cells (Auto) Urine Creatinine Urine Total Protein 04/13/21 04/13/21 04/13/21 04:30 04:30 04:30 WBC Hgb 7.2 L Hct 23.7 L MCV 60 L MCH 18 L MCHC RDW 25.7 H Plt Count 138 L Seg Neuts % (Manual) 90.0 H Lymphocytes % (Manual) 6.0 L Nucleated RBC % Seg Neutrophils # Man Lymphocytes # (Manual) 0.5 L PT 33.6 H INR 3.01 H APTT ABG pH POC ABG pCO2 POC ABG pO2 ABG pO2 ABG HCO3 ABG Base Excess ABG Hemoglobin ABG Oxyhemoglobin ABG Sodium ABG Potassium ABG Glucose Oxyhemoglobin Sodium 136 L Potassium Chloride Carbon Dioxide 19 L BUN 72 H Creatinine 4.3 H Glucose POC Glucose Lactic Acid Calcium 7.5 L Phosphorus Total Bilirubin AST ALT Alkaline Phosphatase Total Creatine Kinase CK-MB (CK-2) CK-MB (CK-2) Rel Index Troponin T Total Protein Albumin LDL Cholesterol Direct HDL Cholesterol Vitamin B12 Arterial Blood Glucose Arterial Blood Ionized Calcium Urine WBC (Auto) U Epithel Cells (Auto) Urine Creatinine Urine Total Protein 04/13/21 04:58 WBC Hgb Hct MCV MCH MCHC RDW Plt Count Seg Neuts % (Manual) Lymphocytes % (Manual) Nucleated RBC % Seg Neutrophils # Man Lymphocytes # (Manual) PT INR APTT ABG pH POC ABG pCO2 POC ABG pO2 ABG pO2 ABG HCO3 ABG Base Excess ABG Hemoglobin ABG Oxyhemoglobin ABG Sodium ABG Potassium ABG Glucose Oxyhemoglobin Sodium Potassium Chloride Carbon Dioxide BUN Creatinine Glucose POC Glucose 106 H Lactic Acid Calcium Phosphorus Total Bilirubin AST ALT Alkaline Phosphatase Total Creatine Kinase CK-MB (CK-2) CK-MB (CK-2) Rel Index Troponin T Total Protein Albumin LDL Cholesterol Direct HDL Cholesterol Vitamin B12 Arterial Blood Glucose Arterial Blood Ionized Calcium Urine WBC (Auto) U Epithel Cells (Auto) Urine Creatinine Urine Total Protein
--- NOTE | 2021-04-13 11:19 | Progress Note ---
Assessment and Plan 04/13/21: Concerns are now confirmed with MRI reading. IMS spoke with family on yesterday and they plan to visit today. Hopeful they will change their minds about the DNR but really need to consider comfort measures given MRI reading as that damage is irreversible. Continue supportive measures. 04/12/21: Prognosis remains poor. Afib is rate controlled on Dilt. Has severe Pulmonary HTN seen on echo. Will stop IVF's. Consider diuretic therapy. 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 If the family wishes to continue to be aggressive, trach and peg need to be considered and placement process should be started. 04/11/21: Follow up neurology recs. IMS has ordered brain flow. If no flow, still need confirmatory test (apnea test vs cold calorics). Patient is not apnic so has some brainstem function. Could ask neuro about cold calorics. Continue supportive measures. Remains unresponsive. Very poor prognosis. Long discussion with son over the phone and he agreed to make patient dnr. Continue supportive measures and follow up Neurology consult very very poor prognosis. CCT 31 minutes. Subjective Date of service: 04/13/21 Principal diagnosis: Post cardiac arrest Interval history: No acute events. Mental status is unchanged. MRI shows diffuse cerebral edema consistent with anoxic brain injury. Objective Vital Signs - 12hr 04/12/21 04/12/21 04/12/21 23:21 23:28 23:31 Temperature Pulse Rate 72 81 80 Respiratory 18 26 H Rate Blood Pressure 118/49 118/49 118/49 O2 Sat by Pulse 100 100 100 Oximetry 04/12/21 04/12/21 04/12/21 23:36 23:41 23:50 Temperature 97.3 F L Pulse Rate 72 Respiratory 25 H 16 Rate Blood Pressure 118/49 O2 Sat by Pulse 99 100 Oximetry 04/12/21 04/13/21 04/13/21 23:51 00:00 00:01 Temperature Pulse Rate 72 72 72 Respiratory 25 H 25 H 25 H Rate Blood Pressure 120/52 120/52 O2 Sat by Pulse 100 99 100 Oximetry 04/13/21 04/13/21 04/13/21 00:11 00:21 00:31 Temperature Pulse Rate 72 72 77 Respiratory 25 H 25 H 25 H Rate Blood Pressure 120/52 120/52 120/52 O2 Sat by Pulse 96 98 100 Oximetry 04/13/21 04/13/21 04/13/21 00:41 00:51 01:00 Temperature Pulse Rate 74 75 72 Respiratory 25 H 25 H 25 H Rate Blood Pressure 120/52 120/52 121/49 O2 Sat by Pulse 99 99 98 Oximetry 04/13/21 04/13/21 04/13/21 01:11 01:21 01:31 Temperature Pulse Rate 79 75 77 Respiratory 25 H 25 H 25 H Rate Blood Pressure 121/49 120/52 120/52 O2 Sat by Pulse 100 100 100 Oximetry 04/13/21 04/13/21 04/13/21 01:37 01:41 01:51 Temperature Pulse Rate 77 71 69 Respiratory 25 H 25 H Rate Blood Pressure 120/52 120/52 O2 Sat by Pulse 98 98 Oximetry 04/13/21 04/13/21 04/13/21 02:00 02:11 02:21 Temperature Pulse Rate 73 70 73 Respiratory 25 H 25 H 25 H Rate Blood Pressure 122/53 122/53 122/53 O2 Sat by Pulse 97 98 99 Oximetry 04/13/21 04/13/21 04/13/21 02:31 02:41 02:51 Temperature Pulse Rate 70 72 70 Respiratory 25 H 25 H 25 H Rate Blood Pressure 122/53 122/53 122/53 O2 Sat by Pulse 99 98 99 Oximetry 04/13/21 04/13/21 04/13/21 03:00 03:11 03:21 Temperature Pulse Rate 70 68 79 Respiratory 25 H 25 H 25 H Rate Blood Pressure 121/51 121/51 122/53 O2 Sat by Pulse 96 99 99 Oximetry 04/13/21 04/13/21 04/13/21 03:31 03:41 03:50 Temperature 97.5 F L Pulse Rate 74 72 Respiratory 25 H 25 H Rate Blood Pressure 122/53 122/53 O2 Sat by Pulse 99 99 Oximetry 04/13/21 04/13/21 04/13/21 03:51 04:00 04:11 Temperature Pulse Rate 77 76 75 Respiratory 25 H 25 H 25 H Rate Blood Pressure 122/53 128/55 128/55 O2 Sat by Pulse 98 97 99 Oximetry 04/13/21 04/13/21 04/13/21 04:21 04:31 04:38 Temperature Pulse Rate 75 82 72 Respiratory 7 L 13 Rate Blood Pressure 128/55 128/55 128/55 O2 Sat by Pulse 98 96 98 Oximetry 04/13/21 04/13/21 04/13/21 04:41 04:47 04:51 Temperature Pulse Rate 74 77 77 Respiratory 5 L 16 9 L Rate Blood Pressure 128/55 128/55 O2 Sat by Pulse 98 100 97 Oximetry 04/13/21 04/13/21 04/13/21 05:00 05:11 05:21 Temperature Pulse Rate 77 80 73 Respiratory 19 25 H 25 H Rate Blood Pressure 125/53 125/53 125/53 O2 Sat by Pulse 97 98 98 Oximetry 04/13/21 04/13/21 04/13/21 05:31 05:41 05:49 Temperature Pulse Rate 74 75 Respiratory 6 L 19 Rate Blood Pressure 125/53 125/53 O2 Sat by Pulse 98 98 100 Oximetry 04/13/21 04/13/21 04/13/21 05:51 06:00 06:11 Temperature Pulse Rate 74 74 75 Respiratory 21 22 16 Rate Blood Pressure 125/53 123/56 123/56 O2 Sat by Pulse 99 98 99 Oximetry 04/13/21 04/13/21 04/13/21 06:21 06:31 06:41 Temperature Pulse Rate 84 71 72 Respiratory 25 H 22 13 Rate Blood Pressure 123/56 125/53 125/53 O2 Sat by Pulse 99 98 99 Oximetry 04/13/21 04/13/21 04/13/21 06:51 07:00 07:11 Temperature Pulse Rate 75 80 72 Respiratory 15 25 H 21 Rate Blood Pressure 125/53 119/57 119/57 O2 Sat by Pulse 99 98 99 Oximetry 04/13/21 04/13/21 04/13/21 07:21 07:31 07:41 Temperature Pulse Rate 72 78 72 Respiratory 24 26 H 25 H Rate Blood Pressure 119/57 119/57 119/57 O2 Sat by Pulse 99 99 99 Oximetry 04/13/21 04/13/21 04/13/21 07:51 08:00 08:11 Temperature Pulse Rate 77 72 76 Respiratory 24 22 25 H Rate Blood Pressure 119/57 126/54 126/54 O2 Sat by Pulse 99 98 99 Oximetry 04/13/21 04/13/21 04/13/21 08:21 08:31 08:35 Temperature Pulse Rate 71 72 77 Respiratory 24 23 Rate Blood Pressure 126/54 126/54 126/54 O2 Sat by Pulse 99 99 95 Oximetry 04/13/21 04/13/21 04/13/21 08:41 08:51 10:54 Temperature Pulse Rate 79 79 72 Respiratory 26 H 20 Rate Blood Pressure 126/54 126/54 124/53 O2 Sat by Pulse 94 94 Oximetry Gastrointestinal: normoactive bowel sounds Integumentary: normal CBC and BMP: 04/13/21 04:30 04/13/21 04:30 ABG, PT/INR, D-dimer: ABG ABG pH 7.418 pH Units (7.350-7.450) 04/13/21 04:06 POC ABG pCO2 26.0 mmHg (32.0-48.0) L 04/11/21 05:46 ABG pCO2 31.8 mm Hg 04/13/21 04:06 POC ABG pO2 89.1 mmHg (83-108) 04/11/21 05:46 ABG pO2 80.8 mm Hg (80.0-90.0) 04/13/21 04:06 POC ABG HCO3 21.9 04/11/21 05:46 ABG O2 Saturation 97.0 % (95.0-99.0) 04/13/21 04:06 PT/INR, D-dimer PT 33.6 Sec. (12.2-14.9) H 04/13/21 04:30 INR 3.01 (0.87-1.13) H 04/13/21 04:30 Abnormal lab findings: Abnormal Labs 04/10/21 04/10/21 04/10/21 00:36 00:36 00:36 WBC Hgb 8.6 L Hct MCV 66 L MCH 18 L MCHC 27 L RDW 27.2 H Plt Count Seg Neuts % (Manual) Lymphocytes % (Manual) 42.0 H Nucleated RBC % 9.0 H Seg Neutrophils # Man 0.0 L Lymphocytes # (Manual) 0.0 L PT 44.8 H INR 4.36 H APTT 49.7 H ABG pH POC ABG pCO2 POC ABG pO2 ABG pO2 ABG HCO3 ABG Base Excess ABG Hemoglobin ABG Oxyhemoglobin ABG Sodium ABG Potassium ABG Glucose Oxyhemoglobin Sodium Potassium 5.5 H Chloride 97.2 L Carbon Dioxide 14 L BUN 44 H Creatinine 2.6 H Glucose 47 L POC Glucose Lactic Acid Calcium 7.9 L Phosphorus Total Bilirubin AST ALT Alkaline Phosphatase Total Creatine Kinase 222 H CK-MB (CK-2) 10.3 H CK-MB (CK-2) Rel Index 4.6 H Troponin T 0.721 H* Total Protein Albumin LDL Cholesterol Direct 42 L HDL Cholesterol 30 L Vitamin B12 Arterial Blood Glucose Arterial Blood Ionized Calcium Urine WBC (Auto) U Epithel Cells (Auto) Urine Creatinine Urine Total Protein 04/10/21 04/10/21 04/10/21 01:28 01:51 03:23 WBC Hgb Hct MCV MCH MCHC RDW Plt Count Seg Neuts % (Manual) Lymphocytes % (Manual) Nucleated RBC % Seg Neutrophils # Man Lymphocytes # (Manual) PT INR APTT ABG pH 7.078 L POC ABG pCO2 52.0 H POC ABG pO2 112.0 H ABG pO2 ABG HCO3 ABG Base Excess ABG Hemoglobin 8.8 L ABG Oxyhemoglobin ABG Sodium ABG Potassium 4.9 H ABG Glucose 44 L Oxyhemoglobin Sodium Potassium Chloride Carbon Dioxide BUN Creatinine Glucose POC Glucose Lactic Acid 10.70 H* Calcium Phosphorus Total Bilirubin AST ALT Alkaline Phosphatase Total Creatine Kinase 308 H CK-MB (CK-2) 14.5 H CK-MB (CK-2) Rel Index 4.7 H Troponin T 0.757 H* Total Protein Albumin LDL Cholesterol Direct HDL Cholesterol Vitamin B12 Arterial Blood Glucose 44 L Arterial Blood Ionized Calcium Urine WBC (Auto) U Epithel Cells (Auto) Urine Creatinine Urine Total Protein 04/10/21 04/10/21 04/10/21 04:00 04:09 09:53 WBC Hgb Hct MCV MCH MCHC RDW Plt Count Seg Neuts % (Manual) Lymphocytes % (Manual) Nucleated RBC % Seg Neutrophils # Man Lymphocytes # (Manual) PT INR APTT ABG pH 7.305 L POC ABG pCO2 POC ABG pO2 64.3 L ABG pO2 ABG HCO3 ABG Base Excess ABG Hemoglobin 9.6 L ABG Oxyhemoglobin 87.6 L ABG Sodium 135.2 L ABG Potassium 4.8 H ABG Glucose Oxyhemoglobin Sodium Potassium Chloride Carbon Dioxide BUN Creatinine Glucose POC Glucose Lactic Acid 10.20 H* 2.70 H* Calcium Phosphorus Total Bilirubin AST ALT Alkaline Phosphatase Total Creatine Kinase CK-MB (CK-2) CK-MB (CK-2) Rel Index Troponin T Total Protein Albumin LDL Cholesterol Direct HDL Cholesterol Vitamin B12 Arterial Blood Glucose Arterial Blood Ionized Calcium Urine WBC (Auto) U Epithel Cells (Auto) Urine Creatinine Urine Total Protein 04/10/21 04/10/21 04/10/21 09:53 09:53 15:24 WBC 13.2 H Hgb 8.3 L Hct 27.7 L MCV 62 L MCH 18 L MCHC RDW 26.7 H Plt Count Seg Neuts % (Manual) 83.0 H Lymphocytes % (Manual) 7.0 L Nucleated RBC % 7.0 H Seg Neutrophils # Man 11.0 H Lymphocytes # (Manual) 0.9 L PT INR APTT ABG pH POC ABG pCO2 POC ABG pO2 ABG pO2 ABG HCO3 ABG Base Excess ABG Hemoglobin ABG Oxyhemoglobin ABG Sodium ABG Potassium ABG Glucose Oxyhemoglobin Sodium Potassium Chloride Carbon Dioxide 17 L BUN 54 H Creatinine 2.6 H Glucose 107 H POC Glucose Lactic Acid Calcium 7.1 L Phosphorus 5.90 H Total Bilirubin 1.60 H AST 783 H ALT 679 H Alkaline Phosphatase 141 H Total Creatine Kinase 456 H CK-MB (CK-2) 23.8 H CK-MB (CK-2) Rel Index 5.2 H Troponin T 0.905 H* 1.060 H* Total Protein 5.8 L Albumin 3.0 L LDL Cholesterol Direct HDL Cholesterol Vitamin B12 Arterial Blood Glucose Arterial Blood Ionized Calcium Urine WBC (Auto) U Epithel Cells (Auto) Urine Creatinine Urine Total Protein 04/11/21 04/11/21 04/11/21 04:20 04:20 05:46 WBC Hgb 8.1 L Hct 26.3 L MCV 60 L MCH 18 L MCHC RDW 27.4 H Plt Count Seg Neuts % (Manual) Lymphocytes % (Manual) Nucleated RBC % Seg Neutrophils # Man Lymphocytes # (Manual) PT INR APTT ABG pH 7.544 H POC ABG pCO2 26.0 L POC ABG pO2 ABG pO2 ABG HCO3 ABG Base Excess ABG Hemoglobin 8.9 L ABG Oxyhemoglobin ABG Sodium 133.3 L ABG Potassium ABG Glucose 134 H Oxyhemoglobin Sodium Potassium Chloride Carbon Dioxide 18 L BUN 62 H Creatinine 3.3 H Glucose 129 H POC Glucose Lactic Acid Calcium 7.1 L Phosphorus 5.10 H Total Bilirubin AST ALT Alkaline Phosphatase Total Creatine Kinase CK-MB (CK-2) CK-MB (CK-2) Rel Index Troponin T Total Protein Albumin LDL Cholesterol Direct HDL Cholesterol Vitamin B12 Arterial Blood Glucose 134 H Arterial Blood Ionized Calcium 3.8 L Urine WBC (Auto) U Epithel Cells (Auto) Urine Creatinine Urine Total Protein 04/11/21 04/11/21 04/11/21 06:30 06:30 06:48 WBC Hgb Hct MCV MCH MCHC RDW Plt Count Seg Neuts % (Manual) Lymphocytes % (Manual) Nucleated RBC % Seg Neutrophils # Man Lymphocytes # (Manual) PT INR APTT ABG pH POC ABG pCO2 POC ABG pO2 ABG pO2 ABG HCO3 ABG Base Excess ABG Hemoglobin ABG Oxyhemoglobin ABG Sodium ABG Potassium ABG Glucose Oxyhemoglobin Sodium Potassium Chloride Carbon Dioxide BUN Creatinine Glucose POC Glucose 133 H Lactic Acid Calcium Phosphorus Total Bilirubin AST ALT Alkaline Phosphatase Total Creatine Kinase CK-MB (CK-2) CK-MB (CK-2) Rel Index Troponin T Total Protein Albumin LDL Cholesterol Direct HDL Cholesterol Vitamin B12 Arterial Blood Glucose Arterial Blood Ionized Calcium Urine WBC (Auto) 93.0 H U Epithel Cells (Auto) 52.0 H Urine Creatinine 119.6 H Urine Total Protein 117 H 04/11/21 04/11/21 04/12/21 11:32 23:44 04:10 WBC Hgb 7.6 L Hct 25.2 L MCV 60 L MCH 18 L MCHC RDW 27.0 H Plt Count Seg Neuts % (Manual) Lymphocytes % (Manual) Nucleated RBC % Seg Neutrophils # Man Lymphocytes # (Manual) PT INR APTT ABG pH POC ABG pCO2 POC ABG pO2 ABG pO2 ABG HCO3 ABG Base Excess ABG Hemoglobin ABG Oxyhemoglobin ABG Sodium ABG Potassium ABG Glucose Oxyhemoglobin Sodium Potassium Chloride Carbon Dioxide BUN Creatinine Glucose POC Glucose 114 H 131 H Lactic Acid Calcium Phosphorus Total Bilirubin AST ALT Alkaline Phosphatase Total Creatine Kinase CK-MB (CK-2) CK-MB (CK-2) Rel Index Troponin T Total Protein Albumin LDL Cholesterol Direct HDL Cholesterol Vitamin B12 Arterial Blood Glucose Arterial Blood Ionized Calcium Urine WBC (Auto) U Epithel Cells (Auto) Urine Creatinine Urine Total Protein 04/12/21 04/12/21 04/12/21 04:10 04:10 05:11 WBC Hgb Hct MCV MCH MCHC RDW Plt Count Seg Neuts % (Manual) Lymphocytes % (Manual) Nucleated RBC % Seg Neutrophils # Man Lymphocytes # (Manual) PT 41.2 H INR 3.92 H APTT ABG pH POC ABG pCO2 POC ABG pO2 ABG pO2 160.1 H ABG HCO3 19.6 L ABG Base Excess -4.5 L ABG Hemoglobin 7.5 L ABG Oxyhemoglobin ABG Sodium ABG Potassium ABG Glucose Oxyhemoglobin Sodium Potassium Chloride Carbon Dioxide 19 L BUN 67 H Creatinine 4.1 H Glucose 111 H POC Glucose Lactic Acid Calcium 7.4 L Phosphorus Total Bilirubin AST 282 H ALT 413 H Alkaline Phosphatase Total Creatine Kinase CK-MB (CK-2) CK-MB (CK-2) Rel Index Troponin T Total Protein 5.2 L Albumin 2.6 L LDL Cholesterol Direct HDL Cholesterol Vitamin B12 Arterial Blood Glucose Arterial Blood Ionized Calcium Urine WBC (Auto) U Epithel Cells (Auto) Urine Creatinine Urine Total Protein 04/12/21 04/12/21 04/13/21 10:41 11:42 04:06 WBC Hgb Hct MCV MCH MCHC RDW Plt Count Seg Neuts % (Manual) Lymphocytes % (Manual) Nucleated RBC % Seg Neutrophils # Man Lymphocytes # (Manual) PT INR APTT ABG pH POC ABG pCO2 POC ABG pO2 ABG pO2 ABG HCO3 ABG Base Excess -4.0 L ABG Hemoglobin 7.1 L ABG Oxyhemoglobin ABG Sodium ABG Potassium ABG Glucose Oxyhemoglobin 94.6 L Sodium Potassium Chloride Carbon Dioxide BUN Creatinine Glucose POC Glucose 130 H Lactic Acid Calcium Phosphorus Total Bilirubin AST ALT Alkaline Phosphatase Total Creatine Kinase CK-MB (CK-2) CK-MB (CK-2) Rel Index Troponin T Total Protein Albumin LDL Cholesterol Direct HDL Cholesterol Vitamin B12 1488 H Arterial Blood Glucose Arterial Blood Ionized Calcium Urine WBC (Auto) U Epithel Cells (Auto) Urine Creatinine Urine Total Protein 04/13/21 04/13/21 04/13/21 04:30 04:30 04:30 WBC Hgb 7.2 L Hct 23.7 L MCV 60 L MCH 18 L MCHC RDW 25.7 H Plt Count 138 L Seg Neuts % (Manual) 90.0 H Lymphocytes % (Manual) 6.0 L Nucleated RBC % Seg Neutrophils # Man Lymphocytes # (Manual) 0.5 L PT 33.6 H INR 3.01 H APTT ABG pH POC ABG pCO2 POC ABG pO2 ABG pO2 ABG HCO3 ABG Base Excess ABG Hemoglobin ABG Oxyhemoglobin ABG Sodium ABG Potassium ABG Glucose Oxyhemoglobin Sodium 136 L Potassium Chloride Carbon Dioxide 19 L BUN 72 H Creatinine 4.3 H Glucose POC Glucose Lactic Acid Calcium 7.5 L Phosphorus Total Bilirubin AST ALT Alkaline Phosphatase Total Creatine Kinase CK-MB (CK-2) CK-MB (CK-2) Rel Index Troponin T Total Protein Albumin LDL Cholesterol Direct HDL Cholesterol Vitamin B12 Arterial Blood Glucose Arterial Blood Ionized Calcium Urine WBC (Auto) U Epithel Cells (Auto) Urine Creatinine Urine Total Protein 04/13/21 04:58 WBC Hgb Hct MCV MCH MCHC RDW Plt Count Seg Neuts % (Manual) Lymphocytes % (Manual) Nucleated RBC % Seg Neutrophils # Man Lymphocytes # (Manual) PT INR APTT ABG pH POC ABG pCO2 POC ABG pO2 ABG pO2 ABG HCO3 ABG Base Excess ABG Hemoglobin ABG Oxyhemoglobin ABG Sodium ABG Potassium ABG Glucose Oxyhemoglobin Sodium Potassium Chloride Carbon Dioxide BUN Creatinine Glucose POC Glucose 106 H Lactic Acid Calcium Phosphorus Total Bilirubin AST ALT Alkaline Phosphatase Total Creatine Kinase CK-MB (CK-2) CK-MB (CK-2) Rel Index Troponin T Total Protein Albumin LDL Cholesterol Direct HDL Cholesterol Vitamin B12 Arterial Blood Glucose Arterial Blood Ionized Calcium Urine WBC (Auto) U Epithel Cells (Auto) Urine Creatinine Urine Total Protein
--- NOTE | 2021-04-13 12:45 | Progress Note ---
Assessment and Plan Continue management and supportive therapy. - Patient Problems (1) Cardiopulmonary arrest Current Visit: Yes Status: Acute (2) Anoxic brain damage Current Visit: Yes Status: Acute (3) Bilateral pneumonia Current Visit: Yes Status: Acute (4) PAF (paroxysmal atrial fibrillation) Current Visit: Yes Status: Acute (5) JACKIE (acute kidney injury) Current Visit: Yes Status: Acute (6) Anemia Current Visit: Yes Status: Acute (7) Pulmonary hypertension Current Visit: Yes Status: Chronic (8) Diabetes mellitus Current Visit: Yes Status: Chronic Subjective Date of service: 04/13/21 Principal diagnosis: Post cardiac arrest Interval history: Remains unresponsive. Objective Vital Signs Last Vital Signs Temp 100 F H 04/13/21 12:00 Pulse 77 04/13/21 12:32 Resp 20 04/13/21 08:51 BP 120/47 04/13/21 12:32 Pulse Ox 96 04/13/21 12:32 - Physical Examination General: No Apparent Distress HEENT: Positive: Normocephaly, Mucus Membranes Moist, Other (contusions on eyes/nose consistent with recent nasal fracture) Neck: Positive: trachea midline Cardiac: Positive: Reg Rate and Rhythm, S1/S2 Lungs: Positive: clear to auscultation Neuro: Positive: Other (Unresponsive) Abdomen: Positive: Soft, Active Bowel Sounds Skin: Negative: Rash Musculoskeletal: No Fluid Collection Extremities: Absent: edema - Labs and Meds Coagulation 04/13/21 Range/Units 04:30 PT 33.6 H (12.2-14.9) Sec. INR 3.01 H (0.87-1.13) CBC 04/13/21 Range/Units 04:30 WBC 8.6 (4.5-11.0) K/mm3 RBC 3.95 (3.65-5.03) M/mm3 Hgb 7.2 L (10.1-14.3) gm/dl Hct 23.7 L (30.3-42.9) % Plt Count 138 L (140-440) K/mm3 Comprehensive Metabolic Panel 04/13/21 Range/Units 04:30 Sodium 136 L (137-145) mmol/L Potassium 4.1 (3.6-5.0) mmol/L Chloride 101.7 (98-107) mmol/L Carbon Dioxide 19 L (22-30) mmol/L BUN 72 H (7-17) mg/dL Creatinine 4.3 H (0.6-1.2) mg/dL Glucose 92 (65-100) mg/dL Calcium 7.5 L (8.4-10.2) mg/dL - Telemetry EKG Rhythm: Sinus Rhythm Repolarization changes or abnormalities: nonspecific abnormality, ST segment, and/or T wave
[2021-04-13] MEDS ORDERED: HYDROmorphone 1 MG/1 ML INJ IV PRN (12:55)
[2021-04-13] MEDS ORDERED: ONDANSETRON 4 MG/2 ML INJ IV PRN (13:00)
--- NOTE | 2021-04-13 15:06 | Progress Note ---
Assessment and Plan Assessment and plan: This is a 75-year-old female with CHF, A. fib/a flutter, DM, KIMMIE, HTN, CVA, anemia, Crohn's disease, asthma admitted s/p cardiac arrest Neuro: Possible anoxic brain injury, h/o CVA -Neurology consulted, appreciate recommendations -CT head on admit unremarkable -On physical exam patient has myoclonus with agonal breathing -EEG with diffuse slowing -Patient is not sedated -Keppra IV-> d/c -Seizure/aspiration precautions -NM brain scan does not show complete absence of cerebral blood flow -MRI B shows cerebal edema -Family visit to bedside -Code status changed to AND/DNR -verbal consent from sister in [place] Cardiology: S/p cardiac arrest, elevated troponin, h/o atrial fibrillation/atrial flutter, CHF, HTN, CAD -Cardiology consulted, appreciate recommendations -Echocardiogram shows EF 50 to 55%, right ventricle mildly hypokinetic, left atrium severely dilated, severe pulmonary hypertension, RSVP 74 mmHg, Moderate left pleural effusion, Right ventricle moderately dilated -Hold home Coumadin -s/p vassopressor support with Levophed -MAP goal greater than 65 -Blood pressure monitor per protocol -Cardizem per cards Pulmonary: Acute hypoxic respiratory failure, pulm hthn, h/o KIMMIE, asthma -Intubated on 04/10 with 7.50 ETT at 22 at the lips -A.m. vent settings CMV rate 25, tidal 450, PEEP 12, FiO2 45% -See RT notes for titration -ccm decreaed peep -A.m. ABG noted -Daily CXR and ABG -VAP bundle -SPO2 monitoring -Pulmonary/critical care consulted, appreciate recommendations -CT chest shows multiple bilateral rib fractures, trace right pneumothorax, possible pulmonary edema, trace pericardial effusion GI: Transaminitis, h/o Crohn's disease -Nutrition consult for tube feeding -24 hours +[id number] -TF -PPI -BR: colace -Trend LFTs : Acute kidney injury 2/2 vasomotor nephropathy, metabolic acidosis -Nephrology consulted, appreciate recommendations -Patient had a CT abdomen/pelvis which showed no remarkable findings with the kidneys -per Nephro: may need [employer] in 24-48 hours -Renally dose medications -Avoid nephrotoxic medications -Strict intact/output -Daily weights -Trend BMP ID: Pneumonia, lactic acidosis, tracheal aspirate with medhat -Evident on CXR -s/p clindamycin -Monitor fever and WBC curve -Trend lactate -S/p 3 L NS Endo: h/o DM -Accu-Cheks every 6 while n.p.o. -Avoid hypoglycemia -SSI Heme: Leukocytosis (resolved), h/o anemia, supratheraputic INR -ABX therapy -Trend CBC -Transfuse if hemoglobin less than 7 The high probability of a clinically significant, sudden or life threatening deterioration of the [multi] system(s) required my full and direct attention, intervention and personal management. The aggregate critical care time was [90] minutes. This time is in addition to time spent performing reported procedures but includes the following: [x] Data Review and interpretation [x] Patient assessment and monitoring of vital signs [x] Documentation [x] Medication orders and management Disposition Plan: icu Total Time Spent with Patient (Minutes): 90 History Interval history: This is a 75-year-old female with CHF, A. fib/a flutter, DM, KIMMIE, HTN, CVA, anemia, Crohn's disease, asthma who presented the emergency department on 04/10 after witnessed arrest via EMS. Upon EMS arrival patient was started on ACLS protocol and a Al airway was placed. EMS had ROSC onsite. Upon arrival to the emergency department patient was found to be pulseless and ACLS was initiated again. Patient was intubated in the emergency department and while there patient had 3 additional cardiac arrest with ROSC. She was also started on Levophed for hypotension. Patient was admitted to the hospitalist service status post cardiac arrest, pneumonia noted on CXR, lactic acidosis and acute kidney injury. Patient has consults to cardiology, nephrology, pulmonary CCM, neurology. 04/10: Family change CODE STATUS to DNR however family later rescinded DNR. Patient remains a full code. Patient is having elevated triglycerides however cardiology is aware and no orders have been given. Echocardiogram pending. Patient is on vasopressors with Levophed. 04/11: Patient had a nuclear med brain flow study which does not demonstrate a complete absence of brain perfusion however there is decreased brain parenchymal perfusion. Neurology would would like an MRI brain when possible. Nephrology anticipates initiation of hemodialysis within the next 24 to 48 hours. We will continue supportive care. Nutrition consult for tube feeding. 04/12: Patient started on diltiazem, MRI brain pending, B12 and thyroid studies ordered. Patient started on Benadryl given angioedema. She is currently on tube feedings. worsening renal function noted and IVF stopped d/t pulm htn. Dr. Lott updated family. Patient was febrile overnight 04/13: Family visit with errol Coffey and his . Patient CODE STATUS changed to DO NOT RESUSCITATE by sister over the phone which was witnessed by me and Dr. Lott. Patient noted in SR. Hospitalist Physical - Constitutional Vitals: Temp Pulse Resp BP Pulse Ox 100 F H 70 25 H 131/53 97 04/13/21 12:00 04/13/21 14:10 04/13/21 14:10 04/13/21 14:10 04/13/21 14:10 General appearance: Present: no acute distress, other (intubated, unresponsive) - EENT Eyes: Absent: PERRL, EOM intact ENT: poor dentition - Respiratory Respiratory effort: normal Respiratory: bilateral: diminished - Cardiovascular Rhythm: regular Heart Sounds: Present: S1 & S2. Absent: systolic murmur, diastolic murmur - Extremities Extremities: no ischemia, pulses intact, pulses symmetrical, No edema, normal temperature, normal color Peripheral Pulses: within normal limits - Abdominal General gastrointestinal: soft, non-tender, non-distended, normal bowel sounds - Integumentary Integumentary: Present: dry - Psychiatric Psychiatric: other - Neurologic Neurologic: other (pupils not reactive, no cough/gag, no startle) - Allied Health Allied health notes reviewed: nursing, RT, social work HEART Score - HEART Score Troponin: Troponin T 1.060 ng/mL (0.00-0.029) H* 04/10/21 15:24 Results - Labs CBC & Chem 7: 04/13/21 04:30 04/13/21 04:30 Labs: Laboratory Last Values WBC 8.6 K/mm3 (4.5-11.0) 04/13/21 04:30 RBC 3.95 M/mm3 (3.65-5.03) 04/13/21 04:30 Hgb 7.2 gm/dl (10.1-14.3) L 04/13/21 04:30 Hct 23.7 % (30.3-42.9) L 04/13/21 04:30 MCV 60 fl (79-97) L 04/13/21 04:30 MCH 18 pg (28-32) L 04/13/21 04:30 MCHC 30 % (30-34) 04/13/21 04:30 RDW 25.7 % (13.2-15.2) H 04/13/21 04:30 Plt Count 138 K/mm3 (140-440) L 04/13/21 04:30 Add Manual Diff Complete 04/13/21 04:30 Total Counted 100 04/13/21 04:30 Seg Neuts % (Manual) 90.0 % (40.0-70.0) H 04/13/21 04:30 Band Neutrophils % 1.0 % 04/13/21 04:30 Lymphocytes % (Manual) 6.0 % (13.4-35.0) L 04/13/21 04:30 Monocytes % (Manual) 2.0 % (0.0-7.3) 04/13/21 04:30 Eosinophils % (Manual) 1.0 % (0.0-4.3) 04/13/21 04:30 Nucleated RBC % Not Reportable 04/13/21 04:30 Seg Neutrophils # Man 7.7 K/mm3 (1.8-7.7) 04/13/21 04:30 Band Neutrophils # 0.1 K/mm3 04/13/21 04:30 Lymphocytes # (Manual) 0.5 K/mm3 (1.2-5.4) L 04/13/21 04:30 Abs React Lymphs (Man) 0.0 K/mm3 04/13/21 04:30 Monocytes # (Manual) 0.2 K/mm3 (0.0-0.8) 04/13/21 04:30 Eosinophils # (Manual) 0.1 K/mm3 (0.0-0.4) 04/13/21 04:30 Basophils # (Manual) 0.0 K/mm3 (0.0-0.1) 04/13/21 04:30 Metamyelocytes # 0.0 K/mm3 04/13/21 04:30 Myelocytes # 0.0 K/mm3 04/13/21 04:30 Promyelocytes # 0.0 K/mm3 04/13/21 04:30 Blast Cells # 0.0 K/mm3 04/13/21 04:30 WBC Morphology Not Reportable 04/13/21 04:30 WBC Morphology TNR 04/13/21 04:30 Hypersegmented Neuts Not Reportable 04/13/21 04:30 Hyposegmented Neuts Not Reportable 04/13/21 04:30 Hypogranular Neuts Not Reportable 04/13/21 04:30 Smudge Cells Not Reportable 04/13/21 04:30 Toxic Granulation Not Reportable 04/13/21 04:30 Toxic Vacuolation Not Reportable 04/13/21 04:30 Dohle Bodies Not Reportable 04/13/21 04:30 Pelger-Huet Anomaly Not Reportable 04/13/21 04:30 Katie Rods Not Reportable 04/13/21 04:30 Platelet Estimate Not Reportable 04/13/21 04:30 Clumped Platelets Not Reportable 04/13/21 04:30 Plt Clumps, EDTA Not Reportable 04/13/21 04:30 Large Platelets Not Reportable 04/13/21 04:30 Giant Platelets Not Reportable 04/13/21 04:30 Platelet Satelliting Not Reportable 04/13/21 04:30 Plt Morphology Comment Not Reportable 04/13/21 04:30 RBC Morphology Not Reportable 04/13/21 04:30 Dimorphic RBCs Not Reportable 04/13/21 04:30 Polychromasia Few 04/13/21 04:30 Hypochromasia 2+ 04/13/21 04:30 Poikilocytosis 2+ 04/13/21 04:30 Anisocytosis 2+ 04/13/21 04:30 Microcytosis 2+ 04/13/21 04:30 Macrocytosis Not Reportable 04/13/21 04:30 Spherocytes Not Reportable 04/13/21 04:30 Pappenheimer Bodies Not Reportable 04/13/21 04:30 Sickle Cells Not Reportable 04/13/21 04:30 Target Cells Not Reportable 04/13/21 04:30 Tear Drop Cells Not Reportable 04/13/21 04:30 Ovalocytes Not Reportable 04/13/21 04:30 Helmet Cells Not Reportable 04/13/21 04:30 Segura-Adair Bodies Not Reportable 04/13/21 04:30 Cameron Rings Not Reportable 04/13/21 04:30 Spraggs Cells Not Reportable 04/13/21 04:30 Bite Cells Not Reportable 04/13/21 04:30 Crenated Cell Not Reportable 04/13/21 04:30 Elliptocytes 1+ 04/13/21 04:30 Acanthocytes (Spur) Not Reportable 04/13/21 04:30 Rouleaux Not Reportable 04/13/21 04:30 Hemoglobin C Crystals Not Reportable 04/13/21 04:30 Schistocytes Not Reportable 04/13/21 04:30 Malaria parasites Not Reportable 04/13/21 04:30 Jabari Bodies Not Reportable 04/13/21 04:30 Hem Pathologist Commnt No 04/13/21 04:30 PT 33.6 Sec. (12.2-14.9) H 04/13/21 04:30 INR 3.01 (0.87-1.13) H 04/13/21 04:30 APTT 49.7 Sec. (24.2-36.6) H 04/10/21 00:36 ABG pH 7.418 pH Units (7.350-7.450) 04/13/21 04:06 POC ABG pCO2 26.0 mmHg (32.0-48.0) L 04/11/21 05:46 ABG pCO2 31.8 mm Hg 04/13/21 04:06 POC ABG pO2 89.1 mmHg (83-108) 04/11/21 05:46 ABG pO2 80.8 mm Hg (80.0-90.0) 04/13/21 04:06 POC ABG HCO3 21.9 04/11/21 05:46 ABG HCO3 20.1 mmol/L (20.0-26.0) 04/13/21 04:06 ABG O2 Saturation 97.0 % (95.0-99.0) 04/13/21 04:06 ABG O2 Content 9.6 (0.0-44) 04/13/21 04:06 POC ABG Base Excess 0.1 04/11/21 05:46 ABG Base Excess -4.0 mmol/L (-2.0-3.0) L 04/13/21 04:06 ABG Hemoglobin 7.1 gm/dl (12.0-16.0) L 04/13/21 04:06 ABG Oxyhemoglobin 96.0 (94-98) 04/11/21 05:46 ABG Carboxyhemoglobin 2.0 % (0.0-5.0) 04/13/21 04:06 ABG Methemoglobin 0.4 % (0.0-1.5) 04/13/21 04:06 ABG Sodium 133.3 mmol/L (136.0-145.0) L 04/11/21 05:46 ABG Potassium 4.2 mmol/L (3.40-4.50) 04/11/21 05:46 ABG Chloride 103.0 mmol/L (98-107) 04/11/21 05:46 ABG Glucose 134 mg/dL (65-95) H 04/11/21 05:46 Oxyhemoglobin 94.6 % (95.0-99.0) L 04/13/21 04:06 Carboxyhemoglobin 0.9 (0.5-1.5) 04/11/21 05:46 FiO2 45 % 04/13/21 04:06 FiO2 % 50.0 04/11/21 05:46 Sodium 136 mmol/L (137-145) L 04/13/21 04:30 Potassium 4.1 mmol/L (3.6-5.0) 04/13/21 04:30 Chloride 101.7 mmol/L (98-107) 04/13/21 04:30 Carbon Dioxide 19 mmol/L (22-30) L 04/13/21 04:30 Anion Gap 19 mmol/L 04/13/21 04:30 BUN 72 mg/dL (7-17) H 04/13/21 04:30 Creatinine 4.3 mg/dL (0.6-1.2) H 04/13/21 04:30 Estimated GFR 10 ml/min 04/13/21 04:30 BUN/Creatinine Ratio 17 % 04/13/21 04:30 Glucose 92 mg/dL (65-100) 04/13/21 04:30 POC Glucose 115 mg/dL (70-105) H 04/13/21 11:19 Lactic Acid 1.90 mmol/L (0.7-2.0) 04/10/21 15:12 Calcium 7.5 mg/dL (8.4-10.2) L 04/13/21 04:30 Phosphorus 5.10 mg/dL (2.5-4.5) H 04/11/21 04:20 Magnesium 1.70 mg/dL (1.7-2.3) 04/10/21 09:53 Total Bilirubin 1.00 mg/dL (0.1-1.2) 04/12/21 04:10 AST 282 units/L (5-40) H 04/12/21 04:10 ALT 413 units/L (7-56) H 04/12/21 04:10 Alkaline Phosphatase 117 units/L (35-129) 04/12/21 04:10 Total Creatine Kinase 456 units/L (30-135) H 04/10/21 09:53 CK-MB (CK-2) 23.8 ng/mL (0.0-4.0) H 04/10/21 09:53 CK-MB (CK-2) Rel Index 5.2 (0-4) H 04/10/21 09:53 Troponin T 1.060 ng/mL (0.00-0.029) H* 04/10/21 15:24 Total Protein 5.2 g/dL (6.3-8.2) L 04/12/21 04:10 Albumin 2.6 g/dL (3.9-5) L 04/12/21 04:10 Albumin/Globulin Ratio 1.0 % 04/12/21 04:10 Triglycerides 67 mg/dL (2-149) 04/10/21 00:36 Cholesterol 77 mg/dL (50-199) 04/10/21 00:36 LDL Cholesterol Direct 42 mg/dL (50-130) L 04/10/21 00:36 HDL Cholesterol 30 mg/dL (40-59) L 04/10/21 00:36 Cholesterol/HDL Ratio 2.56 % 04/10/21 00:36 Vitamin B12 1488 pg/mL (211-911) H 04/12/21 10:41 TSH 0.390 mlU/mL (0.270-4.200) 04/12/21 10:41 Free T4 0.91 ng/dL (0.76-1.46) 04/12/21 10:41 Arterial Blood Glucose 134 mg/dL (65-95) H 04/11/21 05:46 Arterial Blood Ionized Calcium 3.8 mg/dL (4.6-5.3) L 04/11/21 05:46 Urine Color Cheryle (Yellow) 04/11/21 06:30 Urine Turbidity Cloudy (Clear) 04/11/21 06:30 Urine pH 5.0 (5.0-7.0) 04/11/21 06:30 Ur Specific [place] 1.013 (1.003-1.030) 04/11/21 06:30 Urine Protein 100 mg/dl mg/dL (Negative) 04/11/21 06:30 Urine Glucose (UA) Neg mg/dL (Negative) 04/11/21 06:30 Urine Ketones Neg mg/dL (Negative) 04/11/21 06:30 Urine Blood Mod (Negative) 04/11/21 06:30 Urine Nitrite Neg (Negative) 04/11/21 06:30 Urine Bilirubin Neg (Negative) 04/11/21 06:30 Urine Urobilinogen < 2.0 mg/dL (<2.0) 04/11/21 06:30 Ur Leukocyte Esterase Sm (Negative) 04/11/21 06:30 Urine WBC (Auto) 93.0 /HPF (0.0-6.0) H 04/11/21 06:30 Urine RBC (Auto) > 182.0 /HPF (0.0-6.0) 04/11/21 06:30 U Epithel Cells (Auto) 52.0 /HPF (0-13.0) H 04/11/21 06:30 Urine Bacteria (Auto) 1+ /HPF (Negative) 04/11/21 06:30 Hyaline Casts 30 /LPF 04/11/21 06:30 Urine Mucus Few /HPF 04/11/21 06:30 Urine Eosinophils Few (None Seen) 04/11/21 06:30 Urine Creatinine 119.6 mg/dL (0.1-20.0) H 04/11/21 06:30 Protein/Creatinin Ratio 0.98 04/11/21 06:30 Urine Sodium 26 mmol/L 04/11/21 06:30 Urine Total Protein 117 mg/dL (5-11.8) H 04/11/21 06:30 Nasal Screen MRSA (PCR) Negative (Negative) 04/10/21 20:30 Random Vancomycin 19.0 ug/mL (0-40.0) 04/13/21 04:30 Blood Type O POSITIVE 04/10/21 00:36 Antibody Screen Negative 04/10/21 00:36 Microbiology: Microbiology 04/11/21 06:30 Urine,Clean Catch Urine Culture - Final 04/10/21 01:56 Peripheral/Venous Blood Culture - Preliminary NO GROWTH AFTER 72 HOURS 04/10/21 01:51 Peripheral/Venous Blood Culture - Preliminary NO GROWTH AFTER 72 HOURS [place]entz/IV: Voiding Method Indwelling Catheter Active Medications - Current Medications Current Medications: Generic Name Dose Route Start Last Admin Trade Name Freq PRN Reason Stop Dose Admin Acetaminophen 650 mg 04/10/21 05:52 04/12/21 07:50 Acetaminophen 325 Mg Tab PO 650 mg Q6H PRN Administration Pain, Mild (1-3) Lipase/Protease/Amylase 1 each 04/11/21 13:58 Lipase 10,500/Protease 25,000/Amylase 43,750 (Units) Dr Ramos FEEDTUBE PRN PRN For Clogged Feeding Tube Aspirin 81 mg 04/11/21 10:00 04/13/21 10:55 Aspirin 81 Mg Tab Chew PO 81 mg QDAY JAROD Administration Atorvastatin Calcium 40 mg 04/10/21 22:00 04/12/21 21:17 Atorvastatin 40 Mg Tab PO 40 mg QHS JAROD Administration Dextrose 50 ml 04/10/21 15:31 Dextrose 50% In Water (25gm) 50 Ml Syringe IV Q30MIN PRN Hypoglycemia Protocol Diltiazem HCl 30 mg 04/12/21 11:00 04/13/21 10:54 Diltiazem 30 Mg Tab PO 30 mg BID JAROD Administration Diphenhydramine HCl 25 mg 04/12/21 10:00 04/13/21 10:59 Diphenhydramine 50 Mg/Ml Vial IV 25 mg Q6H JAROD Administration Hydromorphone HCl 0.5 mg 04/13/21 12:55 Hydromorphone 1 Mg/1 Ml Inj IV Q8H PRN Pain , Severe (7-10) NORepinephrine/NS 8 MG-250 ML 8 mg in 250 mls @ 3.75 mls/hr 04/10/21 01:00 04/10/21 20:30 Norepinephrine/Ns 8 Mg-250 Ml (Double Conc) IV 0 mcg/min TITRATE JAROD 0 mls/hr Titration Protocol 2 MCG/MIN Insulin Human Lispro 0 unit 04/10/21 06:00 04/13/21 12:49 Insulin Lispro 100 Unit/Ml SUB-Q Not Given Q6HR [facility] Protocol Multi-Ingred Cream/Lotion/Oil/Oint 1 applic 04/11/21 18:00 04/13/21 12:49 Mineral Oil/Petrolatum, White Ophth Oint 3.5 Gm OU 1 applic Q6HR JAROD Administration Nitroglycerin 0.4 mg 04/10/21 05:52 Nitroglycerin 0.4 Mg Tab Subl SL Q5M PRN Chest Pain Ondansetron HCl 4 mg 04/13/21 13:00 Ondansetron 4 Mg/2 Ml Inj IV Q4H PRN Nausea And Vomiting Pantoprazole Sodium 40 mg 04/10/21 10:00 04/13/21 10:54 Pantoprazole 40 Mg Inj IV 40 mg QDAY JAROD Administration Simple Syrup 15 ml 04/11/21 13:58 Simple Syrup 15 Ml FEEDTUBE PRN PRN Hypoglycemia Simple Syrup 30 ml 04/11/21 13:58 Simple Syrup 15 Ml FEEDTUBE PRN PRN Hypoglycemia Sodium Bicarbonate 325 mg 04/11/21 13:58 Sodium Bicarbonate 325 Mg Tab FEEDTUBE PRN PRN For Clogged Feeding Tube Sodium Bicarbonate 650 mg 04/13/21 14:00 Sodium Bicarbonate 650 Mg Tab PO TID JAROD Sodium Chloride 10 ml 04/10/21 05:52 04/12/21 21:16 Sodium Chloride 0.9% 10 Ml Flush Syringe IV 10 ml PRN PRN Administration LINE FLUSH Nutrition/Malnutrition Assess - Dietary Evaluation Nutrition/Malnutrition Findings: Nutrition Notes Start: 04/10/21 10:22 Freq: Status: Active Protocol: Document 04/11/21 13:42 GB (Rec: 04/11/21 13:57 GB [id number]) Nutrition Notes Initial or Follow up Reassessment Current Diagnosis Diabetes,Heart Failure Other Pertinent Diagnosis Cardiac arrest multiple times, anoxic brain injury Current Diet NPO - TF to start NEPRO@39ml/ hr Labs/Tests 04/11: glucose 129, BUN 62, creatinine 3.3, P 5.1, Ca 7.1 Pertinent Medications Clindamycin HCl, D5(PRN), levetiracetam/D5 100ml/hr ( 408kcal) Height 5 ft 6 in Weight 91.8 kg [place] Body Weight (kg) 59.09 BMI 32.6 Weight change and time frame 04/10: 108.862kg 04/10: 91.8kg Using 91.8kg for EEN. Recommend reweigh to confirm weight. Weight Status Obese Subjective/Other Information MD consult for write/manage TF . 04/10: abdominal xRay: NG tube tip is in the distal stomach near pylorus MD notes 04/11: intubated / off sedation, Family withdrew DNR at this time, pt is full code . BM: not recorded at time of assessment Percent of energy/protein needs met: 0% - NPO, intubated TF @ goal rate will meet 75% or greater EEN. Burn Absent Trauma Absent GI Symptoms None Difficulty In Swallowing Food Allergy No Skin Integrity/Comment no complications at time of review Current % PO Other Minimum of two criteria No #1 Nutrition Diagnosis Swallowing difficulty Comments: 04/11: nepro @ 39ml/hr with flush 136ml/4hr to start. Order placed. Etiology anoxic brain injury, cardiac arrest multiple times As Evidenced by Signs and Symptoms intubation, NPO Diagnosis Progress(for reassessment Continues documentation) Is patient on ventilator? Yes Is Patient Ambulatory and/or Out of Bed No REE-([facility]-confined to bed) 1733.604 Kcal/Kg value to use for calculation 19 Approximate Energy Requirements Using 1744 kcal/Kg Calculation Used for Recommendations Kcal/kg Additional Notes Protein: 1-1.2 g/kg @ 92k -110g Fluids: 1 ml/kcal or per MD Nutrition Intervention Change Diet Order: Continue: NPO Nutrition Support: Nepro @39ml/hr. Start rate 19ml/hr. Advance 10ml/8hr as tolerated. Flush: 136ml/4hr. or per MD Total free water/day: TF@goal + flush = 1500ml Kcal 1,700 Protein (gm) 77 Carbohydrates (gm) 152 Fat (gm) 91 Fluid (mL) 687 Fiber (gm) 12 % RDI: 100%kcal/83%pro Goal #1 TF started by f/u 04/11: order Nepro @ 39ml/hr entered Goal #2 TF at goal by f/u Follow-Up By: 04/15/21 Additional Comments f/u: family decision on code status, TF started, vent status
[2021-04-13] MEDS: SODIUM BICARBONATE 650 MG TAB PO SCH ×2 (18:37→21:30)
[2021-04-13] MEDS: FUROSEMIDE 40 MG/4 ML INJ IV SCH (18:37)
[2021-04-14] MEDS: diphenhydrAMINE 50 MG/ML VIAL IV SCH ×3 (05:21→21:12)
[2021-04-14] MEDS: FUROSEMIDE 40 MG/4 ML INJ IV SCH ×2 (05:21→18:18)
[2021-04-14] MEDS: MINERAL OIL/PETROLATUM, WHITE OPHTH OINT 3.5 GM OU SCH ×3 (05:22→18:18)
[2021-04-14] MEDS: INSULIN LISPRO 100 UNIT/ML SUB-Q SCH ×3 (05:40→18:19)
[2021-04-14] MEDS: SODIUM BICARBONATE 650 MG TAB PO SCH ×2 (09:30→21:12)
--- NOTE | 2021-04-14 10:14 | Progress Note ---
Assessment and Plan Acute Renal Failure likely secondary to Ischemic ATN Acute hypoxic Respiratory Failure Cardiopulmonary arrest Bilateral pneumonia Congestive heart failure Atrial fibrillation Metabolic acidosis Diabetes Mellitus Plan: Cr trending down now, making more urine as well. on Lasix 40 mg BID IV. no emergent ENRICHMENT SPECIALIST indication right now. Pt is also DNR now, has anxoic brain injury, limits of care being discussed with family. Start sodium bicarb for acidosis. Renally dose medications Avoid nephrotoxic agents Monitor I/O's daily Monitor renal function closely Subjective Date of service: 04/14/21 Principal diagnosis: Post cardiac arrest Interval history: Intubated on Vent. Making more urine. Objective - Exam Narrative Exam: General appearance: Present: no acute distress, other (intubated, unresponsive) - EENT Eyes: Absent: PERRL, EOM intact ENT: poor dentition - Respiratory Respiratory effort: normal Respiratory: bilateral: diminished - Cardiovascular Rhythm: regular Heart Sounds: Present: S1 & S2. Absent: systolic murmur, diastolic murmur - Extremities Extremities: no ischemia, pulses intact, pulses symmetrical, No edema, normal temperature, normal color Peripheral Pulses: within normal limits - Abdominal General gastrointestinal: soft, non-tender, non-distended, normal bowel sounds - Integumentary Integumentary: Present: dry - Psychiatric Psychiatric: other - Neurologic Neurologic: other (pupils not reactive, no cough/gag, no startle) - Vital Signs Vital signs: Vital Signs - 12hr 04/13/21 04/13/21 04/13/21 23:20 23:30 23:40 Temperature Pulse Rate 73 78 69 Respiratory 20 14 22 Rate Blood Pressure 128/59 128/59 128/59 O2 Sat by Pulse 95 94 95 Oximetry 04/13/21 04/14/21 04/14/21 23:50 00:00 00:10 Temperature 98.0 F Pulse Rate 74 74 75 Respiratory 17 12 15 Rate Blood Pressure 128/59 122/55 122/55 O2 Sat by Pulse 95 95 95 Oximetry 04/14/21 04/14/21 04/14/21 00:20 00:30 00:40 Temperature Pulse Rate 73 69 70 Respiratory 25 H 24 26 H Rate Blood Pressure 122/55 122/55 122/55 O2 Sat by Pulse 96 96 95 Oximetry 04/14/21 04/14/21 04/14/21 00:50 01:40 EDT 01:52 EDT Temperature Pulse Rate 68 76 79 Respiratory 25 H 25 H 24 Rate Blood Pressure 122/55 122/52 122/52 O2 Sat by Pulse 96 96 95 Oximetry 04/14/21 04/14/21 04/14/21 02:00 02:10 02:20 Temperature Pulse Rate 78 85 84 Respiratory 15 18 17 Rate Blood Pressure 133/57 133/57 133/57 O2 Sat by Pulse 94 94 95 Oximetry 04/14/21 04/14/21 04/14/21 02:30 02:40 02:45 Temperature 97.4 F L Pulse Rate 87 82 Respiratory 24 25 H Rate Blood Pressure 133/57 133/57 O2 Sat by Pulse 94 95 Oximetry 04/14/21 04/14/21 04/14/21 02:50 03:00 03:10 Temperature Pulse Rate 98 H 84 88 Respiratory 24 24 26 H Rate Blood Pressure 133/57 129/59 129/59 O2 Sat by Pulse 94 94 94 Oximetry 04/14/21 04/14/21 04/14/21 03:20 03:30 03:36 Temperature Pulse Rate 83 85 Respiratory 24 25 H Rate Blood Pressure 133/57 133/57 O2 Sat by Pulse 94 93 95 Oximetry 04/14/21 04/14/21 04/14/21 03:40 03:50 04:00 Temperature Pulse Rate 83 86 79 Respiratory 12 26 H 24 Rate Blood Pressure 133/57 133/57 118/47 O2 Sat by Pulse 95 95 95 Oximetry 04/14/21 04/14/21 04/14/21 04:10 04:20 04:30 Temperature Pulse Rate 96 H 91 H 87 Respiratory 24 14 17 Rate Blood Pressure 118/47 118/47 118/47 O2 Sat by Pulse 96 84 98 Oximetry 04/14/21 04/14/21 04/14/21 04:40 04:50 05:00 Temperature Pulse Rate 79 85 83 Respiratory 23 24 15 Rate Blood Pressure 118/47 118/47 128/55 O2 Sat by Pulse 99 98 98 Oximetry 04/14/21 04/14/21 04/14/21 05:10 05:41 08:00 Temperature 97.7 F Pulse Rate 71 Respiratory 21 Rate Blood Pressure 128/55 O2 Sat by Pulse 99 95 Oximetry - Lab 04/13/21 04:30 04/14/21 13:10 Most recent lab results ABG pH 7.467 (7.320-7.450) H 04/14/21 Unknown ABG pCO2 31.8 mm Hg 04/13/21 04:06 ABG pO2 80.8 mm Hg (80.0-90.0) 04/13/21 04:06 ABG HCO3 20.1 mmol/L (20.0-26.0) 04/13/21 04:06 ABG O2 Saturation 92.0 (0-100) 04/14/21 Unknown Calcium 7.5 mg/dL (8.4-10.2) L 04/13/21 04:30 Phosphorus 5.10 mg/dL (2.5-4.5) H 04/11/21 04:20 Magnesium 1.70 mg/dL (1.7-2.3) 04/10/21 09:53 Urine Creatinine 119.6 mg/dL (0.1-20.0) H 04/11/21 06:30 Urine Sodium 26 mmol/L 04/11/21 06:30 Urine Total Protein 117 mg/dL (5-11.8) H 04/11/21 06:30 Medications & Allergies - Medications Allergies/Adverse Reactions: Allergies hydrochlorothiazide Allergy (Mild, Verified 04/10/21 09:46) Hives linezolid Allergy (Mild, Verified 04/10/21 09:46) Hives Sulfa (Sulfonamide Antibiotics) Allergy (Mild, Verified 04/10/21 09:46) Hives azithromycin Allergy (Verified 04/10/21 09:46) Hives ciprofloxacin [From Cipro] Allergy (Verified 04/10/21 09:46) Hives docusate Allergy (Verified 04/10/21 09:46) Hives ferrous gluconate Allergy (Verified 04/10/21 09:46) Hives hydralazine Allergy (Verified 04/10/21 09:46) Hives Penicillins Allergy (Verified 04/10/21 07:34) Unknown ketorolac tromethamine Allergy (Mild, Uncoded 04/10/21 07:35) Hives Active Medications: Generic Name Dose Route Start Last Admin Trade Name Freq PRN Reason Stop Dose Admin Acetaminophen 650 mg 04/10/21 05:52 04/12/21 07:50 Acetaminophen 325 Mg Tab PO 650 mg Q6H PRN Administration Pain, Mild (1-3) Lipase/Protease/Amylase 1 each 04/11/21 13:58 Lipase 10,500/Protease 25,000/Amylase 43,750 (Units) Dr Ramos FEEDTUBE PRN PRN For Clogged Feeding Tube Aspirin 81 mg 04/11/21 10:00 04/13/21 10:55 Aspirin 81 Mg Tab Chew PO 81 mg QDAY JAROD Administration Atorvastatin Calcium 40 mg 04/10/21 22:00 04/13/21 21:31 Atorvastatin 40 Mg Tab PO 40 mg QHS JAROD Administration Dextrose 50 ml 04/10/21 15:31 Dextrose 50% In Water (25gm) 50 Ml Syringe IV Q30MIN PRN Hypoglycemia Protocol Diltiazem HCl 30 mg 04/12/21 11:00 04/13/21 21:30 Diltiazem 30 Mg Tab PO 30 mg BID JAROD Administration Diphenhydramine HCl 25 mg 04/12/21 10:00 04/14/21 05:21 Diphenhydramine 50 Mg/Ml Vial IV 25 mg Q6H JAROD Administration Furosemide 40 mg 04/13/21 18:00 04/14/21 05:21 Furosemide 40 Mg/4 Ml Inj IV 40 mg 0600,1800 JAROD Administration Hydromorphone HCl 0.5 mg 04/13/21 12:55 Hydromorphone 1 Mg/1 Ml Inj IV Q8H PRN Pain , Severe (7-10) NORepinephrine/NS 8 MG-250 ML 8 mg in 250 mls @ 3.75 mls/hr 04/10/21 01:00 04/10/21 20:30 Norepinephrine/Ns 8 Mg-250 Ml (Double Conc) IV 0 mcg/min TITRATE JAROD 0 mls/hr Titration Protocol 2 MCG/MIN Vancomycin HCl 1,250 mg/ 275 mls @ 166.667 mls/hr 04/14/21 13:00 Sodium Chloride IV 04/14/21 14:38 ONCE ONE Insulin Human Lispro 0 unit 04/10/21 06:00 04/14/21 05:40 Insulin Lispro 100 Unit/Ml SUB-Q Not Given Q6HR [facility] Protocol Multi-Ingred Cream/Lotion/Oil/Oint 1 applic 04/11/21 18:00 04/14/21 05:22 Mineral Oil/Petrolatum, White Ophth Oint 3.5 Gm OU 1 applic Q6HR JAROD Administration Nitroglycerin 0.4 mg 04/10/21 05:52 Nitroglycerin 0.4 Mg Tab Subl SL Q5M PRN Chest Pain Ondansetron HCl 4 mg 04/13/21 13:00 Ondansetron 4 Mg/2 Ml Inj IV Q4H PRN Nausea And Vomiting Pantoprazole Sodium 40 mg 04/10/21 10:00 04/13/21 10:54 Pantoprazole 40 Mg Inj IV 40 mg QDAY JAROD Administration Simple Syrup 15 ml 04/11/21 13:58 Simple Syrup 15 Ml FEEDTUBE PRN PRN Hypoglycemia Simple Syrup 30 ml 04/11/21 13:58 Simple Syrup 15 Ml FEEDTUBE PRN PRN Hypoglycemia Sodium Bicarbonate 325 mg 04/11/21 13:58 04/13/21 21:30 Sodium Bicarbonate 325 Mg Tab FEEDTUBE 325 mg PRN PRN Administration For Clogged Feeding Tube Sodium Bicarbonate 650 mg 04/13/21 14:00 04/13/21 21:30 Sodium Bicarbonate 650 Mg Tab PO 650 mg TID JAROD Administration Sodium Chloride 10 ml 04/10/21 05:52 04/14/21 05:22 Sodium Chloride 0.9% 10 Ml Flush Syringe IV 10 ml PRN PRN Administration LINE FLUSH
[2021-04-14] MEDS: ASPIRIN 81 MG TAB CHEW PO SCH (10:51)
[2021-04-14] MEDS: dilTIAZem 30 MG TAB PO SCH ×2 (10:51→21:12)
[2021-04-14] MEDS: PANTOPRAZOLE 40 MG INJ IV SCH (10:52)
--- NOTE | 2021-04-14 12:37 | Progress Note ---
Assessment and Plan 04/14/21: Made DNR yesterday by sister. Family is likely going to withdrawal of care tomorrow. Completely reasonable. continue supportive measures for now. Poor prognosis. 04/13/21: Concerns are now confirmed with MRI reading. IMS spoke with family on yesterday and they plan to visit today. Hopeful they will change their minds about the DNR but really need to consider comfort measures given MRI reading as that damage is irreversible. Continue supportive measures. 04/12/21: Prognosis remains poor. Afib is rate controlled on Dilt. Has severe Pulmonary HTN seen on echo. Will stop IVF's. Consider diuretic therapy. 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 If the family wishes to continue to be aggressive, trach and peg need to be considered and placement process should be started. 04/11/21: Follow up neurology recs. IMS has ordered brain flow. If no flow, still need confirmatory test (apnea test vs cold calorics). Patient is not apnic so has some brainstem function. Could ask neuro about cold calorics. Continue supportive measures. Remains unresponsive. Very poor prognosis. Long discussion with son over the phone and he agreed to make patient dnr. Continue supportive measures and follow up Neurology consult very very poor prognosis. CCT 31 minutes. Subjective Date of service: 04/14/21 Principal diagnosis: Post cardiac arrest Interval history: No acute events. Made DNR by sister. Apparently per report she is the next of kin and not son (step son) Objective Vital Signs - 12hr 04/14/21 04/14/21 04/14/21 01:40 EDT 01:52 EDT 02:00 Temperature Pulse Rate 76 79 78 Respiratory 25 H 24 15 Rate Blood Pressure 122/52 122/52 133/57 O2 Sat by Pulse 96 95 94 Oximetry 04/14/21 04/14/21 04/14/21 02:10 02:20 02:30 Temperature Pulse Rate 85 84 87 Respiratory 18 17 24 Rate Blood Pressure 133/57 133/57 133/57 O2 Sat by Pulse 94 95 94 Oximetry 04/14/21 04/14/21 04/14/21 02:40 02:45 02:50 Temperature 97.4 F L Pulse Rate 82 98 H Respiratory 25 H 24 Rate Blood Pressure 133/57 133/57 O2 Sat by Pulse 95 94 Oximetry 1104/14/21 04/14/21 03:00 03:10 03:20 Temperature Pulse Rate 84 88 83 Respiratory 24 26 H 24 Rate Blood Pressure 129/59 129/59 133/57 O2 Sat by Pulse 94 94 94 Oximetry 04/14/21 04/14/21 04/14/21 03:30 03:36 03:40 Temperature Pulse Rate 85 83 Respiratory 25 H 12 Rate Blood Pressure 133/57 133/57 O2 Sat by Pulse 93 95 95 Oximetry 04/14/21 04/14/21 04/14/21 03:50 04:00 04:10 Temperature Pulse Rate 86 79 96 H Respiratory 26 H 24 24 Rate Blood Pressure 133/57 118/47 118/47 O2 Sat by Pulse 95 95 96 Oximetry 04/14/21 04/14/21 04/14/21 04:20 04:30 04:40 Temperature Pulse Rate 91 H 87 79 Respiratory 14 17 23 Rate Blood Pressure 118/47 118/47 118/47 O2 Sat by Pulse 84 98 99 Oximetry 04/14/21 04/14/21 04/14/21 04:50 05:00 05:10 Temperature Pulse Rate 85 83 71 Respiratory 24 15 21 Rate Blood Pressure 118/47 128/55 128/55 O2 Sat by Pulse 98 98 99 Oximetry 04/14/21 04/14/21 04/14/21 05:41 08:00 10:51 Temperature 97.7 F Pulse Rate 86 88 Respiratory Rate Blood Pressure 129/61 129/61 O2 Sat by Pulse 95 99 Oximetry 04/14/21 04/14/21 11:30 12:00 Temperature 97.5 F L Pulse Rate 86 Respiratory Rate Blood Pressure 130/50 O2 Sat by Pulse 100 Oximetry Gastrointestinal: normoactive bowel sounds Integumentary: normal CBC and BMP: 04/13/21 04:30 04/13/21 04:30 ABG, PT/INR, D-dimer: ABG ABG pH 7.467 (7.320-7.450) H 04/14/21 Unknown POC ABG pCO2 30.9 mmHg (32.0-48.0) L 04/14/21 Unknown ABG pCO2 31.8 mm Hg 04/13/21 04:06 POC ABG pO2 64.5 mmHg (83-108) L 04/14/21 Unknown ABG pO2 80.8 mm Hg (80.0-90.0) 04/13/21 04:06 POC ABG HCO3 21.8 04/14/21 Unknown ABG O2 Saturation 92.0 (0-100) 04/14/21 Unknown PT/INR, D-dimer PT 33.6 Sec. (12.2-14.9) H 04/13/21 04:30 INR 3.01 (0.87-1.13) H 04/13/21 04:30 Abnormal lab findings: Abnormal Labs 04/10/21 04/10/21 04/10/21 00:36 00:36 00:36 WBC Hgb 8.6 L Hct MCV 66 L MCH 18 L MCHC 27 L RDW 27.2 H Plt Count Seg Neuts % (Manual) Lymphocytes % (Manual) 42.0 H Nucleated RBC % 9.0 H Seg Neutrophils # Man 0.0 L Lymphocytes # (Manual) 0.0 L PT 44.8 H INR 4.36 H APTT 49.7 H ABG pH POC ABG pCO2 POC ABG pO2 ABG pO2 ABG HCO3 ABG Base Excess ABG Hemoglobin ABG Oxyhemoglobin ABG Sodium ABG Potassium ABG Glucose Oxyhemoglobin Sodium Potassium 5.5 H Chloride 97.2 L Carbon Dioxide 14 L BUN 44 H Creatinine 2.6 H Glucose 47 L POC Glucose Lactic Acid Calcium 7.9 L Phosphorus Total Bilirubin AST ALT Alkaline Phosphatase Total Creatine Kinase 222 H CK-MB (CK-2) 10.3 H CK-MB (CK-2) Rel Index 4.6 H Troponin T 0.721 H* Total Protein Albumin LDL Cholesterol Direct 42 L HDL Cholesterol 30 L Vitamin B12 Arterial Blood Glucose Arterial Blood Ionized Calcium Urine WBC (Auto) U Epithel Cells (Auto) Urine Creatinine Urine Total Protein 04/10/21 04/10/21 04/10/21 01:28 01:51 03:23 WBC Hgb Hct MCV MCH MCHC RDW Plt Count Seg Neuts % (Manual) Lymphocytes % (Manual) Nucleated RBC % Seg Neutrophils # Man Lymphocytes # (Manual) PT INR APTT ABG pH 7.078 L POC ABG pCO2 52.0 H POC ABG pO2 112.0 H ABG pO2 ABG HCO3 ABG Base Excess ABG Hemoglobin 8.8 L ABG Oxyhemoglobin ABG Sodium ABG Potassium 4.9 H ABG Glucose 44 L Oxyhemoglobin Sodium Potassium Chloride Carbon Dioxide BUN Creatinine Glucose POC Glucose Lactic Acid 10.70 H* Calcium Phosphorus Total Bilirubin AST ALT Alkaline Phosphatase Total Creatine Kinase 308 H CK-MB (CK-2) 14.5 H CK-MB (CK-2) Rel Index 4.7 H Troponin T 0.757 H* Total Protein Albumin LDL Cholesterol Direct HDL Cholesterol Vitamin B12 Arterial Blood Glucose 44 L Arterial Blood Ionized Calcium Urine WBC (Auto) U Epithel Cells (Auto) Urine Creatinine Urine Total Protein 04/10/21 04/10/21 04/10/21 04:00 04:09 09:53 WBC Hgb Hct MCV MCH MCHC RDW Plt Count Seg Neuts % (Manual) Lymphocytes % (Manual) Nucleated RBC % Seg Neutrophils # Man Lymphocytes # (Manual) PT INR APTT ABG pH 7.305 L POC ABG pCO2 POC ABG pO2 64.3 L ABG pO2 ABG HCO3 ABG Base Excess ABG Hemoglobin 9.6 L ABG Oxyhemoglobin 87.6 L ABG Sodium 135.2 L ABG Potassium 4.8 H ABG Glucose Oxyhemoglobin Sodium Potassium Chloride Carbon Dioxide BUN Creatinine Glucose POC Glucose Lactic Acid 10.20 H* 2.70 H* Calcium Phosphorus Total Bilirubin AST ALT Alkaline Phosphatase Total Creatine Kinase CK-MB (CK-2) CK-MB (CK-2) Rel Index Troponin T Total Protein Albumin LDL Cholesterol Direct HDL Cholesterol Vitamin B12 Arterial Blood Glucose Arterial Blood Ionized Calcium Urine WBC (Auto) U Epithel Cells (Auto) Urine Creatinine Urine Total Protein 04/10/21 04/10/21 04/10/21 09:53 09:53 15:24 WBC 13.2 H Hgb 8.3 L Hct 27.7 L MCV 62 L MCH 18 L MCHC RDW 26.7 H Plt Count Seg Neuts % (Manual) 83.0 H Lymphocytes % (Manual) 7.0 L Nucleated RBC % 7.0 H Seg Neutrophils # Man 11.0 H Lymphocytes # (Manual) 0.9 L PT INR APTT ABG pH POC ABG pCO2 POC ABG pO2 ABG pO2 ABG HCO3 ABG Base Excess ABG Hemoglobin ABG Oxyhemoglobin ABG Sodium ABG Potassium ABG Glucose Oxyhemoglobin Sodium Potassium Chloride Carbon Dioxide 17 L BUN 54 H Creatinine 2.6 H Glucose 107 H POC Glucose Lactic Acid Calcium 7.1 L Phosphorus 5.90 H Total Bilirubin 1.60 H AST 783 H ALT 679 H Alkaline Phosphatase 141 H Total Creatine Kinase 456 H CK-MB (CK-2) 23.8 H CK-MB (CK-2) Rel Index 5.2 H Troponin T 0.905 H* 1.060 H* Total Protein 5.8 L Albumin 3.0 L LDL Cholesterol Direct HDL Cholesterol Vitamin B12 Arterial Blood Glucose Arterial Blood Ionized Calcium Urine WBC (Auto) U Epithel Cells (Auto) Urine Creatinine Urine Total Protein 04/11/21 04/11/21 04/11/21 04:20 04:20 05:46 WBC Hgb 8.1 L Hct 26.3 L MCV 60 L MCH 18 L MCHC RDW 27.4 H Plt Count Seg Neuts % (Manual) Lymphocytes % (Manual) Nucleated RBC % Seg Neutrophils # Man Lymphocytes # (Manual) PT INR APTT ABG pH 7.544 H POC ABG pCO2 26.0 L POC ABG pO2 ABG pO2 ABG HCO3 ABG Base Excess ABG Hemoglobin 8.9 L ABG Oxyhemoglobin ABG Sodium 133.3 L ABG Potassium ABG Glucose 134 H Oxyhemoglobin Sodium Potassium Chloride Carbon Dioxide 18 L BUN 62 H Creatinine 3.3 H Glucose 129 H POC Glucose Lactic Acid Calcium 7.1 L Phosphorus 5.10 H Total Bilirubin AST ALT Alkaline Phosphatase Total Creatine Kinase CK-MB (CK-2) CK-MB (CK-2) Rel Index Troponin T Total Protein Albumin LDL Cholesterol Direct HDL Cholesterol Vitamin B12 Arterial Blood Glucose 134 H Arterial Blood Ionized Calcium 3.8 L Urine WBC (Auto) U Epithel Cells (Auto) Urine Creatinine Urine Total Protein 04/11/21 04/11/21 04/11/21 06:30 06:30 06:48 WBC Hgb Hct MCV MCH MCHC RDW Plt Count Seg Neuts % (Manual) Lymphocytes % (Manual) Nucleated RBC % Seg Neutrophils # Man Lymphocytes # (Manual) PT INR APTT ABG pH POC ABG pCO2 POC ABG pO2 ABG pO2 ABG HCO3 ABG Base Excess ABG Hemoglobin ABG Oxyhemoglobin ABG Sodium ABG Potassium ABG Glucose Oxyhemoglobin Sodium Potassium Chloride Carbon Dioxide BUN Creatinine Glucose POC Glucose 133 H Lactic Acid Calcium Phosphorus Total Bilirubin AST ALT Alkaline Phosphatase Total Creatine Kinase CK-MB (CK-2) CK-MB (CK-2) Rel Index Troponin T Total Protein Albumin LDL Cholesterol Direct HDL Cholesterol Vitamin B12 Arterial Blood Glucose Arterial Blood Ionized Calcium Urine WBC (Auto) 93.0 H U Epithel Cells (Auto) 52.0 H Urine Creatinine 119.6 H Urine Total Protein 117 H 04/11/21 04/11/21 04/12/21 11:32 23:44 04:10 WBC Hgb 7.6 L Hct 25.2 L MCV 60 L MCH 18 L MCHC RDW 27.0 H Plt Count Seg Neuts % (Manual) Lymphocytes % (Manual) Nucleated RBC % Seg Neutrophils # Man Lymphocytes # (Manual) PT INR APTT ABG pH POC ABG pCO2 POC ABG pO2 ABG pO2 ABG HCO3 ABG Base Excess ABG Hemoglobin ABG Oxyhemoglobin ABG Sodium ABG Potassium ABG Glucose Oxyhemoglobin Sodium Potassium Chloride Carbon Dioxide BUN Creatinine Glucose POC Glucose 114 H 131 H Lactic Acid Calcium Phosphorus Total Bilirubin AST ALT Alkaline Phosphatase Total Creatine Kinase CK-MB (CK-2) CK-MB (CK-2) Rel Index Troponin T Total Protein Albumin LDL Cholesterol Direct HDL Cholesterol Vitamin B12 Arterial Blood Glucose Arterial Blood Ionized Calcium Urine WBC (Auto) U Epithel Cells (Auto) Urine Creatinine Urine Total Protein 04/12/21 04/12/21 04/12/21 04:10 04:10 05:11 WBC Hgb Hct MCV MCH MCHC RDW Plt Count Seg Neuts % (Manual) Lymphocytes % (Manual) Nucleated RBC % Seg Neutrophils # Man Lymphocytes # (Manual) PT 41.2 H INR 3.92 H APTT ABG pH POC ABG pCO2 POC ABG pO2 ABG pO2 160.1 H ABG HCO3 19.6 L ABG Base Excess -4.5 L ABG Hemoglobin 7.5 L ABG Oxyhemoglobin ABG Sodium ABG Potassium ABG Glucose Oxyhemoglobin Sodium Potassium Chloride Carbon Dioxide 19 L BUN 67 H Creatinine 4.1 H Glucose 111 H POC Glucose Lactic Acid Calcium 7.4 L Phosphorus Total Bilirubin AST 282 H ALT 413 H Alkaline Phosphatase Total Creatine Kinase CK-MB (CK-2) CK-MB (CK-2) Rel Index Troponin T Total Protein 5.2 L Albumin 2.6 L LDL Cholesterol Direct HDL Cholesterol Vitamin B12 Arterial Blood Glucose Arterial Blood Ionized Calcium Urine WBC (Auto) U Epithel Cells (Auto) Urine Creatinine Urine Total Protein 04/12/21 04/12/21 04/13/21 10:41 11:42 04:06 WBC Hgb Hct MCV MCH MCHC RDW Plt Count Seg Neuts % (Manual) Lymphocytes % (Manual) Nucleated RBC % Seg Neutrophils # Man Lymphocytes # (Manual) PT INR APTT ABG pH POC ABG pCO2 POC ABG pO2 ABG pO2 ABG HCO3 ABG Base Excess -4.0 L ABG Hemoglobin 7.1 L ABG Oxyhemoglobin ABG Sodium ABG Potassium ABG Glucose Oxyhemoglobin 94.6 L Sodium Potassium Chloride Carbon Dioxide BUN Creatinine Glucose POC Glucose 130 H Lactic Acid Calcium Phosphorus Total Bilirubin AST ALT Alkaline Phosphatase Total Creatine Kinase CK-MB (CK-2) CK-MB (CK-2) Rel Index Troponin T Total Protein Albumin LDL Cholesterol Direct HDL Cholesterol Vitamin B12 1488 H Arterial Blood Glucose Arterial Blood Ionized Calcium Urine WBC (Auto) U Epithel Cells (Auto) Urine Creatinine Urine Total Protein 04/13/21 04/13/21 04/13/21 04:30 04:30 04:30 WBC Hgb 7.2 L Hct 23.7 L MCV 60 L MCH 18 L MCHC RDW 25.7 H Plt Count 138 L Seg Neuts % (Manual) 90.0 H Lymphocytes % (Manual) 6.0 L Nucleated RBC % Seg Neutrophils # Man Lymphocytes # (Manual) 0.5 L PT 33.6 H INR 3.01 H APTT ABG pH POC ABG pCO2 POC ABG pO2 ABG pO2 ABG HCO3 ABG Base Excess ABG Hemoglobin ABG Oxyhemoglobin ABG Sodium ABG Potassium ABG Glucose Oxyhemoglobin Sodium 136 L Potassium Chloride Carbon Dioxide 19 L BUN 72 H Creatinine 4.3 H Glucose POC Glucose Lactic Acid Calcium 7.5 L Phosphorus Total Bilirubin AST ALT Alkaline Phosphatase Total Creatine Kinase CK-MB (CK-2) CK-MB (CK-2) Rel Index Troponin T Total Protein Albumin LDL Cholesterol Direct HDL Cholesterol Vitamin B12 Arterial Blood Glucose Arterial Blood Ionized Calcium Urine WBC (Auto) U Epithel Cells (Auto) Urine Creatinine Urine Total Protein 04/13/21 04/13/21 04/13/21 04:58 11:19 23:22 WBC Hgb Hct MCV MCH MCHC RDW Plt Count Seg Neuts % (Manual) Lymphocytes % (Manual) Nucleated RBC % Seg Neutrophils # Man Lymphocytes # (Manual) PT INR APTT ABG pH POC ABG pCO2 POC ABG pO2 ABG pO2 ABG HCO3 ABG Base Excess ABG Hemoglobin ABG Oxyhemoglobin ABG Sodium ABG Potassium ABG Glucose Oxyhemoglobin Sodium Potassium Chloride Carbon Dioxide BUN Creatinine Glucose POC Glucose 106 H 115 H 115 H Lactic Acid Calcium Phosphorus Total Bilirubin AST ALT Alkaline Phosphatase Total Creatine Kinase CK-MB (CK-2) CK-MB (CK-2) Rel Index Troponin T Total Protein Albumin LDL Cholesterol Direct HDL Cholesterol Vitamin B12 Arterial Blood Glucose Arterial Blood Ionized Calcium Urine WBC (Auto) U Epithel Cells (Auto) Urine Creatinine Urine Total Protein 04/14/21 04/14/21 04/14/21 05:25 11:00 Unknown WBC Hgb Hct MCV MCH MCHC RDW Plt Count Seg Neuts % (Manual) Lymphocytes % (Manual) Nucleated RBC % Seg Neutrophils # Man Lymphocytes # (Manual) PT INR APTT ABG pH 7.467 H POC ABG pCO2 30.9 L POC ABG pO2 64.5 L ABG pO2 ABG HCO3 ABG Base Excess ABG Hemoglobin 8.6 L ABG Oxyhemoglobin 90.7 L ABG Sodium 133.1 L ABG Potassium ABG Glucose 122 H Oxyhemoglobin Sodium Potassium Chloride Carbon Dioxide BUN Creatinine Glucose POC Glucose 120 H 124 H Lactic Acid Calcium Phosphorus Total Bilirubin AST ALT Alkaline Phosphatase Total Creatine Kinase CK-MB (CK-2) CK-MB (CK-2) Rel Index Troponin T Total Protein Albumin LDL Cholesterol Direct HDL Cholesterol Vitamin B12 Arterial Blood Glucose 122 H Arterial Blood Ionized Calcium 4.3 L Urine WBC (Auto) U Epithel Cells (Auto) Urine Creatinine Urine Total Protein
[2021-04-14] MEDS ORDERED: VANCOMYCIN 1,250 MG in SODIUM CHLORIDE 0.9% 250ML 250 ML IV ONE (13:00)
[2021-04-14 13:54] LABS: Calcium 7.7 mg/dL (8.4-10.2)
--- NOTE | 2021-04-14 15:26 | Progress Note ---
<AGATADarrellDAVID - Last Filed: 04/14/21 15:21> Assessment and Plan Assessment and plan: This is a 75-year-old female with CHF, A. fib/a flutter, DM, KIMMIE, HTN, CVA, anemia, Crohn's disease, asthma admitted s/p cardiac arrest Neuro: Possible anoxic brain injury, h/o CVA -Neurology consulted, appreciate recommendations -CT head on admit unremarkable -On physical exam patient has myoclonus with agonal breathing -EEG with diffuse slowing -Patient is not sedated -Keppra IV-> d/c -Seizure/aspiration precautions -NM brain scan does not show complete absence of cerebral blood flow -MRI B shows cerebal edema Cardiology: S/p cardiac arrest, elevated troponin, h/o atrial fibrillati on/atrial flutter, CHF, HTN, CAD -Cardiology consulted, appreciate recommendations -Echocardiogram shows EF 50 to 55%, right ventricle mildly hypokinetic, left atrium severely dilated, severe pulmonary hypertension, RSVP 74 mmHg, Moderate left pleural effusion, Right ventricle moderately dilated -Hold home Coumadin -s/p vassopressor support with Levophed -MAP goal greater than 65 -Blood pressure monitor per protocol -Cardizem per cards Pulmonary: Acute hypoxic respiratory failure, pulm hthn, h/o KIMMIE, asthma -Intubated on 04/10 with 7.50 ETT at 22 at the lips -A.m. vent settings CMV rate 25, tidal 450, PEEP 12, FiO2 40% -See RT notes for titration -A.m. ABG noted -VAP bundle -SPO2 monitoring -Pulmonary/critical care consulted, appreciate recommendations -CT chest shows multiple bilateral rib fractures, trace right pneumothorax, p ossible pulmonary edema, trace pericardial effusion GI: Transaminitis, h/o Crohn's disease -Nutrition consult for tube feeding -24 hours +385 -TF -PPI -BR: colace -Trend LFTs : Acute kidney injury 2/2 vasomotor nephropathy, metabolic acidosis -Nephrology consulted, appreciate recommendations -Patient had a CT abdomen/pelvis which showed no remarkable findings with the kidneys -Lasix BID -Renally dose medications -Avoid nephrotoxic medications -Strict intact/output -Daily weights -Trend BMP ID: Pneumonia, lactic acidosis, tracheal aspirate with medhat -Evident on CXR -s/p clindamycin -Monitor fever and WBC curve -Trend lactate -S/p 3 L NS Endo: h/o DM -Accu-Cheks every 6 while n.p.o. -Avoid hypoglycemia -SSI Heme: Leukocytosis (resolved), h/o anemia, supratheraputic INR -ABX therapy -Trend CBC -Transfuse if hemoglobin less than 7 The high probability of a clinically significant, sudden or life threatening deterioration of the [multi] system(s) required my full and direct attention, intervention and personal management. The aggregate critical care time was [90] minutes. This time is in addition to time spent performing reported procedures but includes the following: [x] Data Review and interpretation [x] Patient assessment and monitoring of vital signs [x] Documentation [x] Medication orders and management Disposition Plan: icu Total Time Spent with Patient (Minutes): 60 History Interval history: This is a 75-year-old female with CHF, A. fib/a flutter, DM, KIMMIE, HTN, CVA, anemia, Crohn's disease, asthma who presented the emergency department on 04/10 after witnessed arrest via EMS. Upon EMS arrival patient was started on ACLS protocol and a Al airway was placed. EMS had ROSC onsite. Upon arrival to the emergency department patient was found to be pulseless and ACLS was initiated again. Patient was intubated in the emergency department and while there patient had 3 additional cardiac arrest with ROSC. She was also started on Levophed for hypotension. Patient was admitted to the hospitalist service status post cardiac arrest, pneumonia noted on CXR, lactic acidosis and acute kidney injury. Patient has consults to cardiology, nephrology, pulmonary CCM, neurology. 04/10: Family change CODE STATUS to DNR however family later rescinded DNR. Patient remains a full code. Patient is having elevated triglycerides however cardiology is aware and no orders have been given. Echocardiogram pending. Patient is on vasopressors with Levophed. 04/11: Patient had a nuclear med brain flow study which does not demonstrate a complete absence of brain perfusion however there is decreased brain parenchymal perfusion. Neurology would would like an MRI brain when possible. Nephrology anticipates initiation of hemodialysis within the next 24 to 48 hours. We will continue supportive care. Nutrition consult for tube feeding. 04/12: Patient started on diltiazem, MRI brain pending, B12 and thyroid studies ordered. Patient started on Benadryl given angioedema. She is currently on tube feedings. worsening renal function noted and IVF stopped d/t pulm htn. Dr. Lott updated family. Patient was febrile overnight 04/13: Family visit with errol Coffey and his . Patient CODE STATUS changed to DO NOT RESUSCITATE by sister over the phone which was witnessed by me and Dr. Lott. Patient noted in SR. 04/14: VIVIENNE overnight, better urine output noted with decrease in bun/cr. Hospitalist Physical - Constitutional Vitals: Temp Pulse Resp BP Pulse Ox 97.5 F L 86 21 130/50 100 04/14/21 12:00 04/14/21 11:30 04/14/21 05:10 04/14/21 11:30 04/14/21 11:30 General appearance: Present: no acute distress, other (intubated, unresponsive) - EENT Eyes: Absent: PERRL, EOM intact ENT: other (swollen tongue), no hearing intact, no clear oral mucosa, no dentition normal - Neck Neck: Absent: normal ROM - Respiratory Respiratory effort: normal Respiratory: bilateral: diminished - Cardiovascular Rhythm: regular Heart Sounds: Present: S1 & S2. Absent: systolic murmur, diastolic murmur - Extremities Extremities: no ischemia, pulses intact, pulses symmetrical Extremity abnormal: edema Peripheral Pulses: within normal limits - Abdominal General gastrointestinal: soft, tender, normal bowel sounds - Integumentary Integumentary: Present: warm, dry - Psychiatric Psychiatric: other - Neurologic Neurologic: other (not interactive, no cough/gag, no pupilary response) - Allied Health Allied health notes reviewed: nursing, RT, social work HEART Score - HEART Score Troponin: Troponin T 1.060 ng/mL (0.00-0.029) H* 04/10/21 15:24 Results - Labs CBC & Chem 7: 04/13/21 04:30 04/14/21 13:10 Labs: Laboratory Last Values WBC 8.6 K/mm3 (4.5-11.0) 04/13/21 04:30 RBC 3.95 M/mm3 (3.65-5.03) 04/13/21 04:30 Hgb 7.2 gm/dl (10.1-14.3) L 04/13/21 04:30 Hct 23.7 % (30.3-42.9) L 04/13/21 04:30 MCV 60 fl (79-97) L 04/13/21 04:30 MCH 18 pg (28-32) L 04/13/21 04:30 MCHC 30 % (30-34) 04/13/21 04:30 RDW 25.7 % (13.2-15.2) H 04/13/21 04:30 Plt Count 138 K/mm3 (140-440) L 04/13/21 04:30 Add Manual Diff Complete 04/13/21 04:30 Total Counted 100 04/13/21 04:30 Seg Neuts % (Manual) 90.0 % (40.0-70.0) H 04/13/21 04:30 Band Neutrophils % 1.0 % 04/13/21 04:30 Lymphocytes % (Manual) 6.0 % (13.4-35.0) L 04/13/21 04:30 Monocytes % (Manual) 2.0 % (0.0-7.3) 04/13/21 04:30 Eosinophils % (Manual) 1.0 % (0.0-4.3) 04/13/21 04:30 Nucleated RBC % Not Reportable 04/13/21 04:30 Seg Neutrophils # Man 7.7 K/mm3 (1.8-7.7) 04/13/21 04:30 Band Neutrophils # 0.1 K/mm3 04/13/21 04:30 Lymphocytes # (Manual) 0.5 K/mm3 (1.2-5.4) L 04/13/21 04:30 Abs React Lymphs (Man) 0.0 K/mm3 04/13/21 04:30 Monocytes # (Manual) 0.2 K/mm3 (0.0-0.8) 04/13/21 04:30 Eosinophils # (Manual) 0.1 K/mm3 (0.0-0.4) 04/13/21 04:30 Basophils # (Manual) 0.0 K/mm3 (0.0-0.1) 04/13/21 04:30 Metamyelocytes # 0.0 K/mm3 04/13/21 04:30 Myelocytes # 0.0 K/mm3 04/13/21 04:30 Promyelocytes # 0.0 K/mm3 04/13/21 04:30 Blast Cells # 0.0 K/mm3 04/13/21 04:30 WBC Morphology Not Reportable 04/13/21 04:30 WBC Morphology TNR 04/13/21 04:30 Hypersegmented Neuts Not Reportable 04/13/21 04:30 Hyposegmented Neuts Not Reportable 04/13/21 04:30 Hypogranular Neuts Not Reportable 04/13/21 04:30 Smudge Cells Not Reportable 04/13/21 04:30 Toxic Granulation Not Reportable 04/13/21 04:30 Toxic Vacuolation Not Reportable 04/13/21 04:30 Dohle Bodies Not Reportable 04/13/21 04:30 Pelger-Huet Anomaly Not Reportable 04/13/21 04:30 Katie Rods Not Reportable 04/13/21 04:30 Platelet Estimate Not Reportable 04/13/21 04:30 Clumped Platelets Not Reportable 04/13/21 04:30 Plt Clumps, EDTA Not Reportable 04/13/21 04:30 Large Platelets Not Reportable 04/13/21 04:30 Giant Platelets Not Reportable 04/13/21 04:30 Platelet Satelliting Not Reportable 04/13/21 04:30 Plt Morphology Comment Not Reportable 04/13/21 04:30 RBC Morphology Not Reportable 04/13/21 04:30 Dimorphic RBCs Not Reportable 04/13/21 04:30 Polychromasia Few 04/13/21 04:30 Hypochromasia 2+ 04/13/21 04:30 Poikilocytosis 2+ 04/13/21 04:30 Anisocytosis 2+ 04/13/21 04:30 Microcytosis 2+ 04/13/21 04:30 Macrocytosis Not Reportable 04/13/21 04:30 Spherocytes Not Reportable 04/13/21 04:30 Pappenheimer Bodies Not Reportable 04/13/21 04:30 Sickle Cells Not Reportable 04/13/21 04:30 Target Cells Not Reportable 04/13/21 04:30 Tear Drop Cells Not Reportable 04/13/21 04:30 Ovalocytes Not Reportable 04/13/21 04:30 Helmet Cells Not Reportable 04/13/21 04:30 Seg[place] Bodies Not Reportable 04/13/21 04:30 [place] Rings Not Reportable 04/13/21 04:30 Marika Cells Not Reportable 04/13/21 04:30 Bite Cells Not Reportable 04/13/21 04:30 Crenated Cell Not Reportable 04/13/21 04:30 Elliptocytes 1+ 04/13/21 04:30 Acanthocytes (Spur) Not Reportable 04/13/21 04:30 Rouleaux Not Reportable 04/13/21 04:30 Hemoglobin C Crystals Not Reportable 04/13/21 04:30 Schistocytes Not Reportable 04/13/21 04:30 Malaria parasites Not Reportable 04/13/21 04:30 Jabari Bodies Not Reportable 04/13/21 04:30 Hem Pathologist Commnt No 04/13/21 04:30 PT 33.6 Sec. (12.2-14.9) H 04/13/21 04:30 INR 3.01 (0.87-1.13) H 04/13/21 04:30 APTT 49.7 Sec. (24.2-36.6) H 04/10/21 00:36 ABG pH 7.467 (7.320-7.450) H 04/14/21 Unknown POC ABG pCO2 30.9 mmHg (32.0-48.0) L 04/14/21 Unknown ABG pCO2 31.8 mm Hg 04/13/21 04:06 POC ABG pO2 64.5 mmHg (83-108) L 04/14/21 Unknown ABG pO2 80.8 mm Hg (80.0-90.0) 04/13/21 04:06 POC ABG HCO3 21.8 04/14/21 Unknown ABG HCO3 20.1 mmol/L (20.0-26.0) 04/13/21 04:06 ABG O2 Saturation 92.0 (0-100) 04/14/21 Unknown ABG O2 Content 9.6 (0.0-44) 04/13/21 04:06 POC ABG Base Excess -1.4 04/14/21 Unknown ABG Base Excess -4.0 mmol/L (-2.0-3.0) L 04/13/21 04:06 ABG Hemoglobin 8.6 (12.0-17.5) L 04/14/21 Unknown ABG Oxyhemoglobin 90.7 (94-98) L 04/14/21 Unknown ABG Carboxyhemoglobin 2.0 % (0.0-5.0) 04/13/21 04:06 ABG Methemoglobin 0.3 (0.0-1.5) 04/14/21 Unknown ABG Sodium 133.1 mmol/L (136.0-145.0) L 04/14/21 Unknown ABG Potassium 4.1 mmol/L (3.40-4.50) 04/14/21 Unknown ABG Chloride 104.0 mmol/L (98-107) 04/14/21 Unknown ABG Glucose 122 mg/dL (65-95) H 04/14/21 Unknown Oxyhemoglobin 94.6 % (95.0-99.0) L 04/13/21 04:06 Carboxyhemoglobin 1.1 (0.5-1.5) 04/14/21 Unknown FiO2 45 % 04/13/21 04:06 FiO2 % 40 04/14/21 Unknown Sodium 136 mmol/L (137-145) L 04/14/21 13:10 Potassium 4.0 mmol/L (3.6-5.0) 04/14/21 13:10 Chloride 100.8 mmol/L (98-107) 04/14/21 13:10 Carbon Dioxide 20 mmol/L (22-30) L 04/14/21 13:10 Anion Gap 19 mmol/L 04/14/21 13:10 BUN 80 mg/dL (7-17) H 04/14/21 13:10 Creatinine 3.8 mg/dL (0.6-1.2) H 04/14/21 13:10 Estimated GFR 12 ml/min 04/14/21 13:10 BUN/Creatinine Ratio 21 % 04/14/21 13:10 Glucose 132 mg/dL (65-100) H 04/14/21 13:10 POC Glucose 124 mg/dL (70-105) H 04/14/21 11:00 Lactic Acid 1.90 mmol/L (0.7-2.0) 04/10/21 15:12 Calcium 7.7 mg/dL (8.4-10.2) L 04/14/21 13:10 Phosphorus 5.10 mg/dL (2.5-4.5) H 04/11/21 04:20 Magnesium 1.70 mg/dL (1.7-2.3) 04/10/21 09:53 Total Bilirubin 1.00 mg/dL (0.1-1.2) 04/12/21 04:10 AST 282 units/L (5-40) H 04/12/21 04:10 ALT 413 units/L (7-56) H 04/12/21 04:10 Alkaline Phosphatase 117 units/L (35-129) 04/12/21 04:10 Total Creatine Kinase 456 units/L (30-135) H 04/10/21 09:53 CK-MB (CK-2) 23.8 ng/mL (0.0-4.0) H 04/10/21 09:53 CK-MB (CK-2) Rel Index 5.2 (0-4) H 04/10/21 09:53 Troponin T 1.060 ng/mL (0.00-0.029) H* 04/10/21 15:24 Total Protein 5.2 g/dL (6.3-8.2) L 04/12/21 04:10 Albumin 2.6 g/dL (3.9-5) L 04/12/21 04:10 Albumin/Globulin Ratio 1.0 % 04/12/21 04:10 Triglycerides 67 mg/dL (2-149) 04/10/21 00:36 Cholesterol 77 mg/dL (50-199) 04/10/21 00:36 LDL Cholesterol Direct 42 mg/dL (50-130) L 04/10/21 00:36 HDL Cholesterol 30 mg/dL (40-59) L 04/10/21 00:36 Cholesterol/HDL Ratio 2.56 % 04/10/21 00:36 Vitamin B12 1488 pg/mL (211-911) H 04/12/21 10:41 TSH 0.390 mlU/mL (0.270-4.200) 04/12/21 10:41 Free T4 0.91 ng/dL (0.76-1.46) 04/12/21 10:41 Arterial Blood Glucose 122 mg/dL (65-95) H 04/14/21 Unknown Arterial Blood Ionized Calcium 4.3 mg/dL (4.6-5.3) L 04/14/21 Unknown Urine Color Cheryle (Yellow) 04/11/21 06:30 Urine Turbidity Cloudy (Clear) 04/11/21 06:30 Urine pH 5.0 (5.0-7.0) 04/11/21 06:30 Ur Specific Erin 1.013 (1.003-1.030) 04/11/21 06:30 Urine Protein 100 mg/dl mg/dL (Negative) 04/11/21 06:30 Urine Glucose (UA) Neg mg/dL (Negative) 04/11/21 06:30 Urine Ketones Neg mg/dL (Negative) 04/11/21 06:30 Urine Blood Mod (Negative) 04/11/21 06:30 Urine Nitrite Neg (Negative) 04/11/21 06:30 Urine Bilirubin Neg (Negative) 04/11/21 06:30 Urine Urobilinogen < 2.0 mg/dL (<2.0) 04/11/21 06:30 Ur Leukocyte Esterase Sm (Negative) 04/11/21 06:30 Urine WBC (Auto) 93.0 /HPF (0.0-6.0) H 04/11/21 06:30 Urine RBC (Auto) > 182.0 /HPF (0.0-6.0) 04/11/21 06:30 U Epithel Cells (Auto) 52.0 /HPF (0-13.0) H 04/11/21 06:30 Urine Bacteria (Auto) 1+ /HPF (Negative) 04/11/21 06:30 Hyaline Casts 30 /LPF 04/11/21 06:30 Urine Mucus Few /HPF 04/11/21 06:30 Urine Eosinophils Few (None Seen) 04/11/21 06:30 Urine Creatinine 119.6 mg/dL (0.1-20.0) H 04/11/21 06:30 Protein/Creatinin Ratio 0.98 04/11/21 06:30 Urine Sodium 26 mmol/L 04/11/21 06:30 Urine Total Protein 117 mg/dL (5-11.8) H 04/11/21 06:30 Nasal Screen MRSA (PCR) Negative (Negative) 04/10/21 20:30 Random Vancomycin 19.0 ug/mL (0-40.0) 04/13/21 04:30 Blood Type O POSITIVE 04/10/21 00:36 Antibody Screen Negative 04/10/21 00:36 Microbiology: Microbiology 04/10/21 01:56 Peripheral/Venous Blood Culture - Preliminary NO GROWTH AFTER 4 DAYS 04/10/21 01:51 Peripheral/Venous Blood Culture - Preliminary NO GROWTH AFTER 4 DAYS Lentz/IV: Voiding Method Indwelling Catheter Active Medications - Current Medications Current Medications: Generic Name Dose Route Start Last Admin Trade Name Freq PRN Reason Stop Dose Admin Acetaminophen 650 mg 04/10/21 05:52 04/12/21 07:50 Acetaminophen 325 Mg Tab PO 650 mg Q6H PRN Administration Pain, Mild (1-3) Lipase/Protease/Amylase 1 each 04/11/21 13:58 Lipase 10,500/Protease 25,000/Amylase 43,750 (Units) Dr Ramos FEEDTUBE PRN PRN For Clogged Feeding Tube Aspirin 81 mg 04/11/21 10:00 04/14/21 10:51 Aspirin 81 Mg Tab Chew PO 81 mg QDAY JAROD Administration Atorvastatin Calcium 40 mg 04/10/21 22:00 04/13/21 21:31 Atorvastatin 40 Mg Tab PO 40 mg QHS JAROD Administration Dextrose 50 ml 04/10/21 15:31 Dextrose 50% In Water (25gm) 50 Ml Syringe IV Q30MIN PRN Hypoglycemia Protocol Diltiazem HCl 30 mg 04/12/21 11:00 04/14/21 10:51 Diltiazem 30 Mg Tab PO 30 mg BID JAROD Administration Diphenhydramine HCl 25 mg 04/12/21 10:00 04/14/21 11:00 Diphenhydramine 50 Mg/Ml Vial IV 25 mg Q6H JAROD Administration Furosemide 40 mg 04/13/21 18:00 04/14/21 05:21 Furosemide 40 Mg/4 Ml Inj IV 40 mg 0600,1800 JAROD Administration Hydromorphone HCl 0.5 mg 04/13/21 12:55 Hydromorphone 1 Mg/1 Ml Inj IV Q8H PRN Pain , Severe (7-10) NORepinephrine/NS 8 MG-250 ML 8 mg in 250 mls @ 3.75 mls/hr 04/10/21 01:00 04/10/21 20:30 Norepinephrine/Ns 8 Mg-250 Ml (Double Conc) IV 0 mcg/min TITRATE JAROD 0 mls/hr Titration Protocol 2 MCG/MIN Insulin Human Lispro 0 unit 04/10/21 06:00 04/14/21 12:15 Insulin Lispro 100 Unit/Ml SUB-Q Not Given Q6HR [facility] Protocol Multi-Ingred Cream/Lotion/Oil/Oint 1 applic 04/11/21 18:00 04/14/21 12:52 Mineral Oil/Petrolatum, White Ophth Oint 3.5 Gm OU 1 applic Q6HR JAROD Administration Nitroglycerin 0.4 mg 04/10/21 05:52 Nitroglycerin 0.4 Mg Tab Subl SL Q5M PRN Chest Pain Ondansetron HCl 4 mg 04/13/21 13:00 Ondansetron 4 Mg/2 Ml Inj IV Q4H PRN Nausea And Vomiting Pantoprazole Sodium 40 mg 04/10/21 10:00 04/14/21 10:52 Pantoprazole 40 Mg Inj IV 40 mg QDAY JAROD Administration Simple Syrup 15 ml 04/11/21 13:58 Simple Syrup 15 Ml FEEDTUBE PRN PRN Hypoglycemia Simple Syrup 30 ml 04/11/21 13:58 Simple Syrup 15 Ml FEEDTUBE PRN PRN Hypoglycemia Sodium Bicarbonate 325 mg 04/11/21 13:58 04/13/21 21:30 Sodium Bicarbonate 325 Mg Tab FEEDTUBE 325 mg PRN PRN Administration For Clogged Feeding Tube Sodium Bicarbonate 650 mg 04/13/21 14:00 04/14/21 09:30 Sodium Bicarbonate 650 Mg Tab PO 650 mg TID JAROD Administration Sodium Chloride 10 ml 04/10/21 05:52 04/14/21 05:22 Sodium Chloride 0.9% 10 Ml Flush Syringe IV 10 ml PRN PRN Administration LINE FLUSH Nutrition/Malnutrition Assess - Dietary Evaluation Nutrition/Malnutrition Findings: Nutrition Notes Start: 04/10/21 10 :22 Freq: Status: Active Protocol: Document 04/11/21 13:42 GB (Rec: 04/11/21 13:57 GB [id number]) Nutrition Notes Initial or Follow up Reassessment Current Diagnosis Diabetes,Heart Failure Other Pertinent Diagnosis Cardiac arrest multiple times, anoxic brain injury Current Diet NPO - TF to start NEPRO@39ml/ hr Labs/Tests 04/11: glucose 129, BUN 62, creatinine 3.3, P 5.1, Ca 7.1 Pertinent Medications Clindamycin HCl, D5(PRN), levetiracetam/D5 100ml/hr ( 408kcal) Height 5 ft 6 in Weight 91.8 kg [place] Body Weight (kg) 59.09 BMI 32.6 Weight change and time frame 04/10: 108.862kg 04/10: 91.8kg Using 91.8kg for EEN. Recommend reweigh to confirm weight. Weight Status Obese Subjective/Other Information MD consult for write/manage TF . 04/10: abdominal xRay: NG tube tip is in the distal stomach near pylorus MD notes 04/11: intubated / off sedation, Family withdrew DNR at this time, pt is full code . BM: not recorded at time of assessment Percent of energy/protein needs met: 0% - NPO, intubated TF @ goal rate will meet 75% or greater EEN. Burn Absent Trauma Absent GI Symptoms None Difficulty In Swallowing Food Allergy No Skin Integrity/Comment no complications at time of review Current % PO Other Minimum of two criteria No #1 Nutrition Diagnosis Swallowing difficulty Comments: 04/11: nepro @ 39ml/hr with flush 136ml/4hr to start. Order placed. Etiology anoxic brain injury, cardiac arrest multiple times As Evidenced by Signs and Symptoms intubation, NPO Diagnosis Progress(for reassessment Continues documentation) Is patient on ventilator? Yes Is Patient Ambulatory and/or Out of Bed No REE-([facility]-confined to bed) 1733.604 Kcal/Kg value to use for calculation 19 Approximate Energy Requirements Using 1744 kcal/Kg Calculation Used for Recommendations Kcal/kg Additional Notes Protein: 1-1.2 g/kg @ 92k -110g Fluids: 1 ml/kcal or per MD Nutrition Intervention Change Diet Order: Continue: NPO Nutrition Support: Nepro @39ml/hr. Start rate 19ml/hr. Advance 10ml/8hr as tolerated. Flush: 136ml/4hr. or per MD Total free water/day: TF@goal + flush = 1500ml Kcal 1,700 Protein (gm) 77 Carbohydrates (gm) 152 Fat (gm) 91 Fluid (mL) 687 Fiber (gm) 12 % RDI: 100%kcal/83%pro Goal #1 TF started by f/u 04/11: order Nepro @ 39ml/hr entered Goal #2 TF at goal by f/u Follow-Up By: 04/15/21 Additional Comments f/u: family decision on code status, TF started, vent status <SHAY LOTT - Last Filed: 04/15/21 07:26> Assessment and Plan Assessment and plan: I saw and evaluated the patient. Discussed with the nurse practitioner and agree with their findings and plan as documented in this note. Hospitalist Physical - Constitutional Vitals: Temp Pulse Resp BP Pulse Ox 98.8 F 78 24 125/57 96 04/15/21 03:47 04/15/21 06:00 04/15/21 06:00 04/15/21 06:00 04/15/21 06:00 HEART Score - HEART Score Troponin: Troponin T 1.060 ng/mL (0.00-0.029) H* 04/10/21 15:24 Results - Labs CBC & Chem 7: 04/13/21 04:30 04/14/21 13:10 Labs: Laboratory Last Values WBC 8.6 K/mm3 (4.5-11.0) 04/13/21 04:30 RBC 3.95 M/mm3 (3.65-5.03) 04/13/21 04:30 Hgb 7.2 gm/dl (10.1-14.3) L 04/13/21 04:30 Hct 23.7 % (30.3-42.9) L 04/13/21 04:30 MCV 60 fl (79-97) L 04/13/21 04:30 MCH 18 pg (28-32) L 04/13/21 04:30 MCHC 30 % (30-34) 04/13/21 04:30 RDW 25.7 % (13.2-15.2) H 04/13/21 04:30 Plt Count 138 K/mm3 (140-440) L 04/13/21 04:30 Add Manual Diff Complete 04/13/21 04:30 Total Counted 100 04/13/21 04:30 Seg Neuts % (Manual) 90.0 % (40.0-70.0) H 04/13/21 04:30 Band Neutrophils % 1.0 % 04/13/21 04:30 Lymphocytes % (Manual) 6.0 % (13.4-35.0) L 04/13/21 04:30 Monocytes % (Manual) 2.0 % (0.0-7.3) 04/13/21 04:30 Eosinophils % (Manual) 1.0 % (0.0-4.3) 04/13/21 04:30 Nucleated RBC % Not Reportable 04/13/21 04:30 Seg Neutrophils # Man 7.7 K/mm3 (1.8-7.7) 04/13/21 04:30 Band Neutrophils # 0.1 K/mm3 04/13/21 04:30 Lymphocytes # (Manual) 0.5 K/mm3 (1.2-5.4) L 04/13/21 04:30 Abs React Lymphs (Man) 0.0 K/mm3 04/13/21 04:30 Monocytes # (Manual) 0.2 K/mm3 (0.0-0.8) 04/13/21 04:30 Eosinophils # (Manual) 0.1 K/mm3 (0.0-0.4) 04/13/21 04:30 Basophils # (Manual) 0.0 K/mm3 (0.0-0.1) 04/13/21 04:30 Metamyelocytes # 0.0 K/mm3 04/13/21 04:30 Myelocytes # 0.0 K/mm3 04/13/21 04:30 Promyelocytes # 0.0 K/mm3 04/13/21 04:30 Blast Cells # 0.0 K/mm3 04/13/21 04:30 WBC Morphology Not Reportable 04/13/21 04:30 WBC Morphology TNR 04/13/21 04:30 Hypersegmented Neuts Not Reportable 04/13/21 04:30 Hyposegmented Neuts Not Reportable 04/13/21 04:30 Hypogranular Neuts Not Reportable 04/13/21 04:30 Smudge Cells Not Reportable 04/13/21 04:30 Toxic Granulation Not Reportable 04/13/21 04:30 Toxic Vacuolation Not Reportable 04/13/21 04:30 Dohle Bodies Not Reportable 04/13/21 04:30 Pelger-Huet Anomaly Not Reportable 04/13/21 04:30 Katie Rods Not Reportable 04/13/21 04:30 Platelet Estimate Not Reportable 04/13/21 04:30 Clumped Platelets Not Reportable 04/13/21 04:30 Plt Clumps, EDTA Not Reportable 04/13/21 04:30 Large Platelets Not Reportable 04/13/21 04:30 Giant Platelets Not Reportable 04/13/21 04:30 Platelet Satelliting Not Reportable 04/13/21 04:30 Plt Morphology Comment Not Reportable 04/13/21 04:30 RBC Morphology Not Reportable 04/13/21 04:30 Dimorphic RBCs Not Reportable 04/13/21 04:30 Polychromasia Few 04/13/21 04:30 Hypochromasia 2+ 04/13/21 04:30 Poikilocytosis 2+ 04/13/21 04:30 Anisocytosis 2+ 04/13/21 04:30 Microcytosis 2+ 04/13/21 04:30 Macrocytosis Not Reportable 04/13/21 04:30 Spherocytes Not Reportable 04/13/21 04:30 Pappenheimer Bodies Not Reportable 04/13/21 04:30 Sickle Cells Not Reportable 04/13/21 04:30 Target Cells Not Reportable 04/13/21 04:30 Tear Drop Cells Not Reportable 04/13/21 04:30 Ovalocytes Not Reportable 04/13/21 04:30 Helmet Cells Not Reportable 04/13/21 04:30 [place] Bodies Not Reportable 04/13/21 04:30 Barronett Rings Not Reportable 04/13/21 04:30 Marika Cells Not Reportable 04/13/21 04:30 Bite Cells Not Reportable 04/13/21 04:30 Crenated Cell Not Reportable 04/13/21 04:30 Elliptocytes 1+ 04/13/21 04:30 Acanthocytes (Spur) Not Reportable 04/13/21 04:30 Rouleaux Not Reportable 04/13/21 04:30 Hemoglobin C Crystals Not Reportable 04/13/21 04:30 Schistocytes Not Reportable 04/13/21 04:30 Malaria parasites Not Reportable 04/13/21 04:30 [place]ab[place] Bodies Not Reportable 04/13/21 04:30 Hem Pathologist Commnt No 04/13/21 04:30 PT 33.6 Sec. (12.2-14.9) H 04/13/21 04:30 INR 3.01 (0.87-1.13) H 04/13/21 04:30 APTT 49.7 Sec. (24.2-36.6) H 04/10/21 00:36 ABG pH 7.467 (7.320-7.450) H 04/14/21 Unknown POC ABG pCO2 30.9 mmHg (32.0-48.0) L 04/14/21 Unknown ABG pCO2 31.8 mm Hg 04/13/21 04:06 POC ABG pO2 64.5 mmHg (83-108) L 04/14/21 Unknown ABG pO2 80.8 mm Hg (80.0-90.0) 04/13/21 04:06 POC ABG HCO3 21.8 04/14/21 Unknown ABG HCO3 20.1 mmol/L (20.0-26.0) 04/13/21 04:06 ABG O2 Saturation 92.0 (0-100) 04/14/21 Unknown ABG O2 Content 9.6 (0.0-44) 04/13/21 04:06 POC ABG Base Excess -1.4 04/14/21 Unknown ABG Base Excess -4.0 mmol/L (-2.0-3.0) L 04/13/21 04:06 ABG Hemoglobin 8.6 (12.0-17.5) L 04/14/21 Unknown ABG Oxyhemoglobin 90.7 (94-98) L 04/14/21 Unknown ABG Carboxyhemoglobin 2.0 % (0.0-5.0) 04/13/21 04:06 ABG Methemoglobin 0.3 (0.0-1.5) 04/14/21 Unknown ABG Sodium 133.1 mmol/L (136.0-145.0) L 04/14/21 Unknown ABG Potassium 4.1 mmol/L (3.40-4.50) 04/14/21 Unknown ABG Chloride 104.0 mmol/L (98-107) 04/14/21 Unknown ABG Glucose 122 mg/dL (65-95) H 04/14/21 Unknown Oxyhemoglobin 94.6 % (95.0-99.0) L 04/13/21 04:06 Carboxyhemoglobin 1.1 (0.5-1.5) 04/14/21 Unknown FiO2 45 % 04/13/21 04:06 FiO2 % 40 04/14/21 Unknown Sodium 136 mmol/L (137-145) L 04/14/21 13:10 Potassium 4.0 mmol/L (3.6-5.0) 04/14/21 13:10 Chloride 100.8 mmol/L (98-107) 04/14/21 13:10 Carbon Dioxide 20 mmol/L (22-30) L 04/14/21 13:10 Anion Gap 19 mmol/L 04/14/21 13:10 BUN 80 mg/dL (7-17) H 04/14/21 13:10 Creatinine 3.8 mg/dL (0.6-1.2) H 04/14/21 13:10 Estimated GFR 12 ml/min 04/14/21 13:10 BUN/Creatinine Ratio 21 % 04/14/21 13:10 Glucose 132 mg/dL (65-100) H 04/14/21 13:10 POC Glucose 98 mg/dL (70-105) 04/15/21 05:30 Lactic Acid 1.90 mmol/L (0.7-2.0) 04/10/21 15:12 Calcium 7.7 mg/dL (8.4-10.2) L 04/14/21 13:10 Phosphorus 5.10 mg/dL (2.5-4.5) H 04/11/21 04:20 Magnesium 1.70 mg/dL (1.7-2.3) 04/10/21 09:53 Total Bilirubin 1.00 mg/dL (0.1-1.2) 04/12/21 04:10 AST 282 units/L (5-40) H 04/12/21 04:10 ALT 413 units/L (7-56) H 04/12/21 04:10 Alkaline Phosphatase 117 units/L (35-129) 04/12/21 04:10 Total Creatine Kinase 456 units/L (30-135) H 04/10/21 09:53 CK-MB (CK-2) 23.8 ng/mL (0.0-4.0) H 04/10/21 09:53 CK-MB (CK-2) Rel Index 5.2 (0-4) H 04/10/21 09:53 Troponin T 1.060 ng/mL (0.00-0.029) H* 04/10/21 15:24 Total Protein 5.2 g/dL (6.3-8.2) L 04/12/21 04:10 Albumin 2.6 g/dL (3.9-5) L 04/12/21 04:10 Albumin/Globulin Ratio 1.0 % 04/12/21 04:10 Triglycerides 67 mg/dL (2-149) 04/10/21 00:36 Cholesterol 77 mg/dL (50-199) 04/10/21 00:36 LDL Cholesterol Direct 42 mg/dL (50-130) L 04/10/21 00:36 HDL Cholesterol 30 mg/dL (40-59) L 04/10/21 00:36 Cholesterol/HDL Ratio 2.56 % 04/10/21 00:36 Vitamin B12 1488 pg/mL (211-911) H 04/12/21 10:41 TSH 0.390 mlU/mL (0.270-4.200) 04/12/21 10:41 Free T4 0.91 ng/dL (0.76-1.46) 04/12/21 10:41 Arterial Blood Glucose 122 mg/dL (65-95) H 04/14/21 Unknown Arterial Blood Ionized Calcium 4.3 mg/dL (4.6-5.3) L 04/14/21 Unknown Urine Color Cheryle (Yellow) 04/11/21 06:30 Urine Turbidity Cloudy (Clear) 04/11/21 06:30 Urine pH 5.0 (5.0-7.0) 04/11/21 06:30 Ur Specific Erin 1.013 (1.003-1.030) 04/11/21 06:30 Urine Protein 100 mg/dl mg/dL (Negative) 04/11/21 06:30 Urine Glucose (UA) Neg mg/dL (Negative) 04/11/21 06:30 Urine Ketones Neg mg/dL (Negative) 04/11/21 06:30 Urine Blood Mod (Negative) 04/11/21 06:30 Urine Nitrite Neg (Negative) 04/11/21 06:30 Urine Bilirubin Neg (Negative) 04/11/21 06:30 Urine Urobilinogen < 2.0 mg/dL (<2.0) 04/11/21 06:30 Ur Leukocyte Esterase Sm (Negative) 04/11/21 06:30 Urine WBC (Auto) 93.0 /HPF (0.0-6.0) H 04/11/21 06:30 Urine RBC (Auto) > 182.0 /HPF (0.0-6.0) 04/11/21 06:30 U Epithel Cells (Auto) 52.0 /HPF (0-13.0) H 04/11/21 06:30 Urine Bacteria (Auto) 1+ /HPF (Negative) 04/11/21 06:30 Hyaline Casts 30 /LPF 04/11/21 06:30 Urine Mucus Few /HPF 04/11/21 06:30 Urine Eosinophils Few (None Seen) 04/11/21 06:30 Urine Creatinine 119.6 mg/dL (0.1-20.0) H 04/11/21 06:30 Protein/Creatinin Ratio 0.98 04/11/21 06:30 Urine Sodium 26 mmol/L 04/11/21 06:30 Urine Total Protein 117 mg/dL (5-11.8) H 04/11/21 06:30 Nasal Screen MRSA (PCR) Negative (Negative) 04/10/21 20:30 Random Vancomycin 19.0 ug/mL (0-40.0) 04/13/21 04:30 Blood Type O POSITIVE 04/10/21 00:36 Antibody Screen Negative 04/10/21 00:36 Microbiology: Microbiology 04/10/21 01:56 Peripheral/Venous Blood Culture - Final NO GROWTH AFTER 5 DAYS 04/10/21 01:51 Peripheral/Venous Blood Culture - Final NO GROWTH AFTER 5 DAYS Lentz/IV: Voiding Method Indwelling Catheter Active Medications - Current Medications Current Medications: Generic Name Dose Route Start Last Admin Trade Name Freq PRN Reason Stop Dose Admin Acetaminophen 650 mg 04/10/21 05:52 04/12/21 07:50 Acetaminophen 325 Mg Tab PO 650 mg Q6H PRN Administration Pain, Mild (1-3) Lipase/Protease/Amylase 1 each 04/11/21 13:58 Lipase 10,500/Protease 25,000/Amylase 43,750 (Units) Dr Richard STONER PRN PRN For Clogged Feeding Tube Aspirin 81 mg 04/11/21 10:00 04/14/21 10:51 Aspirin 81 Mg Tab Chew PO 81 mg QDAY JAROD Administration Atorvastatin Calcium 40 mg 04/10/21 22:00 04/14/21 21:12 Atorvastatin 40 Mg Tab PO 40 mg QHS JAROD Administration Dextrose 50 ml 04/10/21 15:31 Dextrose 50% In Water (25gm) 50 Ml Syringe IV Q30MIN PRN Hypoglycemia Protocol Diltiazem HCl 30 mg 04/12/21 11:00 04/14/21 21:12 Diltiazem 30 Mg Tab PO 30 mg BID JAROD Administration Diphenhydramine HCl 25 mg 04/12/21 10:00 04/15/21 04:35 Diphenhydramine 50 Mg/Ml Vial IV 25 mg Q6H JAROD Administration Furosemide 40 mg 04/13/21 18:00 04/15/21 06:44 Furosemide 40 Mg/4 Ml Inj IV 40 mg 0600,1800 JAROD Administration Hydromorphone HCl 0.5 mg 04/13/21 12:55 Hydromorphone 1 Mg/1 Ml Inj IV Q8H PRN Pain , Severe (7-10) NORepinephrine/NS 8 MG-250 ML 8 mg in 250 mls @ 3.75 mls/hr 04/10/21 01:00 04/10/21 20:30 Norepinephrine/Ns 8 Mg-250 Ml (Double Conc) IV 0 mcg/min TITRATE JAROD 0 mls/hr Titration Protocol 2 MCG/MIN Insulin Human Lispro 0 unit 04/10/21 06:00 04/15/21 06:43 Insulin Lispro 100 Unit/Ml SUB-Q Not Given Q6HR [facility] Protocol Multi-Ingred Cream/Lotion/Oil/Oint 1 applic 04/11/21 18:00 04/15/21 06:44 Mineral Oil/Petrolatum, White Ophth Oint 3.5 Gm OU 1 applic Q6HR JAROD Administration Nitroglycerin 0.4 mg 04/10/21 05:52 Nitroglycerin 0.4 Mg Tab Subl SL Q5M PRN Chest Pain Ondansetron HCl 4 mg 04/13/21 13:00 Ondansetron 4 Mg/2 Ml Inj IV Q4H PRN Nausea And Vomiting Pantoprazole Sodium 40 mg 04/10/21 10:00 04/14/21 10:52 Pantoprazole 40 Mg Inj IV 40 mg QDAY JAROD Administration Simple Syrup 15 ml 04/11/21 13:58 Simple Syrup 15 Ml FEEDTUBE PRN PRN Hypoglycemia Simple Syrup 30 ml 04/11/21 13:58 Simple Syrup 15 Ml FEEDTUBE PRN PRN Hypoglycemia Sodium Bicarbonate 325 mg 04/11/21 13:58 11/06/21 21:30 Sodium Bicarbonate 325 Mg Tab FEEDTUBE 325 mg PRN PRN Administration For Clogged Feeding Tube Sodium Bicarbonate 650 mg 04/13/21 14:00 04/14/21 21:12 Sodium Bicarbonate 650 Mg Tab PO 650 mg TID JAROD Administration Sodium Chloride 10 ml 04/10/21 05:52 04/14/21 05:22 Sodium Chloride 0.9% 10 Ml Flush Syringe IV 10 ml PRN PRN Administration LINE FLUSH Nutrition/Malnutrition Assess - Dietary Evaluation Nutrition/Malnutrition Findings: Nutrition Notes Start: 04/10/21 10:22 Freq: Status: Active Protocol: Document 04/11/21 13:42 GB (Rec: 04/11/21 13:57 GB [id number]) Nutrition Notes Initial or Follow up Reassessment Current Diagnosis Diabetes,Heart Failure Other Pertinent Diagnosis Cardiac arrest multiple times, anoxic brain injury Current Diet NPO - TF to start NEPRO@39ml/ hr Labs/Tests 04/11: glucose 129, BUN 62, creatinine 3.3, P 5.1, Ca 7.1 Pertinent Medications Clindamycin HCl, D5(PRN), levetiracetam/D5 100ml/hr ( 408kcal) Height 5 ft 6 in Weight 91.8 kg [place] Body Weight (kg) 59.09 BMI 32.6 Weight change and time frame 04/10: 108.862kg 04/10: 91.8kg Using 91.8kg for EEN. Recommend reweigh to confirm weight. Weight Status Obese Subjective/Other Information MD consult for write/manage TF . 04/10: abdominal xRay: NG tube tip is in the distal stomach near pylorus MD notes 04/11: intubated / off sedation, Family withdrew DNR at this time, pt is full code . BM: not recorded at time of assessment Percent of energy/protein needs met: 0% - NPO, intubated TF @ goal rate will meet 75% or greater EEN. Burn Absent Trauma Absent GI Symptoms None Difficulty In Swallowing Food Allergy No Skin Integrity/Comment no complications at time of review Current % PO Other Minimum of two criteria No #1 Nutrition Diagnosis Swallowing difficulty Comments: 04/11: nepro @ 39ml/hr with flush 136ml/4hr to start. Order placed. Etiology anoxic brain injury, cardiac arrest multiple times As Evidenced by Signs and Symptoms intubation, NPO Diagnosis Progress(for reassessment Continues documentation) Is patient on ventilator? Yes Is Patient Ambulatory and/or Out of Bed No REE-([facility]-confined to bed) 1733.604 Kcal/Kg value to use for calculation 19 Approximate Energy Requirements Using 1744 kcal/Kg Calculation Used for Recommendations Kcal/kg Additional Notes Protein: 1-1.2 g/kg @ 92k -110g Fluids: 1 ml/kcal or per MD Nutrition Intervention Change Diet Order: Continue: NPO Nutrition Support: Nepro @39ml/hr. Start rate 19ml/hr. Advance 10ml/8hr as tolerated. Flush: 136ml/4hr. or per MD Total free water/day: TF@goal + flush = 1500ml Kcal 1,700 Protein (gm) 77 Carbohydrates (gm) 152 Fat (gm) 91 Fluid (mL) 687 Fiber (gm) 12 % RDI: 100%kcal/83%pro Goal #1 TF started by f/u 04/11: order Nepro @ 39ml/hr entered Goal #2 TF at goal by f/u Follow-Up By: 04/15/21 Additional Comments f/u: family decision on code status, TF started, vent status
--- NOTE | 2021-04-14 16:17 | Progress Note ---
Assessment and Plan Continue supportive care. - Patient Problems (1) Cardiopulmonary arrest Current Visit: Yes Status: Acute (2) Anoxic brain damage Current Visit: Yes Status: Acute (3) Bilateral pneumonia Current Visit: Yes Status: Acute (4) PAF (paroxysmal atrial fibrillation) Current Visit: Yes Status: Acute (5) JACKIE (acute kidney injury) Current Visit: Yes Status: Acute (6) Anemia Current Visit: Yes Status: Acute (7) Pulmonary hypertension Current Visit: Yes Status: Chronic (8) Diabetes mellitus Current Visit: Yes Status: Chronic Subjective Date of service: 04/14/21 Principal diagnosis: Post cardiac arrest Interval history: Remains unresponsive. Objective Vital Signs Last Vital Signs Temp 97.5 F L 04/14/21 12:00 Pulse 97 H 04/14/21 15:13 Resp 21 04/14/21 05:10 BP 129/51 04/14/21 15:13 Pulse Ox 97 04/14/21 15:13 - Physical Examination General: No Apparent Distress HEENT: Positive: Normocephaly, Mucus Membranes Moist, Other (contusions on eyes/nose consistent with recent nasal fracture) Neck: Positive: trachea midline Cardiac: Positive: Reg Rate and Rhythm, S1/S2 Lungs: Positive: clear to auscultation Neuro: Positive: Other (Unresponsive) Abdomen: Positive: Soft, Active Bowel Sounds Skin: Negative: Rash Musculoskeletal: No Fluid Collection Extremities: Absent: edema - Labs and Meds Comprehensive Metabolic Panel 04/14/21 Range/Units 13:10 Sodium 136 L (137-145) mmol/L Potassium 4.0 (3.6-5.0) mmol/L Chloride 100.8 (98-107) mmol/L Carbon Dioxide 20 L (22-30) mmol/L BUN 80 H (7-17) mg/dL Creatinine 3.8 H (0.6-1.2) mg/dL Glucose 132 H (65-100) mg/dL Calcium 7.7 L (8.4-10.2) mg/dL - Imaging and Cardiology Echo: report reviewed - Telemetry EKG Rhythm: Sinus Rhythm Repolarization changes or abnormalities: nonspecific abnormality, ST segment, and/or T wave
[2021-04-15] MEDS: INSULIN LISPRO 100 UNIT/ML SUB-Q SCH ×3 (00:10→13:38)
[2021-04-15] MEDS: MINERAL OIL/PETROLATUM, WHITE OPHTH OINT 3.5 GM OU SCH ×3 (00:17→13:38)
[2021-04-15] MEDS: diphenhydrAMINE 50 MG/ML VIAL IV SCH ×4 (04:35→21:12)
[2021-04-15] MEDS: FUROSEMIDE 40 MG/4 ML INJ IV SCH ×2 (06:44→17:03)
--- NOTE | 2021-04-15 08:31 | Progress Note ---
Assessment and Plan - Patient Problems (1) Acute respiratory failure with hypoxemia Current Visit: Yes Status: Acute (2) Acute renal failure Current Visit: Yes Status: Acute (3) Anoxic brain damage Current Visit: Yes Status: Acute (4) Atrial fibrillation Current Visit: Yes Status: Acute (5) Bilateral pneumonia Current Visit: Yes Status: Acute (6) Cardiopulmonary arrest Current Visit: Yes Status: Acute (7) Congestive heart failure Current Visit: Yes Status: Acute (8) Pulmonary hypertension Current Visit: Yes Status: Chronic Subjective Principal diagnosis: Post cardiac arrest Interval history: on vent Objective Vital Signs - 12hr 04/14/21 04/14/21 04/14/21 20:30 20:40 20:50 Temperature Pulse Rate 84 83 87 Pulse Rate [ From Monitor] Respiratory 25 H 25 H 25 H Rate Blood Pressure 144/54 144/54 144/54 O2 Sat by Pulse 98 97 96 Oximetry 04/14/21 04/14/21 04/14/21 21:00 21:10 21:20 Temperature Pulse Rate 99 H 86 89 Pulse Rate [ From Monitor] Respiratory 25 H 25 H 25 H Rate Blood Pressure 140/64 140/64 140/64 O2 Sat by Pulse 96 94 96 Oximetry 04/14/21 04/14/21 04/14/21 21:30 21:40 21:50 Temperature Pulse Rate 94 H 108 H 103 H Pulse Rate [ From Monitor] Respiratory 10 L 14 10 L Rate Blood Pressure 140/64 140/64 140/64 O2 Sat by Pulse 98 98 98 Oximetry 04/14/21 04/14/21 04/14/21 22:00 22:10 22:20 Temperature Pulse Rate 99 H 88 89 Pulse Rate [ From Monitor] Respiratory 13 16 8 L Rate Blood Pressure 138/57 138/57 138/57 O2 Sat by Pulse 97 97 97 Oximetry 04/14/21 04/14/21 04/14/21 22:30 22:40 22:50 Temperature Pulse Rate 86 93 H 90 Pulse Rate [ From Monitor] Respiratory 12 7 L 10 L Rate Blood Pressure 138/57 138/57 138/57 O2 Sat by Pulse 97 97 97 Oximetry 04/14/21 04/14/21 04/14/21 23:00 23:02 23:10 Temperature Pulse Rate 91 H 80 89 Pulse Rate [ From Monitor] Respiratory 9 L 8 L Rate Blood Pressure 131/53 138/57 131/53 O2 Sat by Pulse 97 97 97 Oximetry 04/14/21 04/14/21 04/14/21 23:16 23:20 23:30 Temperature Pulse Rate 90 86 88 Pulse Rate [ From Monitor] Respiratory 13 17 19 Rate Blood Pressure 131/53 131/53 131/53 O2 Sat by Pulse 97 97 97 Oximetry 04/14/21 04/14/21 04/14/21 23:40 23:50 23:58 Temperature 98 F Pulse Rate 86 87 Pulse Rate [ From Monitor] Respiratory 25 H 25 H Rate Blood Pressure 131/53 131/53 O2 Sat by Pulse 97 97 Oximetry 04/15/21 04/15/21 04/15/21 00:00 00:10 00:20 Temperature Pulse Rate 89 97 H 81 Pulse Rate [ 79 From Monitor] Respiratory 25 H 24 11 L Rate Blood Pressure 134/53 134/53 134/53 O2 Sat by Pulse 95 97 97 Oximetry 04/15/21 04/15/21 04/15/21 00:30 00:40 00:50 Temperature Pulse Rate 88 84 82 Pulse Rate [ From Monitor] Respiratory 25 H 25 H 25 H Rate Blood Pressure 134/53 134/53 134/53 O2 Sat by Pulse 97 97 97 Oximetry 04/15/21 04/15/21 04/15/21 01:00 02:00 03:00 Temperature Pulse Rate 80 81 79 Pulse Rate [ From Monitor] Respiratory 25 H 25 H 25 H Rate Blood Pressure 119/51 135/63 139/64 O2 Sat by Pulse 95 94 96 Oximetry 04/15/21 04/15/21 04/15/21 03:38 03:39 03:41 Temperature Pulse Rate 89 85 Pulse Rate [ 79 From Monitor] Respiratory 25 H Rate Blood Pressure 139/64 O2 Sat by Pulse 95 95 Oximetry 04/15/21 04/15/21 04/15/21 03:47 04:00 05:00 Temperature 98.8 F Pulse Rate 87 86 Pulse Rate [ From Monitor] Respiratory 25 H 17 Rate Blood Pressure 143/73 138/64 O2 Sat by Pulse 95 95 Oximetry 04/15/21 04/15/21 06:00 07:28 Temperature 97.7 F Pulse Rate 78 Pulse Rate [ From Monitor] Respiratory 24 Rate Blood Pressure 125/57 O2 Sat by Pulse 96 Oximetry Constitutional: other (on vent ac 25 450 8 35%) Eyes: other (sclera edema, injected conjunctiva) ENT: other (intubated) Ascultation: Bilateral: diminished breath sounds Cardiovascular: regular rate and rhythm Gastrointestinal: normoactive bowel sounds Integumentary: normal CBC and BMP: 04/13/21 04:30 04/14/21 13:10 ABG, PT/INR, D-dimer: ABG ABG pH 7.467 (7.320-7.450) H 04/14/21 Unknown POC ABG pCO2 30.9 mmHg (32.0-48.0) L 04/14/21 Unknown ABG pCO2 31.8 mm Hg 04/13/21 04:06 POC ABG pO2 64.5 mmHg (83-108) L 04/14/21 Unknown ABG pO2 80.8 mm Hg (80.0-90.0) 04/13/21 04:06 POC ABG HCO3 21.8 04/14/21 Unknown ABG O2 Saturation 92.0 (0-100) 04/14/21 Unknown PT/INR, D-dimer PT 33.6 Sec. (12.2-14.9) H 04/13/21 04:30 INR 3.01 (0.87-1.13) H 04/13/21 04:30 Abnormal lab findings: Abnormal Labs 04/10/21 04/10/21 04/10/21 00:36 00:36 00:36 WBC Hgb 8.6 L Hct MCV 66 L MCH 18 L MCHC 27 L RDW 27.2 H Plt Count Seg Neuts % (Manual) Lymphocytes % (Manual) 42.0 H Nucleated RBC % 9.0 H Seg Neutrophils # Man 0.0 L Lymphocytes # (Manual) 0.0 L PT 44.8 H INR 4.36 H APTT 49.7 H ABG pH POC ABG pCO2 POC ABG pO2 ABG pO2 ABG HCO3 ABG Base Excess ABG Hemoglobin ABG Oxyhemoglobin ABG Sodium ABG Potassium ABG Glucose Oxyhemoglobin Sodium Potassium 5.5 H Chloride 97.2 L Carbon Dioxide 14 L BUN 44 H Creatinine 2.6 H Glucose 47 L POC Glucose Lactic Acid Calcium 7.9 L Phosphorus Total Bilirubin AST ALT Alkaline Phosphatase Total Creatine Kinase 222 H CK-MB (CK-2) 10.3 H CK-MB (CK-2) Rel Index 4.6 H Troponin T 0.721 H* Total Protein Albumin LDL Cholesterol Direct 42 L HDL Cholesterol 30 L Vitamin B12 Arterial Blood Glucose Arterial Blood Ionized Calcium Urine WBC (Auto) U Epithel Cells (Auto) Urine Creatinine Urine Total Protein 04/10/21 04/10/21 04/10/21 01:28 01:51 03:23 WBC Hgb Hct MCV MCH MCHC RDW Plt Count Seg Neuts % (Manual) Lymphocytes % (Manual) Nucleated RBC % Seg Neutrophils # Man Lymphocytes # (Manual) PT INR APTT ABG pH 7.078 L POC ABG pCO2 52.0 H POC ABG pO2 112.0 H ABG pO2 ABG HCO3 ABG Base Excess ABG Hemoglobin 8.8 L ABG Oxyhemoglobin ABG Sodium ABG Potassium 4.9 H ABG Glucose 44 L Oxyhemoglobin Sodium Potassium Chloride Carbon Dioxide BUN Creatinine Glucose POC Glucose Lactic Acid 10.70 H* Calcium Phosphorus Total Bilirubin AST ALT Alkaline Phosphatase Total Creatine Kinase 308 H CK-MB (CK-2) 14.5 H CK-MB (CK-2) Rel Index 4.7 H Troponin T 0.757 H* Total Protein Albumin LDL Cholesterol Direct HDL Cholesterol Vitamin B12 Arterial Blood Glucose 44 L Arterial Blood Ionized Calcium Urine WBC (Auto) U Epithel Cells (Auto) Urine Creatinine Urine Total Protein 04/10/21 04/10/21 04/10/21 04:00 04:09 09:53 WBC Hgb Hct MCV MCH MCHC RDW Plt Count Seg Neuts % (Manual) Lymphocytes % (Manual) Nucleated RBC % Seg Neutrophils # Man Lymphocytes # (Manual) PT INR APTT ABG pH 7.305 L POC ABG pCO2 POC ABG pO2 64.3 L ABG pO2 ABG HCO3 ABG Base Excess ABG Hemoglobin 9.6 L ABG Oxyhemoglobin 87.6 L ABG Sodium 135.2 L ABG Potassium 4.8 H ABG Glucose Oxyhemoglobin Sodium Potassium Chloride Carbon Dioxide BUN Creatinine Glucose POC Glucose Lactic Acid 10.20 H* 2.70 H* Calcium Phosphorus Total Bilirubin AST ALT Alkaline Phosphatase Total Creatine Kinase CK-MB (CK-2) CK-MB (CK-2) Rel Index Troponin T Total Protein Albumin LDL Cholesterol Direct HDL Cholesterol Vitamin B12 Arterial Blood Glucose Arterial Blood Ionized Calcium Urine WBC (Auto) U Epithel Cells (Auto) Urine Creatinine Urine Total Protein 04/10/21 04/10/21 04/10/21 09:53 09:53 15:24 WBC 13.2 H Hgb 8.3 L Hct 27.7 L MCV 62 L MCH 18 L MCHC RDW 26.7 H Plt Count Seg Neuts % (Manual) 83.0 H Lymphocytes % (Manual) 7.0 L Nucleated RBC % 7.0 H Seg Neutrophils # Man 11.0 H Lymphocytes # (Manual) 0.9 L PT INR APTT ABG pH POC ABG pCO2 POC ABG pO2 ABG pO2 ABG HCO3 ABG Base Excess ABG Hemoglobin ABG Oxyhemoglobin ABG Sodium ABG Potassium ABG Glucose Oxyhemoglobin Sodium Potassium Chloride Carbon Dioxide 17 L BUN 54 H Creatinine 2.6 H Glucose 107 H POC Glucose Lactic Acid Calcium 7.1 L Phosphorus 5.90 H Total Bilirubin 1.60 H AST 783 H ALT 679 H Alkaline Phosphatase 141 H Total Creatine Kinase 456 H CK-MB (CK-2) 23.8 H CK-MB (CK-2) Rel Index 5.2 H Troponin T 0.905 H* 1.060 H* Total Protein 5.8 L Albumin 3.0 L LDL Cholesterol Direct HDL Cholesterol Vitamin B12 Arterial Blood Glucose Arterial Blood Ionized Calcium Urine WBC (Auto) U Epithel Cells (Auto) Urine Creatinine Urine Total Protein 04/11/21 04/11/21 04/11/21 04:20 04:20 05:46 WBC Hgb 8.1 L Hct 26.3 L MCV 60 L MCH 18 L MCHC RDW 27.4 H Plt Count Seg Neuts % (Manual) Lymphocytes % (Manual) Nucleated RBC % Seg Neutrophils # Man Lymphocytes # (Manual) PT INR APTT ABG pH 7.544 H POC ABG pCO2 26.0 L POC ABG pO2 ABG pO2 ABG HCO3 ABG Base Excess ABG Hemoglobin 8.9 L ABG Oxyhemoglobin ABG Sodium 133.3 L ABG Potassium ABG Glucose 134 H Oxyhemoglobin Sodium Potassium Chloride Carbon Dioxide 18 L BUN 62 H Creatinine 3.3 H Glucose 129 H POC Glucose Lactic Acid Calcium 7.1 L Phosphorus 5.10 H Total Bilirubin AST ALT Alkaline Phosphatase Total Creatine Kinase CK-MB (CK-2) CK-MB (CK-2) Rel Index Troponin T Total Protein Albumin LDL Cholesterol Direct HDL Cholesterol Vitamin B12 Arterial Blood Glucose 134 H Arterial Blood Ionized Calcium 3.8 L Urine WBC (Auto) U Epithel Cells (Auto) Urine Creatinine Urine Total Protein 04/11/21 04/11/21 04/11/21 06:30 06:30 06:48 WBC Hgb Hct MCV MCH MCHC RDW Plt Count Seg Neuts % (Manual) Lymphocytes % (Manual) Nucleated RBC % Seg Neutrophils # Man Lymphocytes # (Manual) PT INR APTT ABG pH POC ABG pCO2 POC ABG pO2 ABG pO2 ABG HCO3 ABG Base Excess ABG Hemoglobin ABG Oxyhemoglobin ABG Sodium ABG Potassium ABG Glucose Oxyhemoglobin Sodium Potassium Chloride Carbon Dioxide BUN Creatinine Glucose POC Glucose 133 H Lactic Acid Calcium Phosphorus Total Bilirubin AST ALT Alkaline Phosphatase Total Creatine Kinase CK-MB (CK-2) CK-MB (CK-2) Rel Index Troponin T Total Protein Albumin LDL Cholesterol Direct HDL Cholesterol Vitamin B12 Arterial Blood Glucose Arterial Blood Ionized Calcium Urine WBC (Auto) 93.0 H U Epithel Cells (Auto) 52.0 H Urine Creatinine 119.6 H Urine Total Protein 117 H 04/11/21 04/11/21 04/12/21 11:32 23:44 04:10 WBC Hgb 7.6 L Hct 25.2 L MCV 60 L MCH 18 L MCHC RDW 27.0 H Plt Count Seg Neuts % (Manual) Lymphocytes % (Manual) Nucleated RBC % Seg Neutrophils # Man Lymphocytes # (Manual) PT INR APTT ABG pH POC ABG pCO2 POC ABG pO2 ABG pO2 ABG HCO3 ABG Base Excess ABG Hemoglobin ABG Oxyhemoglobin ABG Sodium ABG Potassium ABG Glucose Oxyhemoglobin Sodium Potassium Chloride Carbon Dioxide BUN Creatinine Glucose POC Glucose 114 H 131 H Lactic Acid Calcium Phosphorus Total Bilirubin AST ALT Alkaline Phosphatase Total Creatine Kinase CK-MB (CK-2) CK-MB (CK-2) Rel Index Troponin T Total Protein Albumin LDL Cholesterol Direct HDL Cholesterol Vitamin B12 Arterial Blood Glucose Arterial Blood Ionized Calcium Urine WBC (Auto) U Epithel Cells (Auto) Urine Creatinine Urine Total Protein 04/12/21 04/12/21 04/12/21 04:10 04:10 05:11 WBC Hgb Hct MCV MCH MCHC RDW Plt Count Seg Neuts % (Manual) Lymphocytes % (Manual) Nucleated RBC % Seg Neutrophils # Man Lymphocytes # (Manual) PT 41.2 H INR 3.92 H APTT ABG pH POC ABG pCO2 POC ABG pO2 ABG pO2 160.1 H ABG HCO3 19.6 L ABG Base Excess -4.5 L ABG Hemoglobin 7.5 L ABG Oxyhemoglobin ABG Sodium ABG Potassium ABG Glucose Oxyhemoglobin Sodium Potassium Chloride Carbon Dioxide 19 L BUN 67 H Creatinine 4.1 H Glucose 111 H POC Glucose Lactic Acid Calcium 7.4 L Phosphorus Total Bilirubin AST 282 H ALT 413 H Alkaline Phosphatase Total Creatine Kinase CK-MB (CK-2) CK-MB (CK-2) Rel Index Troponin T Total Protein 5.2 L Albumin 2.6 L LDL Cholesterol Direct HDL Cholesterol Vitamin B12 Arterial Blood Glucose Arterial Blood Ionized Calcium Urine WBC (Auto) U Epithel Cells (Auto) Urine Creatinine Urine Total Protein 04/12/21 04/12/21 04/13/21 10:41 11:42 04:06 WBC Hgb Hct MCV MCH MCHC RDW Plt Count Seg Neuts % (Manual) Lymphocytes % (Manual) Nucleated RBC % Seg Neutrophils # Man Lymphocytes # (Manual) PT INR APTT ABG pH POC ABG pCO2 POC ABG pO2 ABG pO2 ABG HCO3 ABG Base Excess -4.0 L ABG Hemoglobin 7.1 L ABG Oxyhemoglobin ABG Sodium ABG Potassium ABG Glucose Oxyhemoglobin 94.6 L Sodium Potassium Chloride Carbon Dioxide BUN Creatinine Glucose POC Glucose 130 H Lactic Acid Calcium Phosphorus Total Bilirubin AST ALT Alkaline Phosphatase Total Creatine Kinase CK-MB (CK-2) CK-MB (CK-2) Rel Index Troponin T Total Protein Albumin LDL Cholesterol Direct HDL Cholesterol Vitamin B12 1488 H Arterial Blood Glucose Arterial Blood Ionized Calcium Urine WBC (Auto) U Epithel Cells (Auto) Urine Creatinine Urine Total Protein 04/13/21 04/13/21 04/13/21 04:30 04:30 04:30 WBC Hgb 7.2 L Hct 23.7 L MCV 60 L MCH 18 L MCHC RDW 25.7 H Plt Count 138 L Seg Neuts % (Manual) 90.0 H Lymphocytes % (Manual) 6.0 L Nucleated RBC % Seg Neutrophils # Man Lymphocytes # (Manual) 0.5 L PT 33.6 H INR 3.01 H APTT ABG pH POC ABG pCO2 POC ABG pO2 ABG pO2 ABG HCO3 ABG Base Excess ABG Hemoglobin ABG Oxyhemoglobin ABG Sodium ABG Potassium ABG Glucose Oxyhemoglobin Sodium 136 L Potassium Chloride Carbon Dioxide 19 L BUN 72 H Creatinine 4.3 H Glucose POC Glucose Lactic Acid Calcium 7.5 L Phosphorus Total Bilirubin AST ALT Alkaline Phosphatase Total Creatine Kinase CK-MB (CK-2) CK-MB (CK-2) Rel Index Troponin T Total Protein Albumin LDL Cholesterol Direct HDL Cholesterol Vitamin B12 Arterial Blood Glucose Arterial Blood Ionized Calcium Urine WBC (Auto) U Epithel Cells (Auto) Urine Creatinine Urine Total Protein 04/13/21 04/13/21 04/13/21 04:58 11:19 23:22 WBC Hgb Hct MCV MCH MCHC RDW Plt Count Seg Neuts % (Manual) Lymphocytes % (Manual) Nucleated RBC % Seg Neutrophils # Man Lymphocytes # (Manual) PT INR APTT ABG pH POC ABG pCO2 POC ABG pO2 ABG pO2 ABG HCO3 ABG Base Excess ABG Hemoglobin ABG Oxyhemoglobin ABG Sodium ABG Potassium ABG Glucose Oxyhemoglobin Sodium Potassium Chloride Carbon Dioxide BUN Creatinine Glucose POC Glucose 106 H 115 H 115 H Lactic Acid Calcium Phosphorus Total Bilirubin AST ALT Alkaline Phosphatase Total Creatine Kinase CK-MB (CK-2) CK-MB (CK-2) Rel Index Troponin T Total Protein Albumin LDL Cholesterol Direct HDL Cholesterol Vitamin B12 Arterial Blood Glucose Arterial Blood Ionized Calcium Urine WBC (Auto) U Epithel Cells (Auto) Urine Creatinine Urine Total Protein 04/14/21 04/14/21 04/14/21 05:25 11:00 13:10 WBC Hgb Hct MCV MCH MCHC RDW Plt Count Seg Neuts % (Manual) Lymphocytes % (Manual) Nucleated RBC % Seg Neutrophils # Man Lymphocytes # (Manual) PT INR APTT ABG pH POC ABG pCO2 POC ABG pO2 ABG pO2 ABG HCO3 ABG Base Excess ABG Hemoglobin ABG Oxyhemoglobin ABG Sodium ABG Potassium ABG Glucose Oxyhemoglobin Sodium 136 L Potassium Chloride Carbon Dioxide 20 L BUN 80 H Creatinine 3.8 H Glucose 132 H POC Glucose 120 H 124 H Lactic Acid Calcium 7.7 L Phosphorus Total Bilirubin AST ALT Alkaline Phosphatase Total Creatine Kinase CK-MB (CK-2) CK-MB (CK-2) Rel Index Troponin T Total Protein Albumin LDL Cholesterol Direct HDL Cholesterol Vitamin B12 Arterial Blood Glucose Arterial Blood Ionized Calcium Urine WBC (Auto) U Epithel Cells (Auto) Urine Creatinine Urine Total Protein 04/14/21 04/14/21 04/14/21 16:58 23:43 Unknown WBC Hgb Hct MCV MCH MCHC RDW Plt Count Seg Neuts % (Manual) Lymphocytes % (Manual) Nucleated RBC % Seg Neutrophils # Man Lymphocytes # (Manual) PT INR APTT ABG pH 7.467 H POC ABG pCO2 30.9 L POC ABG pO2 64.5 L ABG pO2 ABG HCO3 ABG Base Excess ABG Hemoglobin 8.6 L ABG Oxyhemoglobin 90.7 L ABG Sodium 133.1 L ABG Potassium ABG Glucose 122 H Oxyhemoglobin Sodium Potassium Chloride Carbon Dioxide BUN Creatinine Glucose POC Glucose 112 H 120 H Lactic Acid Calcium Phosphorus Total Bilirubin AST ALT Alkaline Phosphatase Total Creatine Kinase CK-MB (CK-2) CK-MB (CK-2) Rel Index Troponin T Total Protein Albumin LDL Cholesterol Direct HDL Cholesterol Vitamin B12 Arterial Blood Glucose 122 H Arterial Blood Ionized Calcium 4.3 L Urine WBC (Auto) U Epithel Cells (Auto) Urine Creatinine Urine Total Protein
[2021-04-15] MEDS: ASPIRIN 81 MG TAB CHEW PO SCH (09:24)
[2021-04-15] MEDS: PANTOPRAZOLE 40 MG INJ IV SCH (09:24)
[2021-04-15] MEDS: SODIUM BICARBONATE 650 MG TAB PO SCH ×3 (09:24→21:11)
[2021-04-15] MEDS: dilTIAZem 30 MG TAB PO SCH ×2 (09:24→21:11)
--- NOTE | 2021-04-15 10:07 | Progress Note ---
Assessment and Plan Assessment: Acute Renal Failure likely secondary to Ischemic ATN Respiratory Failure Cardiopulmonary arrest Bilateral pneumonia Congestive heart failure Atrial fibrillation Metabolic acidosis Diabetes Mellitus Plan: No new labs noted for today. Will order BMP for today and tomorrow. Serum creatinine yesterday was 3.8 and prior was 4.3. Has good UOP of 1650 ml Abd/Pelvis Ct- Kidneys- no significant abnormality Edema-On Lasix 40 mg IV BID Acidosis-On Sodium Bicarbonate 650 mg TID Renally dose medications Avoid nephrotoxic agents Monitor I/O's daily Obtain daily weights Monitoring renal function closely No emergent indication for [employer] at this time. Has anxoic brain injury, limit s/goals of care being discussed with family. Plan of care reviewed by Dr. Haywood Subjective Date of service: 04/15/21 Principal diagnosis: Post cardiac arrest Interval history: Patient sedated and intubated Objective - Vital Signs Vital signs: Vital Signs - 12hr 04/14/21 04/14/21 04/14/21 22:10 22:20 22:30 Temperature Pulse Rate 88 89 86 Pulse Rate [ From Monitor] Respiratory 16 8 L 12 Rate Blood Pressure 138/57 138/57 138/57 O2 Sat by Pulse 97 97 97 Oximetry 04/14/21 04/14/21 04/14/21 22:40 22:50 23:00 Temperature Pulse Rate 93 H 90 91 H Pulse Rate [ From Monitor] Respiratory 7 L 10 L 9 L Rate Blood Pressure 138/57 138/57 131/53 O2 Sat by Pulse 97 97 97 Oximetry 04/14/21 04/14/21 04/14/21 23:02 23:10 23:16 Temperature Pulse Rate 80 89 90 Pulse Rate [ From Monitor] Respiratory 8 L 13 Rate Blood Pressure 138/57 131/53 131/53 O2 Sat by Pulse 97 97 97 Oximetry 04/14/21 04/14/21 04/14/21 23:20 23:30 23:40 Temperature Pulse Rate 86 88 86 Pulse Rate [ From Monitor] Respiratory 17 19 25 H Rate Blood Pressure 131/53 131/53 131/53 O2 Sat by Pulse 97 97 97 Oximetry 04/14/21 04/14/21 04/15/21 23:50 23:58 00:00 Temperature 98 F Pulse Rate 87 89 Pulse Rate [ 79 From Monitor] Respiratory 25 H 25 H Rate Blood Pressure 131/53 134/53 O2 Sat by Pulse 97 95 Oximetry 04/15/21 04/15/21 04/15/21 00:10 00:20 00:30 Temperature Pulse Rate 97 H 81 88 Pulse Rate [ From Monitor] Respiratory 24 11 L 25 H Rate Blood Pressure 134/53 134/53 134/53 O2 Sat by Pulse 97 97 97 Oximetry 04/15/21 04/15/21 04/15/21 00:40 00:50 01:00 Temperature Pulse Rate 84 82 80 Pulse Rate [ From Monitor] Respiratory 25 H 25 H 25 H Rate Blood Pressure 134/53 134/53 119/51 O2 Sat by Pulse 97 97 95 Oximetry 04/15/21 04/15/21 04/15/21 02:00 03:00 03:38 Temperature Pulse Rate 81 79 89 Pulse Rate [ From Monitor] Respiratory 25 H 25 H Rate Blood Pressure 135/63 139/64 O2 Sat by Pulse 94 96 Oximetry 04/15/21 04/15/21 04/15/21 03:39 03:41 03:47 Temperature 98.8 F Pulse Rate 85 Pulse Rate [ 79 From Monitor] Respiratory 25 H Rate Blood Pressure 139/64 O2 Sat by Pulse 95 95 Oximetry 04/15/21 04/15/21 04/15/21 04:00 05:00 06:00 Temperature Pulse Rate 87 86 78 Pulse Rate [ From Monitor] Respiratory 25 H 17 24 Rate Blood Pressure 143/73 138/64 125/57 O2 Sat by Pulse 95 95 96 Oximetry 04/15/21 04/15/21 04/15/21 07:00 07:28 08:00 Temperature 97.7 F Pulse Rate 77 84 Pulse Rate [ From Monitor] Respiratory 19 16 Rate Blood Pressure 125/57 139/61 O2 Sat by Pulse 93 Oximetry 04/15/21 04/15/21 08:20 09:24 Temperature Pulse Rate 78 Pulse Rate [ From Monitor] Respiratory Rate Blood Pressure 131/56 O2 Sat by Pulse 97 Oximetry - General Appearance General appearance: sedated on ventilator, intubated EENT: ATNC Neck: no JVD Respiratory: Present: Decreased Breath Sounds, Other (intubated) Cardiology: S1S2 Gastrointestinal: normoactive bowel sounds Neurologic: other (sedated) Musculoskeletal: joint swelling - Lab 04/13/21 04:30 04/14/21 13:10 Most recent lab results ABG pH 7.467 (7.320-7.450) H 04/14/21 Unknown ABG pCO2 31.8 mm Hg 04/13/21 04:06 ABG pO2 80.8 mm Hg (80.0-90.0) 04/13/21 04:06 ABG HCO3 20.1 mmol/L (20.0-26.0) 04/13/21 04:06 ABG O2 Saturation 92.0 (0-100) 04/14/21 Unknown Calcium 7.7 mg/dL (8.4-10.2) L 04/14/21 13:10 Phosphorus 5.10 mg/dL (2.5-4.5) H 04/11/21 04:20 Magnesium 1.70 mg/dL (1.7-2.3) 04/10/21 09:53 Urine Creatinine 119.6 mg/dL (0.1-20.0) H 04/11/21 06:30 Urine Sodium 26 mmol/L 04/11/21 06:30 Urine Total Protein 117 mg/dL (5-11.8) H 04/11/21 06:30 Medications & Allergies - Medications Allergies/Adverse Reactions: Allergies hydrochlorothiazide Allergy (Mild, Verified 04/10/21 09:46) Hives linezolid Allergy (Mild, Verified 04/10/21 09:46) Hives Sulfa (Sulfonamide Antibiotics) Allergy (Mild, Verified 04/10/21 09:46) Hives azithromycin Allergy (Verified 04/10/21 09:46) Hives ciprofloxacin [From Cipro] Allergy (Verified 04/10/21 09:46) Hives docusate Allergy (Verified 04/10/21 09:46) Hives ferrous gluconate Allergy (Verified 04/10/21 09:46) Hives hydralazine Allergy (Verified 04/10/21 09:46) Hives Penicillins Allergy (Verified 04/10/21 07:34) Unknown ketorolac tromethamine Allergy (Mild, Uncoded 04/10/21 07:35) Hives Active Medications: Generic Name Dose Route Start Last Admin Trade Name Freq PRN Reason Stop Dose Admin Acetaminophen 650 mg 04/10/21 05:52 04/12/21 07:50 Acetaminophen 325 Mg Tab PO 650 mg Q6H PRN Administration Pain, Mild (1-3) Lipase/Protease/Amylase 1 each 04/11/21 13:58 Lipase 10,500/Protease 25,000/Amylase 43,750 (Units) Dr Ramos FEEDTUBE PRN PRN For Clogged Feeding Tube Aspirin 81 mg 04/11/21 10:00 04/15/21 09:24 Aspirin 81 Mg Tab Chew PO 81 mg QDAY JAROD Administration Atorvastatin Calcium 40 mg 04/10/21 22:00 04/14/21 21:12 Atorvastatin 40 Mg Tab PO 40 mg QHS JAROD Administration Dextrose 50 ml 04/10/21 15:31 Dextrose 50% In Water (25gm) 50 Ml Syringe IV Q30MIN PRN Hypoglycemia Protocol Diltiazem HCl 30 mg 04/12/21 11:00 04/15/21 09:24 Diltiazem 30 Mg Tab PO 30 mg BID JAROD Administration Diphenhydramine HCl 25 mg 04/12/21 10:00 04/15/21 09:24 Diphenhydramine 50 Mg/Ml Vial IV 25 mg Q6H JAROD Administration Furosemide 40 mg 04/13/21 18:00 04/15/21 06:44 Furosemide 40 Mg/4 Ml Inj IV 40 mg 0600,1800 JAROD Administration Hydromorphone HCl 0.5 mg 04/13/21 12:55 Hydromorphone 1 Mg/1 Ml Inj IV Q8H PRN Pain , Severe (7-10) NORepinephrine/NS 8 MG-250 ML 8 mg in 250 mls @ 3.75 mls/hr 04/10/21 01:00 04/10/21 20:30 Norepinephrine/Ns 8 Mg-250 Ml (Double Conc) IV 0 mcg/min TITRATE JAROD 0 mls/hr Titration Protocol 2 MCG/MIN Insulin Human Lispro 0 unit 04/10/21 06:00 04/15/21 06:43 Insulin Lispro 100 Unit/Ml SUB-Q Not Given Q6HR [facility] Protocol Lansoprazole 30 mg 04/16/21 10:00 Lansoprazole 30 Mg Solutab FEEDTUBE QDAY [facility] Multi-Ingred Cream/Lotion/Oil/Oint 1 applic 04/11/21 18:00 04/15/21 06:44 Mineral Oil/Petrolatum, White Ophth Oint 3.5 Gm OU 1 applic Q6HR JAROD Administration Nitroglycerin 0.4 mg 04/10/21 05:52 Nitroglycerin 0.4 Mg Tab Subl SL Q5M PRN Chest Pain Ondansetron HCl 4 mg 04/13/21 13:00 Ondansetron 4 Mg/2 Ml Inj IV Q4H PRN Nausea And Vomiting Simple Syrup 15 ml 04/11/21 13:58 Simple Syrup 15 Ml FEEDTUBE PRN PRN Hypoglycemia Simple Syrup 30 ml 04/11/21 13:58 Simple Syrup 15 Ml FEEDTUBE PRN PRN Hypoglycemia Sodium Bicarbonate 325 mg 04/11/21 13:58 04/13/21 21:30 Sodium Bicarbonate 325 Mg Tab FEEDTUBE 325 mg PRN PRN Administration For Clogged Feeding Tube Sodium Bicarbonate 650 mg 04/13/21 14:00 04/15/21 09:24 Sodium Bicarbonate 650 Mg Tab PO 650 mg TID JAROD Administration Sodium Chloride 10 ml 04/10/21 05:52 04/15/21 09:25 Sodium Chloride 0.9% 10 Ml Flush Syringe IV 10 ml PRN PRN Administration LINE FLUSH
[2021-04-15 12:26] LABS: Calcium 7.9 mg/dL (8.4-10.2)
--- NOTE | 2021-04-15 15:34 | Progress Note ---
Assessment and Plan Is a 75-year-old female with a past medical history of atrial fibrillation/a flutter(on coumadin as outpatient), HFpEF hypertrophic cardiomyopathy, history of TIA, COPD, diabetes, and Crohn's disease who was brought to the ED by EMS from a local shelter and cardiac arrest Echo 01/07/2021- LVEF 55 - 60%. LV size is normal. Size assessed without contrast. LV volume assessed with contrast. LV volume is normal. Mild concentric LV hypertrophy. LV wall motion normal. Grade II (moderate) diastolic dysfunction. Elevated left atrial pressure. RV mildly dilated. RV systolic function is normal. LA moderately dilated. Interatrial septum normal. No evidence of patent foramen ovale by color flow Doppler and agitated saline contrast. RA moderately dilated. Moderate tricuspid regurgitation. RV systolic pressure is severely elevated. Echo 04/10/2021-EF 50 to 55%.. Right ventricle mildly hypokinetic. Left atrium severely dilated. Severe pulmonary hypertension. RSVP 74 mmHg. Mild to moderate tricuspid regurgitation. Moderate left pleural effusion. Right ventri rachel moderately dilated Troponins noted to be elevated in setting of acute renal insufficiency and following several rounds of CPR Continue cardizem 30mg PO BID for rate control and pulmonary HTN Continue supportive measures Prognosis very poor Patient seen in conjunction with Dr. Burton who agrees with this plan of care. Will continue to follow - Patient Problems (1) Anemia Current Visit: Yes Status: Acute (2) Anoxic brain damage Current Visit: Yes Status: Acute (3) Acute renal failure Current Visit: Yes Status: Acute (4) Atrial fibrillation Current Visit: Yes Status: Acute (5) Bilateral pneumonia Current Visit: Yes Status: Acute (6) Cardiopulmonary arrest Current Visit: Yes Status: Acute (7) Diabetes Current Visit: Yes Status: Acute (8) Metabolic acidosis Current Visit: Yes Status: Acute (9) Pneumothorax Current Visit: Yes Status: Acute (10) Pulmonary hypertension Current Visit: Yes Status: Chronic Subjective Date of service: 04/15/21 Principal diagnosis: Post cardiac arrest Interval history: Patient remains intubated and unresponsive sinus 70s on monitor Objective Vital Signs Temp Pulse Pulse Resp BP Pulse Ox 04/15/21 11:00 76 25 H 125/61 94 04/15/21 10:00 80 22 126/56 94 04/15/21 09:24 78 131/56 04/15/21 09:00 74 25 H 131/56 97 04/15/21 08:20 97 04/15/21 08:00 78 16 126/56 95 04/15/21 07:28 97.7 F 04/15/21 07:00 77 19 125/57 04/15/21 06:00 78 24 125/57 96 04/15/21 05:00 86 17 138/64 95 04/15/21 04:00 87 25 H 143/73 95 04/15/21 03:47 98.8 F 04/15/21 03:41 85 139/64 95 04/15/21 03:39 79 25 H 95 04/15/21 03:38 89 04/15/21 03:00 79 25 H 139/64 96 04/15/21 02:00 81 25 H 135/63 94 04/15/21 01:00 80 25 H 119/51 95 04/15/21 00:50 82 25 H 134/53 97 04/15/21 00:40 84 25 H 134/53 97 04/15/21 00:30 88 25 H 134/53 97 04/15/21 00:20 81 11 L 134/53 97 04/15/21 00:10 97 H 24 134/53 97 04/15/21 00:00 89 79 25 H 134/53 95 04/14/21 23:58 98 F 04/14/21 23:50 87 25 H 131/53 97 04/14/21 23:40 86 25 H 131/53 97 04/14/21 23:30 88 19 131/53 97 04/14/21 23:20 86 17 131/53 97 04/14/21 23:16 90 13 131/53 97 04/14/21 23:10 89 8 L 131/53 97 04/14/21 23:02 80 138/57 97 04/14/21 23:00 91 H 9 L 131/53 97 04/14/21 22:50 90 10 L 138/57 97 04/14/21 22:40 93 H 7 L 138/57 97 04/14/21 22:30 86 12 138/57 97 04/14/21 22:20 89 8 L 138/57 97 04/14/21 22:10 88 16 138/57 97 04/14/21 22:00 99 H 13 138/57 97 04/14/21 21:50 103 H 10 L 140/64 98 04/14/21 21:40 108 H 14 140/64 98 04/14/21 21:30 94 H 10 L 140/64 98 04/14/21 21:20 89 25 H 140/64 96 04/14/21 21:10 86 25 H 140/64 94 04/14/21 21:00 99 H 25 H 140/64 96 04/14/21 20:50 87 25 H 144/54 96 04/14/21 20:40 83 25 H 144/54 97 04/14/21 20:30 84 25 H 144/54 98 04/14/21 20:20 83 25 H 144/54 98 04/14/21 20:10 82 25 H 144/54 99 04/14/21 20:00 97.9 F 83 82 25 H 144/54 98 04/14/21 19:50 83 25 H 144/57 99 04/14/21 19:40 84 25 H 144/57 98 04/14/21 19:30 86 25 H 144/57 98 04/14/21 19:26 81 144/57 99 04/14/21 19:20 84 25 H 144/57 99 04/14/21 19:10 92 H 25 H 144/57 99 04/14/21 19:00 85 25 H 144/57 99 04/14/21 18:50 84 25 H 139/52 99 04/14/21 18:40 82 25 H 139/52 99 04/14/21 18:30 87 25 H 139/52 99 04/14/21 18:20 80 25 H 139/52 99 04/14/21 18:10 76 25 H 139/52 99 04/14/21 18:00 78 25 H 139/52 99 04/14/21 17:50 85 25 H 151/55 99 04/14/21 17:40 76 25 H 151/55 99 04/14/21 17:30 82 25 H 151/55 98 04/14/21 17:20 86 25 H 151/55 98 04/14/21 17:10 88 25 H 151/55 98 04/14/21 17:00 82 12 151/55 98 04/14/21 16:50 86 25 H 139/61 98 04/14/21 16:40 85 25 H 139/61 98 04/14/21 16:30 85 25 H 139/61 98 04/14/21 16:20 87 25 H 139/61 98 04/14/21 16:10 89 19 139/61 97 04/14/21 16:00 97.0 F L 88 81 25 H 139/61 94 04/14/21 15:50 87 22 129/51 97 04/14/21 15:40 89 20 129/51 97 - Physical Examination General: No Apparent Distress HEENT: Positive: Normocephaly, Mucus Membranes Moist, Other (contusions on eyes/nose consistent with recent nasal fracture) Neck: Positive: trachea midline Lungs: Positive: Ventilated Respirations Neuro: Positive: Other (Unresponsive) Abdomen: Positive: Soft, Active Bowel Sounds Skin: Negative: Rash Musculoskeletal: No Fluid Collection Extremities: Absent: edema - Labs and Meds Comprehensive Metabolic Panel 04/15/21 Range/Units 11:30 Sodium 138 (137-145) mmol/L Potassium 3.7 (3.6-5.0) mmol/L Chloride 101.8 (98-107) mmol/L Carbon Dioxide 22 (22-30) mmol/L BUN 81 H (7-17) mg/dL Creatinine 3.8 H (0.6-1.2) mg/dL Glucose 113 H (65-100) mg/dL Calcium 7.9 L (8.4-10.2) mg/dL - Imaging and Cardiology Echo: report reviewed - Telemetry EKG Rhythm: Sinus Rhythm - EKG Sinus rhythms and dysrhythmias: sinus rhythm Repolarization changes or abnormalities: nonspecific abnormality, ST segment, and/or T wave
--- NOTE | 2021-04-15 18:37 | Progress Note ---
<SANDI KU - Last Filed: 04/15/21 18:38> Assessment and Plan Assessment and plan: This is a 75-year-old female with CHF, A. fib/a flutter, DM, KIMMIE, HTN, CVA, anemia, Crohn's disease, asthma admitted s/p cardiac arrest Hospital Course to Date: 04/10: Family change CODE STATUS to DNR however family later rescinded DNR. Patient remains a full code. Patient is having elevated triglycerides however cardiology is aware and no orders have been given. Echocardiogram pending. Patient is on vasopressors with Levophed. 04/11: Patient had a nuclear med brain flow study which does not demonstrate a complete absence of brain perfusion however there is decreased brain parenchymal perfusion. Neurology would would like an MRI brain when possible. Nephrology anticipates initiation of hemodialysis within the next 24 to 48 hours. We will continue supportive care. Nutrition consult for tube feeding. 04/12: Patient started on diltiazem, MRI brain pending, B12 and thyroid studies ordered. Patient started on Benadryl given angioedema. She is currently on tube feedings. worsening renal function noted and IVF stopped d/t pulm htn. Dr. Lott updated family. Patient was febrile overnight 04/13: Family visit with errol Coffey and his . Patient CODE STATUS changed to DO NOT RESUSCITATE by sister over the phone which was witnessed by me and Dr. Lott. Patient noted in SR. 04/14: VIVIENNE overnight, better urine output noted with decrease in bun/cr. 04/15/21- Plan for possible Hospice vs withdrawal of care today. Case management to contact errol. Assessment and Plan Neuro: Possible anoxic brain injury, h/o CVA -Neurology consulted, appreciate recommendations -CT head on admit unremarkable -On physical exam patient has myoclonus with agonal breathing -EEG with diffuse slowing -Patient is not sedated -Keppra IV-> d/c -Seizure/aspiration precautions -NM brain scan does not show complete absence of cerebral blood flow -MRI B shows cerebal edema Cardiology: S/p cardiac arrest, elevated troponin, h/o atrial fibrillation /atrial flutter, CHF, HTN, CAD -Cardiology consulted, appreciate recommendations -Echocardiogram shows EF 50 to 55%, right ventricle mildly hypokinetic, left atrium severely dilated, severe pulmonary hypertension, RSVP 74 mmHg, Moderate left pleural effusion, Right ventricle moderately dilated -Hold home Coumadin -s/p vassopressor support with Levophed -MAP goal greater than 65 -Blood pressure monitor per protocol -Cardizem per cards Pulmonary: Acute hypoxic respiratory failure, pulm hthn, h/o KIMMIE, asthma -Intubated on 04/10 with 7.50 ETT at 22 at the lips -A.m. vent settings CMV rate 25, tidal 450, PEEP 8, FiO2 35% -See RT notes for titration -A.m. ABG noted -VAP bundle -SPO2 monitoring -Pulmonary/critical care consulted, appreciate recommendations -CT chest shows multiple bilateral rib fractures, trace right pneumothorax, poss ible pulmonary edema, trace pericardial effusion GI: Transaminitis, h/o Crohn's disease -Nutrition consult for tube feeding -24 hours +385 -TF -PPI -BR: colace -Trend LFTs : Acute kidney injury 2/2 vasomotor nephropathy, metabolic acidosis -Nephrology consulted, appreciate recommendations -Patient had a CT abdomen/pelvis which showed no remarkable findings with the kidneys -Lasix BID -Renally dose medications -Avoid nephrotoxic medications -Strict intact/output -Daily weights -Trend BMP ID: Pneumonia, lactic acidosis, tracheal aspirate with medhat -Evident on CXR -s/p clindamycin -Monitor fever and WBC curve -Trend lactate -S/p 3 L NS Endo: h/o DM -Accu-Cheks every 6 while n.p.o. -Avoid hypoglycemia -SSI Heme: Leukocytosis (resolved), h/o anemia, supratheraputic INR -ABX therapy -Trend CBC -Transfuse if hemoglobin less than 7 The high probability of a clinically significant, sudden or life threatening deterioration of the [multi] system(s) required my full and direct attention, intervention and personal management. The aggregate critical care time was [90] minutes. This time is in addition to time spent performing reported procedures but includes the following: [x] Data Review and interpretation [x] Patient assessment and monitoring of vital signs [x] Documentation [x] Medication orders and management Disposition Plan: icu Total Time Spent with Patient (Minutes): 60 History Interval history: Patient seen and examined at the bedside. Remains on the vent and unresponsive, not on any sedation. VIVIENNE overnight Hospitalist Physical - Constitutional Vitals: Temp Pulse Resp BP Pulse Ox 98.0 F 93 H 25 H 117/61 95 04/15/21 15:00 04/15/21 17:00 04/15/21 17:00 04/15/21 17:00 04/15/21 17:00 General appearance: Present: no acute distress, other (intubated, unresponsive) - EENT Eyes: Present: irregular pupil - Respiratory Respiratory effort: normal Respiratory: bilateral: diminished - Cardiovascular Rhythm: regular Heart Sounds: Present: S1 & S2 - Extremities Extremities: no ischemia, pulses intact, pulses symmetrical Extremity abnormal: edema - Peripheral Assessment Generalized Edema Type: Pitting Edema Degree: 2+ Capillary Refill: < 3 seconds Skin Temperature: Warm Peripheral Pulses: within normal limits - Abdominal General gastrointestinal: soft, non-tender, hypoactive bowel sounds - Integumentary Integumentary: Present: warm, dry - Psychiatric Psychiatric: other (intubated, unresponsive) - Neurologic Neurologic: other (intubated, unresponsive) - Allied Health Allied health notes reviewed: nursing HEART Score - HEART Score Troponin: Troponin T 1.060 ng/mL (0.00-0.029) H* 04/10/21 15:24 Results - Labs CBC & Chem 7: 04/13/21 04:30 04/15/21 11:30 Labs: Laboratory Last Values WBC 8.6 K/mm3 (4.5-11.0) 04/13/21 04:30 RBC 3.95 M/mm3 (3.65-5.03) 04/13/21 04:30 Hgb 7.2 gm/dl (10.1-14.3) L 04/13/21 04:30 Hct 23.7 % (30.3-42.9) L 04/13/21 04:30 MCV 60 fl (79-97) L 04/13/21 04:30 MCH 18 pg (28-32) L 04/13/21 04:30 MCHC 30 % (30-34) 04/13/21 04:30 RDW 25.7 % (13.2-15.2) H 04/13/21 04:30 Plt Count 138 K/mm3 (140-440) L 04/13/21 04:30 Add Manual Diff Complete 04/13/21 04:30 Total Counted 100 04/13/21 04:30 Seg Neuts % (Manual) 90.0 % (40.0-70.0) H 04/13/21 04:30 Band Neutrophils % 1.0 % 04/13/21 04:30 Lymphocytes % (Manual) 6.0 % (13.4-35.0) L 04/13/21 04:30 Monocytes % (Manual) 2.0 % (0.0-7.3) 04/13/21 04:30 Eosinophils % (Manual) 1.0 % (0.0-4.3) 04/13/21 04:30 Nucleated RBC % Not Reportable 04/13/21 04:30 Seg Neutrophils # Man 7.7 K/mm3 (1.8-7.7) 04/13/21 04:30 Band Neutrophils # 0.1 K/mm3 04/13/21 04:30 Lymphocytes # (Manual) 0.5 K/mm3 (1.2-5.4) L 04/13/21 04:30 Abs React Lymphs (Man) 0.0 K/mm3 04/13/21 04:30 Monocytes # (Manual) 0.2 K/mm3 (0.0-0.8) 04/13/21 04:30 Eosinophils # (Manual) 0.1 K/mm3 (0.0-0.4) 04/13/21 04:30 Basophils # (Manual) 0.0 K/mm3 (0.0-0.1) 04/13/21 04:30 Metamyelocytes # 0.0 K/mm3 04/13/21 04:30 Myelocytes # 0.0 K/mm3 04/13/21 04:30 Promyelocytes # 0.0 K/mm3 04/13/21 04:30 Blast Cells # 0.0 K/mm3 04/13/21 04:30 WBC Morphology Not Reportable 04/13/21 04:30 WBC Morphology TNR 04/13/21 04:30 Hypersegmented Neuts Not Reportable 04/13/21 04:30 Hyposegmented Neuts Not Reportable 04/13/21 04:30 Hypogranular Neuts Not Reportable 04/13/21 04:30 Smudge Cells Not Reportable 04/13/21 04:30 Toxic Granulation Not Reportable 04/13/21 04:30 Toxic Vacuolation Not Reportable 04/13/21 04:30 Dohle Bodies Not Reportable 04/13/21 04:30 Pelger-Huet Anomaly Not Reportable 04/13/21 04:30 Katie Rods Not Reportable 04/13/21 04:30 Platelet Estimate Not Reportable 04/13/21 04:30 Clumped Platelets Not Reportable 04/13/21 04:30 Plt Clumps, EDTA Not Reportable 04/13/21 04:30 Large Platelets Not Reportable 04/13/21 04:30 Giant Platelets Not Reportable 04/13/21 04:30 Platelet Satelliting Not Reportable 04/13/21 04:30 Plt Morphology Comment Not Reportable 04/13/21 04:30 RBC Morphology Not Reportable 04/13/21 04:30 Dimorphic RBCs Not Reportable 04/13/21 04:30 Polychromasia Few 04/13/21 04:30 Hypochromasia 2+ 04/13/21 04:30 Poikilocytosis 2+ 04/13/21 04:30 Anisocytosis 2+ 04/13/21 04:30 Microcytosis 2+ 04/13/21 04:30 Macrocytosis Not Reportable 04/13/21 04:30 Spherocytes Not Reportable 04/13/21 04:30 Pappenheimer Bodies Not Reportable 04/13/21 04:30 Sickle Cells Not Reportable 04/13/21 04:30 Target Cells Not Reportable 04/13/21 04:30 Tear Drop Cells Not Reportable 04/13/21 04:30 Ovalocytes Not Reportable 04/13/21 04:30 Helmet Cells Not Reportable 04/13/21 04:30 [place] Bodies Not Reportable 04/13/21 04:30 Stanley Rings Not Reportable 04/13/21 04:30 Arminto Cells Not Reportable 04/13/21 04:30 Bite Cells Not Reportable 04/13/21 04:30 Crenated Cell Not Reportable 04/13/21 04:30 Elliptocytes 1+ 04/13/21 04:30 Acanthocytes (Spur) Not Reportable 04/13/21 04:30 Rouleaux Not Reportable 04/13/21 04:30 Hemoglobin C Crystals Not Reportable 04/13/21 04:30 Schistocytes Not Reportable 04/13/21 04:30 Malaria parasites Not Reportable 04/13/21 04:30 Jabari Bodies Not Reportable 04/13/21 04:30 Hem Pathologist Commnt No 04/13/21 04:30 PT 33.6 Sec. (12.2-14.9) H 04/13/21 04:30 INR 3.01 (0.87-1.13) H 04/13/21 04:30 APTT 49.7 Sec. (24.2-36.6) H 04/10/21 00:36 ABG pH 7.467 (7.320-7.450) H 04/14/21 Unknown POC ABG pCO2 30.9 mmHg (32.0-48.0) L 04/14/21 Unknown ABG pCO2 31.8 mm Hg 04/13/21 04:06 POC ABG pO2 64.5 mmHg (83-108) L 04/14/21 Unknown ABG pO2 80.8 mm Hg (80.0-90.0) 04/13/21 04:06 POC ABG HCO3 21.8 04/14/21 Unknown ABG HCO3 20.1 mmol/L (20.0-26.0) 04/13/21 04:06 ABG O2 Saturation 92.0 (0-100) 04/14/21 Unknown ABG O2 Content 9.6 (0.0-44) 04/13/21 04:06 POC ABG Base Excess -1.4 04/14/21 Unknown ABG Base Excess -4.0 mmol/L (-2.0-3.0) L 04/13/21 04:06 ABG Hemoglobin 8.6 (12.0-17.5) L 04/14/21 Unknown ABG Oxyhemoglobin 90.7 (94-98) L 04/14/21 Unknown ABG Carboxyhemoglobin 2.0 % (0.0-5.0) 04/13/21 04:06 ABG Methemoglobin 0.3 (0.0-1.5) 04/14/21 Unknown ABG Sodium 133.1 mmol/L (136.0-145.0) L 04/14/21 Unknown ABG Potassium 4.1 mmol/L (3.40-4.50) 04/14/21 Unknown ABG Chloride 104.0 mmol/L (98-107) 04/14/21 Unknown ABG Glucose 122 mg/dL (65-95) H 04/14/21 Unknown Oxyhemoglobin 94.6 % (95.0-99.0) L 04/13/21 04:06 Carboxyhemoglobin 1.1 (0.5-1.5) 04/14/21 Unknown FiO2 45 % 04/13/21 04:06 FiO2 % 40 04/14/21 Unknown Sodium 138 mmol/L (137-145) 04/15/21 11:30 Potassium 3.7 mmol/L (3.6-5.0) 04/15/21 11:30 Chloride 101.8 mmol/L (98-107) 04/15/21 11:30 Carbon Dioxide 22 mmol/L (22-30) 04/15/21 11:30 Anion Gap 18 mmol/L 04/15/21 11:30 BUN 81 mg/dL (7-17) H 04/15/21 11:30 Creatinine 3.8 mg/dL (0.6-1.2) H 04/15/21 11:30 Estimated GFR 12 ml/min 04/15/21 11:30 BUN/Creatinine Ratio 21 % 04/15/21 11:30 Glucose 113 mg/dL (65-100) H 04/15/21 11:30 POC Glucose 103 mg/dL (70-105) 04/15/21 17:17 Lactic Acid 1.90 mmol/L (0.7-2.0) 04/10/21 15:12 Calcium 7.9 mg/dL (8.4-10.2) L 04/15/21 11:30 Phosphorus 5.10 mg/dL (2.5-4.5) H 04/11/21 04:20 Magnesium 1.70 mg/dL (1.7-2.3) 04/10/21 09:53 Total Bilirubin 1.00 mg/dL (0.1-1.2) 04/12/21 04:10 AST 282 units/L (5-40) H 04/12/21 04:10 ALT 413 units/L (7-56) H 04/12/21 04:10 Alkaline Phosphatase 117 units/L (35-129) 04/12/21 04:10 Total Creatine Kinase 456 units/L (30-135) H 04/10/21 09:53 CK-MB (CK-2) 23.8 ng/mL (0.0-4.0) H 04/10/21 09:53 CK-MB (CK-2) Rel Index 5.2 (0-4) H 04/10/21 09:53 Troponin T 1.060 ng/mL (0.00-0.029) H* 04/10/21 15:24 Total Protein 5.2 g/dL (6.3-8.2) L 04/12/21 04:10 Albumin 2.6 g/dL (3.9-5) L 04/12/21 04:10 Albumin/Globulin Ratio 1.0 % 04/12/21 04:10 Triglycerides 67 mg/dL (2-149) 04/10/21 00:36 Cholesterol 77 mg/dL (50-199) 04/10/21 00:36 LDL Cholesterol Direct 42 mg/dL (50-130) L 04/10/21 00:36 HDL Cholesterol 30 mg/dL (40-59) L 04/10/21 00:36 Cholesterol/HDL Ratio 2.56 % 04/10/21 00:36 Vitamin B12 1488 pg/mL (211-911) H 04/12/21 10:41 TSH 0.390 mlU/mL (0.270-4.200) 04/12/21 10:41 Free T4 0.91 ng/dL (0.76-1.46) 04/12/21 10:41 Arterial Blood Glucose 122 mg/dL (65-95) H 04/14/21 Unknown Arterial Blood Ionized Calcium 4.3 mg/dL (4.6-5.3) L 04/14/21 Unknown Urine Color Cheryle (Yellow) 04/11/21 06:30 Urine Turbidity Cloudy (Clear) 04/11/21 06:30 Urine pH 5.0 (5.0-7.0) 04/11/21 06:30 Ur Specific Sims 1.013 (1.003-1.030) 04/11/21 06:30 Urine Protein 100 mg/dl mg/dL (Negative) 04/11/21 06:30 Urine Glucose (UA) Neg mg/dL (Negative) 04/11/21 06:30 Urine Ketones Neg mg/dL (Negative) 04/11/21 06:30 Urine Blood Mod (Negative) 04/11/21 06:30 Urine Nitrite Neg (Negative) 04/11/21 06:30 Urine Bilirubin Neg (Negative) 04/11/21 06:30 Urine Urobilinogen < 2.0 mg/dL (<2.0) 04/11/21 06:30 Ur Leukocyte Esterase Sm (Negative) 04/11/21 06:30 Urine WBC (Auto) 93.0 /HPF (0.0-6.0) H 04/11/21 06:30 Urine RBC (Auto) > 182.0 /HPF (0.0-6.0) 04/11/21 06:30 U Epithel Cells (Auto) 52.0 /HPF (0-13.0) H 04/11/21 06:30 Urine Bacteria (Auto) 1+ /HPF (Negative) 04/11/21 06:30 Hyaline Casts 30 /LPF 04/11/21 06:30 Urine Mucus Few /HPF 04/11/21 06:30 Urine Eosinophils Few (None Seen) 04/11/21 06:30 Urine Creatinine 119.6 mg/dL (0.1-20.0) H 04/11/21 06:30 Protein/Creatinin Ratio 0.98 04/11/21 06:30 Urine Sodium 26 mmol/L 04/11/21 06:30 Urine Total Protein 117 mg/dL (5-11.8) H 04/11/21 06:30 Nasal Screen MRSA (PCR) Negative (Negative) 04/10/21 20:30 Random Vancomycin 19.0 ug/mL (0-40.0) 04/13/21 04:30 Blood Type O POSITIVE 04/10/21 00:36 Antibody Screen Negative 04/10/21 00:36 Microbiology: Microbiology 04/10/21 01:56 Peripheral/Venous Blood Culture - Final NO GROWTH AFTER 5 DAYS 04/10/21 01:51 Peripheral/Venous Blood Culture - Final NO GROWTH AFTER 5 DAYS Lentz/IV: Voiding Method Indwelling Catheter Active Medications - Current Medications Current Medications: Generic Name Dose Route Start Last Admin Trade Name Freq PRN Reason Stop Dose Admin Acetaminophen 650 mg 04/10/21 05:52 04/12/21 07:50 Acetaminophen 325 Mg Tab PO 650 mg Q6H PRN Administration Pain, Mild (1-3) Lipase/Protease/Amylase 1 each 04/11/21 13:58 Lipase 10,500/Protease 25,000/Amylase 43,750 (Units) Dr Cap FEEDTUBE PRN PRN For Clogged Feeding Tube Aspirin 81 mg 04/11/21 10:00 04/15/21 09:24 Aspirin 81 Mg Tab Chew PO 81 mg QDAY JAROD Administration Atorvastatin Calcium 40 mg 04/10/21 22:00 04/14/21 21:12 Atorvastatin 40 Mg Tab PO 40 mg QHS JAROD Administration Dextrose 50 ml 04/10/21 15:31 Dextrose 50% In Water (25gm) 50 Ml Syringe IV Q30MIN PRN Hypoglycemia Protocol Diltiazem HCl 30 mg 04/12/21 11:00 04/15/21 09:24 Diltiazem 30 Mg Tab PO 30 mg BID JAROD Administration Diphenhydramine HCl 25 mg 04/12/21 10:00 04/15/21 17:03 Diphenhydramine 50 Mg/Ml Vial IV 25 mg Q6H JAROD Administration Furosemide 40 mg 04/13/21 18:00 04/15/21 17:03 Furosemide 40 Mg/4 Ml Inj IV 40 mg 0600,1800 JAROD Administration Hydromorphone HCl 0.5 mg 04/13/21 12:55 Hydromorphone 1 Mg/1 Ml Inj IV Q8H PRN Pain , Severe (7-10) NORepinephrine/NS 8 MG-250 ML 8 mg in 250 mls @ 3.75 mls/hr 04/10/21 01:00 04/10/21 20:30 Norepinephrine/Ns 8 Mg-250 Ml (Double Conc) IV 0 mcg/min TITRATE JAROD 0 mls/hr Titration Protocol 2 MCG/MIN Insulin Human Lispro 0 unit 04/10/21 06:00 04/15/21 13:38 Insulin Lispro 100 Unit/Ml SUB-Q Not Given Q6HR [facility] Protocol Lansoprazole 30 mg 04/16/21 10:00 Lansoprazole 30 Mg Solutab FEEDTUBE QDAY [facility] Multi-Ingred Cream/Lotion/Oil/Oint 1 applic 04/11/21 18:00 04/15/21 13:38 Mineral Oil/Petrolatum, White Ophth Oint 3.5 Gm OU 1 applic Q6HR JAROD Administration Nitroglycerin 0.4 mg 04/10/21 05:52 Nitroglycerin 0.4 Mg Tab Subl SL Q5M PRN Chest Pain Ondansetron HCl 4 mg 04/13/21 13:00 Ondansetron 4 Mg/2 Ml Inj IV Q4H PRN Nausea And Vomiting Simple Syrup 15 ml 04/11/21 13:58 Simple Syrup 15 Ml FEEDTUBE PRN PRN Hypoglycemia Simple Syrup 30 ml 04/11/21 13:58 Simple Syrup 15 Ml FEEDTUBE PRN PRN Hypoglycemia Sodium Bicarbonate 325 mg 04/11/21 13:58 04/13/21 21:30 Sodium Bicarbonate 325 Mg Tab FEEDTUBE 325 mg PRN PRN Administration For Clogged Feeding Tube Sodium Bicarbonate 650 mg 04/13/21 14:00 04/15/21 13:37 Sodium Bicarbonate 650 Mg Tab PO 650 mg TID JAROD Administration Sodium Chloride 10 ml 04/10/21 05:52 04/15/21 09:25 Sodium Chloride 0.9% 10 Ml Flush Syringe IV 10 ml PRN PRN Administration LINE FLUSH Nutrition/Malnutrition Assess - Dietary Evaluation Nutrition/Malnutrition Findings: Nutrition Notes Start: 04/10/21 10:22 Freq: Status: Active Protocol: Document 04/15/21 14:45 LEELEE (Rec: 04/15/21 15:00 LEELEE [id number]) Nutrition Notes Initial or Follow up Reassessment Current Diagnosis Acute Kidney Injury,Diabetes, Hypertension,Heart Failure, Respiratory Failure,Stroke Other Pertinent Diagnosis s/p cardiac arrest, ?anoxic brain injury, pneu, anemia Current Diet TF - Nepro at 39ml/hr Labs/Tests BUN 81 Cr 3.8 Pertinent Medications Lasix, Na bicarb Height 5 ft 6 in Weight 91.8 kg [place] Body Weight (kg) 59.09 BMI 32.6 Weight Status Obese Subjective/Other Information Observed TF infusing at goal rate. Per RN, pt tolerating TF; pt remains on vent support . Per nephrology, no emergent need for renal replacement therapy at this time. Percent of energy/protein needs met: 100% energy/pro Burn Absent Trauma Absent #1 Nutrition Diagnosis Swallowing difficulty Diagnosis Progress(for reassessment Continues documentation) Is patient on ventilator? Yes Is Patient Ambulatory and/or Out of Bed No REE-([facility] [place]-confined to bed) 1733.604 Kcal/Kg value to use for calculation 14 Approximate Energy Requirements Using 1285 kcal/Kg Calculation Used for Recommendations Kcal/kg Additional Notes Pro needs 0.8-1.2g/kg adjBW: 60-91g/day Fluid needs per MD. Nutrition Intervention Nutrition Support: Continue Nepro at 39ml/hr with 170ml water flush q4h. Kcal 1,685 Protein (gm) 76 Carbohydrates (gm) 151 Fat (gm) 90 Fluid (mL) 680 Fiber (gm) 12 Goal #1 TF tolerance Goal #2 TF to meet at least 75% energy and pro needs Follow-Up By: 04/25/21 Additional Comments F/U: stable TF, vent status, renal function, wt <SHAY LOTT - Last Filed: 04/16/21 10:19> Assessment and Plan Assessment and plan: I saw and evaluated the patient. Discussed with the nurse practitioner and agree with their findings and plan as documented in this note. Hospitalist Physical - Constitutional Vitals: Temp Pulse Resp BP Pulse Ox 99.7 F H 102 H 25 H 115/55 95 04/16/21 07:34 04/16/21 09:24 04/16/21 07:00 04/16/21 09:24 04/16/21 07:54 HEART Score - HEART Score Troponin: Troponin T 1.060 ng/mL (0.00-0.029) H* 04/10/21 15:24 Results - Labs CBC & Chem 7: 04/13/21 04:30 04/16/21 04:20 Labs: Laboratory Last Values WBC 8.6 K/mm3 (4.5-11.0) 04/13/21 04:30 RBC 3.95 M/mm3 (3.65-5.03) 04/13/21 04:30 Hgb 7.2 gm/dl (10.1-14.3) L 04/13/21 04:30 Hct 23.7 % (30.3-42.9) L 04/13/21 04:30 MCV 60 fl (79-97) L 04/13/21 04:30 MCH 18 pg (28-32) L 04/13/21 04:30 MCHC 30 % (30-34) 04/13/21 04:30 RDW 25.7 % (13.2-15.2) H 04/13/21 04:30 Plt Count 138 K/mm3 (140-440) L 04/13/21 04:30 Add Manual Diff Complete 04/13/21 04:30 Total Counted 100 04/13/21 04:30 Seg Neuts % (Manual) 90.0 % (40.0-70.0) H 04/13/21 04:30 Band Neutrophils % 1.0 % 04/13/21 04:30 Lymphocytes % (Manual) 6.0 % (13.4-35.0) L 04/13/21 04:30 Monocytes % (Manual) 2.0 % (0.0-7.3) 04/13/21 04:30 Eosinophils % (Manual) 1.0 % (0.0-4.3) 04/13/21 04:30 Nucleated RBC % Not Reportable 04/13/21 04:30 Seg Neutrophils # Man 7.7 K/mm3 (1.8-7.7) 04/13/21 04:30 Band Neutrophils # 0.1 K/mm3 04/13/21 04:30 Lymphocytes # (Manual) 0.5 K/mm3 (1.2-5.4) L 04/13/21 04:30 Abs React Lymphs (Man) 0.0 K/mm3 04/13/21 04:30 Monocytes # (Manual) 0.2 K/mm3 (0.0-0.8) 04/13/21 04:30 Eosinophils # (Manual) 0.1 K/mm3 (0.0-0.4) 04/13/21 04:30 Basophils # (Manual) 0.0 K/mm3 (0.0-0.1) 04/13/21 04:30 Metamyelocytes # 0.0 K/mm3 04/13/21 04:30 Myelocytes # 0.0 K/mm3 04/13/21 04:30 Promyelocytes # 0.0 K/mm3 04/13/21 04:30 Blast Cells # 0.0 K/mm3 04/13/21 04:30 WBC Morphology Not Reportable 04/13/21 04:30 WBC Morphology TNR 04/13/21 04:30 Hypersegmented Neuts Not Reportable 04/13/21 04:30 Hyposegmented Neuts Not Reportable 04/13/21 04:30 Hypogranular Neuts Not Reportable 04/13/21 04:30 Smudge Cells Not Reportable 04/13/21 04:30 Toxic Granulation Not Reportable 04/13/21 04:30 Toxic Vacuolation Not Reportable 04/13/21 04:30 Dohle Bodies Not Reportable 04/13/21 04:30 Pelger-Huet Anomaly Not Reportable 04/13/21 04:30 Katie Rods Not Reportable 04/13/21 04:30 Platelet Estimate Not Reportable 04/13/21 04:30 Clumped Platelets Not Reportable 04/13/21 04:30 Plt Clumps, EDTA Not Reportable 04/13/21 04:30 Large Platelets Not Reportable 04/13/21 04:30 Giant Platelets Not Reportable 04/13/21 04:30 Platelet Satelliting Not Reportable 04/13/21 04:30 Plt Morphology Comment Not Reportable 04/13/21 04:30 RBC Morphology Not Reportable 04/13/21 04:30 Dimorphic RBCs Not Reportable 04/13/21 04:30 Polychromasia Few 04/13/21 04:30 Hypochromasia 2+ 04/13/21 04:30 Poikilocytosis 2+ 04/13/21 04:30 Anisocytosis 2+ 04/13/21 04:30 Microcytosis 2+ 04/13/21 04:30 Macrocytosis Not Reportable 04/13/21 04:30 Spherocytes Not Reportable 04/13/21 04:30 Pappenheimer Bodies Not Reportable 04/13/21 04:30 Sickle Cells Not Reportable 04/13/21 04:30 Target Cells Not Reportable 04/13/21 04:30 Tear Drop Cells Not Reportable 04/13/21 04:30 Ovalocytes Not Reportable 04/13/21 04:30 Helmet Cells Not Reportable 04/13/21 04:30 [place] Bodies Not Reportable 04/13/21 04:30 Stanley Rings Not Reportable 04/13/21 04:30 Marika Cells Not Reportable 04/13/21 04:30 Bite Cells Not Reportable 04/13/21 04:30 Crenated Cell Not Reportable 04/13/21 04:30 Elliptocytes 1+ 04/13/21 04:30 Acanthocytes (Spur) Not Reportable 04/13/21 04:30 Rouleaux Not Reportable 04/13/21 04:30 Hemoglobin C Crystals Not Reportable 04/13/21 04:30 Schistocytes Not Reportable 04/13/21 04:30 Malaria parasites Not Reportable 04/13/21 04:30 Jabari Bodies Not Reportable 04/13/21 04:30 Hem Pathologist Commnt No 04/13/21 04:30 PT 33.6 Sec. (12.2-14.9) H 04/13/21 04:30 INR 3.01 (0.87-1.13) H 04/13/21 04:30 APTT 49.7 Sec. (24.2-36.6) H 04/10/21 00:36 ABG pH 7.491 pH Units (7.350-7.450) H 04/16/21 05:23 POC ABG pCO2 30.9 mmHg (32.0-48.0) L 04/14/21 Unknown ABG pCO2 30.9 mm Hg 04/16/21 05:23 POC ABG pO2 64.5 mmHg (83-108) L 04/14/21 Unknown ABG pO2 84.2 mm Hg (80.0-90.0) 04/16/21 05:23 POC ABG HCO3 21.8 04/14/21 Unknown ABG HCO3 23.1 mmol/L (20.0-26.0) 04/16/21 05:23 ABG O2 Saturation 97.3 % (95.0-99.0) 04/16/21 05:23 ABG O2 Content 11.8 (0.0-44) 04/16/21 05:23 POC ABG Base Excess -1.4 04/14/21 Unknown ABG Base Excess 0.1 mmol/L (-2.0-3.0) 04/16/21 05:23 ABG Hemoglobin 8.7 gm/dl (12.0-16.0) L 04/16/21 05:23 ABG Oxyhemoglobin 90.7 (94-98) L 04/14/21 Unknown ABG Carboxyhemoglobin 2.1 % (0.0-5.0) 04/16/21 05:23 ABG Methemoglobin 0.5 % (0.0-1.5) 04/16/21 05:23 ABG Sodium 133.1 mmol/L (136.0-145.0) L 04/14/21 Unknown ABG Potassium 4.1 mmol/L (3.40-4.50) 04/14/21 Unknown ABG Chloride 104.0 mmol/L (98-107) 04/14/21 Unknown ABG Glucose 122 mg/dL (65-95) H 04/14/21 Unknown Oxyhemoglobin 94.7 % (95.0-99.0) L 04/16/21 05:23 Carboxyhemoglobin 1.1 (0.5-1.5) 04/14/21 Unknown FiO2 35 % 04/16/21 05:23 FiO2 % 40 04/14/21 Unknown Sodium 139 mmol/L (137-145) 04/16/21 04:20 Potassium 3.8 mmol/L (3.6-5.0) 04/16/21 04:20 Chloride 102.0 mmol/L (98-107) 04/16/21 04:20 Carbon Dioxide 23 mmol/L (22-30) 04/16/21 04:20 Anion Gap 18 mmol/L 04/16/21 04:20 BUN 84 mg/dL (7-17) H 04/16/21 04:20 Creatinine 4.0 mg/dL (0.6-1.2) H 04/16/21 04:20 Estimated GFR 11 ml/min 04/16/21 04:20 BUN/Creatinine Ratio 21 % 04/16/21 04:20 Glucose 122 mg/dL (65-100) H 04/16/21 04:20 POC Glucose 131 mg/dL (70-105) H 04/16/21 05:32 Lactic Acid 1.90 mmol/L (0.7-2.0) 04/10/21 15:12 Calcium 8.3 mg/dL (8.4-10.2) L 04/16/21 04:20 Phosphorus 5.10 mg/dL (2.5-4.5) H 04/11/21 04:20 Magnesium 1.70 mg/dL (1.7-2.3) 04/10/21 09:53 Total Bilirubin 1.00 mg/dL (0.1-1.2) 04/12/21 04:10 AST 282 units/L (5-40) H 04/12/21 04:10 ALT 413 units/L (7-56) H 04/12/21 04:10 Alkaline Phosphatase 117 units/L (35-129) 04/12/21 04:10 Total Creatine Kinase 456 units/L (30-135) H 04/10/21 09:53 CK-MB (CK-2) 23.8 ng/mL (0.0-4.0) H 04/10/21 09:53 CK-MB (CK-2) Rel Index 5.2 (0-4) H 04/10/21 09:53 Troponin T 1.060 ng/mL (0.00-0.029) H* 04/10/21 15:24 Total Protein 5.2 g/dL (6.3-8.2) L 04/12/21 04:10 Albumin 2.6 g/dL (3.9-5) L 04/12/21 04:10 Albumin/Globulin Ratio 1.0 % 04/12/21 04:10 Triglycerides 67 mg/dL (2-149) 04/10/21 00:36 Cholesterol 77 mg/dL (50-199) 04/10/21 00:36 LDL Cholesterol Direct 42 mg/dL (50-130) L 04/10/21 00:36 HDL Cholesterol 30 mg/dL (40-59) L 04/10/21 00:36 Cholesterol/HDL Ratio 2.56 % 04/10/21 00:36 Vitamin B12 1488 pg/mL (211-911) H 04/12/21 10:41 TSH 0.390 mlU/mL (0.270-4.200) 04/12/21 10:41 Free T4 0.91 ng/dL (0.76-1.46) 04/12/21 10:41 Free T3 Index 1.1 pg/mL (2.3-4.2) L 04/12/21 10:41 Arterial Blood Glucose 122 mg/dL (65-95) H 04/14/21 Unknown Arterial Blood Ionized Calcium 4.3 mg/dL (4.6-5.3) L 04/14/21 Unknown Urine Color Cheryle (Yellow) 04/11/21 06:30 Urine Turbidity Cloudy (Clear) 04/11/21 06:30 Urine pH 5.0 (5.0-7.0) 04/11/21 06:30 Ur Specific Sims 1.013 (1.003-1.030) 04/11/21 06:30 Urine Protein 100 mg/dl mg/dL (Negative) 04/11/21 06:30 Urine Glucose (UA) Neg mg/dL (Negative) 04/11/21 06:30 Urine Ketones Neg mg/dL (Negative) 04/11/21 06:30 Urine Blood Mod (Negative) 04/11/21 06:30 Urine Nitrite Neg (Negative) 04/11/21 06:30 Urine Bilirubin Neg (Negative) 04/11/21 06:30 Urine Urobilinogen < 2.0 mg/dL (<2.0) 04/11/21 06:30 Ur Leukocyte Esterase Sm (Negative) 04/11/21 06:30 Urine WBC (Auto) 93.0 /HPF (0.0-6.0) H 04/11/21 06:30 Urine RBC (Auto) > 182.0 /HPF (0.0-6.0) 04/11/21 06:30 U Epithel Cells (Auto) 52.0 /HPF (0-13.0) H 04/11/21 06:30 Urine Bacteria (Auto) 1+ /HPF (Negative) 04/11/21 06:30 Hyaline Casts 30 /LPF 04/11/21 06:30 Urine Mucus Few /HPF 04/11/21 06:30 Urine Eosinophils Few (None Seen) 04/11/21 06:30 Urine Creatinine 119.6 mg/dL (0.1-20.0) H 04/11/21 06:30 Protein/Creatinin Ratio 0.98 04/11/21 06:30 Urine Sodium 26 mmol/L 04/11/21 06:30 Urine Total Protein 117 mg/dL (5-11.8) H 04/11/21 06:30 Nasal Screen MRSA (PCR) Negative (Negative) 04/10/21 20:30 Random Vancomycin 19.0 ug/mL (0-40.0) 04/13/21 04:30 Blood Type O POSITIVE 04/10/21 00:36 Antibody Screen Negative 04/10/21 00:36 Lentz/IV: Voiding Method Indwelling Catheter Active Medications - Current Medications Current Medications: Generic Name Dose Route Start Last Admin Trade Name Freq PRN Reason Stop Dose Admin Acetaminophen 650 mg 04/10/21 05:52 04/12/21 07:50 Acetaminophen 325 Mg Tab PO 650 mg Q6H PRN Administration Pain, Mild (1-3) Lipase/Protease/Amylase 1 each 04/11/21 13:58 Lipase 10,500/Protease 25,000/Amylase 43,750 (Units) Dr Ramos FEEDTANGY PRN PRN For Clogged Feeding Tube Aspirin 81 mg 04/11/21 10:00 04/16/21 09:24 Aspirin 81 Mg Tab Chew PO 81 mg QDAY JAROD Administration Atorvastatin Calcium 40 mg 04/10/21 22:00 04/15/21 21:12 Atorvastatin 40 Mg Tab PO 40 mg QHS JAROD Administration Dextrose 50 ml 04/10/21 15:31 Dextrose 50% In Water (25gm) 50 Ml Syringe IV Q30MIN PRN Hypoglycemia Protocol Diltiazem HCl 30 mg 04/12/21 11:00 04/16/21 09:24 Diltiazem 30 Mg Tab PO 30 mg BID JAROD Administration Diphenhydramine HCl 25 mg 04/12/21 10:00 04/16/21 09:25 Diphenhydramine 50 Mg/Ml Vial IV 25 mg Q6H JAROD Administration Furosemide 40 mg 04/13/21 18:00 04/16/21 05:56 Furosemide 40 Mg/4 Ml Inj IV 40 mg 0600,1800 JAROD Administration Hydromorphone HCl 0.5 mg 04/13/21 12:55 Hydromorphone 1 Mg/1 Ml Inj IV Q8H PRN Pain , Severe (7-10) NORepinephrine/NS 8 MG-250 ML 8 mg in 250 mls @ 3.75 mls/hr 04/10/21 01:00 04/10/21 20:30 Norepinephrine/Ns 8 Mg-250 Ml (Double Conc) IV 0 mcg/min TITRATE JAROD 0 mls/hr Titration Protocol 2 MCG/MIN Insulin Human Lispro 0 unit 04/10/21 06:00 04/16/21 05:43 Insulin Lispro 100 Unit/Ml SUB-Q Not Given Q6HR JAROD Protocol Lansoprazole 30 mg 04/16/21 10:00 04/16/21 09:25 Lansoprazole 30 Mg Solutab FEEDTUBE 30 mg QDAY JAROD Administration Multi-Ingred Cream/Lotion/Oil/Oint 1 applic 04/11/21 18:00 04/16/21 05:56 Mineral Oil/Petrolatum, White Ophth Oint 3.5 Gm OU 1 applic Q6HR JAROD Administration Nitroglycerin 0.4 mg 04/10/21 05:52 Nitroglycerin 0.4 Mg Tab Subl SL Q5M PRN Chest Pain Ondansetron HCl 4 mg 04/13/21 13:00 Ondansetron 4 Mg/2 Ml Inj IV Q4H PRN Nausea And Vomiting Simple Syrup 15 ml 04/11/21 13:58 Simple Syrup 15 Ml FEEDTUBE PRN PRN Hypoglycemia Simple Syrup 30 ml 04/11/21 13:58 Simple Syrup 15 Ml FEEDTUBE PRN PRN Hypoglycemia Sodium Bicarbonate 325 mg 04/11/21 13:58 04/13/21 21:30 Sodium Bicarbonate 325 Mg Tab FEEDTUBE 325 mg PRN PRN Administration For Clogged Feeding Tube Sodium Bicarbonate 650 mg 04/13/21 14:00 04/16/21 09:24 Sodium Bicarbonate 650 Mg Tab PO 650 mg TID JAROD Administration Sodium Chloride 10 ml 04/10/21 05:52 04/16/21 09:25 Sodium Chloride 0.9% 10 Ml Flush Syringe IV 10 ml PRN PRN Administration LINE FLUSH Nutrition/Malnutrition Assess - Dietary Evaluation Nutrition/Malnutrition Findings: Nutrition Notes Start: 04/10/21 10:22 Freq: Status: Active Protocol: Document 04/15/21 14:45 LEELEE (Rec: 04/15/21 15:00 [facility] [id number]) Nutrition Notes Initial or Follow up Reassessment Current Diagnosis Acute Kidney Injury,Diabetes, Hypertension,Heart Failure, Respiratory Failure,Stroke Other Pertinent Diagnosis s/p cardiac arrest, ?anoxic brain injury, pneu, anemia Current Diet TF - Nepro at 39ml/hr Labs/Tests BUN 81 Cr 3.8 Pertinent Medications Lasix, Na bicarb Height 5 ft 6 in Weight 91.8 kg [place] Body Weight (kg) 59.09 BMI 32.6 Weight Status Obese Subjective/Other Information Observed TF infusing at goal rate. Per RN, pt tolerating TF; pt remains on vent support . Per nephrology, no emergent need for renal replacement therapy at this time. Percent of energy/protein needs met: 100% energy/pro Burn Absent Trauma Absent #1 Nutrition Diagnosis Swallowing difficulty Diagnosis Progress(for reassessment Continues documentation) Is patient on ventilator? Yes Is Patient Ambulatory and/or Out of Bed No REE-([facility] [place]-confined to bed) [phone] Kcal/Kg value to use for calculation 14 Approximate Energy Requirements Using 1285 kcal/Kg Calculation Used for Recommendations Kcal/kg Additional Notes Pro needs 0.8-1.2g/kg adjBW: 60-91g/day Fluid needs per MD. Nutrition Intervention Nutrition Support: Continue Nepro at 39ml/hr with 170ml water flush q4h. Kcal 1,685 Protein (gm) 76 Carbohydrates (gm) 151 Fat (gm) 90 Fluid (mL) 680 Fiber (gm) 12 Goal #1 TF tolerance Goal #2 TF to meet at least 75% energy and pro needs Follow-Up By: 04/25/21 Additional Comments F/U: stable TF, vent status, renal function, wt
[2021-04-16] MEDS: INSULIN LISPRO 100 UNIT/ML SUB-Q SCH ×2 (00:01→05:43)
[2021-04-16] MEDS: MINERAL OIL/PETROLATUM, WHITE OPHTH OINT 3.5 GM OU SCH ×2 (00:02→05:56)
[2021-04-16] MEDS: diphenhydrAMINE 50 MG/ML VIAL IV SCH ×2 (03:51→09:25)
[2021-04-16 05:28] LABS: Calcium 8.3 mg/dL (8.4-10.2)
[2021-04-16] MEDS: FUROSEMIDE 40 MG/4 ML INJ IV SCH (05:56)
[2021-04-16 06:01] LABS: ABG Base Excess 0.1 mmol/L (-2.0-3.0); ABG HCO3 23.1 mmol/L (20.0-26.0); ABG Methemoglobin 0.5 % (0.0-1.5); ABG Oxygen Saturation 97.3 % (95.0-99.0); ABG PCO2 30.9 mm Hg; ABG PH 7.491 pH Units (7.350-7.450); ABG PO2 84.2 mm Hg (80.0-90.0)
[2021-04-16] MEDS: SODIUM BICARBONATE 650 MG TAB PO SCH (09:24)
[2021-04-16] MEDS: ASPIRIN 81 MG TAB CHEW PO SCH (09:24)
[2021-04-16] MEDS: dilTIAZem 30 MG TAB PO SCH (09:24)
[2021-04-16] MEDS ORDERED: LANSOPRAZOLE 30 MG SOLUTAB FEEDTUBE SCH (10:00)
--- NOTE | 2021-04-16 10:05 | Progress Note ---
Assessment and Plan Acute Renal Failure likely secondary to Ischemic ATN Respiratory Failure Cardiopulmonary arrest Bilateral pneumonia Congestive heart failure Atrial fibrillation Metabolic acidosis Diabetes Mellitus Plan: Cr cont to fluctuate, non-oliguric no indication for [employer] for now, planning for hospice Renally dose medications Avoid nephrotoxic agents Monitor I/O's daily Obtain daily weights Monitor renal function closely Subjective Date of service: 04/16/21 Principal diagnosis: Post cardiac arrest Interval history: patient is intubated Objective - Vital Signs Vital signs: Vital Signs - 12hr 04/15/21 04/15/21 04/15/21 23:00 23:04 23:10 Temperature 98.6 F Pulse Rate 84 95 H 92 H Respiratory 25 H 23 Rate Blood Pressure 117/63 117/63 O2 Sat by Pulse 94 95 Oximetry 04/16/21 04/16/21 04/16/21 00:00 00:25 01:00 Temperature Pulse Rate 105 H 83 86 Respiratory 22 25 H Rate Blood Pressure 117/63 154/58 109/55 O2 Sat by Pulse 92 94 94 Oximetry 04/16/21 04/16/21 04/16/21 02:00 03:00 03:51 Temperature 98.6 F Pulse Rate 80 94 H 102 H Respiratory 24 25 H Rate Blood Pressure 112/48 113/52 O2 Sat by Pulse 94 94 Oximetry 04/16/21 04/16/21 04/16/21 04:00 04:50 05:00 Temperature Pulse Rate 101 H 83 80 Respiratory 25 H 25 H Rate Blood Pressure 113/52 130/55 129/57 O2 Sat by Pulse 94 94 91 Oximetry 04/16/21 04/16/21 04/16/21 06:00 07:00 07:34 Temperature 99.7 F H Pulse Rate 85 83 Respiratory 15 25 H Rate Blood Pressure 114/48 116/54 O2 Sat by Pulse 94 95 Oximetry 04/16/21 04/16/21 07:54 09:24 Temperature Pulse Rate 94 H 102 H Respiratory Rate Blood Pressure 116/54 115/55 O2 Sat by Pulse 95 Oximetry - Lab 04/13/21 04:30 04/16/21 04:20 Most recent lab results ABG pH 7.491 pH Units (7.350-7.450) H 04/16/21 05:23 ABG pCO2 30.9 mm Hg 04/16/21 05:23 ABG pO2 84.2 mm Hg (80.0-90.0) 04/16/21 05:23 ABG HCO3 23.1 mmol/L (20.0-26.0) 04/16/21 05:23 ABG O2 Saturation 97.3 % (95.0-99.0) 04/16/21 05:23 Calcium 8.3 mg/dL (8.4-10.2) L 04/16/21 04:20 Phosphorus 5.10 mg/dL (2.5-4.5) H 04/11/21 04:20 Magnesium 1.70 mg/dL (1.7-2.3) 04/10/21 09:53 Urine Creatinine 119.6 mg/dL (0.1-20.0) H 04/11/21 06:30 Urine Sodium 26 mmol/L 04/11/21 06:30 Urine Total Protein 117 mg/dL (5-11.8) H 04/11/21 06:30 Medications & Allergies - Medications Allergies/Adverse Reactions: Allergies hydrochlorothiazide Allergy (Mild, Verified 04/10/21 09:46) Hives linezolid Allergy (Mild, Verified 04/10/21 09:46) Hives Sulfa (Sulfonamide Antibiotics) Allergy (Mild, Verified 04/10/21 09:46) Hives azithromycin Allergy (Verified 04/10/21 09:46) Hives ciprofloxacin [From Cipro] Allergy (Verified 04/10/21 09:46) Hives docusate Allergy (Verified 04/10/21 09:46) Hives ferrous gluconate Allergy (Verified 04/10/21 09:46) Hives hydralazine Allergy (Verified 04/10/21 09:46) Hives Penicillins Allergy (Verified 04/10/21 07:34) Unknown ketorolac tromethamine Allergy (Mild, Uncoded 04/10/21 07:35) Hives Active Medications: Generic Name Dose Route Start Last Admin Trade Name Freq PRN Reason Stop Dose Admin Acetaminophen 650 mg 04/10/21 05:52 04/12/21 07:50 Acetaminophen 325 Mg Tab PO 650 mg Q6H PRN Administration Pain, Mild (1-3) Lipase/Protease/Amylase 1 each 04/11/21 13:58 Lipase 10,500/Protease 25,000/Amylase 43,750 (Units) Dr Ramos FEEDTUBE PRN PRN For Clogged Feeding Tube Aspirin 81 mg 04/11/21 10:00 04/16/21 09:24 Aspirin 81 Mg Tab Chew PO 81 mg QDAY JAROD Administration Atorvastatin Calcium 40 mg 04/10/21 22:00 04/15/21 21:12 Atorvastatin 40 Mg Tab PO 40 mg QHS JAROD Administration Dextrose 50 ml 04/10/21 15:31 Dextrose 50% In Water (25gm) 50 Ml Syringe IV Q30MIN PRN Hypoglycemia Protocol Diltiazem HCl 30 mg 04/12/21 11:00 04/16/21 09:24 Diltiazem 30 Mg Tab PO 30 mg BID JAROD Administration Diphenhydramine HCl 25 mg 04/12/21 10:00 04/16/21 09:25 Diphenhydramine 50 Mg/Ml Vial IV 25 mg Q6H JAROD Administration Furosemide 40 mg 04/13/21 18:00 04/16/21 05:56 Furosemide 40 Mg/4 Ml Inj IV 40 mg 0600,1800 JAROD Administration Hydromorphone HCl 0.5 mg 04/13/21 12:55 Hydromorphone 1 Mg/1 Ml Inj IV Q8H PRN Pain , Severe (7-10) NORepinephrine/NS 8 MG-250 ML 8 mg in 250 mls @ 3.75 mls/hr 04/10/21 01:00 04/10/21 20:30 Norepinephrine/Ns 8 Mg-250 Ml (Double Conc) IV 0 mcg/min TITRATE JAROD 0 mls/hr Titration Protocol 2 MCG/MIN Insulin Human Lispro 0 unit 04/10/21 06:00 04/16/21 05:43 Insulin Lispro 100 Unit/Ml SUB-Q Not Given Q6HR [facility] Protocol Lansoprazole 30 mg 04/16/21 10:00 04/16/21 09:25 Lansoprazole 30 Mg Solutab FEEDTUBE 30 mg QDAY JAROD Administration Multi-Ingred Cream/Lotion/Oil/Oint 1 applic 04/11/21 18:00 04/16/21 05:56 Mineral Oil/Petrolatum, White Ophth Oint 3.5 Gm OU 1 applic Q6HR JAROD Administration Nitroglycerin 0.4 mg 04/10/21 05:52 Nitroglycerin 0.4 Mg Tab Subl SL Q5M PRN Chest Pain Ondansetron HCl 4 mg 04/13/21 13:00 Ondansetron 4 Mg/2 Ml Inj IV Q4H PRN Nausea And Vomiting Simple Syrup 15 ml 04/11/21 13:58 Simple Syrup 15 Ml FEEDTUBE PRN PRN Hypoglycemia Simple Syrup 30 ml 04/11/21 13:58 Simple Syrup 15 Ml FEEDTUBE PRN PRN Hypoglycemia Sodium Bicarbonate 325 mg 04/11/21 13:58 04/13/21 21:30 Sodium Bicarbonate 325 Mg Tab FEEDTUBE 325 mg PRN PRN Administration For Clogged Feeding Tube Sodium Bicarbonate 650 mg 04/13/21 14:00 04/16/21 09:24 Sodium Bicarbonate 650 Mg Tab PO 650 mg TID JAROD Administration Sodium Chloride 10 ml 04/10/21 05:52 04/16/21 09:25 Sodium Chloride 0.9% 10 Ml Flush Syringe IV 10 ml PRN PRN Administration LINE FLUSH
--- NOTE | 2021-04-16 12:03 | Progress Note ---
Assessment and Plan Assessment and plan: This is a 75-year-old female with CHF, A. fib/a flutter, DM, KIMMIE, HTN, CVA, anemia, Crohn's disease, asthma admitted s/p cardiac arrest Hospital Course to Date: 04/10: Family change CODE STATUS to DNR however family later rescinded DNR. Patient remains a full code. Patient is having elevated triglycerides however cardiology is aware and no orders have been given. Echocardiogram pending. Patient is on vasopressors with Levophed. 04/11: Patient had a nuclear med brain flow study which does not demonstrate a complete absence of brain perfusion however there is decreased brain parenchymal perfusion. Neurology would would like an MRI brain when possible. Nephrology anticipates initiation of hemodialysis within the next 24 to 48 hours. We will continue supportive care. Nutrition consult for tube feeding. 04/12: Patient started on diltiazem, MRI brain pending, B12 and thyroid studies ordered. Patient started on Benadryl given angioedema. She is currently on tub e feedings. worsening renal function noted and IVF stopped d/t pulm htn. Dr. Lott updated family. Patient was febrile overnight 04/13: Family visit with errol Coffey and his . Patient CODE STATUS changed to DO NOT RESUSCITATE by sister over the phone which was witnessed by me and Dr. Lott. Patient noted in SR. 04/14: VIVIENNE overnight, better urine output noted with decrease in bun/cr. 04/15/21- Plan for possible Hospice vs withdrawal of care today. Case management to contact errol. 04/16/21- Patient condition remains unchanged. Possible transfer to Hospice today, pending family's final decision. Assessment and Plan Neuro: Possible anoxic brain injury, h/o CVA -Neurology consulted, appreciate recommendations -CT head on admit unremarkable -On physical exam patient has myoclonus with agonal breathing -EEG with diffuse slowing -Patient is not sedated -Keppra IV-> d/c -Seizure/aspiration precautions -NM brain scan does not show complete absence of cerebral blood flow -MRI B shows cerebal edema Cardiology: S/p cardiac arrest, elevated troponin, h/o atrial fibrillation/atrial flutter, CHF, HTN, CAD -Cardiology consulted, appreciate recommendations -Echocardiogram shows EF 50 to 55%, right ventricle mildly hypokinetic, left atrium severely dilated, severe pulmonary hypertension, RSVP 74 mmHg, Moderate left pleural effusion, Right ventricle moderately dilated -Hold home Coumadin -s/p vassopressor support with Levophed -MAP goal greater than 65 -Blood pressure monitor per protocol -Cardizem per cards Pulmonary: Acute hypoxic respiratory failure, pulm hthn, h/o KIMMIE, asthma -Intubated on 04/10 with 7.50 ETT at 22 at the lips -A.m. vent settings CMV rate 25, tidal 450, PEEP 8, FiO2 35% -See RT notes for titration -A.m. ABG noted -VAP bundle -SPO2 monitoring -Pulmonary/critical care consulted, appreciate recommendations -CT chest shows multiple bilateral rib fractures, trace right pneumothorax, possible pulmonary edema, trace pericardial effusion GI: Transaminitis, h/o Crohn's disease -Nutrition consult for tube feeding -TF -PPI -BR: colace -Trend LFTs : Acute kidney injury 2/2 vasomotor nephropathy, metabolic acidosis -Nephrology consulted, appreciate recommendations -Patient had a CT abdomen/pelvis which showed no remarkable findings with the kidneys -Lasix BID -Renally dose medications -Avoid nephrotoxic medications -Strict intact/output -Daily weights -Trend BMP ID: Pneumonia, lactic acidosis, tracheal aspirate with medhat -Evident on CXR -s/p clindamycin -Monitor fever and WBC curve -Trend lactate -S/p 3 L NS Endo: h/o DM -Accu-Cheks every 6 while n.p.o. -Avoid hypoglycemia -SSI Heme: Leukocytosis (resolved), h/o anemia, supratheraputic INR -ABX therapy -Trend CBC -Transfuse if hemoglobin less than 7 The high probability of a clinically significant, sudden or life threatening deterioration of the [multi] system(s) required my full and direct attention, intervention and personal management. The aggregate critical care time was [40] minutes. This time is in addition to time spent performing reported procedures but includes the following: [x] Data Review and interpretation [x] Patient assessment and monitoring of vital signs [x] Documentation [x] Medication orders and management Disposition Plan: icu Total Time Spent with Patient (Minutes): 40 History Interval history: Patient seen and examined at the bedside. Remains on the vent and unresponsive, not on any sedation. VIVIENNE overnight Hospitalist Physical - Constitutional Vitals: Temp Pulse Resp BP Pulse Ox 99.7 F H 90 20 116/54 91 04/16/21 07:34 04/16/21 10:00 04/16/21 10:00 04/16/21 10:00 04/16/21 10:00 General appearance: Present: no acute distress, other (intubated, unresponsive) - EENT Eyes: Present: irregular pupil - Respiratory Respiratory effort: normal Respiratory: bilateral: diminished - Cardiovascular Rhythm: regular Heart Sounds: Present: S1 & S2 - Extremities Extremities: no ischemia, pulses intact, pulses symmetrical Extremity abnormal: edema - Peripheral Assessment Generalized Edema Type: Non-pitting Edema Degree: 2+ Capillary Refill: < 3 seconds Skin Temperature: Warm Peripheral Pulses: within normal limits - Abdominal General gastrointestinal: soft, non-tender - Integumentary Integumentary: Present: warm, dry - Psychiatric Psychiatric: other (Unresponsive) - Neurologic Neurologic: other (Unresponsive) - Allied Health Allied health notes reviewed: nursing HEART Score - HEART Score Troponin: Troponin T 1.060 ng/mL (0.00-0.029) H* 04/10/21 15:24 Results - Labs CBC & Chem 7: 04/13/21 04:30 04/16/21 04:20 Labs: Laboratory Last Values WBC 8.6 K/mm3 (4.5-11.0) 04/13/21 04:30 RBC 3.95 M/mm3 (3.65-5.03) 04/13/21 04:30 Hgb 7.2 gm/dl (10.1-14.3) L 04/13/21 04:30 Hct 23.7 % (30.3-42.9) L 04/13/21 04:30 MCV 60 fl (79-97) L 04/13/21 04:30 MCH 18 pg (28-32) L 04/13/21 04:30 MCHC 30 % (30-34) 04/13/21 04:30 RDW 25.7 % (13.2-15.2) H 04/13/21 04:30 Plt Count 138 K/mm3 (140-440) L 04/13/21 04:30 Add Manual Diff Complete 04/13/21 04:30 Total Counted 100 04/13/21 04:30 Seg Neuts % (Manual) 90.0 % (40.0-70.0) H 04/13/21 04:30 Band Neutrophils % 1.0 % 04/13/21 04:30 Lymphocytes % (Manual) 6.0 % (13.4-35.0) L 04/13/21 04:30 Monocytes % (Manual) 2.0 % (0.0-7.3) 04/13/21 04:30 Eosinophils % (Manual) 1.0 % (0.0-4.3) 04/13/21 04:30 Nucleated RBC % Not Reportable 04/13/21 04:30 Seg Neutrophils # Man 7.7 K/mm3 (1.8-7.7) 04/13/21 04:30 Band Neutrophils # 0.1 K/mm3 04/13/21 04:30 Lymphocytes # (Manual) 0.5 K/mm3 (1.2-5.4) L 04/13/21 04:30 Abs React Lymphs (Man) 0.0 K/mm3 04/13/21 04:30 Monocytes # (Manual) 0.2 K/mm3 (0.0-0.8) 04/13/21 04:30 Eosinophils # (Manual) 0.1 K/mm3 (0.0-0.4) 04/13/21 04:30 Basophils # (Manual) 0.0 K/mm3 (0.0-0.1) 04/13/21 04:30 Metamyelocytes # 0.0 K/mm3 04/13/21 04:30 Myelocytes # 0.0 K/mm3 04/13/21 04:30 Promyelocytes # 0.0 K/mm3 04/13/21 04:30 Blast Cells # 0.0 K/mm3 04/13/21 04:30 WBC Morphology Not Reportable 04/13/21 04:30 WBC Morphology TNR 04/13/21 04:30 Hypersegmented Neuts Not Reportable 04/13/21 04:30 Hyposegmented Neuts Not Reportable 04/13/21 04:30 Hypogranular Neuts Not Reportable 04/13/21 04:30 Smudge Cells Not Reportable 04/13/21 04:30 Toxic Granulation Not Reportable 04/13/21 04:30 Toxic Vacuolation Not Reportable 04/13/21 04:30 Dohle Bodies Not Reportable 04/13/21 04:30 Pelger-Huet Anomaly Not Reportable 04/13/21 04:30 Katie Rods Not Reportable 04/13/21 04:30 Platelet Estimate Not Reportable 04/13/21 04:30 Clumped Platelets Not Reportable 04/13/21 04:30 Plt Clumps, EDTA Not Reportable 04/13/21 04:30 Large Platelets Not Reportable 04/13/21 04:30 Giant Platelets Not Reportable 04/13/21 04:30 Platelet Satelliting Not Reportable 04/13/21 04:30 Plt Morphology Comment Not Reportable 04/13/21 04:30 RBC Morphology Not Reportable 04/13/21 04:30 Dimorphic RBCs Not Reportable 04/13/21 04:30 Polychromasia Few 04/13/21 04:30 Hypochromasia 2+ 04/13/21 04:30 Poikilocytosis 2+ 04/13/21 04:30 Anisocytosis 2+ 04/13/21 04:30 Microcytosis 2+ 04/13/21 04:30 Macrocytosis Not Reportable 04/13/21 04:30 Spherocytes Not Reportable 04/13/21 04:30 Pappenheimer Bodies Not Reportable 04/13/21 04:30 Sickle Cells Not Reportable 04/13/21 04:30 Target Cells Not Reportable 04/13/21 04:30 Tear Drop Cells Not Reportable 04/13/21 04:30 Ovalocytes Not Reportable 04/13/21 04:30 Helmet Cells Not Reportable 04/13/21 04:30 [place] Bodies Not Reportable 04/13/21 04:30 Stow Rings Not Reportable 04/13/21 04:30 [place] Cells Not Reportable 04/13/21 04:30 Bite Cells Not Reportable 04/13/21 04:30 Crenated Cell Not Reportable 04/13/21 04:30 Elliptocytes 1+ 04/13/21 04:30 Acanthocytes (Spur) Not Reportable 04/13/21 04:30 Rouleaux Not Reportable 04/13/21 04:30 Hemoglobin C Crystals Not Reportable 04/13/21 04:30 Schistocytes Not Reportable 04/13/21 04:30 Malaria parasites Not Reportable 04/13/21 04:30 Jabari Bodies Not Reportable 04/13/21 04:30 Hem Pathologist Commnt No 04/13/21 04:30 PT 33.6 Sec. (12.2-14.9) H 04/13/21 04:30 INR 3.01 (0.87-1.13) H 04/13/21 04:30 APTT 49.7 Sec. (24.2-36.6) H 04/10/21 00:36 ABG pH 7.491 pH Units (7.350-7.450) H 04/16/21 05:23 POC ABG pCO2 30.9 mmHg (32.0-48.0) L 04/14/21 Unknown ABG pCO2 30.9 mm Hg 04/16/21 05:23 POC ABG pO2 64.5 mmHg (83-108) L 04/14/21 Unknown ABG pO2 84.2 mm Hg (80.0-90.0) 04/16/21 05:23 POC ABG HCO3 21.8 04/14/21 Unknown ABG HCO3 23.1 mmol/L (20.0-26.0) 04/16/21 05:23 ABG O2 Saturation 97.3 % (95.0-99.0) 04/16/21 05:23 ABG O2 Content 11.8 (0.0-44) 04/16/21 05:23 POC ABG Base Excess -1.4 04/14/21 Unknown ABG Base Excess 0.1 mmol/L (-2.0-3.0) 04/16/21 05:23 ABG Hemoglobin 8.7 gm/dl (12.0-16.0) L 04/16/21 05:23 ABG Oxyhemoglobin 90.7 (94-98) L 04/14/21 Unknown ABG Carboxyhemoglobin 2.1 % (0.0-5.0) 04/16/21 05:23 ABG Methemoglobin 0.5 % (0.0-1.5) 04/16/21 05:23 ABG Sodium 133.1 mmol/L (136.0-145.0) L 04/14/21 Unknown ABG Potassium 4.1 mmol/L (3.40-4.50) 04/14/21 Unknown ABG Chloride 104.0 mmol/L (98-107) 04/14/21 Unknown ABG Glucose 122 mg/dL (65-95) H 04/14/21 Unknown Oxyhemoglobin 94.7 % (95.0-99.0) L 04/16/21 05:23 Carboxyhemoglobin 1.1 (0.5-1.5) 04/14/21 Unknown FiO2 35 % 04/16/21 05:23 FiO2 % 40 04/14/21 Unknown Sodium 139 mmol/L (137-145) 04/16/21 04:20 Potassium 3.8 mmol/L (3.6-5.0) 04/16/21 04:20 Chloride 102.0 mmol/L (98-107) 04/16/21 04:20 Carbon Dioxide 23 mmol/L (22-30) 04/16/21 04:20 Anion Gap 18 mmol/L 04/16/21 04:20 BUN 84 mg/dL (7-17) H 04/16/21 04:20 Creatinine 4.0 mg/dL (0.6-1.2) H 04/16/21 04:20 Estimated GFR 11 ml/min 04/16/21 04:20 BUN/Creatinine Ratio 21 % 04/16/21 04:20 Glucose 122 mg/dL (65-100) H 04/16/21 04:20 POC Glucose 113 mg/dL (70-105) H 04/16/21 11:32 Lactic Acid 1.90 mmol/L (0.7-2.0) 04/10/21 15:12 Calcium 8.3 mg/dL (8.4-10.2) L 04/16/21 04:20 Phosphorus 5.10 mg/dL (2.5-4.5) H 04/11/21 04:20 Magnesium 1.70 mg/dL (1.7-2.3) 04/10/21 09:53 Total Bilirubin 1.00 mg/dL (0.1-1.2) 04/12/21 04:10 AST 282 units/L (5-40) H 04/12/21 04:10 ALT 413 units/L (7-56) H 04/12/21 04:10 Alkaline Phosphatase 117 units/L (35-129) 04/12/21 04:10 Total Creatine Kinase 456 units/L (30-135) H 04/10/21 09:53 CK-MB (CK-2) 23.8 ng/mL (0.0-4.0) H 04/10/21 09:53 CK-MB (CK-2) Rel Index 5.2 (0-4) H 04/10/21 09:53 Troponin T 1.060 ng/mL (0.00-0.029) H* 04/10/21 15:24 Total Protein 5.2 g/dL (6.3-8.2) L 04/12/21 04:10 Albumin 2.6 g/dL (3.9-5) L 04/12/21 04:10 Albumin/Globulin Ratio 1.0 % 04/12/21 04:10 Triglycerides 67 mg/dL (2-149) 04/10/21 00:36 Cholesterol 77 mg/dL (50-199) 04/10/21 00:36 LDL Cholesterol Direct 42 mg/dL (50-130) L 04/10/21 00:36 HDL Cholesterol 30 mg/dL (40-59) L 04/10/21 00:36 Cholesterol/HDL Ratio 2.56 % 04/10/21 00:36 Vitamin B12 1488 pg/mL (211-911) H 04/12/21 10:41 TSH 0.390 mlU/mL (0.270-4.200) 04/12/21 10:41 Free T4 0.91 ng/dL (0.76-1.46) 04/12/21 10:41 Free T3 Index 1.1 pg/mL (2.3-4.2) L 04/12/21 10:41 Arterial Blood Glucose 122 mg/dL (65-95) H 04/14/21 Unknown Arterial Blood Ionized Calcium 4.3 mg/dL (4.6-5.3) L 04/14/21 Unknown Urine Color Cheryle (Yellow) 04/11/21 06:30 Urine Turbidity Cloudy (Clear) 04/11/21 06:30 Urine pH 5.0 (5.0-7.0) 04/11/21 06:30 Ur Specific [place] 1.013 (1.003-1.030) 04/11/21 06:30 Urine Protein 100 mg/dl mg/dL (Negative) 04/11/21 06:30 Urine Glucose (UA) Neg mg/dL (Negative) 04/11/21 06:30 Urine Ketones Neg mg/dL (Negative) 04/11/21 06:30 Urine Blood Mod (Negative) 04/11/21 06:30 Urine Nitrite Neg (Negative) 04/11/21 06:30 Urine Bilirubin Neg (Negative) 04/11/21 06:30 Urine Urobilinogen < 2.0 mg/dL (<2.0) 04/11/21 06:30 Ur Leukocyte Esterase Sm (Negative) 04/11/21 06:30 Urine WBC (Auto) 93.0 /HPF (0.0-6.0) H 04/11/21 06:30 Urine RBC (Auto) > 182.0 /HPF (0.0-6.0) 04/11/21 06:30 U Epithel Cells (Auto) 52.0 /HPF (0-13.0) H 04/11/21 06:30 Urine Bacteria (Auto) 1+ /HPF (Negative) 04/11/21 06:30 Hyaline Casts 30 /LPF 04/11/21 06:30 Urine Mucus Few /HPF 04/11/21 06:30 Urine Eosinophils Few (None Seen) 04/11/21 06:30 Urine Creatinine 119.6 mg/dL (0.1-20.0) H 04/11/21 06:30 Protein/Creatinin Ratio 0.98 04/11/21 06:30 Urine Sodium 26 mmol/L 04/11/21 06:30 Urine Total Protein 117 mg/dL (5-11.8) H 04/11/21 06:30 Nasal Screen MRSA (PCR) Negative (Negative) 04/10/21 20:30 Random Vancomycin 19.0 ug/mL (0-40.0) 04/13/21 04:30 Blood Type O POSITIVE 04/10/21 00:36 Antibody Screen Negative 04/10/21 00:36 Lentz/IV: Voiding Method Indwelling Catheter Active Medications - Current Medications Current Medications: Generic Name Dose Route Start Last Admin Trade Name Freq PRN Reason Stop Dose Admin Acetaminophen 650 mg 04/10/21 05:52 04/12/21 07:50 Acetaminophen 325 Mg Tab PO 650 mg Q6H PRN Administration Pain, Mild (1-3) Lipase/Protease/Amylase 1 each 04/11/21 13:58 Lipase 10,500/Protease 25,000/Amylase 43,750 (Units) Dr Cap FEEDTUBE PRN PRN For Clogged Feeding Tube Aspirin 81 mg 04/11/21 10:00 04/16/21 09:24 Aspirin 81 Mg Tab Chew PO 81 mg QDAY JAROD Administration Atorvastatin Calcium 40 mg 04/10/21 22:00 04/15/21 21:12 Atorvastatin 40 Mg Tab PO 40 mg QHS JAROD Administration Dextrose 50 ml 04/10/21 15:31 Dextrose 50% In Water (25gm) 50 Ml Syringe IV Q30MIN PRN Hypoglycemia Protocol Diltiazem HCl 30 mg 04/12/21 11:00 04/16/21 09:24 Diltiazem 30 Mg Tab PO 30 mg BID JAROD Administration Diphenhydramine HCl 25 mg 04/12/21 10:00 04/16/21 09:25 Diphenhydramine 50 Mg/Ml Vial IV 25 mg Q6H JAROD Administration Furosemide 40 mg 04/13/21 18:00 04/16/21 05:56 Furosemide 40 Mg/4 Ml Inj IV 40 mg 0600,1800 JAROD Administration Hydromorphone HCl 0.5 mg 04/13/21 12:55 Hydromorphone 1 Mg/1 Ml Inj IV Q8H PRN Pain , Severe (7-10) NORepinephrine/NS 8 MG-250 ML 8 mg in 250 mls @ 3.75 mls/hr 04/10/21 01:00 04/10/21 20:30 Norepinephrine/Ns 8 Mg-250 Ml (Double Conc) IV 0 mcg/min TITRATE JAROD 0 mls/hr Titration Protocol 2 MCG/MIN Insulin Human Lispro 0 unit 04/10/21 06:00 04/16/21 05:43 Insulin Lispro 100 Unit/Ml SUB-Q Not Given Q6HR [facility] Protocol Lansoprazole 30 mg 04/16/21 10:00 04/16/21 09:25 Lansoprazole 30 Mg Solutab FEEDTUBE 30 mg QDAY JAROD Administration Multi-Ingred Cream/Lotion/Oil/Oint 1 applic 04/11/21 18:00 04/16/21 05:56 Mineral Oil/Petrolatum, White Ophth Oint 3.5 Gm OU 1 applic Q6HR JAROD Administration Nitroglycerin 0.4 mg 04/10/21 05:52 Nitroglycerin 0.4 Mg Tab Subl SL Q5M PRN Chest Pain Ondansetron HCl 4 mg 04/13/21 13:00 Ondansetron 4 Mg/2 Ml Inj IV Q4H PRN Nausea And Vomiting Simple Syrup 15 ml 04/11/21 13:58 Simple Syrup 15 Ml FEEDTUBE PRN PRN Hypoglycemia Simple Syrup 30 ml 04/11/21 13:58 Simple Syrup 15 Ml FEEDTUBE PRN PRN Hypoglycemia Sodium Bicarbonate 325 mg 04/11/21 13:58 04/13/21 21:30 Sodium Bicarbonate 325 Mg Tab FEEDTUBE 325 mg PRN PRN Administration For Clogged Feeding Tube Sodium Bicarbonate 650 mg 04/13/21 14:00 04/16/21 09:24 Sodium Bicarbonate 650 Mg Tab PO 650 mg TID JAROD Administration Sodium Chloride 10 ml 04/10/21 05:52 04/16/21 09:25 Sodium Chloride 0.9% 10 Ml Flush Syringe IV 10 ml PRN PRN Administration LINE FLUSH Nutrition/Malnutrition Assess - Dietary Evaluation Nutrition/Malnutrition Findings: Nutrition Notes Start: 04/10/21 10:22 Freq: Status: Active Protocol: Document 04/15/21 14:45 LEELEE (Rec: 04/15/21 15:00 LEELEE [id number]) Nutrition Notes Initial or Follow up Reassessment Current Diagnosis Acute Kidney Injury,Diabetes, Hypertension,Heart Failure, Respiratory Failure,Stroke Other Pertinent Diagnosis s/p cardiac arrest, ?anoxic brain injury, pneu, anemia Current Diet TF - Nepro at 39ml/hr Labs/Tests BUN 81 Cr 3.8 Pertinent Medications Lasix, Na bicarb Height 5 ft 6 in Weight 91.8 kg [place] Body Weight (kg) 59.09 BMI 32.6 Weight Status Obese Subjective/Other Information Observed TF infusing at goal rate. Per RN, pt tolerating TF; pt remains on vent support . Per nephrology, no emergent need for renal replacement therapy at this time. Percent of energy/protein needs met: 100% energy/pro Burn Absent Trauma Absent #1 Nutrition Diagnosis Swallowing difficulty Diagnosis Progress(for reassessment Continues documentation) Is patient on ventilator? Yes Is Patient Ambulatory and/or Out of Bed No REE-([place]-confined to bed) 1733.604 Kcal/Kg value to use for calculation 14 Approximate Energy Requirements Using 1285 kcal/Kg Calculation Used for Recommendations Kcal/kg Additional Notes Pro needs 0.8-1.2g/kg adjBW: 60-91g/day Fluid needs per MD. Nutrition Intervention Nutrition Support: Continue Nepro at 39ml/hr with 170ml water flush q4h. Kcal 1,685 Protein (gm) 76 Carbohydrates (gm) 151 Fat (gm) 90 Fluid (mL) 680 Fiber (gm) 12 Goal #1 TF tolerance Goal #2 TF to meet at least 75% energy and pro needs Follow-Up By: 04/25/21 Additional Comments F/U: stable TF, vent status, renal function, wt
--- NOTE | 2021-04-16 13:02 | Progress Note ---
Assessment and Plan - Patient Problems (1) Acute respiratory failure with hypoxemia Current Visit: Yes Status: Acute (2) Acute renal failure Current Visit: Yes Status: Acute (3) Anoxic brain damage Current Visit: Yes Status: Acute (4) Atrial fibrillation Current Visit: Yes Status: Acute (5) Bilateral pneumonia Current Visit: Yes Status: Acute (6) Cardiopulmonary arrest Current Visit: Yes Status: Acute (7) Congestive heart failure Current Visit: Yes Status: Acute (8) Pulmonary hypertension Current Visit: Yes Status: Chronic Subjective Principal diagnosis: Post cardiac arrest Interval history: family at bedside Objective Vital Signs - 12hr 04/16/21 04/16/21 04/16/21 02:00 03:00 03:51 Temperature 98.6 F Pulse Rate 80 94 H 102 H Respiratory 24 25 H Rate Blood Pressure 112/48 113/52 O2 Sat by Pulse 94 94 Oximetry 04/16/21 04/16/21 04/16/21 04:00 04:50 05:00 Temperature Pulse Rate 101 H 83 80 Respiratory 25 H 25 H Rate Blood Pressure 113/52 130/55 129/57 O2 Sat by Pulse 94 94 91 Oximetry 04/16/21 04/16/21 04/16/21 06:00 07:00 07:34 Temperature 99.7 F H Pulse Rate 85 83 Respiratory 15 25 H Rate Blood Pressure 114/48 116/54 O2 Sat by Pulse 94 95 Oximetry 04/16/21 04/16/21 04/16/21 07:54 08:00 09:00 Temperature Pulse Rate 94 H 94 H 97 H Respiratory 25 H 24 Rate Blood Pressure 116/54 110/52 115/55 O2 Sat by Pulse 95 96 94 Oximetry 04/16/21 04/16/21 04/16/21 09:24 10:00 12:14 Temperature Pulse Rate 102 H 90 93 H Respiratory 20 Rate Blood Pressure 115/55 116/54 119/49 O2 Sat by Pulse 91 94 Oximetry 04/16/21 12:17 Temperature 98.0 F Pulse Rate Respiratory Rate Blood Pressure O2 Sat by Pulse Oximetry Constitutional: other (on vent ac 25 450 8 35%) Eyes: other (sclera edema, injected conjunctiva) ENT: other (intubated, tongue enlarged) Ascultation: Bilateral: diminished breath sounds Cardiovascular: regular rate and rhythm Gastrointestinal: normoactive bowel sounds Integumentary: normal CBC and BMP: 04/13/21 04:30 04/16/21 04:20 ABG, PT/INR, D-dimer: ABG ABG pH 7.491 pH Units (7.350-7.450) H 04/16/21 05:23 POC ABG pCO2 30.9 mmHg (32.0-48.0) L 04/14/21 Unknown ABG pCO2 30.9 mm Hg 04/16/21 05:23 POC ABG pO2 64.5 mmHg (83-108) L 04/14/21 Unknown ABG pO2 84.2 mm Hg (80.0-90.0) 04/16/21 05:23 POC ABG HCO3 21.8 04/14/21 Unknown ABG O2 Saturation 97.3 % (95.0-99.0) 04/16/21 05:23 PT/INR, D-dimer PT 33.6 Sec. (12.2-14.9) H 04/13/21 04:30 INR 3.01 (0.87-1.13) H 04/13/21 04:30 Abnormal lab findings: Abnormal Labs 04/10/21 04/10/21 04/10/21 00:36 00:36 00:36 WBC Hgb 8.6 L Hct MCV 66 L MCH 18 L MCHC 27 L RDW 27.2 H Plt Count Seg Neuts % (Manual) Lymphocytes % (Manual) 42.0 H Nucleated RBC % 9.0 H Seg Neutrophils # Man 0.0 L Lymphocytes # (Manual) 0.0 L PT 44.8 H INR 4.36 H APTT 49.7 H ABG pH POC ABG pCO2 POC ABG pO2 ABG pO2 ABG HCO3 ABG Base Excess ABG Hemoglobin ABG Oxyhemoglobin ABG Sodium ABG Potassium ABG Glucose Oxyhemoglobin Sodium Potassium 5.5 H Chloride 97.2 L Carbon Dioxide 14 L BUN 44 H Creatinine 2.6 H Glucose 47 L POC Glucose Lactic Acid Calcium 7.9 L Phosphorus Total Bilirubin AST ALT Alkaline Phosphatase Total Creatine Kinase 222 H CK-MB (CK-2) 10.3 H CK-MB (CK-2) Rel Index 4.6 H Troponin T 0.721 H* Total Protein Albumin LDL Cholesterol Direct 42 L HDL Cholesterol 30 L Vitamin B12 Free T3 Index Arterial Blood Glucose Arterial Blood Ionized Calcium Urine WBC (Auto) U Epithel Cells (Auto) Urine Creatinine Urine Total Protein 11/03/21 11/03/21 11/03/21 01:28 01:51 03:23 WBC Hgb Hct MCV MCH MCHC RDW Plt Count Seg Neuts % (Manual) Lymphocytes % (Manual) Nucleated RBC % Seg Neutrophils # Man Lymphocytes # (Manual) PT INR APTT ABG pH 7.078 L POC ABG pCO2 52.0 H POC ABG pO2 112.0 H ABG pO2 ABG HCO3 ABG Base Excess ABG Hemoglobin 8.8 L ABG Oxyhemoglobin ABG Sodium ABG Potassium 4.9 H ABG Glucose 44 L Oxyhemoglobin Sodium Potassium Chloride Carbon Dioxide BUN Creatinine Glucose POC Glucose Lactic Acid 10.70 H* Calcium Phosphorus Total Bilirubin AST ALT Alkaline Phosphatase Total Creatine Kinase 308 H CK-MB (CK-2) 14.5 H CK-MB (CK-2) Rel Index 4.7 H Troponin T 0.757 H* Total Protein Albumin LDL Cholesterol Direct HDL Cholesterol Vitamin B12 Free T3 Index Arterial Blood Glucose 44 L Arterial Blood Ionized Calcium Urine WBC (Auto) U Epithel Cells (Auto) Urine Creatinine Urine Total Protein 04/10/21 04/10/21 04/10/21 04:00 04:09 09:53 WBC Hgb Hct MCV MCH MCHC RDW Plt Count Seg Neuts % (Manual) Lymphocytes % (Manual) Nucleated RBC % Seg Neutrophils # Man Lymphocytes # (Manual) PT INR APTT ABG pH 7.305 L POC ABG pCO2 POC ABG pO2 64.3 L ABG pO2 ABG HCO3 ABG Base Excess ABG Hemoglobin 9.6 L ABG Oxyhemoglobin 87.6 L ABG Sodium 135.2 L ABG Potassium 4.8 H ABG Glucose Oxyhemoglobin Sodium Potassium Chloride Carbon Dioxide BUN Creatinine Glucose POC Glucose Lactic Acid 10.20 H* 2.70 H* Calcium Phosphorus Total Bilirubin AST ALT Alkaline Phosphatase Total Creatine Kinase CK-MB (CK-2) CK-MB (CK-2) Rel Index Troponin T Total Protein Albumin LDL Cholesterol Direct HDL Cholesterol Vitamin B12 Free T3 Index Arterial Blood Glucose Arterial Blood Ionized Calcium Urine WBC (Auto) U Epithel Cells (Auto) Urine Creatinine Urine Total Protein 04/10/21 04/10/21 04/10/21 09:53 09:53 15:24 WBC 13.2 H Hgb 8.3 L Hct 27.7 L MCV 62 L MCH 18 L MCHC RDW 26.7 H Plt Count Seg Neuts % (Manual) 83.0 H Lymphocytes % (Manual) 7.0 L Nucleated RBC % 7.0 H Seg Neutrophils # Man 11.0 H Lymphocytes # (Manual) 0.9 L PT INR APTT ABG pH POC ABG pCO2 POC ABG pO2 ABG pO2 ABG HCO3 ABG Base Excess ABG Hemoglobin ABG Oxyhemoglobin ABG Sodium ABG Potassium ABG Glucose Oxyhemoglobin Sodium Potassium Chloride Carbon Dioxide 17 L BUN 54 H Creatinine 2.6 H Glucose 107 H POC Glucose Lactic Acid Calcium 7.1 L Phosphorus 5.90 H Total Bilirubin 1.60 H AST 783 H ALT 679 H Alkaline Phosphatase 141 H Total Creatine Kinase 456 H CK-MB (CK-2) 23.8 H CK-MB (CK-2) Rel Index 5.2 H Troponin T 0.905 H* 1.060 H* Total Protein 5.8 L Albumin 3.0 L LDL Cholesterol Direct HDL Cholesterol Vitamin B12 Free T3 Index Arterial Blood Glucose Arterial Blood Ionized Calcium Urine WBC (Auto) U Epithel Cells (Auto) Urine Creatinine Urine Total Protein 04/11/21 04/11/21 04/11/21 04:20 04:20 05:46 WBC Hgb 8.1 L Hct 26.3 L MCV 60 L MCH 18 L MCHC RDW 27.4 H Plt Count Seg Neuts % (Manual) Lymphocytes % (Manual) Nucleated RBC % Seg Neutrophils # Man Lymphocytes # (Manual) PT INR APTT ABG pH 7.544 H POC ABG pCO2 26.0 L POC ABG pO2 ABG pO2 ABG HCO3 ABG Base Excess ABG Hemoglobin 8.9 L ABG Oxyhemoglobin ABG Sodium 133.3 L ABG Potassium ABG Glucose 134 H Oxyhemoglobin Sodium Potassium Chloride Carbon Dioxide 18 L BUN 62 H Creatinine 3.3 H Glucose 129 H POC Glucose Lactic Acid Calcium 7.1 L Phosphorus 5.10 H Total Bilirubin AST ALT Alkaline Phosphatase Total Creatine Kinase CK-MB (CK-2) CK-MB (CK-2) Rel Index Troponin T Total Protein Albumin LDL Cholesterol Direct HDL Cholesterol Vitamin B12 Free T3 Index Arterial Blood Glucose 134 H Arterial Blood Ionized Calcium 3.8 L Urine WBC (Auto) U Epithel Cells (Auto) Urine Creatinine Urine Total Protein 04/11/21 04/11/21 04/11/21 06:30 06:30 06:48 WBC Hgb Hct MCV MCH MCHC RDW Plt Count Seg Neuts % (Manual) Lymphocytes % (Manual) Nucleated RBC % Seg Neutrophils # Man Lymphocytes # (Manual) PT INR APTT ABG pH POC ABG pCO2 POC ABG pO2 ABG pO2 ABG HCO3 ABG Base Excess ABG Hemoglobin ABG Oxyhemoglobin ABG Sodium ABG Potassium ABG Glucose Oxyhemoglobin Sodium Potassium Chloride Carbon Dioxide BUN Creatinine Glucose POC Glucose 133 H Lactic Acid Calcium Phosphorus Total Bilirubin AST ALT Alkaline Phosphatase Total Creatine Kinase CK-MB (CK-2) CK-MB (CK-2) Rel Index Troponin T Total Protein Albumin LDL Cholesterol Direct HDL Cholesterol Vitamin B12 Free T3 Index Arterial Blood Glucose Arterial Blood Ionized Calcium Urine WBC (Auto) 93.0 H U Epithel Cells (Auto) 52.0 H Urine Creatinine 119.6 H Urine Total Protein 117 H 04/11/21 04/11/21 04/12/21 11:32 23:44 04:10 WBC Hgb 7.6 L Hct 25.2 L MCV 60 L MCH 18 L MCHC RDW 27.0 H Plt Count Seg Neuts % (Manual) Lymphocytes % (Manual) Nucleated RBC % Seg Neutrophils # Man Lymphocytes # (Manual) PT INR APTT ABG pH POC ABG pCO2 POC ABG pO2 ABG pO2 ABG HCO3 ABG Base Excess ABG Hemoglobin ABG Oxyhemoglobin ABG Sodium ABG Potassium ABG Glucose Oxyhemoglobin Sodium Potassium Chloride Carbon Dioxide BUN Creatinine Glucose POC Glucose 114 H 131 H Lactic Acid Calcium Phosphorus Total Bilirubin AST ALT Alkaline Phosphatase Total Creatine Kinase CK-MB (CK-2) CK-MB (CK-2) Rel Index Troponin T Total Protein Albumin LDL Cholesterol Direct HDL Cholesterol Vitamin B12 Free T3 Index Arterial Blood Glucose Arterial Blood Ionized Calcium Urine WBC (Auto) U Epithel Cells (Auto) Urine Creatinine Urine Total Protein 04/12/21 04/12/21 04/12/21 04:10 04:10 05:11 WBC Hgb Hct MCV MCH MCHC RDW Plt Count Seg Neuts % (Manual) Lymphocytes % (Manual) Nucleated RBC % Seg Neutrophils # Man Lymphocytes # (Manual) PT 41.2 H INR 3.92 H APTT ABG pH POC ABG pCO2 POC ABG pO2 ABG pO2 160.1 H ABG HCO3 19.6 L ABG Base Excess -4.5 L ABG Hemoglobin 7.5 L ABG Oxyhemoglobin ABG Sodium ABG Potassium ABG Glucose Oxyhemoglobin Sodium Potassium Chloride Carbon Dioxide 19 L BUN 67 H Creatinine 4.1 H Glucose 111 H POC Glucose Lactic Acid Calcium 7.4 L Phosphorus Total Bilirubin AST 282 H ALT 413 H Alkaline Phosphatase Total Creatine Kinase CK-MB (CK-2) CK-MB (CK-2) Rel Index Troponin T Total Protein 5.2 L Albumin 2.6 L LDL Cholesterol Direct HDL Cholesterol Vitamin B12 Free T3 Index Arterial Blood Glucose Arterial Blood Ionized Calcium Urine WBC (Auto) U Epithel Cells (Auto) Urine Creatinine Urine Total Protein 04/12/21 04/12/21 04/12/21 10:41 10:41 11:42 WBC Hgb Hct MCV MCH MCHC RDW Plt Count Seg Neuts % (Manual) Lymphocytes % (Manual) Nucleated RBC % Seg Neutrophils # Man Lymphocytes # (Manual) PT INR APTT ABG pH POC ABG pCO2 POC ABG pO2 ABG pO2 ABG HCO3 ABG Base Excess ABG Hemoglobin ABG Oxyhemoglobin ABG Sodium ABG Potassium ABG Glucose Oxyhemoglobin Sodium Potassium Chloride Carbon Dioxide BUN Creatinine Glucose POC Glucose 130 H Lactic Acid Calcium Phosphorus Total Bilirubin AST ALT Alkaline Phosphatase Total Creatine Kinase CK-MB (CK-2) CK-MB (CK-2) Rel Index Troponin T Total Protein Albumin LDL Cholesterol Direct HDL Cholesterol Vitamin B12 1488 H Free T3 Index 1.1 L Arterial Blood Glucose Arterial Blood Ionized Calcium Urine WBC (Auto) U Epithel Cells (Auto) Urine Creatinine Urine Total Protein 04/13/21 04/13/21 04/13/21 04:06 04:30 04:30 WBC Hgb 7.2 L Hct 23.7 L MCV 60 L MCH 18 L MCHC RDW 25.7 H Plt Count 138 L Seg Neuts % (Manual) 90.0 H Lymphocytes % (Manual) 6.0 L Nucleated RBC % Seg Neutrophils # Man Lymphocytes # (Manual) 0.5 L PT 33.6 H INR 3.01 H APTT ABG pH POC ABG pCO2 POC ABG pO2 ABG pO2 ABG HCO3 ABG Base Excess -4.0 L ABG Hemoglobin 7.1 L ABG Oxyhemoglobin ABG Sodium ABG Potassium ABG Glucose Oxyhemoglobin 94.6 L Sodium Potassium Chloride Carbon Dioxide BUN Creatinine Glucose POC Glucose Lactic Acid Calcium Phosphorus Total Bilirubin AST ALT Alkaline Phosphatase Total Creatine Kinase CK-MB (CK-2) CK-MB (CK-2) Rel Index Troponin T Total Protein Albumin LDL Cholesterol Direct HDL Cholesterol Vitamin B12 Free T3 Index Arterial Blood Glucose Arterial Blood Ionized Calcium Urine WBC (Auto) U Epithel Cells (Auto) Urine Creatinine Urine Total Protein 04/13/21 04/13/21 04/13/21 04:30 04:58 11:19 WBC Hgb Hct MCV MCH MCHC RDW Plt Count Seg Neuts % (Manual) Lymphocytes % (Manual) Nucleated RBC % Seg Neutrophils # Man Lymphocytes # (Manual) PT INR APTT ABG pH POC ABG pCO2 POC ABG pO2 ABG pO2 ABG HCO3 ABG Base Excess ABG Hemoglobin ABG Oxyhemoglobin ABG Sodium ABG Potassium ABG Glucose Oxyhemoglobin Sodium 136 L Potassium Chloride Carbon Dioxide 19 L BUN 72 H Creatinine 4.3 H Glucose POC Glucose 106 H 115 H Lactic Acid Calcium 7.5 L Phosphorus Total Bilirubin AST ALT Alkaline Phosphatase Total Creatine Kinase CK-MB (CK-2) CK-MB (CK-2) Rel Index Troponin T Total Protein Albumin LDL Cholesterol Direct HDL Cholesterol Vitamin B12 Free T3 Index Arterial Blood Glucose Arterial Blood Ionized Calcium Urine WBC (Auto) U Epithel Cells (Auto) Urine Creatinine Urine Total Protein 04/13/21 04/14/21 04/14/21 23:22 05:25 11:00 WBC Hgb Hct MCV MCH MCHC RDW Plt Count Seg Neuts % (Manual) Lymphocytes % (Manual) Nucleated RBC % Seg Neutrophils # Man Lymphocytes # (Manual) PT INR APTT ABG pH POC ABG pCO2 POC ABG pO2 ABG pO2 ABG HCO3 ABG Base Excess ABG Hemoglobin ABG Oxyhemoglobin ABG Sodium ABG Potassium ABG Glucose Oxyhemoglobin Sodium Potassium Chloride Carbon Dioxide BUN Creatinine Glucose POC Glucose 115 H 120 H 124 H Lactic Acid Calcium Phosphorus Total Bilirubin AST ALT Alkaline Phosphatase Total Creatine Kinase CK-MB (CK-2) CK-MB (CK-2) Rel Index Troponin T Total Protein Albumin LDL Cholesterol Direct HDL Cholesterol Vitamin B12 Free T3 Index Arterial Blood Glucose Arterial Blood Ionized Calcium Urine WBC (Auto) U Epithel Cells (Auto) Urine Creatinine Urine Total Protein 04/14/21 04/14/21 04/14/21 13:10 16:58 23:43 WBC Hgb Hct MCV MCH MCHC RDW Plt Count Seg Neuts % (Manual) Lymphocytes % (Manual) Nucleated RBC % Seg Neutrophils # Man Lymphocytes # (Manual) PT INR APTT ABG pH POC ABG pCO2 POC ABG pO2 ABG pO2 ABG HCO3 ABG Base Excess ABG Hemoglobin ABG Oxyhemoglobin ABG Sodium ABG Potassium ABG Glucose Oxyhemoglobin Sodium 136 L Potassium Chloride Carbon Dioxide 20 L BUN 80 H Creatinine 3.8 H Glucose 132 H POC Glucose 112 H 120 H Lactic Acid Calcium 7.7 L Phosphorus Total Bilirubin AST ALT Alkaline Phosphatase Total Creatine Kinase CK-MB (CK-2) CK-MB (CK-2) Rel Index Troponin T Total Protein Albumin LDL Cholesterol Direct HDL Cholesterol Vitamin B12 Free T3 Index Arterial Blood Glucose Arterial Blood Ionized Calcium Urine WBC (Auto) U Epithel Cells (Auto) Urine Creatinine Urine Total Protein 04/14/21 04/15/21 04/15/21 Unknown 11:30 23:53 WBC Hgb Hct MCV MCH MCHC RDW Plt Count Seg Neuts % (Manual) Lymphocytes % (Manual) Nucleated RBC % Seg Neutrophils # Man Lymphocytes # (Manual) PT INR APTT ABG pH 7.467 H POC ABG pCO2 30.9 L POC ABG pO2 64.5 L ABG pO2 ABG HCO3 ABG Base Excess ABG Hemoglobin 8.6 L ABG Oxyhemoglobin 90.7 L ABG Sodium 133.1 L ABG Potassium ABG Glucose 122 H Oxyhemoglobin Sodium Potassium Chloride Carbon Dioxide BUN 81 H Creatinine 3.8 H Glucose 113 H POC Glucose 113 H Lactic Acid Calcium 7.9 L Phosphorus Total Bilirubin AST ALT Alkaline Phosphatase Total Creatine Kinase CK-MB (CK-2) CK-MB (CK-2) Rel Index Troponin T Total Protein Albumin LDL Cholesterol Direct HDL Cholesterol Vitamin B12 Free T3 Index Arterial Blood Glucose 122 H Arterial Blood Ionized Calcium 4.3 L Urine WBC (Auto) U Epithel Cells (Auto) Urine Creatinine Urine Total Protein 04/16/21 04/16/21 04/16/21 04:20 05:23 05:32 WBC Hgb Hct MCV MCH MCHC RDW Plt Count Seg Neuts % (Manual) Lymphocytes % (Manual) Nucleated RBC % Seg Neutrophils # Man Lymphocytes # (Manual) PT INR APTT ABG pH 7.491 H POC ABG pCO2 POC ABG pO2 ABG pO2 ABG HCO3 ABG Base Excess ABG Hemoglobin 8.7 L ABG Oxyhemoglobin ABG Sodium ABG Potassium ABG Glucose Oxyhemoglobin 94.7 L Sodium Potassium Chloride Carbon Dioxide BUN 84 H Creatinine 4.0 H Glucose 122 H POC Glucose 131 H Lactic Acid Calcium 8.3 L Phosphorus Total Bilirubin AST ALT Alkaline Phosphatase Total Creatine Kinase CK-MB (CK-2) CK-MB (CK-2) Rel Index Troponin T Total Protein Albumin LDL Cholesterol Direct HDL Cholesterol Vitamin B12 Free T3 Index Arterial Blood Glucose Arterial Blood Ionized Calcium Urine WBC (Auto) U Epithel Cells (Auto) Urine Creatinine Urine Total Protein 04/16/21 11:32 WBC Hgb Hct MCV MCH MCHC RDW Plt Count Seg Neuts % (Manual) Lymphocytes % (Manual) Nucleated RBC % Seg Neutrophils # Man Lymphocytes # (Manual) PT INR APTT ABG pH POC ABG pCO2 POC ABG pO2 ABG pO2 ABG HCO3 ABG Base Excess ABG Hemoglobin ABG Oxyhemoglobin ABG Sodium ABG Potassium ABG Glucose Oxyhemoglobin Sodium Potassium Chloride Carbon Dioxide BUN Creatinine Glucose POC Glucose 113 H Lactic Acid Calcium Phosphorus Total Bilirubin AST ALT Alkaline Phosphatase Total Creatine Kinase CK-MB (CK-2) CK-MB (CK-2) Rel Index Troponin T Total Protein Albumin LDL Cholesterol Direct HDL Cholesterol Vitamin B12 Free T3 Index Arterial Blood Glucose Arterial Blood Ionized Calcium Urine WBC (Auto) U Epithel Cells (Auto) Urine Creatinine Urine Total Protein
--- NOTE | 2021-04-16 13:15 | Discharge Summary ---
<SANDI KU - Last Filed: 04/16/21 15:36> Providers - Providers Date of Admission: 04/10/21 05:26 Date of discharge: 04/16/21 Attending physician: ENE CHENG MD 04/10/21 Consult to Cardiac Rehabilitation [CONS] Routine Reason For Exam: Phase I 04/10/21 05:17 Consult to Physician [CONS] Stat Comment: Dr. Mcrae spoke with Dr. Doss @ 0515 Consulting Provider: CAT DOSS Physician Instructions: Reason For Exam: Cardiopulmonary arrest 04/10/21 05:53 Consult to Cardiology [CONS] Routine Consulting Provider: FAWAD AMANDA Reason For Exam: Cardiac arrest Consult to Dietitian/Nutrition [CONS] Routine Physician Instructions: tube feeding Reason For Exam: Reason for Consult: Write/Manage Tube Feeding 04/10/21 05:57 Consult to Physician [CONS] Routine Comment: spoke to Dr. Travis/Marii Consulting Provider: OCTAVIO TAPIA Physician Instructions: Reason For Exam: JACKIE 04/10/21 05:58 Consult to Physician [CONS] Routine Comment: [place] [facility] [place] Consulting Provider: GERARDO COHEN Physician Instructions: Reason For Exam: Anoxic brain injury Primary care physician: ROSEANNE PARIKH Hospitalization Reason for admission: S/p Cardiac Arrest Condition: Critical Hospital course: This is a 75-year-old female with CHF, A. fib/a flutter, DM, KIMMIE, HTN, CVA, anemia, Crohn's disease, asthma admitted s/p cardiac arrest Hospital Course to Date: 04/10: Family change CODE STATUS to DNR however family later rescinded DNR. Patient remains a full code. Patient is having elevated triglycerides however cardiology is aware and no orders have been given. Echocardiogram pending. Patient is on vasopressors with Levophed. 04/11: Patient had a nuclear med brain flow study which does not demonstrate a complete absence of brain perfusion however there is decreased brain parenchymal perfusion. Neurology would would like an MRI brain when possible. Nephrology anticipates initiation of hemodialysis within the next 24 to 48 hours. We will continue supportive care. Nutrition consult for tube feeding. 04/12: Patient started on diltiazem, MRI brain pending, B12 and thyroid studies ordered. Patient started on Benadryl given angioedema. She is currently on tube feedings. worsening renal function noted and IVF stopped d/t pulm htn. Dr. Lott updated family. Patient was febrile overnight 04/13: Family visit with errol Coffey and his . Patient CODE STATUS changed to DO NOT RESUSCITATE by sister over the phone which was witnessed by me and Dr. Lott. Patient noted in SR. 04/14: VIVIENNE overnight, better urine output noted with decrease in bun/cr. 04/15/21- Plan for possible Hospice vs withdrawal of care today. Case management to contact errol. 04/16/21- Patient condition remains unchanged. Possible transfer to Hospice today, pending COVID swab result. Tentative transportation for 1500. Assessment and Plan Neuro: Possible anoxic brain injury, h/o CVA -Neurology consulted, appreciate recommendations -CT head on admit unremarkable -On physical exam patient has myoclonus with agonal breathing -EEG with diffuse slowing -Patient is not sedated -Keppra IV-> d/c -Seizure/aspiration precautions -NM brain scan does not show complete absence of cerebral blood flow -MRI B shows cerebal edema Cardiology: S/p cardiac arrest, elevated troponin, h/o atrial fibrillation/atrial flutter, CHF, HTN, CAD -Cardiology consulted, appreciate recommendations -Echocardiogram shows EF 50 to 55%, right ventricle mildly hypokinetic, left atrium severely dilated, severe pulmonary hypertension, RSVP 74 mmHg, Moderate left pleural effusion, Right ventricle moderately dilated -Hold home Coumadin -s/p vassopressor support with Levophed -MAP goal greater than 65 -Blood pressure monitor per protocol -Cardizem per cards Pulmonary: Acute hypoxic respiratory failure, pulm hthn, h/o KIMMIE, asthma -Intubated on 04/10 with 7.50 ETT at 22 at the lips -A.m. vent settings CMV rate 25, tidal 450, PEEP 8, FiO2 35% -See RT notes for titration -A.m. ABG noted -VAP bundle -SPO2 monitoring -Pulmonary/critical care consulted, appreciate recommendations -CT chest shows multiple bilateral rib fractures, trace right pneumothorax, possible pulmonary edema, trace pericardial effusion GI: Transaminitis, h/o Crohn's disease -Nutrition consult for tube feeding -TF -PPI -BR: colace -Trend LFTs : Acute kidney injury 2/2 vasomotor nephropathy, metabolic acidosis -Nephrology consulted, appreciate recommendations -Patient had a CT abdomen/pelvis which showed no remarkable findings with the kidneys -Lasix BID -Renally dose medications -Avoid nephrotoxic medications -Strict intact/output -Daily weights -Trend BMP ID: Pneumonia, lactic acidosis, tracheal aspirate with medhat -Evident on CXR -s/p clindamycin -Monitor fever and WBC curve -Trend lactate -S/p 3 L NS Endo: h/o DM -Accu-Cheks every 6 while n.p.o. -Avoid hypoglycemia -SSI Heme: Leukocytosis (resolved), h/o anemia, supratheraputic INR -ABX therapy -Trend CBC -Transfuse if hemoglobin less than 7 The high probability of a clinically significant, sudden or life threatening deterioration of the [multi] system(s) required my full and direct attention, intervention and personal management. The aggregate critical care time was [40] minutes. This time is in addition to time spent performing reported procedures but includes the following: [x] Data Review and interpretation [x] Patient assessment and monitoring of vital signs [x] Documentation [x] Medication orders and management Disposition Plan: icu Total Time Spent with Patient (Minutes): 40 Disposition: 51 HOSPICE/MEDICAL FACILITY Final Discharge Diagnosis (Prints w/discharge instructions): Possible anoxic brain injury. s/p Cardiac Arrest. Acute Hypoxic Respiratory failure Time spent for discharge: 40 Core Measure Documentation - Palliative Care Palliative Care/ Comfort Measures: Hospice Care - Core Measures Any of the following diagnoses?: none Exam - Constitutional Vitals: Temp Pulse Resp BP Pulse Ox 98.0 F 93 H 20 119/49 94 04/16/21 12:17 04/16/21 12:14 04/16/21 10:00 04/16/21 12:14 04/16/21 12:14 General appearance: Present: no acute distress, other (Unresponsive) - EENT Eyes: Present: irregular pupil ENT: oropharyngeal erythema, edentulous - Respiratory Respiratory effort: normal Respiratory: bilateral: diminished - Cardiovascular Rhythm: regular Heart Sounds: Present: S1 & S2 - Extremities Extremities: no ischemia, pulses intact, pulses symmetrical Extremity abnormal: edema - Peripheral Assessment Generalized Edema Type: Non-pitting Edema Degree: 2+ Capillary Refill: < 3 seconds Skin Temperature: Warm Peripheral Pulses: within normal limits - Abdominal General gastrointestinal: Present: soft, non-tender, normal bowel sounds Female genitourinary: Present: deferred - Rectal Rectal Exam: deferred - Integumentary Integumentary: Present: warm, erythema - Musculoskeletal Musculoskeletal: other (MALIK) - Psychiatric Psychiatric: other (Unresponsive) - Neurologic Neurologic: other (Unresponsive) - Allied Health Allied health notes reviewed: nursing Plan Activity: other (Per Hospice facility) Diet: other (Per Hospice facility) Wound: open to air Special Instructions: home hospice Follow up with: ROSEANNE PARIKH MD [Primary Care Provider] - 3-5 Days <ENE CHENG - Last Filed: 04/17/21 06:58> Providers - Providers Date of Admission: 04/10/21 05:26 Attending physician: ENE CHENG MD 04/10/21 Consult to Cardiac Rehabilitation [CONS] Routine Reason For Exam: Phase I 04/10/21 05:17 Consult to Physician [CONS] Stat Comment: Dr. Mcrae spoke with Dr. Doss @ 0515 Consulting Provider: CAT DOSS Physician Instructions: Reason For Exam: Cardiopulmonary arrest 04/10/21 05:53 Consult to Cardiology [CONS] Routine Consulting Provider: FAWAD AMANDA Reason For Exam: Cardiac arrest Consult to Dietitian/Nutrition [CONS] Routine Physician Instructions: tube feeding Reason For Exam: Reason for Consult: Write/Manage Tube Feeding 04/10/21 05:57 Consult to Physician [CONS] Routine Comment: spoke to Dr. Travis/Marii Consulting Provider: OCTAVIO TAPIA Physician Instructions: Reason For Exam: JACKIE 04/10/21 05:58 Consult to Physician [CONS] Routine Comment: [place] [facility] [place] Consulting Provider: GERARDO COHEN Physician Instructions: Reason For Exam: Anoxic brain injury Primary care physician: ROSEANNE PARIKH Hospitalization Hospital course: I saw and evaluated the patient. I agree with the findings and the plan of care as documented in the Nurse Practitioner's~note, with the following corrections and additions. spoke with family extensively, Patients sister and step son. Hospice requested by family. Exam - Constitutional Vitals: Temp Pulse Resp BP Pulse Ox 98.0 F 94 H 26 H 107/60 95 04/16/21 12:17 04/16/21 16:03 04/16/21 15:00 04/16/21 15:00 04/16/21 16:03
--- NOTE | 2021-04-16 14:17 | Progress Note ---
Assessment and Plan Is a 75-year-old female with a past medical history of atrial fibrillation/a flutter(on coumadin as outpatient), HFpEF hypertrophic cardiomyopathy, history of TIA, COPD, diabetes, and Crohn's disease who was brought to the ED by EMS from a local [facility] and cardiac arrest Echo 01/07/2021- LVEF 55 - 60%. LV size is normal. Size assessed without contrast. LV volume assessed with contrast. LV volume is normal. Mild concentric LV hypertrophy. LV wall motion normal. Grade II (moderate) diastolic dysfunction. Elevated left atrial pressure. RV mildly dilated. RV systolic function is normal. LA moderately dilated. Interatrial septum normal. No evidence of patent foramen ovale by color flow Doppler and agitated saline contrast. RA moderately dilated. Moderate tricuspid regurgitation. RV systolic pressure is severely elevated. Echo 04/10/2021-EF 50 to 55%.. Right ventricle mildly hypokinetic. Left atrium severely dilated. Severe pulmonary hypertension. RSVP 74 mmHg. Mild to moderate tricuspid regurgitation. Moderate left pleural effusion. Right ventri rachel moderately dilated Continue cardizem 30mg PO BID for rate control and pulmonary HTN Continue supportive measures Per documentation patient for hospice today Patient seen in conjunction with Dr. Burton who agrees with this plan of care. Will sign off - Patient Problems (1) Anemia Current Visit: Yes Status: Acute (2) Anoxic brain damage Current Visit: Yes Status: Acute (3) Acute renal failure Current Visit: Yes Status: Acute (4) Atrial fibrillation Current Visit: Yes Status: Acute (5) Bilateral pneumonia Current Visit: Yes Status: Acute (6) Cardiopulmonary arrest Current Visit: Yes Status: Acute (7) Diabetes Current Visit: Yes Status: Acute (8) Metabolic acidosis Current Visit: Yes Status: Acute (9) Pneumothorax Current Visit: Yes Status: Acute (10) Pulmonary hypertension Current Visit: Yes Status: Chronic Subjective Date of service: 04/16/21 Principal diagnosis: Post cardiac arrest Interval history: Patient remains intubated and unresponsive sinus 80s on monitor Objective Vital Signs Temp Pulse Resp BP Pulse Ox 04/16/21 12:17 98.0 F 04/16/21 12:14 93 H 119/49 94 04/16/21 10:00 90 20 116/54 91 04/16/21 09:24 102 H 115/55 04/16/21 09:00 97 H 24 115/55 94 04/16/21 08:00 94 H 25 H 110/52 96 04/16/21 07:54 94 H 116/54 95 04/16/21 07:34 99.7 F H 04/16/21 07:00 83 25 H 116/54 95 04/16/21 06:00 85 15 114/48 94 04/16/21 05:00 80 25 H 129/57 91 04/16/21 04:50 83 130/55 94 04/16/21 04:00 101 H 25 H 113/52 94 04/16/21 03:51 102 H 04/16/21 03:00 98.6 F 94 H 25 H 113/52 94 04/16/21 02:00 80 24 112/48 94 04/16/21 01:00 86 25 H 109/55 94 04/16/21 00:25 83 154/58 94 04/16/21 00:00 105 H 22 117/63 92 04/15/21 23:10 92 H 04/15/21 23:04 95 H 23 117/63 95 04/15/21 23:00 98.6 F 84 25 H 117/63 94 04/15/21 22:00 76 24 112/58 94 04/15/21 21:00 94 H 22 131/52 96 04/15/21 20:46 92 H 131/52 97 04/15/21 20:00 85 25 H 131/52 97 04/15/21 19:00 98.8 F 87 25 H 127/62 97 04/15/21 18:00 94 H 21 117/61 96 04/15/21 17:00 93 H 25 H 117/61 95 04/15/21 16:00 83 19 134/55 97 04/15/21 15:00 98.0 F 87 22 134/63 97 - Physical Examination General: Other (Intubated) HEENT: Positive: Normocephaly, Mucus Membranes Moist, Other (contusions on eyes/nose consistent with recent nasal fracture) Neck: Positive: trachea midline Cardiac: Positive: irregularly irregular Lungs: Positive: Ventilated Respirations Neuro: Positive: Other (Unresponsive) Abdomen: Positive: Soft, Active Bowel Sounds Skin: Negative: Rash Musculoskeletal: No Fluid Collection Extremities: Absent: edema - Labs and Meds Comprehensive Metabolic Panel 04/16/21 Range/Units 04:20 Sodium 139 (137-145) mmol/L Potassium 3.8 (3.6-5.0) mmol/L Chloride 102.0 (98-107) mmol/L Carbon Dioxide 23 (22-30) mmol/L BUN 84 H (7-17) mg/dL Creatinine 4.0 H (0.6-1.2) mg/dL Glucose 122 H (65-100) mg/dL Calcium 8.3 L (8.4-10.2) mg/dL - Imaging and Cardiology Echo: report reviewed - Telemetry EKG Rhythm: Atrial Fibrillation - EKG Supraventricular dysrhythmia: atrial fibrillation Repolarization changes or abnormalities: nonspecific abnormality, ST segment, and/or T wave
[2021-04-16 15:48] VITALS: BP 107/60
== END 2021-04-16 16:10 | disposition hospice, inpatient (51) | DRG 207 ==
LOC: ED 00:12 → CC1 05:26
PROVIDERS: ADMIT Hospitalist; ATTEND Internal Medicine
PROC: 5A1955Z Respiratory Ventilation, Greater than 96 Consecutive Hours (ICD-10-PCS; principal; 2021-04-10)
PROC: 0BH17EZ Insertion of Endotracheal Airway into Trachea, Via Natural or Artificial Opening (ICD-10-PCS; 2021-04-10)
PROC: 5A12012 Performance of Cardiac Output, Single, Manual (ICD-10-PCS; 2021-04-10)
PROC: 02HV33Z Insertion of Infusion Device into Superior Vena Cava, Percutaneous Approach (ICD-10-PCS; 2021-04-10)
PROC: B548ZZA Ultrasonography of Superior Vena Cava, Guidance (ICD-10-PCS; 2021-04-10)
PROC: 4A033R1 Measurement of Arterial Saturation, Peripheral, Percutaneous Approach (ICD-10-PCS; 2021-04-10)
DX: J96.01 Acute respiratory failure with hypoxia (principal); J18.8 Other pneumonia, unspecified organism; I46.9 Cardiac arrest, cause unspecified; N17.0 Acute kidney failure with tubular necrosis; E87.2 Acidosis; J93.9 Pneumothorax, unspecified; K50.90 Crohn's disease, unspecified, without complications; G93.1 Anoxic brain damage, not elsewhere classified; Z20.822 Contact with and (suspected) exposure to COVID-19; I11.0 Hypertensive heart disease with heart failure; I50.9 Heart failure, unspecified; E11.9 Type 2 diabetes mellitus without complications; Z66 Do not resuscitate; D64.9 Anemia, unspecified; J44.9 Chronic obstructive pulmonary disease, unspecified; M19.90 Unspecified osteoarthritis, unspecified site; G47.33 Obstructive sleep apnea (adult) (pediatric); E87.5 Hyperkalemia; E83.42 Hypomagnesemia; I27.20 Pulmonary hypertension, unspecified; I48.0 Paroxysmal atrial fibrillation; Z88.0 Allergy status to penicillin; Z88.2 Allergy status to sulfonamides; Z82.49 Family history of ischemic heart disease and other diseases of the circulatory system; Z82.3 Family history of stroke; Z88.8 Allergy status to other drugs, medicaments and biological substances
CPT/HCPCS: 36415; 36600; 70450; 70551; 71045; 71250; 74018; 74176; 78601; 80048; 80053; 80061; 80202; 81001; 82140; 82550; 82553; 82570; 82607; 82803; 82805; 82962; 83735; 84100; 84156; 84300; 84439; 84443; 84481; 84484; 85007; 85025; 85027; 85610; 85730; 86850; 86900; 86901; 87040; 87070; 87086; 87205; 87641; 89050; 90686; 90732; 93005; 93306; 94002; 94003; 95819; G0378; A9512; C9113; J0171; J1200; J1940; J1953; J3370; J7030; J7040; U0003